=== PATIENT | male | born 1965 | race Caucasian/White ===

== ENCOUNTER 2016-10-01 12:01 | Emergency (ER) | payer MEDICAID ==
[2016-10-01] MEDS ORDERED: KETOROLAC 60 MG/2 ML VIAL IM STA (13:27)
[2016-10-01] MEDS ORDERED: KETOROLAC 60 MG/2 ML VIAL ONE (13:31)
== END 2016-10-01 14:35 | disposition home or self-care (01) ==
DX: J01.20 Acute ethmoidal sinusitis, unspecified (principal); I10 Essential (primary) hypertension; F17.200 Nicotine dependence, unspecified, uncomplicated

== ENCOUNTER 2016-10-03 | Outpatient (CLI) | payer MEDICAID | END 2016-10-03 13:34 | disposition critical access hospital (66) | DX: R45.851 Suicidal ideations (principal) | CPT/HCPCS: A0425; A0429 ==

== ENCOUNTER 2016-10-03 13:54 | Emergency (ER) | payer MEDICAID ==
[2016-10-03] MEDS ORDERED: ACETAMINOPHEN 500 MG TABLET PO STA (15:16)
[2016-10-03] MEDS ORDERED: ACETAMINOPHEN 500 MG TABLET PO ONE (15:19)
== END 2016-10-03 15:52 | disposition home or self-care (01) ==
DX: F33.1 Major depressive disorder, recurrent, moderate (principal); I10 Essential (primary) hypertension; F17.200 Nicotine dependence, unspecified, uncomplicated
CPT/HCPCS: 36415; 80053; 80306; 80320; 83690; 85025; 99283; A9270

== ENCOUNTER 2016-10-11 14:39 | Outpatient (CLI) | payer MEDICAID | END 2016-10-11 14:40 | disposition home or self-care (01) | DX: M19.011 Primary osteoarthritis, right shoulder (principal) ==

== ENCOUNTER 2016-10-11 14:44 | Outpatient (CLI) | payer MEDICAID | END 2016-10-11 14:45 | disposition home or self-care (01) | DX: R03.0 Elevated blood-pressure reading, without diagnosis of hypertension (principal); F32.9 Major depressive disorder, single episode, unspecified; M19.011 Primary osteoarthritis, right shoulder ==

== ENCOUNTER 2017-01-11 11:21 | Emergency (ER) | payer MEDICAID ==
[2017-01-11] MEDS ORDERED: HYDROcod/ACETAM 5/325 MG TABLET PO STA (14:53)
[2017-01-11] MEDS ORDERED: HYDROcod/ACETAM 5/325 MG TABLET ONE (15:23)
== END 2017-01-11 15:39 | disposition home or self-care (01) ==
DX: S46.911A Strain of unspecified muscle, fascia and tendon at shoulder and upper arm level, right arm, initial encounter (principal); X50.1XXA Overexertion from prolonged static or awkward postures, initial encounter; Y93.89 Activity, other specified; Y92.89 Other specified places as the place of occurrence of the external cause; Y99.0 Civilian activity done for income or pay; I10 Essential (primary) hypertension
CPT/HCPCS: 73000; 73030; 99283; A9270

== ENCOUNTER 2017-01-24 12:19 | Emergency (ER) | payer MEDICAID | END 2017-01-24 13:45 | disposition left against medical advice (07) | DX: Z76.0 Encounter for issue of repeat prescription (principal); Z53.21 Procedure and treatment not carried out due to patient leaving prior to being seen by health care provider ==

== ENCOUNTER 2017-01-29 14:27 | Emergency (ER) | payer MEDICAID | END 2017-01-29 14:59 | disposition home or self-care (01) | DX: F32.9 Major depressive disorder, single episode, unspecified (principal); Z76.0 Encounter for issue of repeat prescription; F41.9 Anxiety disorder, unspecified; I10 Essential (primary) hypertension; R44.3 Hallucinations, unspecified; F17.200 Nicotine dependence, unspecified, uncomplicated ==

== ENCOUNTER 2017-02-14 13:07 | Emergency (ER) | payer MEDICAID ==
--- NOTE | 2017-02-14 13:50 | ED Physician Documentation ---
PD HPI MHE - Stated complaint Stated Complaint: MED REFILL - Chief complaint Chief Complaint: General - History obtained from History obtained from: Patient - History of Present Illness Primary symptom: Out of meds (he feels that they have been working for him well. Had gotten Rxs through [facility] but the psychiatrist there is out sick, so could not get meds Rx.) Contributing factors: Out of meds Recently seen: Not recently seen Review of Systems Constitutional: denies: Fever, Chills Psychiatric: reports: Depressed. denies: Suicidal, Homicidal, Delusions PD PAST MEDICAL HISTORY - Past Medical History Cardiovascular: Hypertension Respiratory: None Neuro: None Endocrine/Autoimmune: None GI: None : None HEENT: None Psych: Depression, Other Musculoskeletal: None Derm: None - Past Surgical History Past Surgical History: Yes General: Splenectomy Ortho: Shoulder arthroplasty HEENT: Myringotomy (tubes) - Present Medications Home Medications: Ambulatory Orders Medication Instructions Recorded Confirmed FLUoxetine [PROzac] 40 mg ORAL DAILY 01/29/17 02/14/17 Melatonin 1 mg ORAL QPM 01/29/17 02/14/17 OLANZapine [ZyPREXA] 15 mg ORAL DAILY 01/29/17 02/14/17 Fluoxetine HCl 40 mg PO DAILY #30 capsule 02/14/17 Melatonin 1 mg PO QPM #30 tablet 02/14/17 Olanzapine [Zyprexa] 15 mg PO DAILY #30 tablet 02/14/17 - Allergies Allergies/Adverse Reactions: Allergies Allergy/AdvReac Type Severity Reaction Status Date / Time No Known Drug Allergies Allergy Verified 02/14/17 13:17 - Social History Does the pt smoke?: No Smoking Status: Current every day smoker Does the pt drink ETOH?: No Does the pt have substance abuse?: No - Immunizations Immunizations are current?: Yes Immunizations: TDAP >10years/unknown - POLST Patient has POLST: No PD ED PE NORMAL - Vitals Vital signs reviewed: Yes - General General: Alert and oriented X 3, No acute distress, Well developed/nourished - Derm Derm: Normal color, Warm and dry - Neuro Neuro: Alert and oriented X 3, No motor deficit, Normal speech Results - Vitals Vitals: Vital Signs - 24 hr 02/14/17 02/14/17 13:14 14:18 Temperature 36.8 C Heart Rate 93 88 Respiratory 18 16 Rate Blood Pressure 155/95 H 125/75 O2 Saturation 98 100 Oxygen O2 Source Room air PD MEDICAL DECISION MAKING - ED course Complexity details: reviewed old records, considered differential, d/w patient Departure - Departure Disposition: Home, Self Care Clinical Impression: Medication refill Depression Qualifiers: Depression Type: unspecified Qualified Code(s): F32.9 - Major depressive disorder, single episode, unspecified Insomnia Qualifiers: Insomnia type: unspecified Qualified Code(s): G47.00 - Insomnia, unspecified Condition: Stable Record reviewed to determine appropriate education?: Yes Follow-Up: Jovani Dumont MD [Primary Care Provider] - [facility] [Provider Group] Prescriptions: Fluoxetine HCl 40 mg PO DAILY #30 capsule Melatonin 1 mg PO QPM #30 tablet Olanzapine [Zyprexa] 15 mg PO DAILY #30 tablet Comments: Continue usual medications. Call to make appt with [facility] or [facility] for further refills and continuation of medications. Discharge Date/Time: 02/14/17 14:18
[2017-02-14 14:20] VITALS: BP 125/75
== END 2017-02-14 14:18 | disposition home or self-care (01) ==
LOC: ED 13:07
DX: F32.9 Major depressive disorder, single episode, unspecified (principal); Z76.0 Encounter for issue of repeat prescription; G47.00 Insomnia, unspecified; I10 Essential (primary) hypertension; F17.200 Nicotine dependence, unspecified, uncomplicated
CPT/HCPCS: 99283

== ENCOUNTER 2017-05-20 12:25 | Emergency (ER) | payer MEDICAID ==
[2017-05-20 12:48] LABS: BILIRUBIN,URINE NEGATIVE (NEGATIVE); PH,URINE 5.5 PH (5.0-7.5); UA CHARGE (STRIP ONLY) YES; UR CULTURE IF IND NOT INDICATED
--- NOTE | 2017-05-20 13:21 | ED Physician Documentation ---
History of Present Illness - Stated complaint Stated Complaint: MALE - Chief complaint Chief Complaint: General - History obtained from History obtained from: Patient - History of Present Illness Timing: Other (51-year-old gentleman with a history of recurrent MRSA bladder infections and presumed prostatic hypertrophy. Had seen a urologist in the past and was maintained on Flomax but is not currently. For the last few days she he has had severe suprapubic pressure and urinary frequency despite only urinating small amounts and has had some rectal and testicular pain from the straining of urination. He also feels quite thirsty. No fevers or dysuria per se.) Review of Systems Constitutional: denies: Fever, Chills Cardiac: reports: Reviewed and negative Respiratory: reports: Reviewed and negative GI: denies: Abdominal Pain, Nausea, Vomiting, Constipation, Diarrhea PD PAST MEDICAL HISTORY - Past Medical History Past Medical History: Yes Cardiovascular: Hypertension Respiratory: None Neuro: None Endocrine/Autoimmune: None GI: None : None, Retention HEENT: None Psych: Depression, Other Musculoskeletal: None Derm: None - Past Surgical History Past Surgical History: Yes General: Splenectomy Ortho: Shoulder arthroplasty HEENT: Myringotomy (tubes) - Present Medications Home Medications: Ambulatory Orders Medication Instructions Recorded Confirmed FLUoxetine [PROzac] 40 mg ORAL DAILY 01/29/17 02/14/17 Olanzapine [Zyprexa] 15 mg PO DAILY #30 tablet 02/14/17 Tamsulosin [Flomax] 0.4 mg PO DAILY #30 capsule 05/20/17 - Allergies Allergies/Adverse Reactions: Allergies Allergy/AdvReac Type Severity Reaction Status Date / Time No Known Drug Allergies Allergy Verified 05/20/17 12:34 - Social History Does the pt smoke?: No Smoking Status: Current every day smoker Does the pt drink ETOH?: No Does the pt have substance abuse?: No - Immunizations Immunizations are current?: Yes Immunizations: TDAP >10years/unknown - POLST Patient has POLST: No PD ED PE NORMAL - Vitals Vital signs reviewed: Yes - General General: Alert and oriented X 3, No acute distress - Abdomen Abdomen: Normal bowel sounds, Soft, Other (suprapubic fullness, >999ml on bladder scan done by me during exam.) - Extremities Extremities: No edema, No calf tenderness / cord - Neuro Neuro: Alert and oriented X 3, Normal speech Results - Vitals Vitals: Vital Signs - 24 hr 05/20/17 12:30 Temperature 36.6 C Heart Rate 85 Respiratory 16 Rate Blood Pressure 152/93 H O2 Saturation 99 Oxygen O2 Source Room air - Labs Labs: Laboratory Tests 05/20/17 12:39 Urine Color YELLOW Urine Clarity CLEAR Urine pH 5.5 Ur Specific [place] <=1.005 Urine Protein NEGATIVE Urine Glucose (UA) NEGATIVE Urine Ketones NEGATIVE Urine Occult Blood TRACE-INTA Urine Nitrite NEGATIVE Urine Bilirubin NEGATIVE Urine Urobilinogen 0.2 (NORMAL) Ur Leukocyte Esterase NEGATIVE Ur Microscopic Review NOT INDICATED Urine Culture Comments NOT INDICATED PD MEDICAL DECISION MAKING - ED course ED course: 51-year-old gentleman with history of presumed prostatic hypertrophy, not currently on Flomax presents with signs and symptoms of acute urinary retention. A Hudson was placed. The patient was counseled as to the diagnosis and need for follow-up. I counseled the patient with regard to signs and symptoms that would necessitate an urgent reevaluation in the emergency department. They understand they are welcome to return at any time if worse or if not improving as expected. This document was made in part using voice recognition software. While efforts are made to proofread this documents, sound alike and grammatical errors may occur. Departure - Departure Disposition: 01 Home, Self Care Clinical Impression: Urinary retention Condition: Good Record reviewed to determine appropriate education?: Yes Instructions: ED Catheter Care Hudson, ED Retention Urinary Male Prescriptions: Tamsulosin [Flomax] 0.4 mg PO DAILY #30 capsule Comments: Follow-up with your physician in 3 days for reevaluation and potential catheter removal, return here if unable to schedule a timely appointment with them. Your blood pressure was elevated today on check into the emergency department. This does not mean that you have hypertension, it is a common phenomenon to come to the emergency department and have elevated blood pressure. I recommend that she see her primary care physician within the week to have it rechecked when you are feeling better.
[2017-05-20] MEDS ORDERED: LIDOCAINE 2% URO-JET 5 ML SYRINGE UR STA (14:10)
[2017-05-20] MEDS ORDERED: LIDOCAINE 2% URO-JET 5 ML SYRINGE UR ONE (14:14)
[2017-05-20] MEDS ORDERED: IBUPROFEN 800 MG TABLET PO STA (14:52)
[2017-05-20] MEDS ORDERED: IBUPROFEN 800 MG TABLET PO ONE (15:01)
[2017-05-20 15:19] VITALS: BP 140/84
== END 2017-05-20 15:00 | disposition home or self-care (01) ==
LOC: ED 12:25
DX: R33.9 Retention of urine, unspecified (principal); I10 Essential (primary) hypertension; F17.200 Nicotine dependence, unspecified, uncomplicated; Z86.14 Personal history of Methicillin resistant Staphylococcus aureus infection; Z87.440 Personal history of urinary (tract) infections; Z90.81 Acquired absence of spleen
CPT/HCPCS: 51703; 81003; 99283; A9270; 81001; 87086

== ENCOUNTER 2017-05-23 13:17 | Emergency (ER) | payer MEDICAID ==
[2017-05-23 13:55] VITALS: BP 148/84
== END 2017-05-23 15:39 | disposition left against medical advice (07) ==
LOC: ED 13:17
DX: Z53.21 Procedure and treatment not carried out due to patient leaving prior to being seen by health care provider (principal)

== ENCOUNTER 2017-05-23 16:24 | Emergency (ER) | payer MEDICAID ==
[2017-05-23 16:42] VITALS: BP 120/78
[2017-05-23 17:07] LABS: BILIRUBIN,URINE NEGATIVE (NEGATIVE); UA w/ MICROSCOPIC CHARGE YES
[2017-05-23 17:13] LABS: UR CULTURE IF IND NOT INDICATED; WBC,URINE 0-3 /HPF (0-3)
== END 2017-05-23 16:45 | disposition left against medical advice (07) ==
LOC: ED 16:24
DX: Z53.21 Procedure and treatment not carried out due to patient leaving prior to being seen by health care provider (principal)
CPT/HCPCS: 81001; 81003; 87086

== ENCOUNTER 2017-10-07 15:03 | Outpatient (CLI) | payer MEDICAID ==
--- NOTE | 2017-10-08 12:11 | CT Report ---
DATE OF SERVICE: 10/07/2017 CT SINUSES WITHOUT CONTRAST: 10/07/2017 CLINICAL INDICATION: Chronic sinusitis. TECHNIQUE: Axial CT images of the paranasal sinuses were obtained without contrast, following which, sagittal and coronal reconstructions were performed. In accordance with CT protocol optimization, one or more of the following dose reduction techniques were utilized for this exam: Automated exposure control, adjustment of mA and/or KV based on patient size, or use of iterative reconstructive technique. FINDINGS: There is mild mucosal thickening in the sphenoid sinus, ethmoid air cells, frontal sinuses, and maxillary sinuses. There is no air fluid level. The ostiomeatal units are patent bilaterally. The septum is midline. No osseous destruction is seen. The visualized intraorbital contents are unremarkable. Remote nasal bone fracture is incidentally noted. IMPRESSION: Mild chronic mucosal thickening throughout the paranasal sinuses without evidence of acute sinusitis. TD: 10/08/2017 13:11 [email or web address]
== END 2017-10-07 15:04 | disposition home or self-care (01) ==
LOC: DI 15:03
PROVIDERS: ATTEND Otolaryngology
DX: J32.8 Other chronic sinusitis (principal)
CPT/HCPCS: 70486

== ENCOUNTER 2017-11-04 13:16 | Emergency (ER) | payer MEDICAID ==
--- NOTE | 2017-11-04 14:16 | ED Physician Documentation ---
PD HPI DYSPNEA - Stated complaint Stated Complaint: DIFFICULTY BREATHING/CHEST TIGHTNESS - Chief complaint Chief Complaint: General - History obtained from History obtained from: Patient - History of Present Illness Timing - onset: How many weeks ago (2) Timing - onset during: Rest Timing - duration: Weeks (2) Timing - details: Gradual onset, Still present Inciting event(s): URI Improved by: Rest Worsened by: Exertion, Coughing Associated symptoms: Cough, Chest pain / discomfort Similar symptoms before: Has not had sx before Recently seen: Not recently seen - Additional information Additional information: 52 y/o male with a history of prior chest trauma to include the stomach and spleen in the chest in 2013 has developed a sensation of difficulty with getting a full deep breath. Review of Systems Constitutional: denies: Fever Eyes: denies: Decreased vision Ears: denies: Ear pain Nose: reports: Congestion. denies: Rhinorrhea / runny nose Throat: denies: Sore throat Cardiac: reports: Chest pain / pressure. denies: Palpitations, Pedal edema Respiratory: reports: Dyspnea, Cough GI: denies: Abdominal Pain, Nausea, Vomiting : denies: Dysuria, Frequency PD PAST MEDICAL HISTORY - Past Medical History Cardiovascular: Hypertension Respiratory: None Neuro: None Endocrine/Autoimmune: None GI: None : None, Retention HEENT: None Psych: Depression, Other Musculoskeletal: None Derm: None - Past Surgical History Past Surgical History: Yes General: Splenectomy Ortho: Shoulder arthroplasty HEENT: Myringotomy (tubes) - Present Medications Home Medications: Ambulatory Orders Medication Instructions Recorded Confirmed No Known Home Medications [No 07/18/17 07/18/17 Known Home Medications] - Allergies Allergies/Adverse Reactions: Allergies Allergy/AdvReac Type Severity Reaction Status Date / Time No Known Drug Allergies Allergy Verified 11/04/17 13:28 - Social History Does the pt smoke?: No Smoking Status: Current every day smoker Does the pt drink ETOH?: No Does the pt have substance abuse?: No - Immunizations Immunizations are current?: Yes Immunizations: TDAP >10years/unknown - POLST Patient has POLST: No PD ED PE NORMAL - Vitals Vital signs reviewed: Yes (hypertensive ) - General General: Alert and oriented X 3, No acute distress, Well developed/nourished - HEENT HEENT: Atraumatic, PERRL, EOMI, Ears normal, Other (dry mucous membranes ) - Neck Neck: Supple, no meningeal sign, No bony TTP - Cardiac Cardiac: RRR, No murmur - Respiratory Respiratory: No respiratory distress, Other (light rhonchi in the right lower. Barrel chest) - Abdomen Abdomen: Soft, Non tender - Back Back: No CVA TTP, No spinal TTP - Neuro Neuro: Alert and oriented X 3, No motor deficit, No sensory deficit, Normal speech Eye Opening: Spontaneous Motor: Obeys Commands Verbal: Oriented GCS Score: 15 - Psych Psych: Normal mood, Normal affect Results - Vitals Vitals: Vital Signs - 24 hr 11/04/17 11/04/17 13:21 14:41 Temperature 36 C L Heart Rate 85 92 Respiratory 18 15 Rate Blood Pressure 148/95 H O2 Saturation 100 Oxygen O2 Source Room air - Labs Labs: Laboratory Tests 11/04/17 11/04/17 11/04/17 14:12 14:12 14:12 WBC 7.5 RBC 4.46 L Hgb 13.3 L Hct 38.8 L MCV 87.1 MCH 29.8 MCHC 34.2 RDW 13.5 Plt Count 191 MPV 7.9 Neut # 4.7 Lymph # 2.2 [place] # 0.4 Eos # 0.2 Baso # 0.0 Absolute Nucleated RBC 0.01 Nucleated RBC % 0.1 Sodium 138 Potassium 4.0 Chloride 100 L Carbon Dioxide 23 Anion Gap 15.0 H BUN 23 H Creatinine 1.7 H Estimated GFR (MDRD) 43 L Glucose 104 H Calcium 9.0 Total Bilirubin 0.3 AST 23 ALT 14 Alkaline Phosphatase 65 Troponin I < 0.04 Total Protein 7.8 Albumin 4.4 Globulin 3.4 Albumin/Globulin Ratio 1.3 Lipase 17 L Procedures - IVC sono (time) 1535 Bedside IVC sono: IVC measures (cm) (0.92), IVC collapsed c insp (cm) (complete) , Dehydration (est 2 liter deficit) PD MEDICAL DECISION MAKING - ED course Complexity details: reviewed old records, reviewed results, re-evaluated patient , considered differential, d/w patient Departure - Departure Disposition: 01 Home, Self Care Clinical Impression: Dehydration Condition: Stable Instructions: ED Dehydration Follow-Up: Dominick Meehan PA-C [Primary Care Provider] -
[2017-11-04 14:19] LABS: BASOPHILS % (AUTO) 0.5 %; EOSINOPHILS # (AUTO) 0.2 10^3/uL (0.0-0.7); EOSINOPHILS % (AUTO) 2.6 %; HGB - HEMOGLOBIN 13.3 g/dL (14.0-18.0); LYMPHOCYTES # (AUTO) 2.2 10^3/uL (1.5-3.5); LYMPHOCYTES % (AUTO) 29.2 %; MEAN CORPUSCULAR HEMOGLOBIN 29.8 pg (27.0-31.0); MEAN CORPUSCULAR HGB CONC 34.2 g/dL (32.0-36.0); MEAN CORPUSCULAR VOLUME 87.1 fL (80.0-94.0); MEAN PLATELET VOLUME 7.9 fL (7.4-11.4); MONOCYTES # (AUTO) 0.4 10^3/uL (0.0-1.0); MONOCYTES % (AUTO) 4.7 %; NEUTROPHILS # (AUTO) 4.7 10^3/uL (1.5-6.6); PLT - PLATELET COUNT 191 10^3/uL (130-450); RED BLOOD COUNT 4.46 10^6/uL (4.70-6.10); RED CELL DISTRIBUTION WIDTH 13.5 % (12.0-15.0); WHITE BLOOD COUNT 7.5 x10^3/uL (4.8-10.8)
[2017-11-04] MEDS ORDERED: IPRATROPIUM/ALBUTEROL 3 ML NEB INH STA (14:24)
[2017-11-04] MEDS ORDERED: DEXAMETHASONE 10 MG/ML VIAL IVP STA (14:24)
[2017-11-04 14:34] LABS: ALBUMIN 4.4 g/dL (3.2-5.5); ALBUMIN/GLOBULIN RATIO 1.3 (1.0-2.2); BILIRUBIN,TOTAL 0.3 mg/dL (0.2-1.0); CREATININE 1.7 mg/dL (0.6-1.2); TOTAL PROTEIN 7.8 g/dL (6.7-8.2)
--- NOTE | 2017-11-04 14:39 | XRAY Preliminary Report ---
Exam: XR CHEST 1 VIEW X-RAY IMPRESSION: No acute cardiopulmonary abnormality. [facility] SITE ID: [id number]
--- NOTE | 2017-11-04 14:39 | XRAY Report ---
EXAM: CHEST RADIOGRAPHY EXAM DATE: 11/04/2017 02:27 PM. CLINICAL HISTORY: Chest pain. COMPARISON: 09/26/2012. TECHNIQUE: 1 view. FINDINGS: Lungs/Pleura: There is elevation of the right hemidiaphragm which appears similar to previous. No acu te consolidation or edema. Negative for pneumothorax. Mediastinum: Within exam limitations, the cardiomediastinal contour is normal. Other: There is an old healed right clavicle fracture and there are multiple old healed left rib frac tures. Previous bilateral shoulder surgery. IMPRESSION: No acute cardiopulmonary abnormality. [facility] Referring Provider Line: [phone] SITE ID: [id number]
[2017-11-04] MEDS ORDERED: SODIUM CHLORIDE 0.9% 1,000 ML IV ONE (15:41)
[2017-11-04] MEDS ORDERED: ONDANSETRON 4 MG/2 ML VIAL IVP STA (15:52)
[2017-11-04 18:11] VITALS: BP 162/113
== END 2017-11-04 18:13 | disposition home or self-care (01) ==
LOC: ED 13:16
DX: E86.0 Dehydration (principal); I10 Essential (primary) hypertension; F17.200 Nicotine dependence, unspecified, uncomplicated
CPT/HCPCS: 36415; 71045; 80053; 83690; 84484; 85025; 93005; 94640; 94664; 96361; 96374; 99283; 99284; J7620

== ENCOUNTER 2017-12-17 12:25 | Outpatient (CLI) | payer MEDICAID ==
--- NOTE | 2017-12-17 22:34 | MRI Report ---
EXAM: RIGHT SHOULDER MRI WITHOUT CONTRAST EXAM DATE: 12/17/2017 01:35 PM. CLINICAL HISTORY: Old left and right rotator cuff tears. COMPARISON: MRI 05/20/2013. TECHNIQUE: Multiplanar, multisequence T1-weighted and fluid-sensitive sequences of the shoulder witho ut contrast. Other: None. FINDINGS: Multiple foci of susceptibility artifact from prior surgery mildly limited evaluation. Acromioclavicular Region: Postsurgical changes of distal clavicle excision and subacromial decompress ion. Moderate mechanical wear at the undersurface of the acromion. The coracoacromial and coracoclavi cular ligaments are intact. Minimal subacromial/subdeltoid bursal fluid. Glenohumeral Region: Superior subluxation of the humeral head abutting the undersurface of the acromi on. Minimal joint fluid with synovitis. Diffuse deep partial-thickness cartilage loss at the mid to s uperior aspect of the joint. Moderate-sized humeral head osteophytes, progressed. Joint capsule is un remarkable. Bone Marrow: No fracture or bone lesion. Mild reactive edema and subchondral cyst at the superior asp ect of the glenoid. Labrum: Degenerative fraying at the posterior-superior aspect. Degenerative fraying and possible tear at the posterior inferior aspect. Musculature/Rotator Cuff: Evaluation mildly limited by susceptibility artifact. Full-thickness nearly full-width tear supraspinatus tendon. A few fibers anteriorly may remain intact. Full-thickness nearly full-width tear infraspinatus tendon. A few fibers posteriorly may remain intac t. Teres minor tendon is intact. Full-thickness nearly full-width tear subscapularis tendon. Some fibers at the inferior aspect may re main intact. Mild fatty atrophy of the supraspinatus muscle. Moderate to severe fatty atrophy and volume loss of the infraspinatus and subscapularis muscles. Biceps Tendon: No discernible intact intra-articular fibers. Possible tenodesis with mild thickening of the extra-articular portion. Other: The subcutaneous tissues are unremarkable. IMPRESSION: 1. Full-thickness nearly full-width tears supraspinatus, infraspinatus, and subscapularis tendons. Mo derate to severe fatty atrophy of the infraspinatus and subscapularis muscles (Goutallier grade 3). M ild fatty atrophy of the supraspinatus muscle (Goutallier grade 2). 2. Mild thickening of the extra-articular biceps tendon. This may be postsurgical versus tendinopathy . 3. Moderate to severe glenohumeral degenerative change, slightly progressed. 4. Degenerative fraying of the labrum with possible partial-thickness tear at the posterior inferior aspect. [facility] MUSCULOSKELET[facility] SE[facility] Referring Provider Line: [phone] SITE ID: [id number]
--- NOTE | 2017-12-17 22:34 | MRI Report ---
EXAM: LEFT SHOULDER MRI WITHOUT CONTRAST EXAM DATE: 12/17/2017 01:04 PM. CLINICAL HISTORY: Old left and right rotator cuff tears. COMPARISON: MRI 06/06/2011. TECHNIQUE: Multiplanar, multisequence T1-weighted and fluid-sensitive sequences of the shoulder witho ut contrast. Other: None. FINDINGS: Acromioclavicular Region: Postsurgical changes of subacromial decompression. Mild degenerative change at the joint with small inferiorly directed osteophytes, similar. The coracoacromial and coracoclavi cular ligaments are intact. Mild subacromial/subdeltoid bursal fluid. Glenohumeral Region: No subluxation. No effusion or loose bodies. Shallow partial-thickness cartilage loss at the central to superior aspect of the joint. The glenohumeral ligaments and joint capsule ar e unremarkable. Bone Marrow: No fracture or bone lesion. Suture anchors at the greater tuberosity. Labrum: Mild blunting and irregularity at the superior aspect, likely postsurgical. Musculature/Rotator Cuff: Diffuse thinning of the central to posterior fibers supraspinatus tendon in volving a region measuring 1.6 x 2.9 cm, likely due to a combination of deep bursal surface and deep articular surface tearing. Local full-thickness perforation at the central aspect of this site (sagit pardeep images 8). Superimposed second small partial-thickness articular surface tear at the central fibe rs measuring 0.6 x 0.4 cm (coronal images 11). Mild thickening of the anterior fibers supraspinatus tendon. Mild infraspinatus tendinopathy with subtle partial-thickness intrasubstance tear at the insertion of the anterior fibers. Teres minor tendon is intact. Mild subscapularis tendinopathy with shallow partial-thickness undersurface tear at the insertion of the mid to superior fibers. No muscle edema. Minimal fatty atrophy in the infraspinatus muscle. Biceps Tendon: No discernible intact fibers. Other: The subcutaneous tissues are unremarkable. IMPRESSION: 1. Deep partial-thickness bursal surface and articular surface tearing at the central to posterior fi bers supraspinatus tendon with focal full-thickness perforation. 2. Mild supraspinatus and infraspinatus tendinopathy. 3. Mild subscapularis tendinopathy with shallow partial-thickness undersurface tear at the mid to sup erior fibers. 4. Complete disruption of the biceps tendon. This may be due to old trauma versus postsurgical. 5. Likely postsurgical changes at the superior labrum. 6. Mild subacromial subdeltoid bursitis. [facility]CULOSKELETAL [facility]OLOG[facility] SECTION Referring Provider Line: [phone] SITE ID: [id number]
== END 2017-12-17 12:26 | disposition home or self-care (01) ==
LOC: DI 12:25
PROVIDERS: ATTEND Orthopaedic Surgery
DX: M75.102 Unspecified rotator cuff tear or rupture of left shoulder, not specified as traumatic (principal); M75.101 Unspecified rotator cuff tear or rupture of right shoulder, not specified as traumatic; S46.212A Strain of muscle, fascia and tendon of other parts of biceps, left arm, initial encounter; M75.52 Bursitis of left shoulder; M62.511 Muscle wasting and atrophy, not elsewhere classified, right shoulder; M19.011 Primary osteoarthritis, right shoulder; M19.012 Primary osteoarthritis, left shoulder

== ENCOUNTER 2018-01-14 14:50 | Emergency (ER) | payer MEDICAID ==
[2018-01-14 16:11] LABS: BASOPHILS % (AUTO) 0.8 %; EOSINOPHILS # (AUTO) 0.1 10^3/uL (0.0-0.7); EOSINOPHILS % (AUTO) 2.3 %; HGB - HEMOGLOBIN 10.7 g/dL (14.0-18.0); LYMPHOCYTES # (AUTO) 1.3 10^3/uL (1.5-3.5); MEAN CORPUSCULAR HEMOGLOBIN 29.2 pg (27.0-31.0); MEAN CORPUSCULAR HGB CONC 32.7 g/dL (32.0-36.0); MEAN CORPUSCULAR VOLUME 89.3 fL (80.0-94.0); MEAN PLATELET VOLUME 7.4 fL (7.4-11.4); MONOCYTES # (AUTO) 0.4 10^3/uL (0.0-1.0); MONOCYTES % (AUTO) 6.6 %; NEUTROPHILS # (AUTO) 3.5 10^3/uL (1.5-6.6); NEUTROPHILS % (AUTO) 65.3 %; PLT - PLATELET COUNT 209 10^3/uL (130-450); RED BLOOD COUNT 3.65 10^6/uL (4.70-6.10); RED CELL DISTRIBUTION WIDTH 13.7 % (12.0-15.0); WHITE BLOOD COUNT 5.4 x10^3/uL (4.8-10.8)
[2018-01-14] MEDS: SODIUM CHLORIDE 0.9% 1,000 ML IV ONE ×2 (16:22→17:48)
[2018-01-14 16:26] LABS: ALBUMIN 4.1 g/dL (3.2-5.5); ALBUMIN/GLOBULIN RATIO 1.2 (1.0-2.2); BILIRUBIN,TOTAL 0.3 mg/dL (0.2-1.0); CALCIUM 8.5 mg/dL (8.5-10.3); CREATININE 5.6 mg/dL (0.6-1.2); TOTAL PROTEIN 7.4 g/dL (6.7-8.2)
[2018-01-14 16:27] LABS: BILIRUBIN,URINE NEGATIVE (NEGATIVE); GLUCOSE, URINE (UA) NEGATIVE (NEGATIVE); KETONES,URINE (UA) NEGATIVE (NEGATIVE); LEUKOCYTE ESTERASE, URINE NEGATIVE (NEGATIVE); NITRITE,URINE NEGATIVE (NEGATIVE); OCCULT BLOOD,URINE NEGATIVE (NEGATIVE); PH,URINE 5.5 PH (5.0-7.5); PROTEIN,URINE NEGATIVE (NEGATIVE); UROBILINOGEN,URINE 0.2 (NORMAL) E.U./dL (NORMAL)
[2018-01-14 16:28] LABS: CLARITY,URINE CLEAR (CLEAR)
--- NOTE | 2018-01-14 16:54 | ED Physician Documentation ---
History of Present Illness - Stated complaint Stated Complaint: BACK PX/UNABLE TO URINATE/NAUSEA - Chief complaint Chief Complaint: General - History obtained from History obtained from: Patient - Additonal information Additional information: The patient is a 52-year-old male who states, "I can't pee." He has had decreased urine output for the past 4-5 days, stating that it "just dribbles." He also complains of low back pain, as well as watery diarrhea for the past for 5 days. He had vomiting 2 days ago, but not since then. He denies fever, cough , or shortness of breath. His past medical history is significant for recurrent urinary tract infections with MRSA. Review of his medical records reveals most recent positive urine culture was in 2013. He denies the use of alcohol or other drugs. He was seen here 2 months ago and diagnosed with dehydration. His BUN and creatinine at that time were 23 and 1.7. Review of Systems Constitutional: denies: Fever Nose: denies: Congestion Throat: denies: Sore throat Cardiac: denies: Chest pain / pressure Respiratory: denies: Dyspnea, Cough GI: reports: Vomiting (2 days ago, but not since.), Diarrhea (Watery.). denies : Abdominal Pain : reports: Hesitancy. denies: Dysuria Skin: denies: Rash Musculoskeletal: reports: Back pain (Lower back) Neurologic: reports: Headache (Mild). denies: Focal weakness, Numbness PD PAST MEDICAL HISTORY - Past Medical History Past Medical History: Yes Cardiovascular: Hypertension Respiratory: None Neuro: None Endocrine/Autoimmune: None GI: None : None, Retention HEENT: None Psych: Depression, Other Musculoskeletal: None Derm: None Other Past Medical History: History of traumatic diaphragmatic rupture. - Past Surgical History Past Surgical History: Yes General: Splenectomy Ortho: Shoulder arthroplasty HEENT: Myringotomy (tubes) - Present Medications Home Medications: Ambulatory Orders Medication Instructions Recorded Confirmed Aripiprazole [Abilify] 0 mg 01/14/18 Bp Med 0 mg 01/14/18 - Allergies Allergies/Adverse Reactions: Allergies Allergy/AdvReac Type Severity Reaction Status Date / Time No Known Drug Allergies Allergy Verified 01/14/18 15:01 - Social History Does the pt smoke?: No Smoking Status: Never smoker Does the pt drink ETOH?: No Does the pt have substance abuse?: No - Immunizations Immunizations are current?: Yes Immunizations: TDAP >10years/unknown - POLST Patient has POLST: No PD ED PE NORMAL - Vitals Vital signs reviewed: Yes (Hypertensive) - General General: Alert and oriented X 3, Well developed/nourished - HEENT HEENT: Atraumatic, Moist mucous membranes, Pharynx benign - Neck Neck: Supple, no meningeal sign, No adenopathy, No JVD - Cardiac Cardiac: RRR, No murmur - Respiratory Respiratory: No respiratory distress, Clear bilaterally - Abdomen Abdomen: Normal bowel sounds, Soft, Non tender - Back Back: No CVA TTP - Derm Derm: No rash - Extremities Extremities: No edema, No calf tenderness / cord - Neuro Neuro: Alert and oriented X 3, No motor deficit, Normal speech Results - Vitals Vitals: Vital Signs - 24 hr 01/14/18 01/14/18 01/14/18 14:56 16:55 19:26 Temperature 36.8 C Heart Rate 85 80 80 Respiratory 20 16 16 Rate Blood Pressure 179/114 H 182/122 H 176/118 H O2 Saturation 99 99 99 01/14/18 20:42 Temperature 36.8 C Heart Rate 81 Respiratory 15 Rate Blood Pressure 183/111 H O2 Saturation 98 Oxygen O2 Source Room air - Labs Labs: Laboratory Tests 01/14/18 01/14/18 01/14/18 16:00 16:01 16:01 WBC 5.4 RBC 3.65 L Hgb 10.7 L Hct 32.6 L MCV 89.3 MCH 29.2 MCHC 32.7 RDW 13.7 Plt Count 209 MPV 7.4 Neut # 3.5 Lymph # 1.3 L [place] # 0.4 Eos # 0.1 Baso # 0.0 Absolute Nucleated RBC 0.00 Nucleated RBC % 0.0 Sodium 137 Potassium 4.8 Chloride 109 Carbon Dioxide 17 L Anion Gap 11.0 BUN 60 H Creatinine 5.6 H Estimated GFR (MDRD) 11 L Glucose 92 Calcium 8.5 Total Bilirubin 0.3 AST 19 ALT 13 Alkaline Phosphatase 68 Total Creatine Kinase CK-MB (CK-2) 4.6 Total Protein 7.4 Albumin 4.1 Globulin 3.3 Albumin/Globulin Ratio 1.2 Lipase 28 Urine Color Urine Clarity Urine pH Ur Specific [place] Urine Protein Urine Glucose (UA) Urine Ketones Urine Occult Blood Urine Nitrite Urine Bilirubin Urine Urobilinogen Ur Leukocyte Esterase Ur Microscopic Review Urine Culture Comments 01/14/18 01/14/18 16:01 16:05 WBC RBC Hgb Hct MCV MCH MCHC RDW Plt Count MPV Neut # Lymph # [place] # Eos # Baso # Absolute Nucleated RBC Nucleated RBC % Sodium Potassium Chloride Carbon Dioxide Anion Gap BUN Creatinine Estimated GFR (MDRD) Glucose Calcium Total Bilirubin AST ALT Alkaline Phosphatase Total Creatine Kinase 100 CK-MB (CK-2) Total Protein Albumin Globulin Albumin/Globulin Ratio Lipase Urine Color YELLOW Urine Clarity CLEAR Urine pH 5.5 Ur Specific [place] <=1.005 Urine Protein NEGATIVE Urine Glucose (UA) NEGATIVE Urine Ketones NEGATIVE Urine Occult Blood NEGATIVE Urine Nitrite NEGATIVE Urine Bilirubin NEGATIVE Urine Urobilinogen 0.2 (NORMAL) Ur Leukocyte Esterase NEGATIVE Ur Microscopic Review NOT INDICATED Urine Culture Comments NOT INDICATED PD MEDICAL DECISION MAKING - ED course Complexity details: reviewed old records, reviewed results, re-evaluated patient , considered differential, d/w patient, d/w consumer services consultant ED course: The patient's presentation is significant for acute renal failure, with a BUN of 60 and creatinine 5.6. This is compared to a prior BUN of 23 and creatinine of 1.7 two months ago. Prior to that his creatinine was normal at 0.9. The underlying cause of his acute renal failure is uncertain at this time. The patient denies any recent use of nonsteroidal anti-inflammatory medication. There is no sign of an obstructive uropathy, with only 160 milliliters of urine in his bladder. Despite his recent diarrhea, he does not appear to be profoundly dehydrated, and has a urine specific gravity of less than 1.005. Urinalysis reveals no evidence of urinary tract infection, or microscopic hematuria. Treatment in the emergency department included administration of normal saline IV, and acetaminophen 1000 mg IV. I discussed his condition with Dr. Rodarte who will accept him in transfer to [facility]. I discussed his condition with the hospitalist, Dr. Tsang who will accept him in transfer. Transfer forms were completed. Departure - Departure Disposition: 02 Transfer Acute Care Hosp Clinical Impression: Acute renal failure Qualifiers: Acute renal failure type: unspecified Qualified Code(s): N17.9 - Acute kidney failure, unspecified Condition: Stable Discharge Date/Time: 01/14/18 20:54
[2018-01-14] MEDS: ACETAMINOPHEN 1,000 MG/100 ML 100 ML IV STA (17:48)
[2018-01-14 20:42] VITALS: BP 183/111
== END 2018-01-14 20:54 | disposition short-term general hospital (02) ==
LOC: ED 14:50
DX: N17.9 Acute kidney failure, unspecified (principal); I10 Essential (primary) hypertension; Z90.81 Acquired absence of spleen
CPT/HCPCS: 36415; 51798; 80053; 81003; 82550; 82553; 83690; 85025; 96361; 96365; 96366; 99283; 99284; J0131; 81001; 87086

== ENCOUNTER 2018-01-14 20:45 | Outpatient (CLI) | payer MEDICAID | END 2018-01-14 20:46 | disposition short-term general hospital (02) | LOC: EMS 20:45 | PROVIDERS: ATTEND Surgery | DX: N17.9 Acute kidney failure, unspecified (principal) | CPT/HCPCS: A0170; A0425; A0426 ==

== ENCOUNTER 2018-01-23 15:25 | Emergency (ER) | payer MEDICAID ==
[2018-01-23 15:42] VITALS: BP 143/96
--- NOTE | 2018-01-23 15:54 | ED Physician Documentation ---
History of Present Illness - Stated complaint Stated Complaint: CATH BROKE - Chief complaint Chief Complaint: General - History obtained from History obtained from: Patient - Additonal information Additional information: The patient is a 52-year-old male who presents with a leaking Hudson leg bag. He was discharged from [facility] earlier in the week with an indwelling Hudson catheter with leg bag. Today he was kneeling when he crushed the tubing at its insertion site with the leg bag between his pretibial region and the surface against which he was kneeling. Review of Systems Constitutional: denies: Fever GI: denies: Abdominal Pain, Nausea, Vomiting : reports: Hudson Problem. denies: Dysuria PD PAST MEDICAL HISTORY - Past Medical History Cardiovascular: Hypertension Respiratory: None Neuro: None Endocrine/Autoimmune: None GI: None : Retention, Indwelling catheter HEENT: None Psych: Depression, Other Musculoskeletal: None Derm: None - Past Surgical History Past Surgical History: Yes General: Splenectomy Ortho: Shoulder arthroplasty HEENT: Myringotomy (tubes) - Present Medications Home Medications: Ambulatory Orders Medication Instructions Recorded Confirmed Aripiprazole [Abilify] 0 mg 01/14/18 Bp Med 0 mg 01/14/18 - Allergies Allergies/Adverse Reactions: Allergies Allergy/AdvReac Type Severity Reaction Status Date / Time No Known Drug Allergies Allergy Verified 01/23/18 15:42 - Social History Does the pt smoke?: No Smoking Status: Never smoker Does the pt drink ETOH?: No Does the pt have substance abuse?: No - Immunizations Immunizations are current?: Yes Immunizations: TDAP >10years/unknown - POLST Patient has POLST: No PD ED PE NORMAL - Vitals Vital signs reviewed: Yes (Mild hypertension initially.) - General General: Alert and oriented X 3, Well developed/nourished - HEENT HEENT: Atraumatic - Respiratory Respiratory: No respiratory distress - Male Male : Other (Hudson catheter is in place. At the site where the tubing enters the leg bag, there is a break that leaks.) - Back Back: No CVA TTP - Derm Derm: No rash - Extremities Extremities: No edema - Neuro Neuro: Alert and oriented X 3, Normal speech Results - Vitals Vitals: Vital Signs - 24 hr 01/23/18 15:32 Temperature 37.2 C Heart Rate 113 H Respiratory 15 Rate Blood Pressure 143/96 H O2 Saturation 97 Oxygen O2 Source Nasal cannula PD MEDICAL DECISION MAKING - ED course Complexity details: reviewed old records, considered differential, d/w patient ED course: The patient's presentation is significant for a leaking Hudson catheter leg bag after the patient crushed the tubing at its insertion site to the leg bag. He has no other complaints. Treatment in the emergency department included removal of the old leg bag and replacement with a new one. The patient has a follow-up appointment scheduled with urology 4 days from now. I discussed with him potentially worrisome signs or symptoms that should prompt reevaluation in the emergency department. Departure - Departure Disposition: 01 Home, Self Care Clinical Impression: Hudson catheter problem Qualifiers: Encounter type: initial encounter Qualified Code(s): T83.9XXA - Unspecified complication of genitourinary prosthetic device, implant and graft, initial encounter Condition: Stable Instructions: ED Catheter Care Hudson Follow-Up: [facility] [Provider Group] Comments: Continue using the urine leg bag as instructed previously at [facility]. Follow up with urologist on Saturday as planned. Return to the emergency department if you develop recurrent problems with your catheter or leg bag, or otherwise worsening symptoms. Discharge Date/Time: 01/23/18 16:25
== END 2018-01-23 16:25 | disposition home or self-care (01) ==
LOC: ED 15:25
DX: T83.038A Leakage of other urinary catheter, initial encounter (principal); I10 Essential (primary) hypertension
CPT/HCPCS: 99282

== ENCOUNTER 2018-01-27 11:50 | Outpatient (CLI) | payer MEDICAID ==
[2018-01-27 18:05] LABS: BASOPHILS % (AUTO) 0.3 %; EOSINOPHILS # (AUTO) 0.1 10^3/uL (0.0-0.7); EOSINOPHILS % (AUTO) 1.8 %; LYMPHOCYTES % (AUTO) 28.2 %; MEAN CORPUSCULAR HEMOGLOBIN 29.6 pg (27.0-31.0); MEAN CORPUSCULAR HGB CONC 32.7 g/dL (32.0-36.0); MEAN CORPUSCULAR VOLUME 90.7 fL (80.0-94.0); MONOCYTES # (AUTO) 0.3 10^3/uL (0.0-1.0); MONOCYTES % (AUTO) 4.8 %; NEUTROPHILS # (AUTO) 4.6 10^3/uL (1.5-6.6); NEUTROPHILS % (AUTO) 64.9 %; PLT - PLATELET COUNT 284 10^3/uL (130-450); RED BLOOD COUNT 3.71 10^6/uL (4.70-6.10); RED CELL DISTRIBUTION WIDTH 13.8 % (12.0-15.0); WHITE BLOOD COUNT 7.1 x10^3/uL (4.8-10.8)
[2018-01-27 18:41] LABS: ALBUMIN 4.1 g/dL (3.2-5.5); ALBUMIN/GLOBULIN RATIO 1.2 (1.0-2.2); BILIRUBIN,TOTAL 0.7 mg/dL (0.2-1.0); CALCIUM 8.9 mg/dL (8.5-10.3); CREATININE 1.8 mg/dL (0.6-1.2); TOTAL PROTEIN 7.5 g/dL (6.7-8.2)
== END 2018-01-27 11:51 | disposition home or self-care (01) ==
LOC: LAB.F 11:50
PROVIDERS: ATTEND Internal Medicine
DX: N17.9 Acute kidney failure, unspecified (principal)
CPT/HCPCS: 36415; 80053; 85025

== ENCOUNTER 2018-01-29 14:11 | Emergency (ER) | payer MEDICAID ==
[2018-01-29 14:25] VITALS: BP 128/82
== END 2018-01-29 17:41 | disposition left against medical advice (07) ==
LOC: ED 14:11
DX: Z53.21 Procedure and treatment not carried out due to patient leaving prior to being seen by health care provider (principal)
CPT/HCPCS: 80053; 82550; 83690; 85025

== ENCOUNTER 2018-02-06 11:26 | Emergency (ER) | payer MEDICAID ==
[2018-02-06 11:55] LABS: BILIRUBIN,URINE NEGATIVE (NEGATIVE); GLUCOSE, URINE (UA) NEGATIVE (NEGATIVE); KETONES,URINE (UA) NEGATIVE (NEGATIVE); LEUKOCYTE ESTERASE, URINE NEGATIVE (NEGATIVE); NITRITE,URINE NEGATIVE (NEGATIVE); OCCULT BLOOD,URINE NEGATIVE (NEGATIVE); PH,URINE 5.5 PH (5.0-7.5); PROTEIN,URINE NEGATIVE (NEGATIVE); UROBILINOGEN,URINE 0.2 (NORMAL) E.U./dL (NORMAL)
[2018-02-06 11:56] LABS: CLARITY,URINE CLEAR (CLEAR)
[2018-02-06] MEDS ORDERED: oxyCOD/ACETAMIN 5 MG/325 MG TABLET PO STA (12:06)
--- NOTE | 2018-02-06 12:08 | ED Physician Documentation ---
PD HPI ABD PAIN - Stated complaint Stated Complaint: MALE - Chief complaint Chief Complaint: Abd Pain - History obtained from History obtained from: Patient - History of Present Illness Timing - onset: Other (Recently hospitalized for urinary retention and renal failure, he recovered. The catheters been out for about a week. Now with urinary frequency and dysuria and suprapubic pain. He feels like he is urinating all the way out.) Review of Systems Constitutional: denies: Fever, Chills GI: denies: Nausea, Vomiting, Diarrhea : reports: Dysuria, Frequency, Hesitancy PD PAST MEDICAL HISTORY - Past Medical History Past Medical History: Yes Cardiovascular: Hypertension Respiratory: None Endocrine/Autoimmune: None GI: None : Retention, Renal insuffiency, Indwelling catheter HEENT: None Psych: Depression, Other Musculoskeletal: None Derm: None - Past Surgical History Past Surgical History: Yes General: Splenectomy Ortho: Shoulder arthroplasty HEENT: Myringotomy (tubes) - Present Medications Home Medications: Ambulatory Orders Medication Instructions Recorded Confirmed Aripiprazole [Abilify] 0 mg 01/14/18 Bp Med 0 mg 01/14/18 - Allergies Allergies/Adverse Reactions: Allergies Allergy/AdvReac Type Severity Reaction Status Date / Time No Known Drug Allergies Allergy Verified 02/06/18 11:31 - Social History Does the pt smoke?: No Smoking Status: Never smoker Does the pt drink ETOH?: No Does the pt have substance abuse?: No - Immunizations Immunizations are current?: Yes Immunizations: TDAP >10years/unknown - POLST Patient has POLST: No PD ED PE NORMAL - Vitals Vital signs reviewed: Yes - General General: Alert and oriented X 3, No acute distress - Cardiac Cardiac: RRR, No murmur - Respiratory Respiratory: No respiratory distress, Clear bilaterally - Abdomen Abdomen: Non tender - Extremities Extremities: No edema, No calf tenderness / cord - Neuro Neuro: Alert and oriented X 3, Normal speech Results - Vitals Vitals: Vital Signs - 24 hr 02/06/18 11:29 Temperature 36.6 C Heart Rate 95 Respiratory 16 Rate Blood Pressure 144/89 H O2 Saturation 99 Oxygen O2 Source Room air - Labs Labs: Laboratory Tests 02/06/18 02/06/18 02/06/18 11:30 12:40 12:40 WBC 6.3 RBC 3.70 L Hgb 11.3 L Hct 32.5 L MCV 87.8 MCH 30.5 MCHC 34.7 RDW 13.4 Plt Count 257 MPV 7.1 L Neut # 3.9 Lymph # 1.9 [place] # 0.4 Eos # 0.1 Baso # 0.0 Absolute Nucleated RBC 0.00 Nucleated RBC % 0.0 Sodium 137 Potassium 4.0 Chloride 102 Carbon Dioxide 26 Anion Gap 9.0 BUN 27 H Creatinine 1.7 H Estimated GFR (MDRD) 43 L Glucose 102 H Calcium 9.0 Total Bilirubin 0.7 AST 19 ALT 13 Alkaline Phosphatase 78 Total Protein 7.5 Albumin 4.1 Globulin 3.4 Albumin/Globulin Ratio 1.2 Lipase 23 Urine Color YELLOW Urine Clarity CLEAR Urine pH 5.5 Ur Specific [place] 1.020 Urine Protein NEGATIVE Urine Glucose (UA) NEGATIVE Urine Ketones NEGATIVE Urine Occult Blood NEGATIVE Urine Nitrite NEGATIVE Urine Bilirubin NEGATIVE Urine Urobilinogen 0.2 (NORMAL) Ur Leukocyte Esterase NEGATIVE Ur Microscopic Review NOT INDICATED Urine Culture Comments NOT INDICATED PD MEDICAL DECISION MAKING - ED course ED course: 52-year-old gentleman with recent hospitalization for BPH/urinary retention induced renal failure presents with suprapubic pain and dysuria. His urine is unremarkable and his labs are trending in the right direction compared to recent visits. His bladder scan showed only 200 mL in the bladder and note made that this was not a post void bladder scan so that is reassuring. He was advised to follow-up with his doctor early next week for repeat labs. Departure - Departure Disposition: 01 Home, Self Care Clinical Impression: Urinary retention BPH (benign prostatic hyperplasia) Qualifiers: Lower urinary tract symptom presence: symptoms present Lower urinary tract symptom detail: urinary frequency Qualified Code(s): N40.1 - Benign prostatic hyperplasia with lower urinary tract symptoms; R35.0 - Frequency of micturition ; R35.0 - Frequency of micturition Condition: Good Record reviewed to determine appropriate education?: Yes Instructions: ED Prostate Enlarged Follow-Up: [facility] [Provider Group] Comments: Make an appointment to see her doctor early next week for recheck, potentially repeat lab work. Return if worse.
[2018-02-06 12:51] LABS: BASOPHILS % (AUTO) 0.5 %; EOSINOPHILS # (AUTO) 0.1 10^3/uL (0.0-0.7); EOSINOPHILS % (AUTO) 1.7 %; HGB - HEMOGLOBIN 11.3 g/dL (14.0-18.0); LYMPHOCYTES # (AUTO) 1.9 10^3/uL (1.5-3.5); LYMPHOCYTES % (AUTO) 29.7 %; MEAN CORPUSCULAR HEMOGLOBIN 30.5 pg (27.0-31.0); MEAN CORPUSCULAR HGB CONC 34.7 g/dL (32.0-36.0); MEAN CORPUSCULAR VOLUME 87.8 fL (80.0-94.0); MEAN PLATELET VOLUME 7.1 fL (7.4-11.4); MONOCYTES # (AUTO) 0.4 10^3/uL (0.0-1.0); MONOCYTES % (AUTO) 5.7 %; NEUTROPHILS # (AUTO) 3.9 10^3/uL (1.5-6.6); NEUTROPHILS % (AUTO) 62.4 %; PLT - PLATELET COUNT 257 10^3/uL (130-450); RED CELL DISTRIBUTION WIDTH 13.4 % (12.0-15.0); WHITE BLOOD COUNT 6.3 x10^3/uL (4.8-10.8)
[2018-02-06 12:57] LABS: ALBUMIN 4.1 g/dL (3.2-5.5); ALBUMIN/GLOBULIN RATIO 1.2 (1.0-2.2); BILIRUBIN,TOTAL 0.7 mg/dL (0.2-1.0); CREATININE 1.7 mg/dL (0.6-1.2); TOTAL PROTEIN 7.5 g/dL (6.7-8.2)
[2018-02-06 13:25] VITALS: BP 148/96
== END 2018-02-06 13:24 | disposition home or self-care (01) ==
LOC: ED 11:26
DX: N40.1 Benign prostatic hyperplasia with lower urinary tract symptoms (principal); R33.8 Other retention of urine; R35.0 Frequency of micturition; I10 Essential (primary) hypertension; N19 Unspecified kidney failure; N14.2 Nephropathy induced by unspecified drug, medicament or biological substance
CPT/HCPCS: 36415; 51798; 80053; 81003; 83690; 85025; 99283; A9270; 81001; 87086

== ENCOUNTER 2018-02-11 10:59 | Outpatient (CLI) | payer MEDICAID ==
[2018-02-11 17:41] LABS: CALCIUM 8.9 mg/dL (8.5-10.3)
== END 2018-02-11 11:00 | disposition home or self-care (01) ==
LOC: LAB.F 10:59
PROVIDERS: ATTEND Internal Medicine
DX: I10 Essential (primary) hypertension (principal); N17.9 Acute kidney failure, unspecified
CPT/HCPCS: 36415; 80048

== ENCOUNTER 2018-02-22 14:32 | Emergency (ER) | payer MEDICAID ==
--- NOTE | 2018-02-22 15:12 | ED Physician Documentation ---
PD HPI ABD PAIN - Stated complaint Stated Complaint: ABD/SIDE PX--MALE - Chief complaint Chief Complaint: Abd Pain - History obtained from History obtained from: Patient - History of Present Illness Timing - onset: How many days ago (2-3 days of not feeling well, with nausea and malaise, less urination than usual and noted cloudy urine. No fever per se.) Timing - duration: Days Timing - details: Gradual onset, Still present Quality: Aching (lower abd and right flank) Location: RLQ, LLQ Radiation: Right flank Improved by: No: Eating Worsened by: No: Eating, Moving, Breathing Associated symptoms: Nausea, Constipation (firm hard stool initially, followed by softer/watery). No: Fever, Vomiting, Diarrhea Similar symptoms before: Diagnosis (UTI and urinary retention with renal insufficience related to postrenal obstruction) Review of Systems Constitutional: reports: Myalgias. denies: Fever, Chills Nose: denies: Rhinorrhea / runny nose, Congestion Throat: denies: Sore throat Cardiac: denies: Chest pain / pressure, Palpitations Respiratory: denies: Dyspnea, Cough GI: reports: Abdominal Pain, Nausea. denies: Vomiting, Diarrhea : reports: Frequency. denies: Dysuria, Hematuria (but noted a cloudy appearance) Skin: denies: Rash, Lesions PD PAST MEDICAL HISTORY - Past Medical History Cardiovascular: Hypertension Respiratory: None Endocrine/Autoimmune: None GI: None : Retention, Renal insuffiency, Indwelling catheter HEENT: None Psych: Depression, Other Musculoskeletal: None Derm: None - Past Surgical History Past Surgical History: Yes General: Splenectomy Ortho: Shoulder arthroplasty HEENT: Myringotomy (tubes) - Present Medications Home Medications: Ambulatory Orders Medication Instructions Recorded Confirmed Aripiprazole [Abilify] 15 mg 01/14/18 Bp Med 0 mg 01/14/18 Amlodipine Besylate 5 mg PO 02/22/18 Cephalexin [Keflex] 500 mg PO TID #20 capsule 02/22/18 Finasteride 5 mg PO 02/22/18 Lisinopril 20 mg PO 02/22/18 Metoprolol Tartrate 25 mg PO 02/22/18 02/22/18 Tamsulosin HCl [Flomax] 0.4 mg PO 02/22/18 - Allergies Allergies/Adverse Reactions: Allergies Allergy/AdvReac Type Severity Reaction Status Date / Time No Known Drug Allergies Allergy Verified 02/22/18 14:40 - Social History Does the pt smoke?: No Smoking Status: Never smoker Does the pt drink ETOH?: No Does the pt have substance abuse?: No - Immunizations Immunizations are current?: Yes Immunizations: TDAP >10years/unknown - POLST Patient has POLST: No PD ED PE NORMAL - Vitals Vital signs reviewed: Yes - General General: Alert and oriented X 3, No acute distress, Well developed/nourished - HEENT HEENT: Pharynx benign - Neck Neck: Supple, no meningeal sign, No adenopathy - Cardiac Cardiac: RRR, No murmur - Respiratory Respiratory: Clear bilaterally - Abdomen Abdomen: Normal bowel sounds, Soft, Non distended, No organomegaly, Other (mild suprapubic tender without guarding. ) - Male Male : Deferred - Rectal Rectal: Deferred - Back Back: Other (mild right CVA tenderness) - Derm Derm: Normal color, No rash - Neuro Neuro: Alert and oriented X 3, No motor deficit, Normal speech Results - Vitals Vitals: Vital Signs - 24 hr 02/22/18 02/22/18 14:36 17:30 Temperature 36.9 C 36.9 C Heart Rate 87 81 Respiratory 18 18 Rate Blood Pressure 131/80 H 130/67 O2 Saturation 100 97 Oxygen O2 Source Room air - Labs Labs: Microbiology 02/22/18 15:30 Urine Culture - Preliminary Urine,Clean Catch Laboratory Tests 02/22/18 02/22/18 02/22/18 15:30 15:40 15:40 WBC 9.7 RBC 3.48 L Hgb 10.5 L Hct 31.5 L MCV 90.4 MCH 30.2 MCHC 33.4 RDW 13.9 Plt Count 176 MPV 7.5 Neut # (Auto) 7.9 H Lymph # (Auto) 0.8 L [place] # (Auto) 0.9 Eos # (Auto) 0.1 Baso # (Auto) 0.0 Absolute Nucleated RBC 0.00 Nucleated RBC % 0.0 Sodium 135 Potassium 4.1 Chloride 102 Carbon Dioxide 24 Anion Gap 9.0 BUN 27 H Creatinine 1.9 H Estimated GFR (MDRD) 38 L Glucose 81 Calcium 8.4 L Magnesium 2.1 Total Bilirubin 0.8 AST 16 ALT 14 Alkaline Phosphatase 78 Total Protein 7.1 Albumin 3.8 Globulin 3.3 Albumin/Globulin Ratio 1.2 Lipase 23 Urine Color YELLOW Urine Clarity HAZY Urine pH 6.5 Ur Specific [place] 1.015 Urine Protein NEGATIVE Urine Glucose (UA) NEGATIVE Urine Ketones NEGATIVE Urine Occult Blood TRACE-INTA Urine Nitrite NEGATIVE Urine Bilirubin NEGATIVE Urine Urobilinogen 0.2 (NORMAL) Ur Leukocyte Esterase LARGE H Urine RBC 0-5 Urine WBC >25 H Urine WBC Clumps PRESENT Ur Squamous Epith Cells NONE SEEN Urine Bacteria Many H Ur Microscopic Review INDICATED Urine Culture Comments INDICATED PD MEDICAL DECISION MAKING - ED course Complexity details: reviewed old records, reviewed results, considered differential (has UTI and retention. He did not want carrera left. Nurses did in and out for decompression. He is feeling better. ), d/w patient Departure - Departure Disposition: Home, Self Care Clinical Impression: UTI (urinary tract infection), Urinary retention Condition: Stable Record reviewed to determine appropriate education?: Yes Instructions: ED Retention Urinary Male, ED UTI Cystitis Male Follow-Up: Eldon Valdez MD [Primary Care Provider] - Prescriptions: Cephalexin [Keflex] 500 mg PO TID #20 capsule Comments: Continue usual medications. Add cephalexin 3 times a day for 7 days for bladder infection. Return if you have a feeling of bladder over fullness or discomfort from retention. See if your output improves over the next few days as the infection clears. Follow-up with your primary care in a few days for recheck. Discharge Date/Time: 02/22/18 17:30
[2018-02-22 15:37] LABS: BILIRUBIN,URINE NEGATIVE (NEGATIVE); GLUCOSE, URINE (UA) NEGATIVE (NEGATIVE); KETONES,URINE (UA) NEGATIVE (NEGATIVE); LEUKOCYTE ESTERASE, URINE LARGE (NEGATIVE); NITRITE,URINE NEGATIVE (NEGATIVE); OCCULT BLOOD,URINE TRACE-INTA (NEGATIVE); PH,URINE 6.5 PH (5.0-7.5); PROTEIN,URINE NEGATIVE (NEGATIVE); UROBILINOGEN,URINE 0.2 (NORMAL) E.U./dL (NORMAL)
[2018-02-22 15:40] LABS: CLARITY,URINE HAZY (CLEAR)
[2018-02-22 15:45] LABS: BASOPHILS % (AUTO) 0.4 %; EOSINOPHILS # (AUTO) 0.1 10^3/uL (0.0-0.7); EOSINOPHILS % (AUTO) 0.5 %; HGB - HEMOGLOBIN 10.5 g/dL (14.0-18.0); LYMPHOCYTES # (AUTO) 0.8 10^3/uL (1.5-3.5); LYMPHOCYTES % (AUTO) 8.7 %; MEAN CORPUSCULAR HEMOGLOBIN 30.2 pg (27.0-31.0); MEAN CORPUSCULAR HGB CONC 33.4 g/dL (32.0-36.0); MEAN CORPUSCULAR VOLUME 90.4 fL (80.0-94.0); MEAN PLATELET VOLUME 7.5 fL (7.4-11.4); MONOCYTES # (AUTO) 0.9 10^3/uL (0.0-1.0); MONOCYTES % (AUTO) 9.1 %; NEUTROPHILS # (AUTO) 7.9 10^3/uL (1.5-6.6); NEUTROPHILS % (AUTO) 81.3 %; PLT - PLATELET COUNT 176 10^3/uL (130-450); RED BLOOD COUNT 3.48 10^6/uL (4.70-6.10); RED CELL DISTRIBUTION WIDTH 13.9 % (12.0-15.0); WHITE BLOOD COUNT 9.7 x10^3/uL (4.8-10.8)
[2018-02-22 15:56] LABS: BACTERIA,URINE Many /HPF (None Seen); RBC,URINE 0-5 /HPF (0-5); SQUAMOUS EPITHELIAL CELL,UR NONE SEEN (<= Few); WBC CLUMPS,URINE PRESENT
[2018-02-22 16:00] LABS: ALBUMIN 3.8 g/dL (3.2-5.5); ALBUMIN/GLOBULIN RATIO 1.2 (1.0-2.2); BILIRUBIN,TOTAL 0.8 mg/dL (0.2-1.0); CALCIUM 8.4 mg/dL (8.5-10.3); CREATININE 1.9 mg/dL (0.6-1.2); MAGNESIUM 2.1 mg/dL (1.7-2.8); TOTAL PROTEIN 7.1 g/dL (6.7-8.2)
[2018-02-22] MEDS ORDERED: LIDOCAINE 2% URO-JET 5 ML SYRINGE UR STA (16:15)
[2018-02-22] MEDS ORDERED: cephALEXin 250 MG CAPSULE PO STA (16:16)
[2018-02-22 17:31] VITALS: BP 130/67
== END 2018-02-22 17:30 | disposition home or self-care (01) ==
LOC: ED 14:32
DX: N39.0 Urinary tract infection, site not specified (principal); R33.9 Retention of urine, unspecified; I10 Essential (primary) hypertension; Z90.81 Acquired absence of spleen
CPT/HCPCS: 36415; 51703; 80053; 81001; 83690; 83735; 85025; 87077; 87086; 87181; 99283; A9270; 81003

== ENCOUNTER 2018-03-19 16:30 | Outpatient (CLI) | payer MEDICAID ==
[2018-03-20 11:55] LABS: BASOPHILS % (AUTO) 0.6 %; EOSINOPHILS # (AUTO) 0.2 10^3/uL (0.0-0.7); EOSINOPHILS % (AUTO) 2.7 %; HGB - HEMOGLOBIN 11.9 g/dL (14.0-18.0); LYMPHOCYTES # (AUTO) 2.5 10^3/uL (1.5-3.5); LYMPHOCYTES % (AUTO) 29.5 %; MEAN CORPUSCULAR HEMOGLOBIN 30.4 pg (27.0-31.0); MEAN CORPUSCULAR HGB CONC 32.9 g/dL (32.0-36.0); MEAN CORPUSCULAR VOLUME 92.6 fL (80.0-94.0); MEAN PLATELET VOLUME 8.2 fL (7.4-11.4); MONOCYTES # (AUTO) 0.5 10^3/uL (0.0-1.0); MONOCYTES % (AUTO) 5.8 %; NEUTROPHILS # (AUTO) 5.1 10^3/uL (1.5-6.6); NEUTROPHILS % (AUTO) 61.4 %; PLT - PLATELET COUNT 320 10^3/uL (130-450); RED CELL DISTRIBUTION WIDTH 13.9 % (12.0-15.0); WHITE BLOOD COUNT 8.4 x10^3/uL (4.8-10.8)
[2018-03-20 12:03] LABS: ALBUMIN 4.2 g/dL (3.2-5.5); ALBUMIN/GLOBULIN RATIO 1.1 (1.0-2.2); BILIRUBIN,TOTAL 0.5 mg/dL (0.2-1.0); CALCIUM 9.1 mg/dL (8.5-10.3); CREATININE 1.9 mg/dL (0.6-1.2); TOTAL PROTEIN 8.2 g/dL (6.7-8.2)
[2018-03-20 13:31] LABS: RHEUMATOID FACTOR NEGATIVE (Negative)
[2018-03-22 13:58] LABS: ANA SCREEN NEGATIVE (NEGATIVE)
== END 2018-03-19 23:59 ==
LOC: LAB.F 16:30
PROVIDERS: ATTEND Internal Medicine
DX: N18.3 Chronic kidney disease, stage 3 (moderate) (principal); M25.50 Pain in unspecified joint
CPT/HCPCS: 36415; 80053; 85025; 85651; 86038; 86200; 86430

== ENCOUNTER 2018-04-07 15:27 | Outpatient (CLI) | payer MEDICAID ==
--- NOTE | 2018-04-07 17:06 | XRAY Report ---
Procedure Date: 04/07/2018 Accession Number: [id number] / [id number] Procedure: XR - Knee 3 View BILAT CPT Code: FULL RESULT: EXAMS: 1. Right Knee Radiography 2. Left Knee Radiography EXAM DATE:04/07/2018 03:59 PM. CLINICAL HISTORY:Knee pain. COMPARISON: Right tibia-fibula radiographs 12/10/2013. TECHNIQUE: 3 views each. FINDINGS: Right Knee: Bones: No acute displaced fracture. No suspicious focal osseous lesion. Abnormality again noted at the proximal aspect of the patella, possibly sequela of remote injury, less likely traction enthesophyte given the location. This is not significantly changed. Joints: Small joint effusion. No subluxation/dislocation. No significant joint space narrowing or other degenerative change. Soft Tissues: Soft tissue swelling present anteriorly about the patella. Left Knee: Bones: Normal. No fractures or bone lesions. Joints: No effusion. No subluxation. No significant degenerative change. Soft Tissues: Possible minimal soft tissue swelling over the patella. IMPRESSION: 1. No acute osseous abnormality or significant degenerative change of the right knee. There is a small joint effusion, however, with irregularity of the proximal patella dating back to 2013 exam, possibly sequela of remote injury. 2. No acute osseous abnormality, significant degenerative change or joint effusion involving the left knee with possible minimal soft tissue swelling over the patella. RADIA
== END 2018-04-07 15:28 | disposition home or self-care (01) ==
LOC: DI 15:27
PROVIDERS: ATTEND Internal Medicine
DX: M25.561 Pain in right knee (principal); M25.562 Pain in left knee; M25.461 Effusion, right knee

== ENCOUNTER 2018-05-22 08:54 | Outpatient (CLI) | payer MEDICAID | END 2018-05-22 08:55 | disposition critical access hospital (66) | LOC: EMS 08:54 | PROVIDERS: ATTEND Surgery | DX: R52 Pain, unspecified (principal) | CPT/HCPCS: A0425; A0427; A0999 ==

== ENCOUNTER 2018-05-22 09:22 | Emergency (ER) | payer MEDICAID ==
[2018-05-22] MEDS ORDERED: diazePAM 5 MG TABLET PO STA (10:24)
[2018-05-22] MEDS ORDERED: ACETAMINOPHEN 1,000 MG/100 ML 100 ML IV STA (10:24)
[2018-05-22] MEDS ORDERED: SODIUM CHLORIDE 0.9% 1,000 ML IV ONE (10:24)
--- NOTE | 2018-05-22 10:26 | ED Physician Documentation ---
History of Present Illness - Stated complaint Stated Complaint: BODY PX - Chief complaint Chief Complaint: General - Additonal information Additional information: hx from pt 52 male pmhx HTN and renal insuff per EMR also hx meth use but pt denies IVDA to ED with diffuse pain states his chest back and extremities hurt whenever he moves and he is having muscle spasms no injury no fever no cough no NV + diarrhea s blood - denies travel bad food sick contact no rash no urinary sx no hx same Review of Systems Constitutional: reports: Myalgias, Fatigue. denies: Fever, Chills Cardiac: reports: Chest pain / pressure Respiratory: denies: Cough GI: reports: Diarrhea. denies: Abdominal Pain, Vomiting Musculoskeletal: reports: Extremity pain Neurologic: reports: Generalized weakness (2/2 pain) Endocrine: denies: Easy bruising / bleeding Immunocompromised: denies: Immunocompromised PD PAST MEDICAL HISTORY - Past Medical History Cardiovascular: Hypertension Respiratory: None Endocrine/Autoimmune: None GI: None : Retention, Renal insuffiency, Indwelling catheter HEENT: None Psych: Depression, Other Musculoskeletal: None Derm: None - Past Surgical History Past Surgical History: Yes General: Splenectomy Ortho: Shoulder arthroplasty HEENT: Myringotomy (tubes) - Present Medications Home Medications: Ambulatory Orders Medication Instructions Recorded Confirmed Aripiprazole [Abilify] 15 mg 01/14/18 Bp Med 0 mg 01/14/18 Amlodipine Besylate 5 mg PO 02/22/18 Cephalexin [Keflex] 500 mg PO TID #20 capsule 02/22/18 Finasteride 5 mg PO 02/22/18 Lisinopril 20 mg PO 02/22/18 Metoprolol Tartrate 25 mg PO 02/22/18 02/22/18 Tamsulosin HCl [Flomax] 0.4 mg PO 02/22/18 - Allergies Allergies/Adverse Reactions: Allergies Allergy/AdvReac Type Severity Reaction Status Date / Time No Known Drug Allergies Allergy Verified 02/22/18 14:40 - Social History Does the pt smoke?: No Smoking Status: Never smoker Does the pt drink ETOH?: No Does the pt have substance abuse?: No - Immunizations Immunizations are current?: Yes Immunizations: TDAP >10years/unknown - POLST Patient has POLST: No PD ED PE NORMAL - Vitals Vital signs reviewed: Yes (afebrile) - General General: Alert and oriented X 3 - HEENT HEENT: PERRL, Pharynx benign - Cardiac Cardiac: RRR - Respiratory Respiratory: No respiratory distress, Clear bilaterally - Abdomen Abdomen: Soft, Non tender, Other (no pulsatile mass) - Back Back: No spinal TTP, Other (diffuse back TTP and extremely difficult to sit him up or move 2/2 pain, no focal erythema) - Derm Derm: Normal color - Extremities Extremities: Other (no swelling no rash, strong pedal pulses brisk cap refill) - Neuro Neuro: Alert and oriented X 3, scrap piler 2-12 intact, No motor deficit, No sensory deficit, Normal speech, Other (diffusly limited ROM 2/2 pain but can move arms and legs) Results - Vitals Vitals: Vital Signs - 24 hr 05/22/18 05/22/18 09:29 11:47 Temperature 36.2 C L 36.1 C L Heart Rate 67 63 Respiratory 18 20 Rate Blood Pressure 117/82 H 116/89 H O2 Saturation 100 100 Oxygen O2 Source Room air - EKG (time done) 1042 Rate: Rate (enter#) (62) Rhythm: NSR Intervals: Normal MI Ischemia: Normal ST segments - Labs Labs: Laboratory Tests 05/22/18 05/22/18 05/22/18 10:34 10:34 10:34 WBC 8.8 RBC 4.10 L Hgb 12.2 L Hct 36.7 L MCV 89.5 MCH 29.8 MCHC 33.3 RDW 13.9 Plt Count 262 MPV 7.7 Neut # (Auto) 6.8 H Lymph # (Auto) 1.3 L [place] # (Auto) 0.5 Eos # (Auto) 0.2 Baso # (Auto) 0.0 Absolute Nucleated RBC 0.00 Nucleated RBC % 0.0 Sodium 135 Potassium 4.2 Chloride 105 Carbon Dioxide 23 Anion Gap 7.0 BUN 28 H Creatinine 1.5 H Estimated GFR (MDRD) 49 L Glucose 101 H Lactic Acid Calcium 9.1 Total Bilirubin 0.6 AST 19 ALT 14 Alkaline Phosphatase 74 Total Creatine Kinase 39 Troponin I < 0.04 Total Protein 7.2 Albumin 3.8 Globulin 3.4 Albumin/Globulin Ratio 1.1 Lipase 30 Urine Color Urine Clarity Urine pH Ur Specific [place] Urine Protein Urine Glucose (UA) Urine Ketones Urine Occult Blood Urine Nitrite Urine Bilirubin Urine Urobilinogen Ur Leukocyte Esterase Ur Microscopic Review Urine Culture Comments Urine Opiates Screen Ur Oxycodone Screen Urine Methadone Screen Ur Propoxyphene Screen Ur Barbiturates Screen Ur Tricyclics Screen Ur Phencyclidine Scrn Ur Amphetamine Screen U Methamphetamines Scrn U Benzodiazepines Scrn Urine Cocaine Screen U Cannabinoids Screen 05/22/18 05/22/18 10:34 11:35 WBC RBC Hgb Hct MCV MCH MCHC RDW Plt Count MPV Neut # (Auto) Lymph # (Auto) [place] # (Auto) Eos # (Auto) Baso # (Auto) Absolute Nucleated RBC Nucleated RBC % Sodium Potassium Chloride Carbon Dioxide Anion Gap BUN Creatinine Estimated GFR (MDRD) Glucose Lactic Acid 1.0 Calcium Total Bilirubin AST ALT Alkaline Phosphatase Total Creatine Kinase Troponin I Total Protein Albumin Globulin Albumin/Globulin Ratio Lipase Urine Color YELLOW Urine Clarity CLEAR Urine pH 5.5 Ur Specific [place] 1.025 Urine Protein NEGATIVE Urine Glucose (UA) NEGATIVE Urine Ketones NEGATIVE Urine Occult Blood NEGATIVE Urine Nitrite NEGATIVE Urine Bilirubin NEGATIVE Urine Urobilinogen 0.2 (NORMAL) Ur Leukocyte Esterase NEGATIVE Ur Microscopic Review NOT INDICATED Urine Culture Comments NOT INDICATED Urine Opiates Screen POSITIVE H Ur Oxycodone Screen NEGATIVE Urine Methadone Screen NEGATIVE Ur Propoxyphene Screen NEGATIVE Ur Barbiturates Screen NEGATIVE Ur Tricyclics Screen NEGATIVE Ur Phencyclidine Scrn NEGATIVE Ur Amphetamine Screen POSITIVE H U Methamphetamines Scrn POSITIVE H U Benzodiazepines Scrn NEGATIVE Urine Cocaine Screen NEGATIVE U Cannabinoids Screen NEGATIVE - Rads (name of study) CXR Radiology: See rad report (NACPD) PD MEDICAL DECISION MAKING - ED course ED course: diffuse severe myalgias of unclear etiology ordered CBC chem CK EKG CXR trop all neg except baseline renal insuff EKG s ischemia, trop neg so doubt ACS CXR s pneumo and nl mediastinum making dissection unlikely afebrile and nl WBC and neg lactate make infection unlikely pt was given ofirmev and valoum 1230 he is irate - states he has not been seen, states nothing has been done, states he "is not fucking sitting in the ER for 5 fucking hours while the fucking doctor doesn't do a fucking thing" - I explained he has only been here three hours and that he has been seen by a doctor and we have run a lot of tests and that those look OK so far but that I recommend we consider more tests such as a CT and echocardiogram to rule out heart valve infection, aneurysm / dissection among others - he refuses to stay despite my recommendation - he is belligerent offensive and angry but seems competent to make an educated decision to leave after I explained what further tests I rec and why - I advised if he changed his mind he is always welcome to come back and we will be happy to continue his care, he states "not fucking likely, I'm going to a real hospital" - he refused to sign AMA paperwork but was counseled and chose to leave against my advise so dispo is AMA - Sepsis Event Vital Signs: Vital Signs - 24 hr 05/22/18 05/22/18 09:29 11:47 Temperature 36.2 C L 36.1 C L Heart Rate 67 63 Respiratory 18 20 Rate Blood Pressure 117/82 H 116/89 H O2 Saturation 100 100 Oxygen O2 Source Room air Departure - Departure Disposition: 07 Against Medical Advice Clinical Impression: Pain Condition: Fair Discharge Date/Time: 05/22/18 12:48
[2018-05-22 10:41] LABS: BASOPHILS % (AUTO) 0.3 %; EOSINOPHILS # (AUTO) 0.2 10^3/uL (0.0-0.7); EOSINOPHILS % (AUTO) 1.9 %; HGB - HEMOGLOBIN 12.2 g/dL (14.0-18.0); LYMPHOCYTES # (AUTO) 1.3 10^3/uL (1.5-3.5); LYMPHOCYTES % (AUTO) 14.7 %; MEAN CORPUSCULAR HEMOGLOBIN 29.8 pg (27.0-31.0); MEAN CORPUSCULAR HGB CONC 33.3 g/dL (32.0-36.0); MEAN CORPUSCULAR VOLUME 89.5 fL (80.0-94.0); MEAN PLATELET VOLUME 7.7 fL (7.4-11.4); MONOCYTES # (AUTO) 0.5 10^3/uL (0.0-1.0); MONOCYTES % (AUTO) 5.6 %; NEUTROPHILS # (AUTO) 6.8 10^3/uL (1.5-6.6); NEUTROPHILS % (AUTO) 77.5 %; PLT - PLATELET COUNT 262 10^3/uL (130-450); RED CELL DISTRIBUTION WIDTH 13.9 % (12.0-15.0); WHITE BLOOD COUNT 8.8 x10^3/uL (4.8-10.8)
[2018-05-22 10:55] LABS: ALBUMIN 3.8 g/dL (3.2-5.5); ALBUMIN/GLOBULIN RATIO 1.1 (1.0-2.2); BILIRUBIN,TOTAL 0.6 mg/dL (0.2-1.0); CALCIUM 9.1 mg/dL (8.5-10.3); CREATININE 1.5 mg/dL (0.6-1.2); TOTAL PROTEIN 7.2 g/dL (6.7-8.2)
--- NOTE | 2018-05-22 11:45 | XRAY Report ---
Reason: chest pain Procedure Date: 05/22/2018 Accession Number: [id number] / [id number] Procedure: XR - Chest 2 View X-Ray CPT Code: 70559 FULL RESULT: EXAM: CHEST RADIOGRAPHY EXAM DATE: 05/22/2018 11:38 AM. CLINICAL HISTORY: Chest pain. COMPARISON: 11/04/2017. TECHNIQUE: 2 views. FINDINGS: Lungs/Pleura: Lung volumes are low. No consolidation. No vascular congestion. No pneumothorax. Mediastinum: Heart size upper normal. Aorta is mildly tortuous. Other: Degenerative changes of the thoracic spine with lower thoracic kyphosis. Post surgical changes involving both humeral heads, as before. Healed left-sided rib fractures and right clavicular fracture. IMPRESSION: 1. No acute disease in the chest. RADIA
[2018-05-22 11:48] VITALS: BP 116/89
[2018-05-22 11:48] LABS: MUDS CUTOFF CONCENTRATIONS CUTOFF CONC BELOW:
[2018-05-22 11:53] LABS: BILIRUBIN,URINE NEGATIVE (NEGATIVE); GLUCOSE, URINE (UA) NEGATIVE (NEGATIVE); KETONES,URINE (UA) NEGATIVE (NEGATIVE); LEUKOCYTE ESTERASE, URINE NEGATIVE (NEGATIVE); NITRITE,URINE NEGATIVE (NEGATIVE); OCCULT BLOOD,URINE NEGATIVE (NEGATIVE); PH,URINE 5.5 PH (5.0-7.5); PROTEIN,URINE NEGATIVE (NEGATIVE); UROBILINOGEN,URINE 0.2 (NORMAL) E.U./dL (NORMAL)
[2018-05-22 11:54] LABS: CLARITY,URINE CLEAR (CLEAR)
[2018-05-22 12:02] LABS: AMPHETAMINE SCREEN,URINE POSITIVE (NEGATIVE); COCAINE SCREEN URINE NEGATIVE (NEGATIVE); METHAMPHETAMINES SCREEN, URINE POSITIVE (NEGATIVE); OPIATE SCREEN, URINE POSITIVE (NEGATIVE)
[2018-05-22 12:03] LABS: BENZODIAZEPINES SCREEN, URINE NEGATIVE (NEGATIVE); METHADONE SCREEN, URINE NEGATIVE (NEGATIVE); OXYCODONE SCREEN, URINE NEGATIVE (NEGATIVE); PROPOXYPHENE SCREEN, URINE NEGATIVE (NEGATIVE); TRICYCLIC ANTIDEPRESSANT,URINE NEGATIVE (NEGATIVE)
== END 2018-05-22 12:48 | disposition left against medical advice (07) ==
LOC: EDUNIT# → ED 09:22
DX: M79.1 Myalgia (principal); I10 Essential (primary) hypertension
CPT/HCPCS: 36415; 71046; 80053; 80306; 81003; 82550; 83605; 83690; 84484; 85025; 87040; 93005; 99283; A9270; J0131; 81001; 87086

== ENCOUNTER 2018-06-19 10:04 | Outpatient (CLI) | payer MEDICAID ==
[2018-06-19 17:34] LABS: HGB - HEMOGLOBIN 10.8 g/dL (14.0-18.0); MEAN CORPUSCULAR HEMOGLOBIN 29.8 pg (27.0-31.0); MEAN CORPUSCULAR HGB CONC 33.7 g/dL (32.0-36.0); MEAN CORPUSCULAR VOLUME 88.5 fL (80.0-94.0); MEAN PLATELET VOLUME 8.4 fL (7.4-11.4); RED BLOOD COUNT 3.63 10^6/uL (4.70-6.10); RED CELL DISTRIBUTION WIDTH 14.1 % (12.0-15.0); WHITE BLOOD COUNT 7.8 x10^3/uL (4.8-10.8)
[2018-06-19 18:20] LABS: CALCIUM 9.1 mg/dL (8.5-10.3); CREATININE 2.2 mg/dL (0.6-1.2)
== END 2018-06-19 10:05 | disposition home or self-care (01) ==
LOC: LAB.F 10:04
PROVIDERS: ATTEND Internal Medicine
DX: N18.3 Chronic kidney disease, stage 3 (moderate) (principal)
CPT/HCPCS: 36415; 80048; 85027

== ENCOUNTER 2018-09-19 14:37 | Outpatient (CLI) | payer MEDICAID ==
[2018-09-19 17:49] LABS: BASOPHILS % (AUTO) 0.4 %; EOSINOPHILS # (AUTO) 0.2 10^3/uL (0.0-0.7); EOSINOPHILS % (AUTO) 2.8 %; HGB - HEMOGLOBIN 11.1 g/dL (14.0-18.0); LYMPHOCYTES # (AUTO) 1.6 10^3/uL (1.5-3.5); LYMPHOCYTES % (AUTO) 25.3 %; MEAN CORPUSCULAR HGB CONC 32.7 g/dL (32.0-36.0); MEAN CORPUSCULAR VOLUME 88.6 fL (80.0-94.0); MEAN PLATELET VOLUME 7.7 fL (7.4-11.4); MONOCYTES # (AUTO) 0.5 10^3/uL (0.0-1.0); MONOCYTES % (AUTO) 7.7 %; NEUTROPHILS # (AUTO) 4.1 10^3/uL (1.5-6.6); NEUTROPHILS % (AUTO) 63.8 %; PLT - PLATELET COUNT 277 10^3/uL (130-450); RED BLOOD COUNT 3.82 10^6/uL (4.70-6.10); RED CELL DISTRIBUTION WIDTH 14.3 % (12.0-15.0); WHITE BLOOD COUNT 6.4 x10^3/uL (4.8-10.8)
[2018-09-19 17:59] LABS: ALBUMIN/GLOBULIN RATIO 1.1 (1.0-2.2); BILIRUBIN,TOTAL 0.7 mg/dL (0.2-1.0); CALCIUM 9.8 mg/dL (8.5-10.3); CREATININE 1.6 mg/dL (0.6-1.2); TOTAL PROTEIN 7.7 g/dL (6.7-8.2)
== END 2018-09-19 14:38 | disposition home or self-care (01) ==
LOC: LAB.F 14:37
PROVIDERS: ATTEND Internal Medicine
DX: N18.3 Chronic kidney disease, stage 3 (moderate) (principal)
CPT/HCPCS: 36415; 80053; 85025

== ENCOUNTER 2018-09-19 16:24 | Emergency (ER) | payer MEDICAID ==
--- NOTE | 2018-09-19 17:30 | ED Physician Documentation ---
History of Present Illness - Stated complaint Stated Complaint: NAUSEA/MUSCLE PX - Chief complaint Chief Complaint: Abd Pain - History obtained from History obtained from: Patient - History of Present Illness Pain level max: 8 Pain level now: 8 Improved by: rest Worsened by: movement - Additonal information Additional information: 53-year-old male presents to the emergency department with diffuse body pain for the past 3-4 days. States he feels like he is in kidney failure again. States decreased urine output for the past several days. Patient states that he sometimes has swelling now. Also states that he feels like the muscles and tendons are being stretched over his clavicle. No fevers. No vomiting. No abdominal pain. Review of Systems Ten Systems: 10 systems reviewed and negative Constitutional: denies: Fever, Chills Ears: denies: Ear pain Nose: denies: Rhinorrhea / runny nose, Congestion Respiratory: denies: Cough GI: denies: Abdominal Pain, Nausea, Vomiting, Diarrhea Skin: denies: Rash Musculoskeletal: denies: Neck pain, Back pain Neurologic: denies: Headache PD PAST MEDICAL HISTORY - Past Medical History Cardiovascular: Hypertension Respiratory: None Endocrine/Autoimmune: None GI: None : Retention, Renal insuffiency, Indwelling catheter HEENT: None Psych: Depression, Other Musculoskeletal: None Derm: None - Past Surgical History Past Surgical History: Yes General: Splenectomy Ortho: Shoulder arthroplasty HEENT: Myringotomy (tubes) - Present Medications Home Medications: Ambulatory Orders Medication Instructions Recorded Confirmed Aripiprazole [Abilify] 15 mg 01/14/18 Bp Med 0 mg 01/14/18 Amlodipine Besylate 5 mg PO 02/22/18 Finasteride 5 mg PO 02/22/18 Lisinopril 20 mg PO 02/22/18 Metoprolol Tartrate 25 mg PO 02/22/18 02/22/18 Tamsulosin HCl [Flomax] 0.4 mg PO 02/22/18 Cyclobenzaprine [Flexeril] 10 mg PO TID PRN #20 tablet 09/19/18 - Allergies Allergies/Adverse Reactions: Allergies Allergy/AdvReac Type Severity Reaction Status Date / Time No Known Drug Allergies Allergy Verified 02/22/18 14:40 - Social History Does the pt smoke?: No Smoking Status: Never smoker Does the pt drink ETOH?: No Does the pt have substance abuse?: No - Immunizations Immunizations are current?: Yes Immunizations: TDAP >10years/unknown - POLST Patient has POLST: No PD ED PE NORMAL - Vitals Vital signs reviewed: Yes - General General: Alert and oriented X 3, No acute distress - HEENT HEENT: Moist mucous membranes, Pharynx benign - Neck Neck: Supple, no meningeal sign - Cardiac Cardiac: RRR - Respiratory Respiratory: No respiratory distress, Clear bilaterally - Abdomen Abdomen: Soft, Non tender, Non distended - Back Back: No spinal TTP - Derm Derm: Warm and dry - Extremities Extremities: Normal ROM s pain, No edema - Neuro Neuro: Alert and oriented X 3, title manager 2-12 intact, No motor deficit, No sensory deficit, Normal speech Results - Vitals Vitals: Vital Signs - 24 hr 09/19/18 09/19/18 09/19/18 16:42 17:21 18:42 Temperature 36.3 C L 36.6 C Heart Rate 64 63 59 L Respiratory 16 Rate Blood Pressure 153/106 H 141/99 H 145/107 H O2 Saturation 98 93 100 09/19/18 19:02 Temperature Heart Rate 59 L Respiratory 17 Rate Blood Pressure 151/106 H O2 Saturation 100 Oxygen O2 Source Room air - Labs Labs: Laboratory Tests 09/19/18 09/19/18 17:46 17:46 WBC 5.8 RBC 3.96 L Hgb 11.3 L Hct 34.7 L MCV 87.6 MCH 28.5 MCHC 32.5 RDW 14.2 Plt Count 293 MPV 7.1 L Neut # (Auto) 4.0 Lymph # (Auto) 1.3 L [place] # (Auto) 0.3 Eos # (Auto) 0.1 Baso # (Auto) 0.0 Absolute Nucleated RBC 0.00 Nucleated RBC % 0.0 Sodium 138 Potassium 3.8 Chloride 104 Carbon Dioxide 25 Anion Gap 9.0 BUN 36 H Creatinine 1.6 H Estimated GFR (MDRD) 46 L Glucose 115 H Calcium 9.8 Total Bilirubin 0.8 AST 24 ALT 15 Alkaline Phosphatase 93 Total Creatine Kinase 201 Total Protein 8.1 Albumin 4.0 Globulin 4.1 Albumin/Globulin Ratio 1.0 Lipase 32 PD MEDICAL DECISION MAKING - ED course Complexity details: reviewed results, re-evaluated patient, considered differential, d/w patient ED course: Patient is a 53-year-old male who presents to the emergency department with what appears to be mild dehydration and muscle aches. Feels better after Toradol. Did have emesis x1 and felt better after Zofran. Tolerating p.o. without difficulty. Is complaining of muscle spasm, will trial on Flexeril for home. He is well-appearing, nontoxic. Afebrile. Patient counseled regarding signs and symptoms for which I believe and urgent re-evaluation would be necessary. Patient with good understanding of and agreement to plan and is comfortable going home at this time This document was made in part using voice recognition software. While efforts are made to proofread this document, sound alike and grammatical errors may occur. Departure - Departure Disposition: 01 Home, Self Care Clinical Impression: Dehydration, Muscle spasm Condition: Good Instructions: ED Dehydration Follow-Up: Eldon Valdez MD [Primary Care Provider] - Within 1 week Prescriptions: Cyclobenzaprine [Flexeril] 10 mg PO TID PRN #20 tablet PRN Reason: Spasms Comments: Drink plenty of fluids. Follow up with your doctor for further care.
[2018-09-19 17:53] LABS: BASOPHILS % (AUTO) 0.8 %; EOSINOPHILS # (AUTO) 0.1 10^3/uL (0.0-0.7); EOSINOPHILS % (AUTO) 1.8 %; HGB - HEMOGLOBIN 11.3 g/dL (14.0-18.0); LYMPHOCYTES # (AUTO) 1.3 10^3/uL (1.5-3.5); LYMPHOCYTES % (AUTO) 22.8 %; MEAN CORPUSCULAR HEMOGLOBIN 28.5 pg (27.0-31.0); MEAN CORPUSCULAR HGB CONC 32.5 g/dL (32.0-36.0); MEAN CORPUSCULAR VOLUME 87.6 fL (80.0-94.0); MEAN PLATELET VOLUME 7.1 fL (7.4-11.4); MONOCYTES # (AUTO) 0.3 10^3/uL (0.0-1.0); MONOCYTES % (AUTO) 5.5 %; NEUTROPHILS % (AUTO) 69.1 %; PLT - PLATELET COUNT 293 10^3/uL (130-450); RED BLOOD COUNT 3.96 10^6/uL (4.70-6.10); RED CELL DISTRIBUTION WIDTH 14.2 % (12.0-15.0); WHITE BLOOD COUNT 5.8 x10^3/uL (4.8-10.8)
[2018-09-19 18:06] LABS: BILIRUBIN,TOTAL 0.8 mg/dL (0.2-1.0); CALCIUM 9.8 mg/dL (8.5-10.3); CREATININE 1.6 mg/dL (0.6-1.2); TOTAL PROTEIN 8.1 g/dL (6.7-8.2)
[2018-09-19] MEDS ORDERED: KETOROLAC 30 MG/ML VIAL IVP STA (18:07)
[2018-09-19] MEDS ORDERED: SODIUM CHLORIDE 0.9% 1,000 ML IV ONE (18:07)
[2018-09-19] MEDS ORDERED: ONDANSETRON 4 MG/2 ML VIAL IVP STA (18:07)
[2018-09-19] MEDS ORDERED: diazePAM 5 MG TABLET PO STA (18:52)
[2018-09-19 19:03] VITALS: BP 151/106
== END 2018-09-19 19:31 | disposition home or self-care (01) ==
LOC: ED 16:24
DX: E86.0 Dehydration (principal); M62.838 Other muscle spasm; N18.3 Chronic kidney disease, stage 3 (moderate); I12.9 Hypertensive chronic kidney disease with stage 1 through stage 4 chronic kidney disease, or unspecified chronic kidney disease
CPT/HCPCS: 36415; 80053; 82550; 83690; 85025; 96361; 96374; 99283; A9270

== ENCOUNTER 2019-04-14 | Inpatient (IN) | payer MEDICAID | END 2019-04-17 13:59 | disposition home or self-care (01) | DRG 683 | PROVIDERS: ADMIT Internal Medicine | DX: N17.9 Acute kidney failure, unspecified (principal); A04.72 Enterocolitis due to Clostridium difficile, not specified as recurrent; N13.8 Other obstructive and reflux uropathy; E87.2 Acidosis; E87.5 Hyperkalemia; T44.6X6A Underdosing of alpha-adrenoreceptor antagonists, initial encounter; T50.996A Underdosing of other drugs, medicaments and biological substances, initial encounter; T44.7X6A Underdosing of beta-adrenoreceptor antagonists, initial encounter; T46.4X6A Underdosing of angiotensin-converting-enzyme inhibitors, initial encounter; T46.1X6A Underdosing of calcium-channel blockers, initial encounter; Y92.009 Unspecified place in unspecified non-institutional (private) residence as the place of occurrence of the external cause; Z91.128 Patient's intentional underdosing of medication regimen for other reason; N40.1 Benign prostatic hyperplasia with lower urinary tract symptoms; N13.30 Unspecified hydronephrosis; D50.9 Iron deficiency anemia, unspecified; I10 Essential (primary) hypertension; R31.0 Gross hematuria; M25.512 Pain in left shoulder; M25.511 Pain in right shoulder; M25.552 Pain in left hip; M25.551 Pain in right hip; M25.562 Pain in left knee; M25.561 Pain in right knee; G89.29 Other chronic pain; Z90.81 Acquired absence of spleen; Z86.14 Personal history of Methicillin resistant Staphylococcus aureus infection; Z79.899 Other long term (current) drug therapy | CPT/HCPCS: 36415; 51702; 51798; 76770; 80048; 80053; 81003; 82274; 82550; 82728; 83540; 83690; 83735; 84100; 84466; 85025; 85027; 87493; 96360; 99284; 99285; A9270; J1170; J1815; J7040; J8499; 81001; 87086 ==

== ENCOUNTER 2019-04-26 12:39 | Emergency (ER) | payer MEDICAID ==
[2019-04-26 14:05] LABS: BASOPHILS % (AUTO) 0.3 %; EOSINOPHILS % (AUTO) 0.1 %; HGB - HEMOGLOBIN 9.5 g/dL (14.0-18.0); LYMPHOCYTES # (AUTO) 0.7 10^3/uL (1.5-3.5); LYMPHOCYTES % (AUTO) 8.6 %; MEAN CORPUSCULAR HEMOGLOBIN 25.7 pg (27.0-31.0); MEAN CORPUSCULAR VOLUME 82.7 fL (80.0-94.0); MEAN PLATELET VOLUME 8.8 fL (7.4-11.4); MONOCYTES # (AUTO) 0.2 10^3/uL (0.0-1.0); NEUTROPHILS # (AUTO) 6.6 10^3/uL (1.5-6.6); NEUTROPHILS % (AUTO) 87.7 %; PLT - PLATELET COUNT 281 10^3/uL (130-450); RED CELL DISTRIBUTION WIDTH 16.3 % (12.0-15.0); WHITE BLOOD COUNT 7.6 x10^3/uL (4.8-10.8)
[2019-04-26 14:17] LABS: ALBUMIN 3.6 g/dL (3.2-5.5); ALBUMIN/GLOBULIN RATIO 0.8 (1.0-2.2); BILIRUBIN,TOTAL 0.4 mg/dL (0.2-1.0); CALCIUM 9.3 mg/dL (8.5-10.3); CREATININE 2.1 mg/dL (0.6-1.2); TOTAL PROTEIN 8.4 g/dL (6.7-8.2)
[2019-04-26] MEDS ORDERED: SODIUM CHLORIDE 0.9% 1,000 ML IV ONE ×2 (16:07)
[2019-04-26] MEDS ORDERED: KETOROLAC 30 MG/ML VIAL IVP STA (16:07)
[2019-04-26] MEDS ORDERED: cefTRIAXone 1 GM VIAL IVP STA (16:07)
[2019-04-26 17:01] LABS: BILIRUBIN,URINE NEGATIVE (NEGATIVE); GLUCOSE, URINE (UA) NEGATIVE (NEGATIVE); KETONES,URINE (UA) NEGATIVE (NEGATIVE); LEUKOCYTE ESTERASE, URINE SMALL (NEGATIVE); NITRITE,URINE POSITIVE (NEGATIVE); OCCULT BLOOD,URINE MODERATE (NEGATIVE); PH,URINE 5.5 PH (5.0-7.5); PROTEIN,URINE 30 mg/dL (NEGATIVE); UROBILINOGEN,URINE 0.2 (NORMAL) E.U./dL (NORMAL)
[2019-04-26 17:02] LABS: CLARITY,URINE CLEAR (CLEAR)
[2019-04-26 17:05] VITALS: BP 138/84
[2019-04-26 17:09] LABS: WBC CLUMPS,URINE PRESENT
[2019-04-26 17:10] LABS: BACTERIA,URINE Many /HPF (None Seen); SQUAMOUS EPITHELIAL CELL,UR NONE SEEN (<= Few)
[2019-04-26] MEDS ORDERED: CYCLOBENZAPRINE 10 MG TABLET PO STA (17:18)
[2019-04-26] MEDS ORDERED: oxyCODONE 5 MG TABLET PO STA (17:50)
--- NOTE | 2019-04-26 18:19 | ED Physician Documentation ---
History of Present Illness - Stated complaint Stated Complaint: ABD/BACK PX - Chief complaint Chief Complaint: UTI - History obtained from History obtained from: Patient, Family - History of Present Illness Timing: Today Pain level max: 7 Pain level now: 6 - Additonal information Additional information: 53-year-old male with a catheter recently placed for urinary retention. He states he is having body spasms. States he is also having drainage from the catheter that appears white and thick. No fevers. No vomiting. Concerned about infection. Nothing makes it better or worse. Review of Systems Ten Systems: 10 systems reviewed and negative Constitutional: denies: Fever, Chills Nose: denies: Rhinorrhea / runny nose Throat: denies: Sore throat Cardiac: denies: Chest pain / pressure Respiratory: denies: Cough, Wheezing GI: denies: Nausea, Vomiting Skin: denies: Rash Musculoskeletal: denies: Neck pain, Back pain PD PAST MEDICAL HISTORY - Past Medical History Past Medical History: Yes Cardiovascular: Hypertension Respiratory: None Neuro: None Endocrine/Autoimmune: None GI: None : Benign prostate hypertrophy, Retention, Renal insuffiency, Indwelling catheter HEENT: None Psych: Depression Musculoskeletal: None Derm: None - Past Surgical History Past Surgical History: Yes General: Splenectomy Ortho: Shoulder arthroplasty HEENT: Myringotomy (tubes) - Present Medications Home Medications: Ambulatory Orders Medication Instructions Recorded Confirmed Amlodipine Besylate 5 mg PO DAILY 02/22/18 04/15/19 Finasteride 5 mg PO DAILY 02/22/18 04/15/19 Metoprolol Tartrate 50 mg PO BID 02/22/18 04/15/19 Tamsulosin HCl [Flomax] 0.4 mg PO DAILY 02/22/18 04/15/19 Ferrous Sulfate 325 mg PO DAILY #30 tablet 04/17/19 Vancomycin [Vancocin] 125 mg PO QID #28 capsule 04/17/19 Cefdinir 300 mg PO BID #20 capsule 04/26/19 Oxycodone HCl/Acetaminophen 1 - 2 each PO Q6H PRN #10 tablet 04/26/19 [Percocet 5-325 mg Tablet] - Allergies Allergies/Adverse Reactions: Allergies Allergy/AdvReac Type Severity Reaction Status Date / Time No Known Drug Allergies Allergy Verified 04/26/19 12:49 - Social History Does the pt smoke?: No Smoking Status: Never smoker Does the pt drink ETOH?: No Does the pt have substance abuse?: No - Immunizations Immunizations are current?: Yes Immunizations: TDAP >10years/unknown - POLST Patient has POLST: No PD ED PE NORMAL - Vitals Vital signs reviewed: Yes - General General: Alert and oriented X 3, No acute distress, Well developed/nourished - HEENT HEENT: Moist mucous membranes - Neck Neck: Supple, no meningeal sign - Cardiac Cardiac: RRR, Strong equal pulses - Respiratory Respiratory: No respiratory distress, Clear bilaterally - Abdomen Abdomen: Soft, Non tender, Non distended - Male Male : Other (Small amount of purulent drainage from the catheter) - Back Back: No CVA TTP, No spinal TTP - Derm Derm: Warm and dry - Extremities Extremities: No edema - Neuro Neuro: Alert and oriented X 3 - Psych Psych: Normal mood, Normal affect Results - Vitals Vitals: Vital Signs - 24 hr 04/26/19 04/26/19 12:50 17:04 Temperature 36.9 C 38.2 C H Heart Rate 82 92 Respiratory 17 18 Rate Blood Pressure 98/65 138/84 H O2 Saturation 98 100 Oxygen O2 Source [Without Activity] Room air O2 Source Room air - Labs Labs: Laboratory Tests 04/26/19 04/26/19 04/26/19 13:58 13:58 16:55 WBC 7.6 RBC 3.70 L Hgb 9.5 L Hct 30.6 L MCV 82.7 MCH 25.7 L MCHC 31.0 L RDW 16.3 H Plt Count 281 MPV 8.8 Neut # (Auto) 6.6 Lymph # (Auto) 0.7 L [place] # (Auto) 0.2 Eos # (Auto) 0.0 Baso # (Auto) 0.0 Absolute Nucleated RBC 0.00 Nucleated RBC % 0.0 Sodium 138 Potassium 3.6 Chloride 102 Carbon Dioxide 21 Anion Gap 15.0 H BUN 29 H Creatinine 2.1 H Estimated GFR (MDRD) 33 L Glucose 104 H Calcium 9.3 Total Bilirubin 0.4 AST 23 ALT 15 Alkaline Phosphatase 79 Total Protein 8.4 H Albumin 3.6 Globulin 4.8 H Albumin/Globulin Ratio 0.8 L Lipase 25 Urine Color YELLOW Urine Clarity CLEAR Urine pH 5.5 Ur Specific [place] 1.020 Urine Protein 30 H Urine Glucose (UA) NEGATIVE Urine Ketones NEGATIVE Urine Occult Blood MODERATE H Urine Nitrite POSITIVE H Urine Bilirubin NEGATIVE Urine Urobilinogen 0.2 (NORMAL) Ur Leukocyte Esterase SMALL H Urine RBC 6-10 H Urine WBC >25 H Urine WBC Clumps PRESENT Ur Squamous Epith Cells NONE SEEN Urine Bacteria Many H Ur Microscopic Review INDICATED Urine Culture Comments INDICATED PD MEDICAL DECISION MAKING - ED course Complexity details: reviewed results, re-evaluated patient, considered differential, d/w patient ED course: 53-year-old male with a catheter associated UTI. Pain well controlled. Muscle spasms stopped. Feels better after IV fluids and pain medication. Will place on antibiotics and follow-up closely with his doctor. He is very well- appearing, nontoxic. No evidence of sepsis. Patient counseled regarding signs and symptoms for which I believe and urgent re-evaluation would be necessary. Patient with good understanding of and agreement to plan and is comfortable going home at this time This document was made in part using voice recognition software. While efforts are made to proofread this document, sound alike and grammatical errors may occur. Departure - Departure Disposition: 01 Home, Self Care Clinical Impression: Muscle spasm UTI (urinary tract infection) Qualifiers: Urinary tract infection type: acute cystitis Hematuria presence: without hematuria Qualified Code(s): N30.00 - Acute cystitis without hematuria Condition: Good Instructions: ED UTI Cystitis Male Follow-Up: Eldon Valdez MD [Primary Care Provider] - Within 3 Days Prescriptions: Cefdinir 300 mg PO BID #20 capsule Oxycodone HCl/Acetaminophen [Percocet 5-325 mg Tablet] 1 - 2 each PO Q6H PRN #10 tablet PRN Reason: pain Comments: Take all antibiotics until gone. Return if you worsen. Follow-up with your doctor for further care. Discharge Date/Time: 04/26/19 18:25
== END 2019-04-26 18:25 | disposition home or self-care (01) ==
LOC: ED 12:39
DX: T83.511A Infection and inflammatory reaction due to indwelling urethral catheter, initial encounter (principal); Y84.6 Urinary catheterization as the cause of abnormal reaction of the patient, or of later complication, without mention of misadventure at the time of the procedure; M62.838 Other muscle spasm; N40.1 Benign prostatic hyperplasia with lower urinary tract symptoms; R33.8 Other retention of urine; I10 Essential (primary) hypertension
CPT/HCPCS: 36415; 80053; 81001; 83690; 85025; 87077; 87086; 87181; 96361; 96374; 99283; 99284; A9270; 81003

== ENCOUNTER 2019-05-21 16:25 | Observation (INO) | payer MEDICAID ==
[2019-05-21] MEDS ORDERED: SODIUM CHLORIDE 0.9% 1,000 ML IV ONE (16:34)
[2019-05-21] MEDS ORDERED: fentaNYL 100 MCG/2 ML VIAL IVP STA (16:39)
[2019-05-21] MEDS ORDERED: TETANUS/DIPHTHERIA/PERTUSSIS 0.5 ML SYRINGE IM ONE (16:44)
--- NOTE | 2019-05-21 16:44 | ED Physician Documentation ---
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 More recently has had obstructive uropathy due to BPH and renal failure related to same. He was hospitalized for that last month and then also had C. difficile. More recently had a UTI and was on Ceftin ear. States he is still on an antibiotic, but by my math he should be out by now if he was taking it as prescribed. Over the last few days has been having dizzy episodes and feeling weak. He is not eating and drinking well. Today he had a syncopal episode hitting the top of [place] the [place]. Also injured his low back and right shoulder.) Review of Systems Ten Systems: 10 systems reviewed and negative Constitutional: reports: Fatigue, Weight Loss. denies: Fever, Chills Cardiac: denies: Chest pain / pressure, Palpitations Respiratory: denies: Dyspnea, Cough PD PAST MEDICAL HISTORY - Past Medical History Cardiovascular: Hypertension Respiratory: None Neuro: None Endocrine/Autoimmune: None GI: None : Benign prostate hypertrophy, Retention, Renal insuffiency, Indwelling catheter HEENT: None Psych: Depression Musculoskeletal: None Derm: None - Past Surgical History Past Surgical History: Yes General: Splenectomy Ortho: Shoulder arthroplasty HEENT: Myringotomy (tubes) - Present Medications Home Medications: Ambulatory Orders Medication Instructions Recorded Confirmed Amlodipine Besylate 5 mg PO DAILY 02/22/18 04/15/19 Finasteride 5 mg PO DAILY 02/22/18 04/15/19 Metoprolol Tartrate 50 mg PO BID 02/22/18 04/15/19 Tamsulosin HCl [Flomax] 0.4 mg PO DAILY 02/22/18 04/15/19 Ferrous Sulfate 325 mg PO DAILY #30 tablet 04/17/19 Vancomycin [Vancocin] 125 mg PO QID #28 capsule 04/17/19 Cefdinir 300 mg PO BID #20 capsule 04/26/19 Oxycodone HCl/Acetaminophen 1 - 2 each PO Q6H PRN #10 tablet 04/26/19 [Percocet 5-325 mg Tablet] - Allergies Allergies/Adverse Reactions: Allergies Allergy/AdvReac Type Severity Reaction Status Date / Time No Known Drug Allergies Allergy Verified 05/21/19 16:29 - Social History Does the pt smoke?: No Smoking Status: Never smoker Does the pt drink ETOH?: No Does the pt have substance abuse?: No - Immunizations Immunizations are current?: Yes Immunizations: TDAP >10years/unknown - POLST Patient has POLST: No PD ED PE NORMAL - Vitals Vital signs reviewed: Yes - General General: Alert and oriented X 3, Other (He appears ill and is somewhat somnolent. He wakes up and answers questions appropriately. He is modestly hypotensive.) - HEENT HEENT: PERRL, EOMI, Other (There is a 1 cm midline scalp posterior to the vertex but superior to the occiput.) - Neck Neck: Supple, no meningeal sign, No bony TTP - Cardiac Cardiac: RRR, No murmur - Respiratory Respiratory: No respiratory distress, Clear bilaterally - Abdomen Abdomen: Soft, Non tender - Male Male : Other (Hudson in place with clear urine in the bag) - Back Back: Other (Mild lumbar spine and sacral tenderness) - Derm Derm: Normal color, Warm and dry - Extremities Extremities: Other (He is unable to lift the right shoulder off the bed, he is tender over the glenohumeral joint. Extensive surgical scars there.) - Neuro Neuro: Alert and oriented X 3, manager sourcing 2-12 intact Eye Opening: To Voice Motor: Obeys Commands Verbal: Oriented GCS Score: 14 - Psych Psych: Normal mood, Normal affect Results - Vitals Vitals: Vital Signs - 24 hr 05/21/19 05/21/19 05/21/19 16:27 16:29 17:36 Temperature 35.1 C L Heart Rate 89 89 76 Respiratory 22 22 15 Rate Blood Pressure 81/57 L 81/57 L 95/71 O2 Saturation 95 95 100 05/21/19 05/21/19 05/21/19 17:54 18:22 18:30 Temperature Heart Rate 71 73 72 Respiratory 13 14 12 Rate Blood Pressure 95/71 94/69 107/72 O2 Saturation 100 100 100 05/21/19 05/21/19 05/21/19 19:00 19:30 20:00 Temperature Heart Rate 82 81 83 Respiratory 16 12 14 Rate Blood Pressure 107/72 110/79 110/79 O2 Saturation 97 98 98 Oxygen O2 Source [] Room air O2 Source Room air - EKG (time done) 1742 Rate: Rate (enter#) (75) Rhythm: NSR [place]: Normal Intervals: Normal VT QRS: Normal Ischemia: Normal ST segments Computer interpretation: Agree with computer - Labs Labs: Laboratory Tests 05/21/19 05/21/19 05/21/19 16:05 16:43 16:43 WBC 9.8 RBC 4.05 L Hgb 10.3 L Hct 34.6 L MCV 85.4 MCH 25.4 L MCHC 29.8 L RDW 16.6 H Plt Count 419 MPV 9.2 Neut # (Auto) 5.7 Lymph # (Auto) 3.4 [place] # (Auto) 0.6 Eos # (Auto) 0.1 Baso # (Auto) 0.1 Absolute Nucleated RBC 0.00 Nucleated RBC % 0.0 Sodium 139 Potassium 4.1 Chloride 104 Carbon Dioxide 21 Anion Gap 14.0 H BUN 43 H Creatinine 2.4 H Estimated GFR (MDRD) 29 L Glucose 90 Lactic Acid Calcium 9.1 Total Bilirubin 0.3 AST 22 ALT 16 Alkaline Phosphatase 87 Total Creatine Kinase Total Protein 8.1 Albumin 3.7 Globulin 4.4 H Albumin/Globulin Ratio 0.8 L Lipase 35 Urine Color YELLOW Urine Clarity CLOUDY Urine pH >=9.0 H Ur Specific [place] <=1.005 Urine Protein 100 H Urine Glucose (UA) NEGATIVE Urine Ketones NEGATIVE Urine Occult Blood NEGATIVE Urine Nitrite NEGATIVE Urine Bilirubin NEGATIVE Urine Urobilinogen 0.2 (NORMAL) Ur Leukocyte Esterase TRACE H Urine RBC None Seen Urine WBC 0-3 Ur Squamous Epith Cells NONE SEEN Urine Crystals 26-50 Triple Phos Amorphous Sediment Marked Urine Bacteria None Seen Ur Microscopic Review INDICATED Urine Culture Comments INDICATED Urine Opiates Screen NEGATIVE Ur Oxycodone Screen NEGATIVE Urine Methadone Screen NEGATIVE Ur Propoxyphene Screen NEGATIVE Ur Barbiturates Screen NEGATIVE Ur Tricyclics Screen NEGATIVE Ur Phencyclidine Scrn NEGATIVE Ur Amphetamine Screen POSITIVE H U Methamphetamines Scrn POSITIVE H U Benzodiazepines Scrn NEGATIVE Urine Cocaine Screen NEGATIVE U Cannabinoids Screen NEGATIVE Ethyl Alcohol 56.4 05/21/19 05/21/19 16:43 16:43 WBC RBC Hgb Hct MCV MCH MCHC RDW Plt Count MPV Neut # (Auto) Lymph # (Auto) [place] # (Auto) Eos # (Auto) Baso # (Auto) Absolute Nucleated RBC Nucleated RBC % Sodium Potassium Chloride Carbon Dioxide Anion Gap BUN Creatinine Estimated GFR (MDRD) Glucose Lactic Acid 2.6 H Calcium Total Bilirubin AST ALT Alkaline Phosphatase Total Creatine Kinase 58 Total Protein Albumin Globulin Albumin/Globulin Ratio Lipase Urine Color Urine Clarity Urine pH Ur Specific [place] Urine Protein Urine Glucose (UA) Urine Ketones Urine Occult Blood Urine Nitrite Urine Bilirubin Urine Urobilinogen Ur Leukocyte Esterase Urine RBC Urine WBC Ur Squamous Epith Cells Urine Crystals Amorphous Sediment Urine Bacteria Ur Microscopic Review Urine Culture Comments Urine Opiates Screen Ur Oxycodone Screen Urine Methadone Screen Ur Propoxyphene Screen Ur Barbiturates Screen Ur Tricyclics Screen Ur Phencyclidine Scrn Ur Amphetamine Screen U Methamphetamines Scrn U Benzodiazepines Scrn Urine Cocaine Screen U Cannabinoids Screen Ethyl Alcohol - Rads (name of study) CT Head/Cspine Radiology: EMP read contemporaneously (NAD) 1v chest Radiology: EMP read contemporaneously (To my eye it looks normal, the radiologist comments on potential pulmonary vascular congestion.) X-rays of the lumbar spine and sacrum Radiology: EMP read contemporaneously (Negative) Procedures - Laceration (location) scalp Length in cm: 1 Anesthesia: LET Wound Preparation: Irrigated copiously NS Skin layer closure: Sumit (1) Other: Tetanus booster given Complexity: Simple PD MEDICAL DECISION MAKING - ED course ED course: This is a 53-year-old gentleman with substance use and social issues who had recent renal failure which was improving but now worse again related to dehydration and has had hypotension here. He did require some Ativan sedation for belligerent behavior and methamphetamine type twitching. There is no evidence of rhabdomyolysis. Work-up here demonstrates worsening again renal function,. We will place him in observation for IV fluid hydration and improvement of renal function. Scalp laceration was stapled. Spoke with Dr. Mejía for observation at 8 PM Departure - Departure Disposition: ED Place in Observation Clinical Impression: Acute kidney injury, Methamphetamine abuse Syncope Qualifiers: Syncope type: unspecified Qualified Code(s): R55 - Syncope and collapse Laceration of head Qualifiers: Encounter type: initial encounter Location of open wound of head: scalp Foreign body presence: without foreign body Qualified Code(s): S01.01XA - Laceration without foreign body of scalp, initial encounter Condition: Stable
[2019-05-21 16:49] LABS: BASOPHILS # (AUTO) 0.1 10^3/uL (0.0-0.1); BASOPHILS % (AUTO) 0.5 %; EOSINOPHILS # (AUTO) 0.1 10^3/uL (0.0-0.7); EOSINOPHILS % (AUTO) 1.3 %; HGB - HEMOGLOBIN 10.3 g/dL (14.0-18.0); LYMPHOCYTES # (AUTO) 3.4 10^3/uL (1.5-3.5); LYMPHOCYTES % (AUTO) 34.5 %; MEAN CORPUSCULAR HEMOGLOBIN 25.4 pg (27.0-31.0); MEAN CORPUSCULAR HGB CONC 29.8 g/dL (32.0-36.0); MEAN CORPUSCULAR VOLUME 85.4 fL (80.0-94.0); MEAN PLATELET VOLUME 9.2 fL (7.4-11.4); MONOCYTES # (AUTO) 0.6 10^3/uL (0.0-1.0); MONOCYTES % (AUTO) 5.6 %; NEUTROPHILS # (AUTO) 5.7 10^3/uL (1.5-6.6); NEUTROPHILS % (AUTO) 57.6 %; PLT - PLATELET COUNT 419 10^3/uL (130-450); RED BLOOD COUNT 4.05 10^6/uL (4.70-6.10); RED CELL DISTRIBUTION WIDTH 16.6 % (12.0-15.0); WHITE BLOOD COUNT 9.8 x10^3/uL (4.8-10.8)
[2019-05-21 17:01] LABS: ALBUMIN 3.7 g/dL (3.2-5.5); ALBUMIN/GLOBULIN RATIO 0.8 (1.0-2.2); BILIRUBIN,TOTAL 0.3 mg/dL (0.2-1.0); CALCIUM 9.1 mg/dL (8.5-10.3); CREATININE 2.4 mg/dL (0.6-1.2); TOTAL PROTEIN 8.1 g/dL (6.7-8.2)
[2019-05-21] MEDS ORDERED: LIDOCAINE-EPINEPH-TETRACAINE 3 ML SYRINGE TOP STA (17:22)
--- NOTE | 2019-05-21 17:25 | CT Report ---
Reason: head inj Procedure Date: 05/21/2019 Accession Number: [id number] / [id number] Procedure: CT - CERVICAL SPINE WO CPT Code: FULL RESULT: EXAM: CT CERVICAL SPINE WITHOUT CONTRAST DATE: 05/21/2019 05:03 PM. HISTORY: Trauma, pain. COMPARISONS: None. TECHNIQUE: Thin-section axial images were acquired of the cervical spine without contrast. Post-processing: Coronal and sagittal reformats. Other: None. In accordance with CT protocol optimization, one or more of the following dose reduction techniques were utilized for this exam: automated exposure control, adjustment of mA and/or KV based on patient size, or use of iterative reconstructive technique. FINDINGS: Alignment: No scoliosis or spondylolisthesis. Bones: No fracture or bone lesion. Interspace Levels/Facets: Minimal disk space narrowing at C4-C5, C5-C6, and C6-C7. Mild generalized degenerative changes. Musculature: Unremarkable. Other: The paravertebral and prevertebral soft tissues are unremarkable. The lung apices are clear. IMPRESSION: No acute disease. RADIA
--- NOTE | 2019-05-21 17:27 | CT Report ---
Reason: head inj Procedure Date: 05/21/2019 Accession Number: [id number] / [id number] Procedure: CT - HEAD WO CPT Code: FULL RESULT: EXAM: CT HEAD EXAM DATE: 05/21/2019 05:03 PM. CLINICAL HISTORY: Head injury. COMPARISON: SINUSES 10/07/2017 3:13 PM HEAD W/O 10/01/2016 1:55 PM. TECHNIQUE: Multiaxial CT images were obtained from the foramen magnum to the vertex. Reformats: Sagittal and coronal. IV contrast: None. In accordance with CT protocol optimization, one or more of the following dose reduction techniques were utilized for this exam: automated exposure control, adjustment of mA and/or KV based on patient size, or use of iterative reconstructive technique. FINDINGS: Parenchyma: No mass-effect or midline shift. No evidence for edema. There is no intracranial hemorrhage. Extraaxial Spaces: Normal for age. No subdural or epidural collections identified. Ventricles: Minimal ethmoid sinus mucosal thickening. Sinuses and Orbits: Unremarkable. Bones: No evidence of fracture or calvarial defect. IMPRESSION: 1. No acute or focal intracranial abnormality seen. RADIA
--- NOTE | 2019-05-21 17:42 | XRAY Report ---
Reason: hypotension Procedure Date: 05/21/2019 Accession Number: [id number] / [id number] Procedure: XR - Chest 1 View X-Ray CPT Code: 43865 FULL RESULT: EXAM: CHEST RADIOGRAPHY EXAM DATE: 05/21/2019 05:22 PM. CLINICAL HISTORY: Hypotension. COMPARISON: CHEST 2 VIEW 05/22/2018 11:18 AM. TECHNIQUE: 1 view. FINDINGS: Lungs/Pleura: No dense consolidation. No large effusion or pneumothorax. Pulmonary vascular congestion. No pulmonary edema. Mediastinum: Heart and mediastinal contours are unremarkable. Other: None. IMPRESSION: Pulmonary vascular congestion without overt edema. RADIA
--- NOTE | 2019-05-21 17:45 | XRAY Report ---
Reason: back inj Procedure Date: 05/21/2019 Accession Number: [id number] / [id number] Procedure: XR - Sacrum/Coccyx CPT Code: FULL RESULT: EXAM: SACRUM AND COCCYX RADIOGRAPHY EXAM DATE: 05/21/2019 05:22 PM. HISTORY: Back inj. COMPARISONS: None. TECHNIQUE: 3 views. FINDINGS: Alignment: Visualized alignment within normal limits. Bones: On the lateral view, the coccyx is obscured by external structures. No acute displaced fractures of the visualized osseous structures. Joints: The sacroiliac joints and visualized hips are within normal limits. Soft Tissues: Unremarkable. IMPRESSION: No acute radiographic abnormalities of the visualized sacrum and coccyx. RADIA
--- NOTE | 2019-05-21 17:46 | XRAY Report ---
Reason: shoulder inj Procedure Date: 05/21/2019 Accession Number: [id number] / [id number] Procedure: XR - Shoulder 3 View RT CPT Code: FULL RESULT: EXAM: RIGHT SHOULDER RADIOGRAPHY EXAM DATE: 05/21/2019 05:22 PM. CLINICAL HISTORY: Injury, pain COMPARISON: None. TECHNIQUE: 3 views. FINDINGS: Bones: No acute fractures. Suture anchors are present. Joints: Widening of the acromioclavicular joint is likely secondary to old trauma or post resection changes. Superior subluxation of the humeral head, likely rotator cuff pathology. No dislocation. Soft tissues: The partially imaged lung is unremarkable. IMPRESSION: No acute radiographic abnormalities. RADIA
--- NOTE | 2019-05-21 17:47 | XRAY Report ---
Reason: back inj Procedure Date: 05/21/2019 Accession Number: [id number] / [id number] Procedure: XR - Lumbar Spine 2 View CPT Code: FULL RESULT: EXAM: LUMBOSACRAL SPINE RADIOGRAPHY EXAM DATE: 05/21/2019 05:22 PM. CLINICAL HISTORY: Back inj. COMPARISONS: SACRUM/COCCYX 05/21/2019 4:43 PM. TECHNIQUE: 3 views. FINDINGS: Alignment: Within normal limits. Bones: No acute displaced fractures. Disks: Mild multilevel degenerative disk disease. Facets: There are lower lumbar facet degenerative changes. Sacroiliac Joints: Unremarkable. Soft Tissues: The visualized bowel gas pattern is unremarkable. IMPRESSION: No radiographic evidence for acute disease. If pain persists, consider CT. RADIA
[2019-05-21 18:13] LABS: MUDS CUTOFF CONCENTRATIONS CUTOFF CONC BELOW:
[2019-05-21 18:18] LABS: BILIRUBIN,URINE NEGATIVE (NEGATIVE); GLUCOSE, URINE (UA) NEGATIVE (NEGATIVE); KETONES,URINE (UA) NEGATIVE (NEGATIVE); LEUKOCYTE ESTERASE, URINE TRACE (NEGATIVE); NITRITE,URINE NEGATIVE (NEGATIVE); OCCULT BLOOD,URINE NEGATIVE (NEGATIVE); PH,URINE >=9.0 PH (5.0-7.5); PROTEIN,URINE 100 mg/dL (NEGATIVE); UROBILINOGEN,URINE 0.2 (NORMAL) E.U./dL (NORMAL)
[2019-05-21 18:20] LABS: CLARITY,URINE CLOUDY (CLEAR)
[2019-05-21 18:24] LABS: AMORPHOUS SEDIMENT,UR Marked /LPF; BACTERIA,URINE None Seen /HPF (None Seen); RBC,URINE None Seen /HPF (0-5); SQUAMOUS EPITHELIAL CELL,UR NONE SEEN (<= Few)
[2019-05-21 18:28] LABS: AMPHETAMINE SCREEN,URINE POSITIVE (NEGATIVE); BENZODIAZEPINES SCREEN, URINE NEGATIVE (NEGATIVE); COCAINE SCREEN URINE NEGATIVE (NEGATIVE); METHADONE SCREEN, URINE NEGATIVE (NEGATIVE); METHAMPHETAMINES SCREEN, URINE POSITIVE (NEGATIVE); OPIATE SCREEN, URINE NEGATIVE (NEGATIVE); OXYCODONE SCREEN, URINE NEGATIVE (NEGATIVE); PROPOXYPHENE SCREEN, URINE NEGATIVE (NEGATIVE); TRICYCLIC ANTIDEPRESSANT,URINE NEGATIVE (NEGATIVE)
[2019-05-21] MEDS ORDERED: LORazepam 2 MG/ML VIAL IVP STA (18:52)
[2019-05-21] MEDS ORDERED: SODIUM CHLORIDE FLUSH 0.9% 10 ML SYRINGE IVP PRN (20:06)
--- NOTE | 2019-05-21 20:17 | HISTORY & PHYSICAL EXAMINATION ---
Chief Complaint - Chief Complaint Chief Complaint: Fall History of Present Illness - Admitted From Admitted From:: Home - History Obtained From Records Reviewed: Yes History obtained from: Patient, ER Physician, EMR - History of Present Illness HPI Comment/Other: This is a 53 year old male with a past medical history significant for obstructive uropathy requiring chronic indwelling carrera catheter, and hypertension who presents from after having a syncopal episode. He [place] the [place] out. Denies chest pain, palpitations or dyspnea prior the episode. He reports decent appetite these past few days. States that he has been checking his blood pressure at home and it has been normal or on the low side each day. He continues to take his home antihypertensives including metoprolol and amlodipine. He reports this is not the first syncopal episode and that they have been occurring every couple days for the past week. He stats they only occur when he gets up from a standing position. He has been able to use his bicycle without passing out. He denies fevers, chill, nausea, vomiting and diarrhea. Reports completing the course of antibiotics for his prior C. diff infection. He does report one episode of hematuria a few days ago which resolved. He is scheduled for a cystoscopy tomorrow with Urology at 3pm for his obstructive uropathy. In the ER, he was initially hypotensive with sytolics in the 80's which improved with IV fluids. He was not tachycardic. Labs were significant for a creatinine of 2.4 which appears near to his baseline. Lactic was mildly elevated at 2.6. Imaging of his head, c-spine, back were unremarkable. He will be admitted under observation for further management. History - Past Medical History Cardiovascular: reports: Hypertension Respiratory: reports: None Neuro: reports: None Endocrine/Autoimmune: reports: None GI: reports: None : reports: Benign prostate hypertrophy, Retention, Renal insuffiency, Indwelling catheter HEENT: reports: None Psych: reports: Depression Musculoskeletal: reports: None Derm: reports: None MRSA Hx?: Yes - Past Surgical History General: reports: Splenectomy Ortho: reports: Shoulder arthroplasty HEENT: reports: Myringotomy (tubes) - Family & Social History Family History: Father: , CAD, Hypertension Family History Comment/Other: Father from heart disease. No history of renal disease in the family. Social History Notes: He lives alone in [place], [place]. 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 He reports consuming a few beers a week. Reports meth use every couple of weeks wit h last use being a few days ago. - Substance History Use: Uses substance without health or social issues: NONE Abuse: Recurrent use of substance despite neg consequences: Amphetamine - POLST Patient has POLST: No Meds/Allgy - Home Medications Home Medications: Ambulatory Orders Medication Instructions Recorded Confirmed Amlodipine Besylate 5 mg PO DAILY 02/22/18 04/15/19 Finasteride 5 mg PO DAILY 02/22/18 04/15/19 Metoprolol Tartrate 50 mg PO BID 02/22/18 04/15/19 Tamsulosin HCl [Flomax] 0.4 mg PO DAILY 02/22/18 04/15/19 Ferrous Sulfate 325 mg PO DAILY #30 tablet 04/17/19 Vancomycin [Vancocin] 125 mg PO QID #28 capsule 04/17/19 Cefdinir 300 mg PO BID #20 capsule 04/26/19 Oxycodone HCl/Acetaminophen 1 - 2 each PO Q6H PRN #10 tablet 04/26/19 [Percocet 5-325 mg Tablet] - Allergies Allergies/Adverse Reactions: Allergies Allergy/AdvReac Type Severity Reaction Status Date / Time No Known Drug Allergies Allergy Verified 05/21/19 16:29 Review of Systems - Constitutional Constitutional: reports: Fatigue, Weakness. denies: Fever, Poor appetite - Cardiovascular Cariovascular: reports: Lightheadedness, Syncope. denies: Chest pain, Exertional dyspnea, Decr. exercise tolerance - Respiratory Respiratory: denies: SOB at rest, SOB with exertion - Gastrointestinal Gastrointestinal: denies: Abdominal pain, Diarrhea, Nausea, Vomiting - Genitourinary Genitourinary: reports: Hematuria. denies: Dysuria, Frequency - Musculoskeletal Musculoskeletal: reports: Back pain - Integumentary Integumentary: denies: Rash - Neurological Neurological: reports: General weakness, Dizziness. denies: Focal weakness - All Other Systems All Other Systems: reports: Reviewed and negative Prior Level of Functionality: Independent with ADL's. Exam - Vital Signs Vital Signs: Vital Signs x48h Temp Pulse Resp BP Pulse Ox 05/21/19 20:00 83 14 110/79 98 05/21/19 19:30 81 12 110/79 98 05/21/19 19:00 82 16 107/72 97 05/21/19 18:30 72 12 107/72 100 05/21/19 18:22 73 14 94/69 100 05/21/19 17:54 71 13 95/71 100 05/21/19 17:36 76 15 95/71 100 05/21/19 16:29 89 22 81/57 L 95 05/21/19 16:27 35.1 C L 89 22 81/57 L 95 - Physical Exam General Appearance: positive: No acute distress, Alert, Lethargic Eyes Bilateral: positive: Normal inspection ENT: positive: Dry mucous membranes. negative: No signs of dehydration Neck: positive: Nml inspection Respiratory: positive: No respiratory distress, Breath sounds nml. negative: Wheezes, Rales, Rhonchi Cardiovascular: positive: Regular rate & rhythm, No murmur. negative: T achycardia, Bradycardia, Systolic murmur Abdomen: positive: Non-tender, No distention, Other. negative: Guarding, Rebound Rectal: positive: Other (Carrera catheter in place) Skin: positive: No rash, Warm, Dry, Laceration (cm) (1cm laceration near the back of his scalp with one staple in place.) Extremities: positive: Non-tender, No pedal edema. negative: Pedal edema Neurologic/Psychiatric: positive: Oriented x3, Other (No focal motor deficits). negative: Disoriented to person, Disoriented to place, Disoriented to time Conclusion/Plan - Problem List (1) Syncope Conclusion/Plan: Suspect that is likely related to dehydration and drug abuse. His labs appear to be hemoconcentrated compared to baseline and he was hypotensive in the 80's upon arrival to the ER which improved with IV fluids. His EKG is unchanged compared to prior. Imaging in the ER was unremarkable. - Continue IV hydration - Check orthostatics - Will hold off on obtaining an echocardiogram as this episode does not appear to be cardiac in nature - Monitor on telemetry Qualifiers: Syncope type: unspecified Qualified Code(s): R55 - Syncope and collapse (2) Chronic renal insufficiency Conclusion/Plan: He has chronic kidney disease secondary to obstructive uropathy. He has a chronic indwelling carrera in place. Creatinine is minimally elevated at 2.4. It is likely his baseline is around 2 or so. This does not appear to be acute kidney injury. - Continue IV hydration as he appears dehydrated on exam - Check BMP in AM (3) Laceration of head Conclusion/Plan: This is secondary to his syncopal episode. Imaging in the ER is unremarkable. The laceration was stapled. - Tylenol PRN pain Qualifiers: Encounter type: initial encounter Location of open wound of head: scalp Foreign body presence: without foreign body Qualified Code(s): S01.01XA - Laceration without foreign body of scalp, initial encounter (4) Methamphetamine abuse Conclusion/Plan: His toxicology revealed meth use and he was agitated in the ER and required ativan. This likely played a role in his syncope. - Monitor for withdrawal - Social work consult (5) Hypertension Conclusion/Plan: He has history of hypertension for which he takes amlodipine and Metoprolol. Was previously on Lisinopril but this was discontinued due to his fluctuating renal function and multiple episodes of acute kidney injury due to obstructive uropathy. He presented hypotensive and this has resolved with IV fluids but he reports episodes of hypotension at home. - Hold home antihypertensives at this time - His home antihypertensives may need to be discontinued on discharge until he follows up with this PCP - Continue IV hydration (6) Obstructive uropathy Conclusion/Plan: This is the cause of his chronic renal insufficiency. He has a chronic indwelling carrera catheter in place. Urinalysis relatively unremarkable except for proteinuria and an elevated urine pH. Follows with Urology and is on Flomax and Finasteride. - Continue chronic indwelling carrera catheter - Resume home medications in the AM - Will hope to discharge early in the AM so he can follow up with Urology for his cystoscopy tomorrow at 3pm - Lab Results Lab results reviewed: Yes Fish Bones: 05/21/19 16:43 05/21/19 16:43 - Diagnostic Imaging Results Diagnostic Imaging Results: positive: Final report reviewed - EKG Results EKG Interpreted Independently: Yes EKG Comparison: Unchanged from prior EKG EKG Findings: Sinus rhythm with no ischemic changes. QT is not prolonged. Core Measures - Anticipated LOS I expect patient to be DC'd or transferred within 96 hours.: Yes - Issues Hospital Issues and Management Plan: Syncope 2/2 hypotension requiring IV fluids. - DVT/VTE - Prophylaxis VTE/DVT Device ordered at admit?: Yes VTE/DVT Prophylaxis med ordered at admit?: Yes
[2019-05-21] MEDS: ACETAMINOPHEN 325 MG TABLET PO PRN (21:18)
[2019-05-21] MEDS: LACTATED RINGERS 1,000 ML IV SCH (21:19)
[2019-05-22] MEDS: SODIUM CHLORIDE FLUSH 0.9% 10 ML SYRINGE IVP SCH ×2 (01:15→07:55)
[2019-05-22] MEDS: ACETAMINOPHEN 325 MG TABLET PO PRN ×2 (04:30→07:56)
[2019-05-22 05:05] LABS: CALCIUM 8.6 mg/dL (8.5-10.3); CREATININE 1.7 mg/dL (0.6-1.2)
[2019-05-22 05:24] LABS: HGB - HEMOGLOBIN 8.9 g/dL (14.0-18.0); MEAN CORPUSCULAR HEMOGLOBIN 26.5 pg (27.0-31.0); MEAN CORPUSCULAR HGB CONC 30.8 g/dL (32.0-36.0); MEAN PLATELET VOLUME 9.6 fL (7.4-11.4); RED BLOOD COUNT 3.36 10^6/uL (4.70-6.10); RED CELL DISTRIBUTION WIDTH 16.3 % (12.0-15.0); WHITE BLOOD COUNT 7.9 x10^3/uL (4.8-10.8)
[2019-05-22] MEDS: LACTATED RINGERS 1,000 ML IV SCH (06:42)
[2019-05-22 10:50] VITALS: BP 149/103
--- NOTE | 2019-05-22 11:44 | DISCHARGE SUMMARY ---
Discharge Summary Admit Date: 05/21/19 Discharge Date: 05/22/19 Discharging Provider: DMITRI Flores Primary Care Provider: Ha Valdez Code Status: Attempt Resuscitation Condition at Discharge: Stable Discharge Disposition: 01 Home, Self Care - DIAGNOSES Admission Diagnoses: Syncope Chronic renal insufficiency Laceration of head Methamphetamine abuse Hypertension Obstructive uropathy Discharge Diagnoses with Status of Each Condition: Syncope- resolved Chronic renal insufficiency- chronic, stable Laceration of head- improved Methamphetamine abuse- chronic, no interest in stopping Hypertension- chronic, stable Obstructive uropathy- chronic, remains with an indwelling carrera, planning to follow up with Urology today - HPI History of Present Illness: HPI per Dr. Dey: This is a 53 year old male with a past medical history significant for obstructive uropathy requiring chronic indwelling carrera catheter, and hypertension who presents from after having a syncopal episode. [place]. Denies chest pain, palpitations or dyspnea prior the episode. He reports decent appetite these past few days. States that he has been checking his blood pressure at home and it has been normal or on the low side each day. He continues to take his home antihypertensives including metoprolol and amlodipine. He reports this is not the first syncopal episode and that they have been occurring every couple days for the past week. He stats they only occur when he gets up from a standing position. He has been able to use his bicycle without passing out. He denies fevers, chill, nausea, vomiting and diarrhea. Reports completing the course of antibiotics for his prior C. diff infection. He does report one episode of hematuria a few days ago which resolved. He is scheduled for a cystoscopy tomorrow with Urology at 3pm for his obstructive uropathy. In the ER, he was initially hypotensive with sytolics in the 80's which improved with IV fluids. He was not tachycardic. Labs were significant for a creatinine of 2.4 which appears near to his baseline. Lactic was mildly elevated at 2.6. Imaging of his head, c-spine, back were unremarkable. He will be admitted under observation for further management. - HOSPITAL COURSE Hospital Course: The patient was given IVFs overnight and treated for his acute back pain which occurred after falling on rocks which lead to his admission. His creatinine was found to be elevated at 2.4, which improved to 1.7 prior to leaving. His lactic acid also normalized. His carrera cath was in good working order and he was medically cleared for discharge after one night of stay. - ALLERGIES Allergies/Adverse Reactions: Allergies Allergy/AdvReac Type Severity Reaction Status Date / Time No Known Drug Allergies Allergy Verified 05/21/19 16:29 - MEDICATIONS Home Medications: Ambulatory Orders Medication Instructions Recorded Confirmed Finasteride 5 mg PO DAILY 02/22/18 05/22/19 Tamsulosin HCl [Flomax] 0.4 mg PO DAILY 02/22/18 05/22/19 OLANZapine [Olanzapine] 10 mg PO QPM 05/22/19 05/22/19 oxyCODONE [Roxicodone] 5 mg PO Q4-6H PRN #20 tablet 05/22/19 - PHYSICAL EXAM AT DISCHARGE General Appearance: positive: No acute distress, Alert Eyes Bilateral: positive: Normal inspection, PERRL ENT: positive: ENT inspection nml, Pharynx nml, No signs of dehydration Neck: positive: Thyroid nml, No JVD, Trachea midline Respiratory: positive: Chest non-tender, No respiratory distress, Breath sounds nml Cardiovascular: positive: Regular rate & rhythm, No gallop Peripheral Pulses: positive: 1+ Abdomen: positive: Non-tender, Nml bowel sounds Back: positive: Nml inspection Skin: positive: Color nml, No rash, Warm, Dry Extremities: positive: Non-tender, Full ROM, Nml appearance Neurologic/Psychiatric: positive: Oriented x3, CN's nml (2-12), Motor nml, S ensation nml, Depressed mood/affect Reflexes: Bicep (R): 3+, Bicep (L): 3+ - LABS Result Diagrams: 05/22/19 04:40 05/22/19 04:40 - DIAGNOSTIC IMAGING Diagnostic Imaging Results: Final report reviewed Diagnostic Imaging Results Comments: EXAM: RIGHT SHOULDER RADIOGRAPHY EXAM DATE: 05/21/2019 05:22 PM IMPRESSION: No acute radiographic abnormalities. EXAM: SACRUM AND COCCYX RADIOGRAPHY EXAM DATE: 05/21/2019 05:22 PM IMPRESSION: No acute radiographic abnormalities of the visualized sacrum and coccyx. EXAM: LUMBOSACRAL SPINE RADIOGRAPHY EXAM DATE: 05/21/2019 05:22 PM. IMPRESSION: No radiographic evidence for acute disease. If pain persists, consider CT. EXAM: CHEST RADIOGRAPHY EXAM DATE: 05/21/2019 05:22 PM IMPRESSION: Pulmonary vascular congestion without overt edema. EXAM: CT CERVICAL SPINE WITHOUT CONTRAST DATE: 05/21/2019 05:03 PM IMPRESSION: No acute disease. EXAM: CT HEAD EXAM DATE: 05/21/2019 05:03 PM IMPRESSION: 1. No acute or focal intracranial abnormality seen. - FOLLOW UP Follow Up: Follow up with PCP within one week, attend Urology appointment as planned. - TIME SPENT Time Spent in Discharge (Minutes): 45
--- NOTE | 2019-05-22 11:59 | Discharge Plan ---
Discharge Plan Problem Reviewed?: Yes Disposition: Home, Self Care Condition: Stable Prescriptions: oxyCODONE [Roxicodone] 5 mg PO Q4-6H PRN #20 tablet PRN Reason: Pain Diet: Regular Activity Restrictions: No Restrictions Shower Restrictions: No Weight Bearing: Full Weight Health Concerns: Syncope and collapse Indwelling carrera Falls with back pain Plan of Treatment: Attend today's Urology appointment @ 3pm Stop the blood pressure pill called Norvasc/amlodapine Care Goals: Prevent falls Prevent hospital stays Follow up with Urology with indwelling carrera No Smoking: If you smoke, Please STOP! Call for help. Follow-up with: Eldon Valdez MD [Primary Care Provider] -
== END 2019-05-22 13:00 | disposition home or self-care (01) ==
LOC: ED 16:25 → MS2 20:06
PROVIDERS: ADMIT Internal Medicine; ATTEND Nurse Practitioner
DX: R55 Syncope and collapse (principal); N13.9 Obstructive and reflux uropathy, unspecified; I95.9 Hypotension, unspecified; E87.2 Acidosis; N40.1 Benign prostatic hyperplasia with lower urinary tract symptoms; R33.8 Other retention of urine; F32.9 Major depressive disorder, single episode, unspecified; E86.0 Dehydration; F15.10 Other stimulant abuse, uncomplicated; I12.9 Hypertensive chronic kidney disease with stage 1 through stage 4 chronic kidney disease, or unspecified chronic kidney disease; N18.9 Chronic kidney disease, unspecified; S01.01XA Laceration without foreign body of scalp, initial encounter; W18.30XA Fall on same level, unspecified, initial encounter; Y93.01 Activity, walking, marching and hiking; Y92.832 Beach as the place of occurrence of the external cause; M54.9 Dorsalgia, unspecified; Z87.440 Personal history of urinary (tract) infections; Z79.891 Long term (current) use of opiate analgesic
CPT/HCPCS: 12001; 36415; 70450; 71045; 72100; 72125; 72220; 73030; 80048; 80053; 80306; 80320; 81001; 82550; 83605; 83690; 85025; 85027; 87040; 87086; 87640; 90471; 90715; 93005; 96361; 96374; 96375; 99285; A9270; G0378; J2060; J7120; 81003

== ENCOUNTER 2019-07-20 16:07 | Outpatient (CLI) | payer MEDICAID ==
[2019-07-20 16:36] LABS: CALCIUM 9.3 mg/dL (8.5-10.3); CREATININE 1.9 mg/dL (0.6-1.2)
== END 2019-07-20 16:08 | disposition home or self-care (01) ==
LOC: LAB 16:07
PROVIDERS: ATTEND Urology
DX: R39.9 Unspecified symptoms and signs involving the genitourinary system (principal); R33.9 Retention of urine, unspecified
CPT/HCPCS: 36415; 80048

== ENCOUNTER 2019-07-31 18:05 | Inpatient (IN) | payer MEDICAID ==
[2019-07-31] MEDS ORDERED: ZOLPIDEM 5 MG TABLET PO PRN (18:24)
[2019-07-31] MEDS ORDERED: SODIUM CHLORIDE 0.9% 1,000 ML IV SCH (19:00)
[2019-07-31 22:35] LABS: BASOPHILS % (AUTO) 0.3 %; EOSINOPHILS # (AUTO) 0.1 10^3/uL (0.0-0.7); EOSINOPHILS % (AUTO) 1.4 %; HGB - HEMOGLOBIN 8.9 g/dL (14.0-18.0); LYMPHOCYTES # (AUTO) 1.8 10^3/uL (1.5-3.5); LYMPHOCYTES % (AUTO) 28.4 %; MEAN CORPUSCULAR HEMOGLOBIN 25.7 pg (27.0-31.0); MEAN CORPUSCULAR HGB CONC 30.6 g/dL (32.0-36.0); MEAN CORPUSCULAR VOLUME 84.1 fL (80.0-94.0); MEAN PLATELET VOLUME 8.9 fL (7.4-11.4); MONOCYTES # (AUTO) 0.5 10^3/uL (0.0-1.0); NEUTROPHILS % (AUTO) 62.6 %; PLT - PLATELET COUNT 308 10^3/uL (130-450); RED BLOOD COUNT 3.46 10^6/uL (4.70-6.10); RED CELL DISTRIBUTION WIDTH 15.3 % (12.0-15.0); WHITE BLOOD COUNT 6.4 x10^3/uL (4.8-10.8)
[2019-07-31 22:48] LABS: CALCIUM 8.7 mg/dL (8.5-10.3); CREATININE 1.9 mg/dL (0.6-1.2)
[2019-07-31] MEDS: MEROPENEM 1 GM in SODIUM CHLORIDE 0.9% MINIBAG 100 ML IV SCH (22:48)
[2019-07-31] MEDS: SODIUM CHLORIDE FLUSH 0.9% 10 ML SYRINGE IVP PRN (22:49)
--- NOTE | 2019-07-31 23:21 | HISTORY & PHYSICAL EXAMINATION ---
Chief Complaint - Chief Complaint Chief Complaint: abnormal lab finding History of Present Illness - Admitted From Admitted From:: Direct Admit from [facility] - History Obtained From Records Reviewed: yes History obtained from: patient and primary physician - History of Present Illness HPI Comment/Other: Patient is a 53 y/o male with history of obstructive uropathy who follows with Dr Martinez (urologist). He presented to the hospital today as a Direct admit from the [facility]. He had a urinalysis with reflex culture done yesterday at Dr Martinez's office. The culture grew Myroides which is very resistant and for which the patient needs 7 days of IV antibiotics (Meropenem). In the past he had a chronic indwelling carrera cath. At bedside he appears very comfortable. he denies chest pain, dyspnea, fever or chills. He reports intermittent suprapubic pressure. On exam he has a trace to +1 left lower extremity edema. He denies pain in that leg and has never had surgery in that leg. He has history of methamphetamine abuse and last used to day. 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 brother has diabetes mellitus 2. mother thyroid cancer, dementia. No history of renal disease in the family. Social History Notes: He lives alone in [place], [place]. 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 He reports consuming a few beers a week. 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 - POLST Patient has POLST: No POLST Status: Full Code Meds/Allgy - Home Medications Home Medications: Ambulatory Orders Medication Instructions Recorded Confirmed Finasteride 5 mg PO DAILY 02/22/18 05/22/19 Tamsulosin HCl [Flomax] 0.4 mg PO DAILY 02/22/18 05/22/19 OLANZapine [Olanzapine] 10 mg PO QPM 05/22/19 05/22/19 oxyCODONE [Roxicodone] 5 mg PO Q4-6H PRN #20 tablet 05/22/19 - Allergies Allergies/Adverse Reactions: Allergies Allergy/AdvReac Type Severity Reaction Status Date / Time No Known Drug Allergies Allergy Verified 05/21/19 16:29 Review of Systems - Constitutional Constitutional: denies: Fatigue, Fever, Chills, Weakness - Eyes Eyes: denies: Pain, Vision loss - Ears, Nose & Throat Ears, Nose & Throat: denies: Vertigo - Cardiovascular Cariovascular: reports: Edema (trace to +1 left lower extremity edema) - Respiratory Respiratory: denies: Cough, Wheezing, SOB at rest, SOB with exertion - Gastrointestinal Gastrointestinal: reports: Other (suprapubic abdominal pressure). denies: Abdominal pain, Abdominal distention, Constipation, Diarrhea, Nausea, Vomiting - Genitourinary Genitourinary: denies: Dysuria, Frequency, Urgency, Hematuria - Musculoskeletal Musculoskeletal: reports: Back pain - Integumentary Integumentary: denies: Rash, Pruritis, Lesions - Neurological Neurological: denies: General weakness, Focal weakness, Headache, Dizziness - Psychiatric Psychiatric: reports: Depression. denies: Anxiety - Endocrine Endocrine: denies: Polyuria, Polydypsia - Hematologic/Lymphatic Hematologic/Lymphatic: denies: Anemia, Bruising Prior Level of Functionality: He is independent of activities of daily living Exam - Vital Signs Vital Signs: Vital Signs x48h Temp Pulse Resp BP Pulse Ox 07/31/19 22:40 36.7 C 92 19 148/96 H 95 - Physical Exam General Appearance: positive: No acute distress, Alert Eyes Bilateral: positive: Normal inspection, PERRL, EOMI ENT: positive: No signs of dehydration Neck: positive: Nml inspection, No JVD, Trachea midline Respiratory: positive: Chest non-tender, No respiratory distress, Breath sounds nml. negative: Wheezes, Rales, Rhonchi Cardiovascular: positive: Regular rate & rhythm Abdomen: positive: Non-tender, No organomegaly, Nml bowel sounds, No distention. negative: Guarding, Rebound Extremities: positive: Non-tender, Full ROM, Pedal edema (+1 left lower extremity) Neurologic/Psychiatric: positive: Oriented x3 Conclusion/Plan - Problem List (1) UTI (urinary tract infection) Conclusion/Plan: Urine culture done at the Dr Martinez's (urologist) office grew Myroides which is very resistant. Patient needs 7 days of Merrem IV. He is not a candidate for a PICC line given his active methamphetamine use. he last used today. Qualifiers: Urinary tract infection type: acute cystitis Hematuria presence: without hematuria Qualified Code(s): N30.00 - Acute cystitis without hematuria (2) Chronic renal insufficiency Conclusion/Plan: This is likely 2/2 obstructive uropathy Cr is 1.9 This is around patient's baseline for the past 1.5 years. Will hold up on IV hydration. Monitor renal status with BMP. Will bladder scan patient and if needed do a straight or carrera cath Qualifiers: Chronic kidney disease stage: stage 3 (moderate) Qualified Code(s): N18.3 - Chronic kidney disease, stage 3 (moderate) (3) Left leg swelling Conclusion/Plan: Will get an ultrasound of the left lower extremity (4) Schizophrenia Conclusion/Plan: Olanzapine resumed (5) Depression Qualifiers: Depression Type: unspecified Qualified Code(s): F32.9 - Major depressive disorder, single episode, unspecified (6) BPH (benign prostatic hyperplasia) Conclusion/Plan: On finasteride and flomax Qualifiers: Lower urinary tract symptom presence: symptoms present Lower urinary tract symptom detail: urinary frequency Qualified Code(s): N40.1 - Benign prostatic hyperplasia with lower urinary tract symptoms; R35.0 - Frequency of micturition; R35.0 - Frequency of micturition (7) Hypertension Conclusion/Plan: On amlodipine and metoprolol (8) Methamphetamine abuse Conclusion/Plan: Reported last use was today 07/31/19 Will monitor for withdrawal symptoms and treat accordingly - Lab Results Fish Bones: 07/31/19 22:29 07/31/19 22:29 Core Measures - Anticipated LOS I expect patient to be DC'd or transferred within 96 hours.: Yes - DVT/VTE - Prophylaxis VTE/DVT Device ordered at admit?: Yes VTE/DVT Prophylaxis med ordered at admit?: Yes
[2019-07-31] MEDS: FAMOTIDINE 20 MG TABLET PO SCH (23:56)
[2019-07-31] MEDS: SODIUM CHLORIDE FLUSH 0.9% 10 ML SYRINGE IVP SCH (23:56)
[2019-08-01] MEDS ORDERED: A & D OINTMENT 5 GM PACKET TOP PRN (00:15)
[2019-08-01] MEDS: ACETAMINOPHEN 325 MG TABLET PO PRN ×4 (00:25→17:16)
--- NOTE | 2019-08-01 03:19 | Ultrasound Report ---
Reason: left lower extremity swelling Procedure Date: 08/01/2019 Accession Number: [id number] / [id number] Procedure: US - Duplex Ext Veins Left CPT Code: Final Report FULL RESULT: EXAM: LEFT LOWER EXTREMITY VENOUS ULTRASOUND EXAM DATE: 08/01/2019 02:20 AM. CLINICAL HISTORY: Left lower extremity swelling. COMPARISON: None. TECHNIQUE: Real-time sonographic vascular imaging was performed by the delivery mgr through the lower extremity utilizing both color-flow and Doppler spectral analysis. Multiple publications sales representative static images were saved for review. FINDINGS: Common Femoral Vein (CFV): Normal. CFV-GSV Junction: Normal. Profunda Femoral Vein (PFV): Normal. Femoral Vein (FV) Prox: Normal. Femoral Vein (FV) Mid: Normal. Femoral Vein (FV) Dist: Normal. Popliteal Vein: Normal. Posterior Tibial Veins: Normal. Peroneal Veins: Normal. Other: Left popliteal fossa cyst measuring 2.7 x 1.0 x 1.5 cm. Fluid collection along left medial ankle measuring 3.4 x 0.7 x 0.5 cm. Left calf edema. Left angle lymph nodes are noted which measure less than 1 cm in short axis. IMPRESSION: 1. No evidence of deep venous thrombosis in the left lower extremity. 2. Left popliteal fossa/Tanner's cyst measuring 2.7 cm in greatest dimension. 3. Small nonspecific fluid collection at left medial ankle measuring 3.4 x 0.7 x 0.5 cm. 4. Left calf edema. RADIA
[2019-08-01] MEDS: oxyCODONE 5 MG TABLET PO PRN ×4 (03:22→17:16)
[2019-08-01 06:16] LABS: BASOPHILS % (AUTO) 0.4 %; EOSINOPHILS # (AUTO) 0.2 10^3/uL (0.0-0.7); EOSINOPHILS % (AUTO) 4.2 %; HGB - HEMOGLOBIN 8.5 g/dL (14.0-18.0); LYMPHOCYTES # (AUTO) 1.8 10^3/uL (1.5-3.5); LYMPHOCYTES % (AUTO) 34.2 %; MEAN CORPUSCULAR VOLUME 83.8 fL (80.0-94.0); MEAN PLATELET VOLUME 8.9 fL (7.4-11.4); MONOCYTES # (AUTO) 0.5 10^3/uL (0.0-1.0); MONOCYTES % (AUTO) 9.6 %; NEUTROPHILS # (AUTO) 2.7 10^3/uL (1.5-6.6); NEUTROPHILS % (AUTO) 51.4 %; PLT - PLATELET COUNT 265 10^3/uL (130-450); RED BLOOD COUNT 3.27 10^6/uL (4.70-6.10); RED CELL DISTRIBUTION WIDTH 15.2 % (12.0-15.0); WHITE BLOOD COUNT 5.3 x10^3/uL (4.8-10.8)
[2019-08-01 06:25] LABS: CALCIUM 8.5 mg/dL (8.5-10.3); CREATININE 1.8 mg/dL (0.6-1.2)
[2019-08-01] MEDS: SODIUM CHLORIDE FLUSH 0.9% 10 ML SYRINGE IVP PRN ×2 (06:54→21:14)
[2019-08-01] MEDS: MEROPENEM 1 GM in SODIUM CHLORIDE 0.9% MINIBAG 100 ML IV SCH ×3 (06:54→22:24)
[2019-08-01] MEDS: FINASTERIDE 5 MG TABLET PO SCH (09:20)
[2019-08-01] MEDS: METOPROLOL TARTRATE 50 MG TABLET PO SCH ×2 (09:20→20:24)
[2019-08-01] MEDS: amLODIPine 5 MG TABLET PO SCH (09:21)
[2019-08-01] MEDS: TAMSULOSIN 0.4 MG CAPSULE PO SCH (09:21)
[2019-08-01] MEDS: FAMOTIDINE 20 MG TABLET PO SCH ×2 (09:21→20:24)
[2019-08-01] MEDS: SODIUM CHLORIDE FLUSH 0.9% 10 ML SYRINGE IVP SCH ×2 (09:22→17:17)
--- NOTE | 2019-08-01 11:44 | PROVIDER PROGRESS NOTE ---
Assessment/Plan - Problem List (1) UTI (urinary tract infection) Qualifiers: Urinary tract infection type: acute cystitis Hematuria presence: without hematuria Qualified Code(s): N30.00 - Acute cystitis without hematuria Assessment/Plan: 08/01 UA culture revealed grew Myroides, required 7 days of Merrem IV, and isolation is required as well continue IV of meropenem (2) Chronic renal insufficiency Conclusion/Plan: 08/01 stable as his baseline (3) Left leg swelling Conclusion/Plan: US reveals no DVT. unilateral leg mild edema. US reveals small nonspecific fluid collection at left ankle. pt denies pain. advise pt rise leg (4) Schizophrenia pt denies he had schizophrenia. pharmacy confirm pt did not have zyprexa at home meds list. pt refused to take zyprexa. (5) BPH (benign prostatic hyperplasia) Conclusion/Plan: continue finasteride and flomax (6) Hypertension Conclusion/Plan: stable,On amlodipine (7) Methamphetamine abuse Conclusion/Plan: pt Reported last use was 07/31/19. order UDS, is pending. no withdrawal as far, will close monitor pt - Current Meds Current Meds: Current Medications Generic Name Dose Route Start Last Admin Trade Name Freq PRN Reason Stop Dose Admin Acetaminophen 650 mg 07/31/19 18:24 08/01/19 09:29 Tylenol PO 650 mg Q4HR PRN Administration Pain or Fever > 38C (100.4F) Amlodipine Besylate 5 mg 08/01/19 09:00 08/01/19 09:21 Norvasc PO 5 mg DAILY ERENDIRA Administration Famotidine 20 mg 07/31/19 21:00 08/01/19 09:21 Pepcid PO 20 mg BID ERENDIRA Administration Finasteride 5 mg 08/01/19 09:00 08/01/19 09:20 Proscar PO 5 mg DAILY ERENDIRA Administration Meropenem 1 gm/ Sodium 100 mls @ 200 mls/hr 07/31/19 23:00 08/01/19 07:40 Chloride IV Infused Q8H ERENDIRA Infusion Metoprolol Tartrate 50 mg 08/01/19 09:00 08/01/19 09:20 Lopressor PO 50 mg BID ERENDIRA Administration Oxycodone HCl 5 mg 07/31/19 18:29 08/01/19 09:30 Roxicodone PO 5 mg Q4H PRN Administration PAIN Sodium Chloride 10 ml 07/31/19 18:24 08/01/19 06:54 Normal Saline Flush 0.9% IVP 10 ml PRN PRN Administration NEEDED PER PROVIDER ORDERS Sodium Chloride 10 ml 08/01/19 01:00 08/01/19 09:22 Normal Saline Flush 0.9% IVP 10 ml 0100,0900,1700 ERENDIRA Administration Tamsulosin HCl 0.4 mg 08/01/19 09:00 08/01/19 09:21 Flomax PO 0.4 mg DAILY ERENDIRA Administration - Lab Result Fish Bone Diagrams: 08/01/19 06:05 08/01/19 06:05 - Additional Planning My Orders: My Active Orders 08/01/19 MUDDS [DRUG SCREEN MEDICAL (MUDS)] [URIN] Urgent 08/01/19 10:13 Saccharomyces Boulardii [Florastor] 500 mg PO BIDWM 08/01/19 11:37 Isolation [Infection Precautions] [RC] ONCE Subjective - Subjective Patient Reports: Feeling Better Objective Vital Signs: Vital Signs - 24 hr 07/31/19 07/31/19 08/01/19 22:40 23:45 00:15 Temperature 36.7 C 36.9 C 36.9 C Heart Rate 95 Heart Rate [ 92 95 Brachial] Respiratory 19 16 16 Rate Blood Pressure 148/96 H 145/90 H [Right Brachial artery] O2 Saturation 95 99 100 08/01/19 08:10 Temperature 36.5 C Heart Rate Heart Rate [ 70 Brachial] Respiratory 16 Rate Blood Pressure 135/93 H [Right Brachial artery] O2 Saturation 100 Oxygen O2 Source [Without Activity] Room air O2 Source Room air I&O (Last 24 Hrs): Intake and Output Totals x24h 07/30/19 07/31/19 08/01/19 23:59 23:59 23:59 Intake Total 118.667 460 Output Total 1050 Balance 118.667 -590 General: Alert, No acute distress HEENT: Atraumatic Neck: Supple Lymphatic: no adenopathy Neuro: Alert, Non Focal, Oriented Times 3 Cardiovascular: Regular rate, Normal S1, Normal S2 Respiratory: Chest non-tender, No respiratory distress, Breath sounds nml Abdomen: Normal bowel sounds, Soft - Results Results: Laboratory Results WBC 5.3 x10^3/uL (4.8-10.8) 08/01/19 06:05 RBC 3.27 10^6/uL (4.70-6.10) L 08/01/19 06:05 Hgb 8.5 g/dL (14.0-18.0) L 08/01/19 06:05 Hct 27.4 % (42.0-52.0) L 08/01/19 06:05 MCV 83.8 fL (80.0-94.0) 08/01/19 06:05 MCH 26.0 pg (27.0-31.0) L 08/01/19 06:05 MCHC 31.0 g/dL (32.0-36.0) L 08/01/19 06:05 RDW 15.2 % (12.0-15.0) H 08/01/19 06:05 Plt Count 265 10^3/uL (130-450) 08/01/19 06:05 MPV 8.9 fL (7.4-11.4) 08/01/19 06:05 Neut # (Auto) 2.7 10^3/uL (1.5-6.6) 08/01/19 06:05 Lymph # (Auto) 1.8 10^3/uL (1.5-3.5) 08/01/19 06:05 [place] # (Auto) 0.5 10^3/uL (0.0-1.0) 08/01/19 06:05 Eos # (Auto) 0.2 10^3/uL (0.0-0.7) 08/01/19 06:05 Baso # (Auto) 0.0 10^3/uL (0.0-0.1) 08/01/19 06:05 Absolute Nucleated RBC 0.00 x10^3/uL 08/01/19 06:05 Nucleated RBC % 0.0 /100WBC 08/01/19 06:05 Sodium 142 mmol/L (135-145) 08/01/19 06:05 Potassium 3.6 mmol/L (3.5-5.0) 08/01/19 06:05 Chloride 110 mmol/L (101-111) 08/01/19 06:05 Carbon Dioxide 23 mmol/L (21-32) 08/01/19 06:05 Anion Gap 9.0 (6-13) 08/01/19 06:05 BUN 28 mg/dL (6-20) H 08/01/19 06:05 Creatinine 1.8 mg/dL (0.6-1.2) H 08/01/19 06:05 Estimated GFR (MDRD) 40 (>89) L 08/01/19 06:05 Glucose 100 mg/dL (70-100) 08/01/19 06:05 Calcium 8.5 mg/dL (8.5-10.3) 08/01/19 06:05 - Procedures Procedures: Procedures ABD WALL LYNETTE REPAIR NEC (04/28/13) EXCISE CORD/EPID LES NEC (04/28/13) ING HERNIA REP-GRAFT NOS (04/28/13) LAPAROSCOPIC ANTONELLA REP INGUINL HRN 1 DIR & 1 IND W GRF OR PROS (03/03/13) LAPAROSCOPY (04/28/13) Sepsis Event Note (H) - Evaluation Current Stage of Sepsis: Ruled out ABX Reporting Has patient been on IV antibiotics over the past 48 hours?: Yes Current Medications - Current Medications Current Medications: Active Medications Acetaminophen (Tylenol) 650 mg PO Q4HR PRN PRN Reason: Pain or Fever > 38C (100.4F) Last Admin: 08/01/19 09:29 Dose: 650 mg Amlodipine Besylate (Norvasc) 5 mg PO DAILY [facility] Last Admin: 08/01/19 09:21 Dose: 5 mg Famotidine (Pepcid) 20 mg PO BID [facility] Last Admin: 08/01/19 09:21 Dose: 20 mg Finasteride (Proscar) 5 mg PO DAILY [facility] Last Admin: 08/01/19 09:20 Dose: 5 mg Meropenem 1 gm/ Sodium (Chloride) 100 mls @ 200 mls/hr IV Q8H [facility] Last Infusion: 08/01/19 07:40 Dose: Infused Metoprolol Tartrate (Lopressor) 50 mg PO BID [facility] Last Admin: 08/01/19 09:20 Dose: 50 mg Oxycodone HCl (Roxicodone) 5 mg PO Q4H PRN PRN Reason: PAIN Last Admin: 08/01/19 09:30 Dose: 5 mg Prochlorperazine Edisylate (Compazine Inj) 10 mg IVP Q6HR PRN PRN Reason: Nausea / Vomiting Saccharomyces Boulardii (Florastor) 500 mg PO BIDWM [facility] Last Admin: 08/01/19 11:56 Dose: 500 mg Sodium Chloride (Normal Saline Flush 0.9%) 10 ml IVP PRN PRN PRN Reason: NEEDED PER PROVIDER ORDERS Last Admin: 08/01/19 06:54 Dose: 10 ml Sodium Chloride (Normal Saline Flush 0.9%) 10 ml IVP 0100,0900,1700 [facility] Last Admin: 08/01/19 09:22 Dose: 10 ml Tamsulosin HCl (Flomax) 0.4 mg PO DAILY [facility] Last Admin: 08/01/19 09:21 Dose: 0.4 mg Vitamin A/Vitamin D (Vitamin A & D Ointment) 1 applic TOP PRN PRN PRN Reason: Skin Care Zolpidem Tartrate (Ambien) 5 mg PO QPM PRN PRN Reason: Insomnia Finasteride 5 mg PO DAILY 02/22/18 Tamsulosin HCl [Flomax] 0.4 mg PO DAILY 02/22/18 amLODIPine [Norvasc] 5 mg PO DAILY 08/01/19
[2019-08-01] MEDS: SACCHAROMYCES BOULARDII 250 MG CAPSULE PO SCH ×2 (11:56→17:16)
[2019-08-01 12:27] LABS: MUDS CUTOFF CONCENTRATIONS CUTOFF CONC BELOW:
[2019-08-01 12:44] LABS: AMPHETAMINE SCREEN,URINE POSITIVE (NEGATIVE); BENZODIAZEPINES SCREEN, URINE NEGATIVE (NEGATIVE); COCAINE SCREEN URINE NEGATIVE (NEGATIVE); METHADONE SCREEN, URINE NEGATIVE (NEGATIVE); METHAMPHETAMINES SCREEN, URINE POSITIVE (NEGATIVE); OPIATE SCREEN, URINE NEGATIVE (NEGATIVE); OXYCODONE SCREEN, URINE POSITIVE (NEGATIVE); PROPOXYPHENE SCREEN, URINE NEGATIVE (NEGATIVE); TRICYCLIC ANTIDEPRESSANT,URINE NEGATIVE (NEGATIVE)
[2019-08-01] MEDS ORDERED: OLANZapine ODT 5 MG TABLET TL SCH (21:00)
[2019-08-01] MEDS: PROCHLORPERAZINE 10 MG/2 ML VIAL IVP PRN (21:13)
[2019-08-01] MEDS ORDERED: LORazepam 2 MG/ML VIAL IVP STA (21:46)
[2019-08-02] MEDS: SODIUM CHLORIDE FLUSH 0.9% 10 ML SYRINGE IVP SCH ×3 (00:54→17:12)
[2019-08-02] MEDS: ACETAMINOPHEN 325 MG TABLET PO PRN (04:11)
[2019-08-02] MEDS: oxyCODONE 5 MG TABLET PO PRN (04:11)
[2019-08-02 06:36] LABS: BASOPHILS % (AUTO) 0.3 %; EOSINOPHILS # (AUTO) 0.2 10^3/uL (0.0-0.7); EOSINOPHILS % (AUTO) 2.5 %; HGB - HEMOGLOBIN 9.2 g/dL (14.0-18.0); LYMPHOCYTES # (AUTO) 1.3 10^3/uL (1.5-3.5); LYMPHOCYTES % (AUTO) 21.3 %; MEAN CORPUSCULAR HGB CONC 30.9 g/dL (32.0-36.0); MEAN CORPUSCULAR VOLUME 84.2 fL (80.0-94.0); MEAN PLATELET VOLUME 8.9 fL (7.4-11.4); MONOCYTES # (AUTO) 0.6 10^3/uL (0.0-1.0); MONOCYTES % (AUTO) 9.2 %; NEUTROPHILS % (AUTO) 66.4 %; PLT - PLATELET COUNT 276 10^3/uL (130-450); RED BLOOD COUNT 3.54 10^6/uL (4.70-6.10); RED CELL DISTRIBUTION WIDTH 15.1 % (12.0-15.0)
[2019-08-02] MEDS: MEROPENEM 1 GM in SODIUM CHLORIDE 0.9% MINIBAG 100 ML IV SCH ×3 (06:43→22:24)
[2019-08-02] MEDS: SODIUM CHLORIDE FLUSH 0.9% 10 ML SYRINGE IVP PRN (06:43)
[2019-08-02 06:48] LABS: CALCIUM 8.4 mg/dL (8.5-10.3); CREATININE 1.8 mg/dL (0.6-1.2)
[2019-08-02] MEDS: SACCHAROMYCES BOULARDII 250 MG CAPSULE PO SCH ×2 (08:26→17:12)
[2019-08-02] MEDS: FAMOTIDINE 20 MG TABLET PO SCH ×2 (08:27→22:24)
[2019-08-02] MEDS: amLODIPine 5 MG TABLET PO SCH (08:27)
[2019-08-02] MEDS: FINASTERIDE 5 MG TABLET PO SCH (08:27)
[2019-08-02] MEDS: TAMSULOSIN 0.4 MG CAPSULE PO SCH (08:27)
[2019-08-02] MEDS: METOPROLOL TARTRATE 50 MG TABLET PO SCH ×2 (08:28→22:23)
--- NOTE | 2019-08-02 11:48 | PROVIDER PROGRESS NOTE ---
Subjective - Prog Note Date Prog Note Date: 08/09/19 Prog Note Time: 11:49 - Subjective Pt reports feeling: No change Subjective: he's tired, bored, just out of sorts. Denies cp, sob, but stomach grumbly. Occ diarrhea. Current Medications - Current Medications Current Medications: Active Medications Acetaminophen (Tylenol) 650 mg PO Q4HR PRN PRN Reason: Pain or Fever > 38C (100.4F) Last Admin: 08/02/19 04:11 Dose: 650 mg Amlodipine Besylate (Norvasc) 5 mg PO DAILY [facility] Last Admin: 08/02/19 08:27 Dose: 5 mg Famotidine (Pepcid) 20 mg PO BID [facility] Last Admin: 08/02/19 08:27 Dose: 20 mg Finasteride (Proscar) 5 mg PO DAILY [facility] Last Admin: 08/02/19 08:27 Dose: 5 mg Meropenem 1 gm/ Sodium (Chloride) 100 mls @ 200 mls/hr IV Q8H [facility] Last Infusion: 08/02/19 07:30 Dose: Infused Lorazepam (Ativan) 1 mg PO Q6H PRN PRN Reason: Anxiety Metoprolol Tartrate (Lopressor) 50 mg PO BID [facility] Last Admin: 08/02/19 08:28 Dose: 50 mg Oxycodone HCl (Roxicodone) 5 mg PO Q4H PRN PRN Reason: PAIN Last Admin: 08/02/19 04:11 Dose: 5 mg Prochlorperazine Edisylate (Compazine Inj) 10 mg IVP Q6HR PRN PRN Reason: Nausea / Vomiting Last Admin: 08/01/19 21:13 Dose: 10 mg Saccharomyces Boulardii (Florastor) 500 mg PO BIDWM [facility] Last Admin: 08/02/19 08:26 Dose: 500 mg Sodium Chloride (Normal Saline Flush 0.9%) 10 ml IVP PRN PRN PRN Reason: NEEDED PER PROVIDER ORDERS Last Admin: 08/02/19 06:43 Dose: 10 ml Sodium Chloride (Normal Saline Flush 0.9%) 10 ml IVP 0100,0900,1700 [facility] Last Admin: 08/02/19 08:28 Dose: 10 ml Tamsulosin HCl (Flomax) 0.4 mg PO DAILY [facility] Last Admin: 08/02/19 08:27 Dose: 0.4 mg Vitamin A/Vitamin D (Vitamin A & D Ointment) 1 applic TOP PRN PRN PRN Reason: Skin Care Zolpidem Tartrate (Ambien) 5 mg PO QPM PRN PRN Reason: Insomnia Finasteride 5 mg PO DAILY 02/22/18 Tamsulosin HCl [Flomax] 0.4 mg PO DAILY 02/22/18 amLODIPine [Norvasc] 5 mg PO DAILY 08/01/19 Objective - Vital Signs/Intake & Output Vital Signs: Vital Signs x48h Temp Pulse Resp BP BP BP Pulse Ox 08/02/19 08:28 150/99 H 08/02/19 07:50 36.6 C 66 18 150/99 H 100 08/02/19 04:17 36.5 C 66 18 150/94 H 99 Intake & Output: Intake & Output 07/30/19 07/31/19 08/01/19 08/02/19 23:59 23:59 23:59 23:59 Intake Total 948.495 4681 700 Output Total 2150 1275 Balance 118.667 -890 -575 - Objective General Appearance: positive: No acute distress, Alert, Other (pale, fatigued appearing, white well nourished male. groomed.) Eyes Bilateral: positive: PERRL ENT: positive: No signs of dehydration Neck: positive: No JVD Respiratory: positive: Chest non-tender. negative: Wheezes, Rales, Rhonchi Cardiovascular: positive: Regular rate & rhythm. negative: Systolic murmur, Gallop/S4, Friction rub Abdomen: positive: Non-tender, No organomegaly, Nml bowel sounds, No distention Skin: positive: Warm, Dry Extremities: positive: Non-tender, Full ROM, No pedal edema Neurologic/Psychiatric: positive: Oriented x3, CN's nml (2-12), Motor nml - Lab Results Fish Bones: 08/02/19 06:30 08/02/19 06:30 Other Labs: Lab Results x24hrs 08/02/19 08/02/19 08/01/19 Range/Units 06:30 06:30 11:30 WBC 6.0 (4.8-10.8) x10^3/uL RBC 3.54 L (4.70-6.10) 10^6/uL Hgb 9.2 L (14.0-18.0) g/dL Hct 29.8 L (42.0-52.0) % MCV 84.2 (80.0-94.0) fL MCH 26.0 L (27.0-31.0) pg MCHC 30.9 L (32.0-36.0) g/dL RDW 15.1 H (12.0-15.0) % Plt Count 276 (130-450) 10^3/uL MPV 8.9 (7.4-11.4) fL Neut # (Auto) 4.0 (1.5-6.6) 10^3/uL Lymph # (Auto) 1.3 L (1.5-3.5) 10^3/uL Irwin # (Auto) 0.6 (0.0-1.0) 10^3/uL Eos # (Auto) 0.2 (0.0-0.7) 10^3/uL Baso # (Auto) 0.0 (0.0-0.1) 10^3/uL Absolute Nucleated RBC 0.00 x10^3/uL Nucleated RBC % 0.0 /100WBC Sodium 141 (135-145) mmol/L Potassium 3.7 (3.5-5.0) mmol/L Chloride 108 (101-111) mmol/L Carbon Dioxide 24 (21-32) mmol/L Anion Gap 9.0 (6-13) BUN 23 H (6-20) mg/dL Creatinine 1.8 H (0.6-1.2) mg/dL Estimated GFR (MDRD) 40 L (>89) Glucose 97 (70-100) mg/dL Calcium 8.4 L (8.5-10.3) mg/dL Urine Opiates Screen NEGATIVE (NEGATIVE) Ur Oxycodone Screen POSITIVE H (NEGATIVE) Urine Methadone Screen NEGATIVE (NEGATIVE) Ur Propoxyphene Screen NEGATIVE (NEGATIVE) Ur Barbiturates Screen NEGATIVE (NEGATIVE) Ur Tricyclics Screen NEGATIVE (NEGATIVE) Ur Phencyclidine Scrn NEGATIVE (NEGATIVE) Ur Amphetamine Screen POSITIVE H (NEGATIVE) U Methamphetamines Scrn POSITIVE H (NEGATIVE) U Benzodiazepines Scrn NEGATIVE (NEGATIVE) Urine Cocaine Screen NEGATIVE (NEGATIVE) U Cannabinoids Screen NEGATIVE (NEGATIVE) ABX Reporting Has patient been on IV antibiotics over the past 48 hours?: Yes Sepsis Event Note (H) - Evaluation Current Stage of Sepsis: Ruled out Assessment/Plan - Problem List (1) UTI (urinary tract infection) Impression: 08/01 UA culture revealed grew Myroides, required 7 days of Merrem IV since there is no po that can treat this bacteria, and isolation is required as well. he is day #3/7. continue IV of meropenem will ask if he can go to SNF for the next 4 days once its a weekday (2) Chronic renal insufficiency Conclusion/Plan: 08/01 stable as his baseline (3) Left leg swelling Conclusion/Plan: US reveals no DVT. unilateral leg mild edema. US reveals small nonspecific fluid collection at left ankle. pt denies pain. advise pt rise leg (4) Schizophrenia pt denies he had schizophrenia. pharmacy confirm pt did not have zyprexa at home meds list. pt refused to take zyprexa. (5) BPH (benign prostatic hyperplasia) Conclusion/Plan: continue finasteride and flomax (6) Hypertension Conclusion/Plan: stable,On amlodipine (7) Methamphetamine abuse Conclusion/Plan: pt Reported last use was 07/31/19. order UDS, is pending. no withdrawal as far, will close monitor pt Qualifiers: Qualified Code(s): N30.00 - Acute cystitis without hematuria
[2019-08-03] MEDS: SODIUM CHLORIDE FLUSH 0.9% 10 ML SYRINGE IVP SCH ×3 (00:55→17:08)
[2019-08-03] MEDS: oxyCODONE 5 MG TABLET PO PRN ×5 (00:55→22:55)
[2019-08-03] MEDS: ACETAMINOPHEN 325 MG TABLET PO PRN ×5 (00:55→22:54)
[2019-08-03 06:01] LABS: BASOPHILS % (AUTO) 0.4 %; EOSINOPHILS # (AUTO) 0.3 10^3/uL (0.0-0.7); EOSINOPHILS % (AUTO) 3.4 %; HGB - HEMOGLOBIN 9.1 g/dL (14.0-18.0); LYMPHOCYTES # (AUTO) 1.8 10^3/uL (1.5-3.5); LYMPHOCYTES % (AUTO) 23.5 %; MEAN CORPUSCULAR HEMOGLOBIN 24.8 pg (27.0-31.0); MEAN CORPUSCULAR HGB CONC 29.4 g/dL (32.0-36.0); MEAN CORPUSCULAR VOLUME 84.5 fL (80.0-94.0); MONOCYTES # (AUTO) 0.6 10^3/uL (0.0-1.0); MONOCYTES % (AUTO) 8.2 %; NEUTROPHILS # (AUTO) 4.9 10^3/uL (1.5-6.6); NEUTROPHILS % (AUTO) 64.1 %; PLT - PLATELET COUNT 330 10^3/uL (130-450); RED BLOOD COUNT 3.67 10^6/uL (4.70-6.10); RED CELL DISTRIBUTION WIDTH 15.2 % (12.0-15.0); WHITE BLOOD COUNT 7.6 x10^3/uL (4.8-10.8)
[2019-08-03 06:05] LABS: CREATININE 2.1 mg/dL (0.6-1.2)
[2019-08-03] MEDS: MEROPENEM 1 GM in SODIUM CHLORIDE 0.9% MINIBAG 100 ML IV SCH ×3 (06:49→22:56)
[2019-08-03] MEDS: SODIUM CHLORIDE FLUSH 0.9% 10 ML SYRINGE IVP PRN (06:49)
[2019-08-03] MEDS: SACCHAROMYCES BOULARDII 250 MG CAPSULE PO SCH ×2 (08:30→17:08)
[2019-08-03] MEDS: FINASTERIDE 5 MG TABLET PO SCH (08:30)
[2019-08-03] MEDS: FAMOTIDINE 20 MG TABLET PO SCH ×2 (08:31→20:40)
[2019-08-03] MEDS: amLODIPine 5 MG TABLET PO SCH (08:31)
[2019-08-03] MEDS: METOPROLOL TARTRATE 50 MG TABLET PO SCH ×2 (08:31→20:39)
[2019-08-03] MEDS: TAMSULOSIN 0.4 MG CAPSULE PO SCH (08:31)
[2019-08-03] MEDS: LORazepam 1 MG TABLET PO PRN ×2 (17:08→22:54)
--- NOTE | 2019-08-03 21:47 | PROVIDER PROGRESS NOTE ---
Assessment/Plan - Problem List (1) UTI (urinary tract infection) Qualifiers: Qualified Code(s): N30.00 - Acute cystitis without hematuria Assessment/Plan: Day 3 of merrem Will continue for 4 mor days Patient was deemed not a candidate for SNF (2) Chronic renal insufficiency Qualifiers: Chronic kidney disease stage: stage 3 (moderate) Qualified Code(s): N18.3 - Chronic kidney disease, stage 3 (moderate) (3) Left leg swelling Assessment/Plan: Improved. Continue with leg raising. Continue monitoring (4) Schizophrenia Assessment/Plan: Patient maintains that he does not have schizophrenia. He declined taking Zyprexa (5) Depression Qualifiers: Depression Type: unspecified Qualified Code(s): F32.9 - Major depressive disorder, single episode, unspecified Assessment/Plan: Not on any medication (6) BPH (benign prostatic hyperplasia) Qualifiers: Lower urinary tract symptom presence: symptoms present Lower urinary tract symptom detail: urinary frequency Qualified Code(s): N40.1 - Benign prostatic hyperplasia with lower urinary tract symptoms; R35.0 - Frequency of micturition; R35.0 - Frequency of micturition Assessment/Plan: On finasteride and flomax (7) Hypertension Assessment/Plan: Stable on amlodipine (8) Methamphetamine abuse Assessment/Plan: Last used on 07/31/19 Patient reported irritability, restlessness, nausea, several bowel moments today Suspect withdrawal. Will administer ativan 1mg po. - Current Meds Current Meds: Current Medications Generic Name Dose Route Start Last Admin Trade Name Freq PRN Reason Stop Dose Admin Acetaminophen 650 mg 07/31/19 18:24 08/03/19 19:02 Tylenol PO 650 mg Q4HR PRN Administration Pain or Fever > 38C (100.4F) Amlodipine Besylate 5 mg 08/01/19 09:00 08/03/19 08:31 Norvasc PO 5 mg DAILY [facility] Administration Famotidine 20 mg 07/31/19 21:00 08/03/19 20:40 Pepcid PO 20 mg BID [facility] Administration Finasteride 5 mg 08/01/19 09:00 08/03/19 08:30 Proscar PO 5 mg DAILY [facility] Administration Meropenem 1 gm/ Sodium 100 mls @ 200 mls/hr 07/31/19 23:00 08/03/19 15:35 Chloride IV Infused Q8H [facility] Infusion Lorazepam 1 mg 08/02/19 04:00 08/03/19 17:08 Ativan PO 1 mg Q6H PRN Administration Anxiety Metoprolol Tartrate 50 mg 08/01/19 09:00 08/03/19 20:39 Lopressor PO 50 mg BID [facility] Administration Oxycodone HCl 5 mg 07/31/19 18:29 08/03/19 19:02 Roxicodone PO 5 mg Q4H PRN Administration PAIN Prochlorperazine Edisylate 10 mg 07/31/19 18:24 08/01/19 21:13 Compazine Inj IVP 10 mg Q6HR PRN Administration Nausea / Vomiting Saccharomyces Boulardii 250 mg 08/03/19 17:00 08/03/19 17:08 Florastor PO 250 mg BIDWM [facility] Administration Sodium Chloride 10 ml 07/31/19 18:24 08/03/19 06:49 Normal Saline Flush 0.9% IVP 10 ml PRN PRN Administration NEEDED PER PROVIDER ORDERS Sodium Chloride 10 ml 08/01/19 01:00 08/03/19 17:08 Normal Saline Flush 0.9% IVP 10 ml 0100,0900,1700 [facility] Administration Tamsulosin HCl 0.4 mg 08/01/19 09:00 08/03/19 08:31 Flomax PO 0.4 mg DAILY [facility] Administration - Lab Result Fish Bone Diagrams: 08/03/19 05:48 08/03/19 05:48 - Additional Planning My Orders: My Active Orders 08/04/19 05:00 BMP - BASIC METABOLIC PANEL [CHEM] DAILYLAB CBC - COMP BLD CT W/AUTO DIFF [HEME] DAILYLAB 08/05/19 05:00 BMP - BASIC METABOLIC PANEL [CHEM] DAILYLAB CBC - COMP BLD CT W/AUTO DIFF [HEME] [facility]ILY[facility] 08/06/19 05:00 BMP - BASIC METABOLIC PANEL [CHEM] DAILYLAB CBC - COMP BLD CT W/AUTO DIFF [HEME] DAILYLAB 08/07/19 05:00 BMP - BASIC METABOLIC PANEL [CHEM] DAILYLAB CBC - COMP BLD CT W/AUTO DIFF [HEME] DAILYLAB Plan Discussed with:: Patient Time Spent: Less than 15 minutes Subjective - Subjective Patient Reports: Nausea, Other (Patient complain of feeling irritable today, having nausea and several episodes of bowel movement. He slept all day the previous day. He denied chest pain, SAADIA, fever or chills.) Objective Vital Signs: Vital Signs - 24 hr 08/02/19 08/02/19 08/03/19 22:00 22:23 00:47 Temperature 37.0 C Heart Rate [ 75 75 Brachial] Respiratory 18 18 Rate Blood Pressure 136/86 H Blood Pressure 136/86 H [Left Brachial artery] Blood Pressure 139/88 H [Right Brachial artery] O2 Saturation 98 08/03/19 08/03/19 08/03/19 08:15 08:31 15:55 Temperature 36.3 C L 36.8 C Heart Rate [ 72 71 Brachial] Respiratory 18 20 Rate Blood Pressure 140/99 H Blood Pressure [Left Brachial artery] Blood Pressure 140/99 H 135/87 H [Right Brachial artery] O2 Saturation 100 99 08/03/19 20:39 Temperature Heart Rate [ Brachial] Respiratory Rate Blood Pressure 152/101 H Blood Pressure [Left Brachial artery] Blood Pressure [Right Brachial artery] O2 Saturation Oxygen O2 Source [Without Activity] Room air O2 Source Room air I&O (Last 24 Hrs): Intake and Output Totals x24h 08/01/19 08/02/19 08/03/19 23:59 23:59 23:59 Intake Total 1260 1740 2000 Output Total 2150 2475 1220 Balance -890 -735 780 General: Alert, Oriented x3 HEENT: PERRLA, EOMI Neck: No JVD Lymphatic: no adenopathy Neuro: Alert, Oriented Times 3 Cardiovascular: Regular rate Respiratory: No respiratory distress Abdomen: Normal bowel sounds, Soft Extremities: No clubbing, No cyanosis, Other (Marked improvement in edema) - Results Results: Laboratory Results WBC 7.6 x10^3/uL (4.8-10.8) 08/03/19 05:48 RBC 3.67 10^6/uL (4.70-6.10) L 08/03/19 05:48 Hgb 9.1 g/dL (14.0-18.0) L 08/03/19 05:48 Hct 31.0 % (42.0-52.0) L 08/03/19 05:48 MCV 84.5 fL (80.0-94.0) 08/03/19 05:48 MCH 24.8 pg (27.0-31.0) L 08/03/19 05:48 MCHC 29.4 g/dL (32.0-36.0) L 08/03/19 05:48 RDW 15.2 % (12.0-15.0) H 08/03/19 05:48 Plt Count 330 10^3/uL (130-450) 08/03/19 05:48 MPV 9.0 fL (7.4-11.4) 08/03/19 05:48 Neut # (Auto) 4.9 10^3/uL (1.5-6.6) 08/03/19 05:48 Lymph # (Auto) 1.8 10^3/uL (1.5-3.5) 08/03/19 05:48 Lewis # (Auto) 0.6 10^3/uL (0.0-1.0) 08/03/19 05:48 Eos # (Auto) 0.3 10^3/uL (0.0-0.7) 08/03/19 05:48 Baso # (Auto) 0.0 10^3/uL (0.0-0.1) 08/03/19 05:48 Absolute Nucleated RBC 0.00 x10^3/uL 08/03/19 05:48 Nucleated RBC % 0.0 /100WBC 08/03/19 05:48 Sodium 141 mmol/L (135-145) 08/03/19 05:48 Potassium 3.8 mmol/L (3.5-5.0) 08/03/19 05:48 Chloride 109 mmol/L (101-111) 08/03/19 05:48 Carbon Dioxide 25 mmol/L (21-32) 08/03/19 05:48 Anion Gap 7.0 (6-13) 08/03/19 05:48 BUN 23 mg/dL (6-20) H 08/03/19 05:48 Creatinine 2.1 mg/dL (0.6-1.2) H 08/03/19 05:48 Estimated GFR (MDRD) 33 (>89) L 08/03/19 05:48 Glucose 89 mg/dL (70-100) 08/03/19 05:48 Calcium 8.0 mg/dL (8.5-10.3) L 08/03/19 05:48 Urine Opiates Screen NEGATIVE (NEGATIVE) 08/01/19 11:30 Ur Oxycodone Screen POSITIVE (NEGATIVE) H 08/01/19 11:30 Urine Methadone Screen NEGATIVE (NEGATIVE) 08/01/19 11:30 Ur Propoxyphene Screen NEGATIVE (NEGATIVE) 08/01/19 11:30 Ur Barbiturates Screen NEGATIVE (NEGATIVE) 08/01/19 11:30 Ur Tricyclics Screen NEGATIVE (NEGATIVE) 08/01/19 11:30 Ur Phencyclidine Scrn NEGATIVE (NEGATIVE) 08/01/19 11:30 Ur Amphetamine Screen POSITIVE (NEGATIVE) H 08/01/19 11:30 U Methamphetamines Scrn POSITIVE (NEGATIVE) H 08/01/19 11:30 U Benzodiazepines Scrn NEGATIVE (NEGATIVE) 08/01/19 11:30 Urine Cocaine Screen NEGATIVE (NEGATIVE) 08/01/19 11:30 U Cannabinoids Screen NEGATIVE (NEGATIVE) 08/01/19 11:30 - Procedures Procedures: Procedures ABD WALL LYNETTE REPAIR NEC (04/28/13) EXCISE CORD/EPID LES NEC (04/28/13) ING HERNIA REP-GRAFT NOS (04/28/13) LAPAROSCOPIC ANTONELLA REP INGUINL HRN 1 DIR & 1 IND W GRF OR PROS (03/03/13) LAPAROSCOPY (04/28/13) Sepsis Event Note (H) - Evaluation Current Stage of Sepsis: Ruled out ABX Reporting Has patient been on IV antibiotics over the past 48 hours?: Yes
[2019-08-04] MEDS: SODIUM CHLORIDE FLUSH 0.9% 10 ML SYRINGE IVP SCH ×3 (00:06→16:57)
[2019-08-04 05:45] LABS: BASOPHILS % (AUTO) 0.3 %; EOSINOPHILS # (AUTO) 0.2 10^3/uL (0.0-0.7); EOSINOPHILS % (AUTO) 3.6 %; HGB - HEMOGLOBIN 9.3 g/dL (14.0-18.0); LYMPHOCYTES # (AUTO) 1.9 10^3/uL (1.5-3.5); LYMPHOCYTES % (AUTO) 33.2 %; MEAN CORPUSCULAR HEMOGLOBIN 25.8 pg (27.0-31.0); MEAN CORPUSCULAR HGB CONC 30.3 g/dL (32.0-36.0); MEAN PLATELET VOLUME 8.8 fL (7.4-11.4); MONOCYTES # (AUTO) 0.5 10^3/uL (0.0-1.0); MONOCYTES % (AUTO) 8.3 %; NEUTROPHILS # (AUTO) 3.1 10^3/uL (1.5-6.6); NEUTROPHILS % (AUTO) 54.3 %; PLT - PLATELET COUNT 302 10^3/uL (130-450); RED BLOOD COUNT 3.61 10^6/uL (4.70-6.10); RED CELL DISTRIBUTION WIDTH 14.7 % (12.0-15.0); WHITE BLOOD COUNT 5.8 x10^3/uL (4.8-10.8)
[2019-08-04 05:54] LABS: CALCIUM 8.3 mg/dL (8.5-10.3); CREATININE 1.9 mg/dL (0.6-1.2)
[2019-08-04] MEDS: LORazepam 1 MG TABLET PO PRN (06:40)
[2019-08-04] MEDS: oxyCODONE 5 MG TABLET PO PRN (06:40)
[2019-08-04] MEDS: SODIUM CHLORIDE FLUSH 0.9% 10 ML SYRINGE IVP PRN ×3 (06:41→21:18)
[2019-08-04] MEDS: MEROPENEM 1 GM in SODIUM CHLORIDE 0.9% MINIBAG 100 ML IV SCH ×3 (06:41→21:18)
[2019-08-04] MEDS: TAMSULOSIN 0.4 MG CAPSULE PO SCH (09:02)
[2019-08-04] MEDS: FAMOTIDINE 20 MG TABLET PO SCH (09:02)
[2019-08-04] MEDS: METOPROLOL TARTRATE 50 MG TABLET PO SCH ×2 (09:03→21:18)
[2019-08-04] MEDS: FINASTERIDE 5 MG TABLET PO SCH (09:03)
[2019-08-04] MEDS: amLODIPine 5 MG TABLET PO SCH (09:03)
[2019-08-04] MEDS: SACCHAROMYCES BOULARDII 250 MG CAPSULE PO SCH ×2 (09:03→16:57)
--- NOTE | 2019-08-04 11:20 | PROVIDER PROGRESS NOTE ---
Subjective - Prog Note Date Prog Note Date: 08/04/19 Prog Note Time: 11:47 - Subjective Pt reports feeling: No change (patient reports loose BM's since admit, 4 x yesterday, had normal ones before that, no abdominal pain, no fever Patient reports LLE edema much improved) Current Medications - Current Medications Current Medications: Active Medications Acetaminophen (Tylenol) 650 mg PO Q4HR PRN PRN Reason: Pain or Fever > 38C (100.4F) Last Admin: 08/03/19 22:54 Dose: 650 mg Amlodipine Besylate (Norvasc) 5 mg PO DAILY [facility] Last Admin: 08/04/19 09:03 Dose: 5 mg Famotidine (Pepcid) 20 mg PO BID [facility] Last Admin: 08/04/19 09:02 Dose: 20 mg Finasteride (Proscar) 5 mg PO DAILY [facility] Last Admin: 08/04/19 09:03 Dose: 5 mg Meropenem 1 gm/ Sodium (Chloride) 100 mls @ 200 mls/hr IV Q8H [facility] Last Infusion: 08/04/19 07:27 Dose: Infused Lorazepam (Ativan) 1 mg PO Q6H PRN PRN Reason: Anxiety Last Admin: 08/04/19 06:40 Dose: 1 mg Metoprolol Tartrate (Lopressor) 50 mg PO BID [facility] Last Admin: 08/04/19 09:03 Dose: 50 mg Oxycodone HCl (Roxicodone) 5 mg PO Q4H PRN PRN Reason: PAIN Last Admin: 08/04/19 06:40 Dose: 5 mg Prochlorperazine Edisylate (Compazine Inj) 10 mg IVP Q6HR PRN PRN Reason: Nausea / Vomiting Last Admin: 08/01/19 21:13 Dose: 10 mg Saccharomyces Boulardii (Florastor) 250 mg PO BIDWM [facility] Last Admin: 08/04/19 09:03 Dose: 250 mg Sodium Chloride (Normal Saline Flush 0.9%) 10 ml IVP PRN PRN PRN Reason: NEEDED PER PROVIDER ORDERS Last Admin: 08/04/19 06:41 Dose: 10 ml Sodium Chloride (Normal Saline Flush 0.9%) 10 ml IVP 0100,0900,1700 [facility] Last Admin: 08/04/19 07:27 Dose: 10 ml Tamsulosin HCl (Flomax) 0.4 mg PO DAILY [facility] Last Admin: 08/04/19 09:02 Dose: 0.4 mg Vitamin A/Vitamin D (Vitamin A & D Ointment) 1 applic TOP PRN PRN PRN Reason: Skin Care Zolpidem Tartrate (Ambien) 5 mg PO QPM PRN PRN Reason: Insomnia Finasteride 5 mg PO DAILY 02/22/18 Tamsulosin HCl [Flomax] 0.4 mg PO DAILY 02/22/18 amLODIPine [Norvasc] 5 mg PO DAILY 08/01/19 Objective - Vital Signs/Intake & Output Reviewed Vital Signs: Yes Vital Signs: Vital Signs x48h Temp Pulse Resp BP BP Pulse Ox 08/04/19 09:03 148/93 H 08/04/19 07:59 36.7 C 61 16 146/93 H 98 Intake & Output: Intake & Output 08/01/19 08/02/19 08/03/19 08/04/19 23:59 23:59 23:59 23:59 Intake Total 1260 1740 2000 700 Output Total 2150 2475 1220 600 Balance -890 -735 780 100 - Objective General Appearance: positive: No acute distress, Other (sitting up in chair, somewhat flat affect, no distress) Respiratory: positive: Chest non-tender, No respiratory distress, Breath sounds nml Cardiovascular: positive: Regular rate & rhythm, No murmur Abdomen: positive: No organomegaly, Nml bowel sounds, Other (no evidence of distended bladder, no CVA tenderness, old well healed midline scar) Skin: positive: No rash, Warm Extremities: negative: Pedal edema (left lower extremitiy minimal edema) - Lab Results Fish Bones: 08/05/19 05:40 08/05/19 05:40 Other Labs: Lab Results x24hrs 08/04/19 08/04/19 Range/Units 05:30 05:30 WBC 5.8 (4.8-10.8) x10^3/uL RBC 3.61 L (4.70-6.10) 10^6/uL Hgb 9.3 L (14.0-18.0) g/dL Hct 30.7 L (42.0-52.0) % MCV 85.0 (80.0-94.0) fL MCH 25.8 L (27.0-31.0) pg MCHC 30.3 L (32.0-36.0) g/dL RDW 14.7 (12.0-15.0) % Plt Count 302 (130-450) 10^3/uL MPV 8.8 (7.4-11.4) fL Neut # (Auto) 3.1 (1.5-6.6) 10^3/uL Lymph # (Auto) 1.9 (1.5-3.5) 10^3/uL [place]ne # (Auto) 0.5 (0.0-1.0) 10^3/uL Eos # (Auto) 0.2 (0.0-0.7) 10^3/uL Baso # (Auto) 0.0 (0.0-0.1) 10^3/uL Absolute Nucleated RBC 0.00 x10^3/uL Nucleated RBC % 0.0 /100WBC Sodium 140 (135-145) mmol/L Potassium 3.8 (3.5-5.0) mmol/L Chloride 107 (101-111) mmol/L Carbon Dioxide 24 (21-32) mmol/L Anion Gap 9.0 (6-13) BUN 22 H (6-20) mg/dL Creatinine 1.9 H (0.6-1.2) mg/dL Estimated GFR (MDRD) 37 L (>89) Glucose 96 (70-100) mg/dL Calcium 8.3 L (8.5-10.3) mg/dL Sepsis Event Note (H) - Evaluation Current Stage of Sepsis: Ruled out Assessment/Plan - Problem List (1) Complicated urinary tract infection Impression: (1) UTI (urinary tract infection) Impression: 08/01 UA culture revealed grew Myroides per urologist , requires 7 days of Meropenem IV since there is no po that can treat this bacteria, and urologic instrumentation planned and isolation is required as well. First dose was just before midnight 07/31; final dose will be pm of 15 (Day 4 today) No indication for GI prophylaxis; stop bid pepcid (not on H2 pete at home) daily cbc, bmp unchanged. dont need daily blood work (2) Chronic renal insufficiency Conclusion/Plan: Cr ~ his baseline 1.8-1.9 (worst was 5.3 in 03/2019) (3) Left leg swelling Conclusion/Plan: US on 08/01; Negative for DVT , did show small nonspecific fluid collection at left ankle. bilateral leg mild edema, subjective improvement per patient. pt denies pain. continue advise elevation when possible (4) Schizophrenia Patient denies on zyprexa 08/03pt denies he had schizophrenia. pharmacy confirm pt did not have zyprexa at home meds list. pt refused to take zyprexa. (5) BPH (benign prostatic hyperplasia) Conclusion/Plan: continue finasteride and flomax (6) Hypertension Conclusion/Plan: stable, somewhat suboptimal control On homeamlodipine andmetoprolol May increase from 5 mg/ need PCP follow up to evaluate in nonacute setting which can affect BP reads will continue to follow as will be here [facility] 08/07 and modify if warranted (7) Methamphetamine abuse Conclusion/Plan: pt Reported last use was 07/31/19. order UDS, is pending. no withdrawal as far, will close monitor
[2019-08-04] MEDS: PROCHLORPERAZINE 10 MG/2 ML VIAL IVP PRN (14:27)
[2019-08-05] MEDS: SODIUM CHLORIDE FLUSH 0.9% 10 ML SYRINGE IVP SCH ×3 (00:47→17:54)
[2019-08-05 05:50] LABS: BASOPHILS % (AUTO) 0.5 %; EOSINOPHILS # (AUTO) 0.2 10^3/uL (0.0-0.7); EOSINOPHILS % (AUTO) 3.4 %; HGB - HEMOGLOBIN 9.1 g/dL (14.0-18.0); LYMPHOCYTES # (AUTO) 1.8 10^3/uL (1.5-3.5); LYMPHOCYTES % (AUTO) 28.6 %; MEAN CORPUSCULAR HGB CONC 29.8 g/dL (32.0-36.0); MEAN CORPUSCULAR VOLUME 83.8 fL (80.0-94.0); MEAN PLATELET VOLUME 8.9 fL (7.4-11.4); MONOCYTES # (AUTO) 0.6 10^3/uL (0.0-1.0); MONOCYTES % (AUTO) 9.4 %; NEUTROPHILS # (AUTO) 3.6 10^3/uL (1.5-6.6); NEUTROPHILS % (AUTO) 57.8 %; PLT - PLATELET COUNT 286 10^3/uL (130-450); RED BLOOD COUNT 3.64 10^6/uL (4.70-6.10); RED CELL DISTRIBUTION WIDTH 14.9 % (12.0-15.0); WHITE BLOOD COUNT 6.3 x10^3/uL (4.8-10.8)
[2019-08-05] MEDS: SODIUM CHLORIDE FLUSH 0.9% 10 ML SYRINGE IVP PRN ×3 (05:59→22:40)
[2019-08-05] MEDS: MEROPENEM 1 GM in SODIUM CHLORIDE 0.9% MINIBAG 100 ML IV SCH ×3 (05:59→22:37)
[2019-08-05 06:53] LABS: CALCIUM 8.9 mg/dL (8.5-10.3)
[2019-08-05] MEDS: FINASTERIDE 5 MG TABLET PO SCH (08:29)
[2019-08-05] MEDS: SACCHAROMYCES BOULARDII 250 MG CAPSULE PO SCH ×2 (08:29→17:54)
[2019-08-05] MEDS: amLODIPine 5 MG TABLET PO SCH (08:29)
[2019-08-05] MEDS: TAMSULOSIN 0.4 MG CAPSULE PO SCH ×2 (08:30→22:34)
[2019-08-05] MEDS: METOPROLOL TARTRATE 50 MG TABLET PO SCH ×2 (08:35→22:34)
[2019-08-05] MEDS: ACETAMINOPHEN 325 MG TABLET PO PRN ×3 (08:59→19:17)
[2019-08-05] MEDS: oxyCODONE 5 MG TABLET PO PRN ×3 (09:00→19:17)
[2019-08-05] MEDS: PROCHLORPERAZINE 10 MG/2 ML VIAL IVP PRN (11:19)
[2019-08-05] MEDS: LORazepam 1 MG TABLET PO PRN (14:58)
--- NOTE | 2019-08-05 15:23 | PROVIDER PROGRESS NOTE ---
Subjective - Prog Note Date Prog Note Date: 08/05/19 Prog Note Time: 15:21 (patient seen earlier ~ 10 am) - Subjective Subjective: When I saw patient he noted no significant complaints but did not nausea "since here" this morning he noted that the urologists plan was to do cystoscopy, (? possible TURP) but only once the infection is resolved Reported one BM, indicated he was able to eat He wasnt sure he was completely emptying with voiding Later in day RN reports patient agitated, still c/o headache and nausea, of note the agitation was after patients mother visited I saw patient "I just want to be left alone" Current Medications - Current Medications Current Medications: Active Medications Acetaminophen (Tylenol) 650 mg PO Q4HR PRN PRN Reason: Pain or Fever > 38C (100.4F) Last Admin: 08/05/19 14:41 Dose: 650 mg Amlodipine Besylate (Norvasc) 5 mg PO DAILY [facility] Last Admin: 08/05/19 08:29 Dose: 5 mg Finasteride (Proscar) 5 mg PO DAILY [facility] Last Admin: 08/05/19 08:29 Dose: 5 mg Meropenem 1 gm/ Sodium (Chloride) 100 mls @ 200 mls/hr IV Q8H [facility] Last Admin: 08/05/19 14:42 Dose: 200 mls/hr Lorazepam (Ativan) 1 mg PO Q6H PRN PRN Reason: Anxiety Last Admin: 08/05/19 14:58 Dose: 1 mg Metoprolol Tartrate (Lopressor) 50 mg PO BID [facility] Last Admin: 08/05/19 08:35 Dose: 50 mg Oxycodone HCl (Roxicodone) 5 mg PO Q4H PRN PRN Reason: PAIN Last Admin: 08/05/19 14:41 Dose: 5 mg Prochlorperazine Edisylate (Compazine Inj) 10 mg IVP Q6HR PRN PRN Reason: Nausea / Vomiting Last Admin: 08/05/19 11:19 Dose: 10 mg Saccharomyces Boulardii (Florastor) 250 mg PO BIDWM [facility] Last Admin: 08/05/19 08:29 Dose: 250 mg Sodium Chloride (Normal Saline Flush 0.9%) 10 ml IVP PRN PRN PRN Reason: NEEDED PER PROVIDER ORDERS Last Admin: 08/05/19 11:19 Dose: 10 ml Sodium Chloride (Normal Saline Flush 0.9%) 10 ml IVP 0100,0900,1700 ERENDIRA Last Admin: 08/05/19 08:29 Dose: 10 ml Tamsulosin HCl (Flomax) 0.4 mg PO BID [facility] Vitamin A/Vitamin D (Vitamin A & D Ointment) 1 applic TOP PRN PRN PRN Reason: Skin Care Zolpidem Tartrate (Ambien) 5 mg PO QPM PRN PRN Reason: Insomnia Finasteride 5 mg PO DAILY 02/22/18 Tamsulosin HCl [Flomax] 0.4 mg PO DAILY 02/22/18 amLODIPine [Norvasc] 5 mg PO DAILY 08/01/19 Objective - Vital Signs/Intake & Output Reviewed Vital Signs: Yes Vital Signs: Vital Signs x48h Temp Pulse Resp BP BP Pulse Ox 08/05/19 08:35 150/97 H 08/05/19 08:34 36.7 C 62 16 150/97 H 97 Intake & Output: Intake & Output 08/02/19 08/03/19 08/04/19 08/05/19 23:59 23:59 23:59 23:59 Intake Total 1740 2000 1640 660 Output Total 2475 1220 1150 700 Balance -735 780 490 -40 - Objective General Appearance: positive: No acute distress, Other (flat affect, calm cooperative for me in am "I just want to be left alone when I spoke with him in afternoon as under S", not verbally abusive to me, nor aggressive. I d/w him plan to reduce dose for hopefully reduced side effets) Eyes Bilateral: positive: Normal inspection Respiratory: positive: Chest non-tender, No respiratory distress, Breath sounds nml Cardiovascular: positive: Regular rate & rhythm, No murmur Abdomen: positive: Nml bowel sounds, No distention, Other (no suprapubic tenderness, no distended bladder on palpation norpercussion well healed old midline scar) Skin: positive: Warm, Dry Neurologic/Psychiatric: positive: Oriented x3, Other (flat affect, calm, responding to questions this morning, not wanting to communicate when Iwas in in afternoon as above (as noted mother had visited earlier)) - Lab Results Fish Bones: 08/05/19 05:40 08/05/19 05:40 Other Labs: Lab Results x24hrs 08/05/19 08/05/19 Range/Units 05:40 05:40 WBC 6.3 (4.8-10.8) x10^3/uL RBC 3.64 L (4.70-6.10) 10^6/uL Hgb 9.1 L (14.0-18.0) g/dL Hct 30.5 L (42.0-52.0) % MCV 83.8 (80.0-94.0) fL MCH 25.0 L (27.0-31.0) pg MCHC 29.8 L (32.0-36.0) g/dL RDW 14.9 (12.0-15.0) % Plt Count 286 (130-450) 10^3/uL MPV 8.9 (7.4-11.4) fL Neut # (Auto) 3.6 (1.5-6.6) 10^3/uL Lymph # (Auto) 1.8 (1.5-3.5) 10^3/uL [place] # (Auto) 0.6 (0.0-1.0) 10^3/uL Eos # (Auto) 0.2 (0.0-0.7) 10^3/uL Baso # (Auto) 0.0 (0.0-0.1) 10^3/uL Absolute Nucleated RBC 0.00 x10^3/uL Nucleated RBC % 0.0 /100WBC Sodium 141 (135-145) mmol/L Potassium 3.9 (3.5-5.0) mmol/L Chloride 107 (101-111) mmol/L Carbon Dioxide 24 (21-32) mmol/L Anion Gap 10.0 (6-13) BUN 22 H (6-20) mg/dL Creatinine 2.0 H (0.6-1.2) mg/dL Estimated GFR (MDRD) 35 L (>89) Glucose 102 H (70-100) mg/dL Calcium 8.9 (8.5-10.3) mg/dL Sepsis Event Note (H) - Evaluation Current Stage of Sepsis: Ruled out Assessment/Plan - Problem List (1) Complicated urinary tract infection Impression: (1) UTI (urinary tract infection) Impression: 08/01 UA culture revealed grew Myroides per urologist , requires 7 days of Meropenem IV since there is no po that can treat this bacteria, and isolation is required as well. First dose was just before midnight 07/31; final dose will be pm of 08/07 (Day 5 today) Side effect of nausea and headache ~ 2-8% on records (most common); d/w pharmacy if can dose adjust . Per pharmacy his calculated CrCl is just over 50, but since borderline reasonable to reduce to q 12 hrs given side effects Will reevaluate for hopefully improved sympotoms on less freqent dosing No indication for GI prophylaxis; stopped bid pepcid 08/04(not on H2 pete at home) daily cbc, bmp unchanged. dont need daily blood work, d/c'd No leukocytosis or fever to suggest Cdif, and per RN, patient not saving stool (2) Chronic renal insufficiency Conclusion/Plan: Cr ~ his baseline 1.8-1.9 (worst was 5.3 in 03/2019) As above, reducing meropenem to 1 gram q 12 from q 8 hrs (3) Left leg swelling Conclusion/Plan: US on 08/01; Negative for DVT , did show small nonspecific fluid collection at left ankle. bilateral leg mild edema, subjective improvement per patient. pt denies pain. continue advise elevation when possible (4) Schizophrenia Patient denies on zyprexa 08/03pt denies he had schizophrenia. pharmacy confirm pt did not have zyprexa at home meds list. pt refused to take zyprexa. (5) BPH (benign prostatic hyperplasia) Conclusion/Plan: continue finasteride and flomax ( bid flomax which is his home dose; adjusted today) (6) Hypertension Conclusion/Plan: stable, somewhat suboptimal control On homeamlodipine andmetoprolol May increase from 5 mg/ as outpatient need PCP follow up to evaluate in nonacute setting which can affect BP reads oumar with headache and nausea will continue to follow as will be here trhu 08/07 and modify if warranted (7) Methamphetamine abuse Conclusion/Plan: pt Reported last use was 07/31/19. The infrequent agitation seems to be related to visitors (Dr Wright also noted agitation after significant other visited) Would be late to start withdrawal day 5 of admission and isolated irritation/ and symptoms not consistent w/ withdrawal RN offered altivan Patient aware that impatience, agitation w/ staff not appropriate, and again discussed with him we will try to reduce side effects of the Abx by reducing dose as above
[2019-08-06] MEDS: SODIUM CHLORIDE FLUSH 0.9% 10 ML SYRINGE IVP SCH ×3 (00:16→16:01)
[2019-08-06] MEDS: MEROPENEM 1 GM in SODIUM CHLORIDE 0.9% MINIBAG 100 ML IV SCH ×3 (05:44→20:42)
[2019-08-06] MEDS: SODIUM CHLORIDE FLUSH 0.9% 10 ML SYRINGE IVP PRN (05:45)
[2019-08-06] MEDS: oxyCODONE 5 MG TABLET PO PRN ×3 (09:56→20:38)
[2019-08-06] MEDS: SACCHAROMYCES BOULARDII 250 MG CAPSULE PO SCH ×2 (09:56→16:01)
[2019-08-06] MEDS: METOPROLOL TARTRATE 50 MG TABLET PO SCH ×2 (09:56→20:41)
[2019-08-06] MEDS: TAMSULOSIN 0.4 MG CAPSULE PO SCH ×2 (09:56→20:37)
[2019-08-06] MEDS: FINASTERIDE 5 MG TABLET PO SCH (09:56)
[2019-08-06] MEDS: amLODIPine 5 MG TABLET PO SCH (09:56)
[2019-08-06] MEDS: LORazepam 1 MG TABLET PO PRN ×2 (10:04→20:37)
[2019-08-06] MEDS: PROCHLORPERAZINE 10 MG/2 ML VIAL IVP PRN (10:04)
[2019-08-06] MEDS ORDERED: ONDANSETRON 4 MG/2 ML VIAL IVP PRN (11:54)
--- NOTE | 2019-08-06 11:55 | PROVIDER PROGRESS NOTE ---
Subjective - Prog Note Date Prog Note Date: 08/06/19 Prog Note Time: 11:55 - Subjective Subjective: Rn notes yesterday patient had single large loose BMS On review of RN NIGHT entry the stools are soft , unformed, NOT diarrhea Current Medications - Current Medications Current Medications: Active Medications Acetaminophen (Tylenol) 650 mg PO Q4HR PRN PRN Reason: Pain or Fever > 38C (100.4F) Last Admin: 08/05/19 19:17 Dose: 650 mg Amlodipine Besylate (Norvasc) 10 mg PO DAILY [facility] Finasteride (Proscar) 5 mg PO DAILY [facility] Last Admin: 08/06/19 09:56 Dose: 5 mg Meropenem 1 gm/ Sodium (Chloride) 100 mls @ 200 mls/hr IV Q8H [facility] Last Infusion: 08/06/19 06:35 Dose: Infused Lorazepam (Ativan) 1 mg PO Q6H PRN PRN Reason: Anxiety Last Admin: 08/06/19 10:04 Dose: 1 mg Metoprolol Tartrate (Lopressor) 50 mg PO BID [facility] Last Admin: 08/06/19 09:56 Dose: 50 mg Ondansetron HCl (Zofran Inj) 4 mg IVP Q6HR PRN PRN Reason: Nausea / Vomiting Oxycodone HCl (Roxicodone) 5 mg PO Q4H PRN PRN Reason: PAIN Last Admin: 08/06/19 09:56 Dose: 5 mg Prochlorperazine Edisylate (Compazine Inj) 10 mg IVP Q6HR PRN PRN Reason: Nausea / Vomiting Last Admin: 08/06/19 10:04 Dose: 10 mg Saccharomyces Boulardii (Florastor) 250 mg PO BIDWM [facility] Last Admin: 08/06/19 09:56 Dose: 250 mg Sodium Chloride (Normal Saline Flush 0.9%) 10 ml IVP PRN PRN PRN Reason: NEEDED PER PROVIDER ORDERS Last Admin: 08/06/19 05:45 Dose: 10 ml Sodium Chloride (Normal Saline Flush 0.9%) 10 ml IVP 0100,0900,1700 [facility] Last Admin: 08/06/19 09:56 Dose: 10 ml Tamsulosin HCl (Flomax) 0.4 mg PO BID [facility] Last Admin: 08/06/19 09:56 Dose: 0.4 mg Vitamin A/Vitamin D (Vitamin A & D Ointment) 1 applic TOP PRN PRN PRN Reason: Skin Care Zolpidem Tartrate (Ambien) 5 mg PO QPM PRN PRN Reason: Insomnia Finasteride 5 mg PO DAILY 02/22/18 Tamsulosin HCl [Flomax] 0.4 mg PO DAILY 02/22/18 amLODIPine [Norvasc] 5 mg PO DAILY 08/01/19 Objective - Vital Signs/Intake & Output Reviewed Vital Signs: Yes Vital Signs: Vital Signs x48h Temp Pulse Resp BP Pulse Ox 08/06/19 08:23 36.7 C 66 20 152/105 H 98 Intake & Output: Intake & Output 08/03/19 08/04/19 08/05/19 08/06/19 23:59 23:59 23:59 23:59 Intake Total 1999 1640 1534 560 Output Total 1220 1150 700 Balance 780 490 834 560 - Objective General Appearance: positive: No acute distress, Other (lying in bed, responds to questions but does not open eyes for exam cooperative, flat affect) Respiratory: positive: Chest non-tender, No respiratory distress, Breath sounds nml Cardiovascular: positive: Regular rate & rhythm, No murmur Abdomen: positive: Nml bowel sounds, No distention, Other (old well healed midline scar). negative: Tenderness Skin: positive: Warm, Dry Neurologic/Psychiatric: positive: Oriented x3. negative: Sensation nml (flat affect Not agitated or aggressive with me Acknowledges plan) - Lab Results Fish Bones: 08/05/19 05:40 08/05/19 05:40 Sepsis Event Note (H) - Evaluation Current Stage of Sepsis: Ruled out Assessment/Plan - Problem List (1) Complicated urinary tract infection Impression: Impression: 08/01 UA culture revealed grew Myroides per urologist , requires 7 days of Meropenem IV / unable to treat PO/ urologic instrumentation planned First dose was just before midnight 07/31; final dose will be after 2 pm dose 08/07 since we dose adjusted 08/04 to q 12 hr (Day 6 today) still some related nausea, added prn zofran since he is being treated for urologic instrumentation will send UA this pm after 2pm dose. IF there is any suggestion still of bacteria or LE will discuss with ID (h opefully not, and he can d/c after 2 p dose tomorrow) will check final cbc in am No leukocytosis or fever to suggest Cdif, Stools are soft, unformed but not diarrhea Discussed with patient, I do not suspect he has Cdif (no fever, no leukocytosis); He does know that if he develops actual diarrhea or fever, he is certainly at risk for Cdif (2) Chronic renal insufficiency Conclusion/Plan: Cr ~ his baseline 1.8-1.9 (worst was 5.3 in 03/2019) Reduced meropenem to 1 gram q 12 from q 8 hrs on 08/05 (see note) (3) Left leg swelling Conclusion/Plan: US on 08/01; Negative for DVT , did show small nonspecific fluid collection at left ankle. bilateral leg mild edema, subjective improvement per patient. pt denies pain. elevate when possible (4) Schizophrenia Patient denies on zyprexa, pharmacy confirms not on at home (5) BPH (benign prostatic hyperplasia) Conclusion/Plan: continue finasteride and flomax ( bid flomax which is his home dose; adjusted 08/05) (6) Hypertension Conclusion/Plan: stable, somewhat suboptimal control On amlodipine and metoprolol Have been monitoring BP, Elevation here may be occasionally situational, but having monitored for 5 days, WILL increase amlodipine to 10 mg need PCP follow up to evaluate (7) Methamphetamine abuse Conclusion/Plan: last used 07/31 Frustration with being here, but do not suspect his occasional irritation is withdrwal ,no serious symptoms
[2019-08-06 18:39] LABS: BILIRUBIN,URINE NEGATIVE (NEGATIVE); GLUCOSE, URINE (UA) NEGATIVE (NEGATIVE); KETONES,URINE (UA) NEGATIVE (NEGATIVE); LEUKOCYTE ESTERASE, URINE NEGATIVE (NEGATIVE); NITRITE,URINE NEGATIVE (NEGATIVE); OCCULT BLOOD,URINE NEGATIVE (NEGATIVE); PROTEIN,URINE NEGATIVE (NEGATIVE); UROBILINOGEN,URINE 0.2 (NORMAL) E.U./dL (NORMAL)
[2019-08-06 18:46] LABS: CLARITY,URINE CLEAR (CLEAR)
[2019-08-06 19:09] LABS: BACTERIA,URINE Rare /HPF (None Seen); RBC,URINE 0-5 /HPF (0-5); SQUAMOUS EPITHELIAL CELL,UR RARE Squamous (<= Few)
[2019-08-06] MEDS: ACETAMINOPHEN 325 MG TABLET PO PRN (20:37)
[2019-08-07] MEDS: SODIUM CHLORIDE FLUSH 0.9% 10 ML SYRINGE IVP SCH ×2 (00:46→08:57)
[2019-08-07] MEDS: MEROPENEM 1 GM in SODIUM CHLORIDE 0.9% MINIBAG 100 ML IV SCH ×2 (05:05→13:23)
[2019-08-07] MEDS: SODIUM CHLORIDE FLUSH 0.9% 10 ML SYRINGE IVP PRN (05:05)
[2019-08-07] MEDS: oxyCODONE 5 MG TABLET PO PRN ×2 (05:09→08:58)
[2019-08-07 08:20] VITALS: BP 145/103
[2019-08-07] MEDS: SACCHAROMYCES BOULARDII 250 MG CAPSULE PO SCH (08:57)
[2019-08-07] MEDS: TAMSULOSIN 0.4 MG CAPSULE PO SCH (08:57)
[2019-08-07] MEDS: METOPROLOL TARTRATE 50 MG TABLET PO SCH (08:57)
[2019-08-07] MEDS: FINASTERIDE 5 MG TABLET PO SCH (08:58)
[2019-08-07] MEDS ORDERED: amLODIPine 5 MG TABLET PO SCH (09:00)
--- NOTE | 2019-08-07 09:29 | Discharge Plan ---
Discharge Plan Problem Reviewed?: Yes Disposition: Home, Self Care Condition: Stable Diet: Regular Activity Restrictions: No Restrictions Shower Restrictions: No Driving Restrictions: No Weight Bearing: Full Weight Care Goals: follow up with urology for cystoscopy following treatment of infection Assessment: Urinary tract infection Your urologist is planning a cystoscopy but you had a persistant urinary infection. The bacteria in your urine required a course of IV antibiotics to clear it for a safe urologic procedure. You are finishing your course of IV antibiotics after the afternoon dose on 08/07 . Contact your urologist for follow up to have the procedure done Call Dr [facility] to arrange your follow up appointment when you get home Benign Prostatic Hypertrophy (enlarged prostate) continue your flomax and proscar Antibiotic associate loose stool You had some unformed stool here. This is most consistent with antibiotic associated bowel change, rather than a Cdif infection which you have had before. You have no fever or white count . IF you develop worsening watery diarrhea more than 3 x / day, especially with fever, contact your provider. Hypertension you are on amlodipine and metoprolol at home After monitoring your blood pressure over several days , it Increase amlodipine to 10 mg dally No Smoking: If you smoke, Please STOP! Call for help. Follow-up with: LUDIVINA HICKMAN MD [Primary Care Provider] -
--- NOTE | 2019-08-07 14:07 | DISCHARGE SUMMARY ---
"Discharge Summary Admit Date: 07/31/19 Discharge Date: 08/07/19 Discharging Provider: ZULLY Nichols Primary Care Provider: urology [facility], PCP [facility] Code Status: Attempt Resuscitation Condition at Discharge: Stable Discharge Disposition: 01 Home, Self Care Discharge Facility Name: Home - DIAGNOSES Admission Diagnoses: Myroides Urinary Tract Infection (with urinary tract instrumentation planned) BPH CKD Hypertension History of Methamphetamine use Discharge Diagnoses with Status of Each Condition: Myroides Urinary Tract Infection (with urinary tract instrumentation planned) Completed course of 7 day IV meropenem Repeat UA neg, Cx pending BPH stable; continues Flomax, proscar CKD; stable Cr 1.8-2.0 Hypertension stable, increased home amlodipine to 10 mg History of Methamphetamine use No serious withdrawal symptoms during course of hospitalization - HPI History of Present Illness: 53 y/o male with history of obstructive uropathy who follows with Dr Martinez (urologist). He presented to the hospital today as a Direct admit from the [place]. He had a urinalysis with reflex culture done yesterday at Dr Martinez's office. The culture grew Myroides which is very resistant and for which the patient needs 7 days of IV antibiotics (Meropenem). In the past he had a chronic indwelling carrera cath. At bedside he appears very comfortable. he denies chest pain, dyspnea, fever or chills. He reports intermittent suprapubic pressure. On exam he has a trace to +1 left lower extremity edema. He denies pain in that leg and has never had surgery in that leg. He has history of methamphetamine abuse and last used today. - CONSULTS | PROCEDURES Consultations: none Procedures: none - HOSPITAL COURSE Hospital Course: (1) Complicated urinary tract infection Impression: Impression: 08/01 Outpatient UA and culture grew Myroides per urologist Dr Mcwilliams who is planning cystoscopy/urinary tract instrumentation , requires 7 days of Meropenem IV / unable to treat PO, unable to get Iv at home due to history of drug use Uneventful course (other than nausea likley side effect of Meropenem and occasional soft unformed stool/ not c/w C dif) repeat U/A 08/06 Rare bacteria, 4-5 WBC / HPF Dr Mcwilliams requested reflex culture (which had been ordered with u/a) ; Lab is culturing (2) Chronic renal insufficiency Conclusion/Plan: Creatinine remains stable at baseline (3) Left leg swelling Conclusion/Plan: US on 08/01; Negative for DVT , did show small nonspecific fluid collection at left ankle. (5) BPH (benign prostatic hyperplasia) Conclusion/Plan: continues finasteride and flomax (6) Hypertension Conclusion/Plan: stable, somewhat suboptimal control On amlodipine After monitoring BP over 1 week, he is consistently above goal,primarily diastolic Advised increase amlodipine from 5 mg daily to 10 mg daily (145/103) (7) Methamphetamine abuse Conclusion/Plan: last used 07/31 Frustration with being here, but do not suspect his occasional irritation is withdrawal ,no serious symptoms - ALLERGIES Allergies/Adverse Reactions: Allergies Allergy/AdvReac Type Severity Reaction Status Date / Time No Known Drug Allergies Allergy Verified 05/21/19 16:29 - MEDICATIONS Home Medications: Ambulatory Orders Medication Instructions Recorded Confirmed Finasteride 5 mg PO DAILY 02/22/18 08/01/19 Tamsulosin HCl [Flomax] 0.4 mg PO DAILY 02/22/18 08/01/19 amLODIPine [Norvasc] 10 mg PO DAILY #0 08/07/19 08/01/19 - PHYSICAL EXAM AT DISCHARGE General Appearance: positive: No acute distress, Alert, Other (very flat affet) Eyes Bilateral: positive: Normal inspection Abdomen: positive: Other (unremarkable abdomen) Extremities: negative: Pedal edema Neurologic/Psychiatric: positive: Oriented x3. negative: Mood/affect nml (flat affect but cooperative) - LABS Result Diagrams: 08/05/19 05:40 08/05/19 05:40 - SEPSIS Current Stage of Sepsis: Ruled out - TIME SPENT Time Spent in Discharge (Minutes): 31"
== END 2019-08-07 14:03 | disposition home or self-care (01) | DRG 690 ==
LOC: MS2 18:24
PROVIDERS: ADMIT Internal Medicine; ATTEND Nurse Practitioner
DX: N30.00 Acute cystitis without hematuria (principal); Z16.30 Resistance to unspecified antimicrobial drugs; B96.89 Other specified bacterial agents as the cause of diseases classified elsewhere; I12.9 Hypertensive chronic kidney disease with stage 1 through stage 4 chronic kidney disease, or unspecified chronic kidney disease; N18.3 Chronic kidney disease, stage 3 (moderate); F15.10 Other stimulant abuse, uncomplicated; N40.1 Benign prostatic hyperplasia with lower urinary tract symptoms; N13.8 Other obstructive and reflux uropathy; R33.8 Other retention of urine; R35.0 Frequency of micturition; F32.9 Major depressive disorder, single episode, unspecified; F20.9 Schizophrenia, unspecified; M54.9 Dorsalgia, unspecified; M79.89 Other specified soft tissue disorders; R11.0 Nausea; R19.4 Change in bowel habit; T36.1X5A Adverse effect of cephalosporins and other beta-lactam antibiotics, initial encounter; Y92.230 Patient room in hospital as the place of occurrence of the external cause; Z90.81 Acquired absence of spleen
CPT/HCPCS: 36415; 80048; 80306; 81001; 85025; 87086; 93971; A9270; J2060; J2185; J8499

== ENCOUNTER 2019-09-26 16:25 | Outpatient (CLI) | payer MEDICAID ==
--- NOTE | 2019-09-27 16:25 | XRAY Report ---
Reason: 54 Y/O MALE WITH CHRONIC LOW BACK PAIN WORSENING SCIATIC PAIN RT Procedure Date: 09/26/2019 Accession Number: [id number] / [id number] Procedure: XR - Lumbar Spine 2 View CPT Code: Final Report FULL RESULT: EXAM: LUMBOSACRAL SPINE RADIOGRAPHY EXAM DATE: 09/26/2019 04:39 PM. CLINICAL HISTORY: 54-year-old male with chronic low back pain, worsening sciatic pain right. COMPARISONS: LUMBAR SPINE 2 VIEW 05/21/2019 4:43 PM. TECHNIQUE: 3 views. FINDINGS: Alignment: Normal. No spondylolisthesis or scoliosis. Bones: Five [id number] lumbar vertebral bodies are present. No fractures or bone lesions. Disks: The disk spaces appear relatively well-preserved. Facets: There is mild L4-L5 facet hypertrophy. Sacroiliac Joints: Unremarkable. Soft Tissues: Normal. The visualized bowel gas pattern is normal. IMPRESSION: 1. No acute abnormality. 2. Mild lower lumbar spine facet hypertrophy. RADIA
== END 2019-09-26 16:26 | disposition home or self-care (01) ==
LOC: DI 16:25
PROVIDERS: ATTEND Family Medicine
DX: M47.816 Spondylosis without myelopathy or radiculopathy, lumbar region (principal)
CPT/HCPCS: 72100

== ENCOUNTER 2019-10-27 15:27 | Outpatient (CLI) | payer MEDICAID ==
[2019-10-27 15:53] LABS: BASOPHILS % (AUTO) 0.3 %; EOSINOPHILS # (AUTO) 0.2 10^3/uL (0.0-0.7); EOSINOPHILS % (AUTO) 3.2 %; HGB - HEMOGLOBIN 9.5 g/dL (14.0-18.0); LYMPHOCYTES # (AUTO) 1.3 10^3/uL (1.5-3.5); LYMPHOCYTES % (AUTO) 21.3 %; MEAN CORPUSCULAR HGB CONC 31.3 g/dL (32.0-36.0); MEAN CORPUSCULAR VOLUME 83.1 fL (80.0-94.0); MEAN PLATELET VOLUME 8.7 fL (7.4-11.4); MONOCYTES # (AUTO) 0.5 10^3/uL (0.0-1.0); MONOCYTES % (AUTO) 8.4 %; NEUTROPHILS # (AUTO) 4.1 10^3/uL (1.5-6.6); NEUTROPHILS % (AUTO) 66.5 %; PLT - PLATELET COUNT 241 10^3/uL (130-450); RED BLOOD COUNT 3.66 10^6/uL (4.70-6.10); WHITE BLOOD COUNT 6.2 x10^3/uL (4.8-10.8)
[2019-10-27 16:17] LABS: ALBUMIN 4.3 g/dL (3.2-5.5); ALBUMIN/GLOBULIN RATIO 1.1 (1.0-2.2); BILIRUBIN,TOTAL 0.4 mg/dL (0.2-1.0); CALCIUM 8.7 mg/dL (8.5-10.3); CREATININE 2.4 mg/dL (0.6-1.2); CRP - C-REACTIVE PROTEIN 2.4 mg/dL (0-1.0); TOTAL PROTEIN 8.2 g/dL (6.7-8.2)
[2019-10-28 12:38] LABS: HEPATITIS B SURFACE ANTIGEN NON-REACTIVE (NON-REACTIVE)
[2019-10-28 12:39] LABS: HEPATITIS C ANTIBODY NON-REACTIVE (NON-REACTIVE)
== END 2019-10-27 15:28 | disposition home or self-care (01) ==
LOC: LAB 15:27
PROVIDERS: ATTEND Urology
DX: N18.3 Chronic kidney disease, stage 3 (moderate) (principal); D63.1 Anemia in chronic kidney disease; R10.9 Unspecified abdominal pain; M19.90 Unspecified osteoarthritis, unspecified site; F19.10 Other psychoactive substance abuse, uncomplicated; R39.9 Unspecified symptoms and signs involving the genitourinary system
CPT/HCPCS: 36415; 80053; 82746; 83540; 83690; 84153; 84466; 85025; 86140; 86803; 87340

== ENCOUNTER 2019-11-18 08:00 | Outpatient (CLI) | payer MEDICAID ==
[2019-11-19 14:45] LABS: H. PYLORIS ANTIGEN STL NEGATIVE (Negative)
== END 2019-11-18 23:59 | disposition home or self-care (01) ==
LOC: LAB.R 08:00
PROVIDERS: ATTEND Family Medicine
DX: R10.9 Unspecified abdominal pain (principal)
CPT/HCPCS: 87338

== ENCOUNTER 2019-11-19 14:00 | Observation (INO) | payer MEDICAID ==
[2019-11-19 14:31] LABS: BILIRUBIN,URINE NEGATIVE (NEGATIVE); GLUCOSE, URINE (UA) NEGATIVE (NEGATIVE); KETONES,URINE (UA) NEGATIVE (NEGATIVE); LEUKOCYTE ESTERASE, URINE NEGATIVE (NEGATIVE); NITRITE,URINE NEGATIVE (NEGATIVE); OCCULT BLOOD,URINE NEGATIVE (NEGATIVE); PROTEIN,URINE NEGATIVE (NEGATIVE); UROBILINOGEN,URINE 0.2 (NORMAL) E.U./dL (NORMAL)
[2019-11-19 14:35] LABS: BASOPHILS % (AUTO) 0.5 %; EOSINOPHILS # (AUTO) 0.2 10^3/uL (0.0-0.7); EOSINOPHILS % (AUTO) 2.2 %; HGB - HEMOGLOBIN 10.1 g/dL (14.0-18.0); LYMPHOCYTES # (AUTO) 1.9 10^3/uL (1.5-3.5); LYMPHOCYTES % (AUTO) 23.2 %; MEAN CORPUSCULAR HGB CONC 30.7 g/dL (32.0-36.0); MEAN CORPUSCULAR VOLUME 84.8 fL (80.0-94.0); MONOCYTES # (AUTO) 0.6 10^3/uL (0.0-1.0); MONOCYTES % (AUTO) 7.2 %; NEUTROPHILS # (AUTO) 5.4 10^3/uL (1.5-6.6); NEUTROPHILS % (AUTO) 66.5 %; PLT - PLATELET COUNT 294 10^3/uL (130-450); RED BLOOD COUNT 3.88 10^6/uL (4.70-6.10); RED CELL DISTRIBUTION WIDTH 17.9 % (12.0-15.0); WHITE BLOOD COUNT 8.1 x10^3/uL (4.8-10.8)
[2019-11-19 14:46] LABS: CLARITY,URINE CLEAR (CLEAR)
[2019-11-19 14:53] LABS: ALBUMIN 4.2 g/dL (3.2-5.5); ALBUMIN/GLOBULIN RATIO 1.1 (1.0-2.2); BILIRUBIN,TOTAL 0.4 mg/dL (0.2-1.0); CALCIUM 8.8 mg/dL (8.5-10.3); CREATININE 2.9 mg/dL (0.6-1.2)
[2019-11-19] MEDS ORDERED: DEXTROSE GEL 37.5 GM TUBE ONE (15:00)
[2019-11-19] MEDS ORDERED: DEXTROSE GEL 37.5 GM TUBE PO STA (15:12)
[2019-11-19 15:52] LABS: MUDS CUTOFF CONCENTRATIONS CUTOFF CONC BELOW:
[2019-11-19] MEDS ORDERED: SODIUM CHLORIDE 0.9% 1,000 ML IV ONE ×2 (15:53)
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
[2019-11-19 16:03] LABS: AMPHETAMINE SCREEN,URINE POSITIVE (NEGATIVE); BENZODIAZEPINES SCREEN, URINE NEGATIVE (NEGATIVE); COCAINE SCREEN URINE NEGATIVE (NEGATIVE); METHADONE SCREEN, URINE NEGATIVE (NEGATIVE); METHAMPHETAMINES SCREEN, URINE POSITIVE (NEGATIVE); OPIATE SCREEN, URINE NEGATIVE (NEGATIVE); OXYCODONE SCREEN, URINE NEGATIVE (NEGATIVE); PROPOXYPHENE SCREEN, URINE NEGATIVE (NEGATIVE); TRICYCLIC ANTIDEPRESSANT,URINE NEGATIVE (NEGATIVE)
[2019-11-19] MEDS ORDERED: HYDROcod/ACETAM 5/325 MG TABLET PO STA (16:08)
[2019-11-19] MEDS ORDERED: SODIUM CHLORIDE FLUSH 0.9% 10 ML SYRINGE IVP PRN (19:34)
--- NOTE | 2019-11-19 19:42 | HISTORY & PHYSICAL EXAMINATION ---
Chief Complaint - Chief Complaint Chief Complaint: abdominal pain History of Present Illness - Ad[facility] - History Obtained From Records Reviewed: yes History obtained from: patient - History of Present Illness HPI Comment/Other: Patient is a 54 y/o with history of obstructive uropathy who sees Dr Martinez (urology). He presented to the ED with complain of flank pain (right greater than left) and feelings of malaise which has been going on for the past week. In the ED work up included a BMP which showed a creatinine level of 2.9. Bladder scan showed a significantly distended bladder. A carrera cath was placed and 1300 ml of urine was immediately collected. He denied chest pain, dyspnea, fever or chills. He has been nauseous and had some increased suprapubic pressure. He denied dysuria or hematuria. As a result of his presentation he is being admitted for further treatment. History - Past Medical History Cardiovascular: reports: Hypertension Respiratory: reports: None Neuro: reports: None Endocrine/Autoimmune: reports: None GI: reports: None : reports: Benign prostate hypertrophy, Retention, Renal insuffiency, Indwel ling catheter, Other HEENT: reports: None Psych: reports: Depression, Schizophrenia Musculoskeletal: reports: None, Other Derm: reports: None MRSA Hx?: No - Past Surgical History General: reports: Splenectomy Ortho: reports: Shoulder arthroplasty HEENT: reports: Myringotomy (tubes) - Family & Social History Family History: Father: , CAD, Hypertension Family History Comment/Other: Father and maternal grandfather from heart disease. brother has diabetes mellitus 2. mother thyroid cancer, dementia. No history of renal disease in the family. Social History Notes: He lives alone in [place], [place]. 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 He reports consuming a few beers a week. 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 - Substance History Use: Uses substance without health or social issues: Amphetamine - POLST Patient has POLST: No POLST Status: Full Code Meds/Allgy - Home Medications Home Medications: Ambulatory Orders Medication Instructions Recorded Confirmed Finasteride 5 mg PO DAILY 02/22/18 08/01/19 Tamsulosin HCl [Flomax] 0.4 mg PO BID 02/22/18 08/01/19 Metoprolol Tartrate [Lopressor] 50 mg PO BID 11/19/19 OLANZapine [Olanzapine] 10 mg PO QPM 11/19/19 amLODIPine [Norvasc] 5 mg PO DAILY 11/19/19 buPROPion [Wellbutrin Xl] 300 mg PO DAILY 11/19/19 - Allergies Allergies/Adverse Reactions: Allergies Allergy/AdvReac Type Severity Reaction Status Date / Time No Known Drug Allergies Allergy Verified 11/19/19 14:05 Review of Systems - Constitutional Constitutional: reports: Fatigue, Malaise. denies: Fever, Chills - Eyes Eyes: denies: Pain, Vision loss - Ears, Nose & Throat Ears, Nose & Throat: denies: Vertigo - Cardiovascular Cariovascular: denies: Chest pain, Edema, Lightheadedness, Syncope, Exertional dyspnea - Respiratory Respiratory: denies: Cough, Wheezing, SOB at rest, SOB with exertion - Gastrointestinal Gastrointestinal: reports: Nausea. denies: Abdominal pain, Abdominal distention, Vomiting - Genitourinary Genitourinary: reports: Flank pain. denies: Dysuria, Frequency, Urgency, Hematuria - Musculoskeletal Musculoskeletal: reports: Back pain (lower back). denies: Muscle pain, Muscle aches, Joint pain - Integumentary Integumentary: denies: Rash, Pruritis, Lesions, Dryness - Neurological Neurological: denies: General weakness, Focal weakness, Headache, Dizziness, Numbness - Psychiatric Psychiatric: reports: Depression - Endocrine Endocrine: denies: Polyuria, Polydypsia - Hematologic/Lymphatic Hematologic/Lymphatic: denies: Anemia, Bruising Prior Level of Functionality: He is independent of activities of daily living Exam - Vital Signs Vital Signs: Vital Signs x48h Temp Pulse Resp BP Pulse Ox 11/19/19 17:16 36.6 C 70 16 117/81 H 99 11/19/19 14:05 36.8 C 98 15 134/82 H 100 - Physical Exam General Appearance: positive: Alert, Mild distress, Moderate distress Eyes Bilateral: positive: PERRL, EOMI ENT: positive: ENT inspection nml, No signs of dehydration Neck: positive: Nml inspection, No JVD, Trachea midline Respiratory: positive: Chest non-tender, No respiratory distress, Breath sounds nml. negative: Wheezes, Rales, Rhonchi Cardiovascular: positive: Regular rate & rhythm, No murmur Abdomen: positive: Non-tender, No organomegaly, Nml bowel sounds, No distention. negative: Guarding, Rebound Back: positive: Nml inspection Skin: positive: Color nml, No rash, Warm, Dry Extremities: positive: Non-tender, Full ROM, Nml appearance, No pedal edema Neurologic/Psychiatric: positive: Oriented x3, Mood/affect nml Conclusion/Plan - Problem List (1) Acute on chronic renal failure Conclusion/Plan: Likely 2/2 urinary retention Carrera in place. CT abd/pelvis ordered to rule out obstruction Anticipate improvement in renal function. Will check BMP in the am Patient will need to follow up with his urologist (Dr Martinez) after discharge Qualifiers: Acute renal failure type: unspecified (2) Urinary retention Conclusion/Plan: Hx of neurogenic bladder and BPH Carrera cath in place Continue flomax and finasteride (3) Hypertension Conclusion/Plan: Resume amlodipine and metoprolol once verified (4) Methamphetamine abuse Conclusion/Plan: Patient's Toxicology was positive for methamphetamine - Lab Results Fish Bones: 11/20/19 04:15 11/20/19 04:15 Core Measures - Anticipated LOS I expect patient to be DC'd or transferred within 96 hours.: Yes - DVT/VTE - Prophylaxis VTE/DVT Device ordered at admit?: Yes
[2019-11-19] MEDS: HYDROcod/ACETAM 5/325 MG TABLET PO PRN (21:29)
[2019-11-19] MEDS: ONDANSETRON 4 MG/2 ML VIAL IVP PRN (21:29)
[2019-11-19] MEDS: SODIUM CHLORIDE FLUSH 0.9% 10 ML SYRINGE IVP SCH (23:30)
--- NOTE | 2019-11-20 00:11 | CT Report ---
Reason: bilateral flank and abd pain. acute kidney injury Procedure Date: 11/19/2019 Accession Number: [id number] / [id number] Procedure: CT - Abdomen/Pelvis WO CPT Code: Final Report FULL RESULT: EXAM: CT ABDOMEN AND PELVIS WITHOUT CONTRAST. EXAM DATE: 11/19/2019 09:52 PM. CLINICAL HISTORY: Bilateral flank and abdominal pain. Acute kidney injury. COMPARISONS: ABDOMEN/PELVIS W/O 05/06/2015 1:59 PM. TECHNIQUE: Routine helical CT imaging was performed through the abdomen and pelvis. IV contrast: None. Enteric contrast: No. Reconstructions: Coronal and sagittal. In accordance with CT protocol optimization, one or more of the following dose reduction techniques were utilized for this exam: automated exposure control, adjustment of mA and/or KV based on patient size, or use of iterative reconstructive technique. FINDINGS: Lung Bases: Unremarkable. Small to moderate hiatal hernia. Liver: No significant focal lesions. Gallbladder/Bile Ducts: Gallbladder decompressed limiting evaluation. No intrahepatic or extrahepatic biliary ductal dilatation. Spleen: Normal. Pancreas: Normal. Adrenal Glands: Normal. Kidneys: No suspicious renal masses identified on this noncontrast exam. Severe bilateral hydronephrosis. Mild diffuse hydroureters bilaterally. Peritoneal Cavity/Bowel: Normal caliber of the bowel without evidence of obstruction. No focal bowel wall thickening or inflammation. Descending and sigmoid colon diverticulosis without CT evidence of acute diverticulitis. No evidence of acute appendicitis. Pelvic Organs: Severe diffuse urinary bladder wall thickening. Hudson catheter in place. Prostate grossly unremarkable. Vasculature: No aneurysms or other significant abnormality. Bones: No significant focal osseous lesions. Other: None. IMPRESSION: 1. Severe bilateral hydronephrosis. Mild diffuse hydroureters bilaterally. 2. Severe diffuse urinary bladder wall thickening concerning for bladder neoplasm causing bilateral distal ureteral obstruction and the aforementioned hydroureteronephrosis. 3. Descending and sigmoid colon diverticulosis without CT evidence of acute diverticulitis. 4. Small to moderate hiatal hernia. RADIA
[2019-11-20] MEDS: HYDROcod/ACETAM 5/325 MG TABLET PO PRN ×2 (01:35→06:27)
[2019-11-20 04:44] LABS: BASOPHILS % (AUTO) 0.5 %; EOSINOPHILS # (AUTO) 0.3 10^3/uL (0.0-0.7); EOSINOPHILS % (AUTO) 4.6 %; HGB - HEMOGLOBIN 9.6 g/dL (14.0-18.0); LYMPHOCYTES # (AUTO) 2.1 10^3/uL (1.5-3.5); LYMPHOCYTES % (AUTO) 34.5 %; MEAN CORPUSCULAR HEMOGLOBIN 25.2 pg (27.0-31.0); MEAN CORPUSCULAR HGB CONC 30.1 g/dL (32.0-36.0); MEAN CORPUSCULAR VOLUME 83.7 fL (80.0-94.0); MEAN PLATELET VOLUME 9.2 fL (7.4-11.4); MONOCYTES # (AUTO) 0.5 10^3/uL (0.0-1.0); MONOCYTES % (AUTO) 7.5 %; NEUTROPHILS # (AUTO) 3.2 10^3/uL (1.5-6.6); NEUTROPHILS % (AUTO) 52.6 %; PLT - PLATELET COUNT 239 10^3/uL (130-450); RED BLOOD COUNT 3.81 10^6/uL (4.70-6.10); RED CELL DISTRIBUTION WIDTH 17.8 % (12.0-15.0); WHITE BLOOD COUNT 6.2 x10^3/uL (4.8-10.8)
[2019-11-20 04:52] LABS: CALCIUM 8.5 mg/dL (8.5-10.3); CREATININE 2.7 mg/dL (0.6-1.2)
[2019-11-20] MEDS: SODIUM CHLORIDE FLUSH 0.9% 10 ML SYRINGE IVP SCH ×2 (08:13→15:52)
--- NOTE | 2019-11-20 09:03 | PHARMACY PROGRESS NOTE ---
- Best Possible Medication History Admit Date and Time: 11/19/19 1823 Processed by: Pharmacy Medication History completed: In progress Secondary Source(s): Physician records, Pharmacy records, Insurance records As the person ultimately responsible for medication therapy, providers are able to order a medication from an existing home medication list in [facility] via the "Reconcile Routine" prior to Confirmation of that medication by operations support specialist. Such practice is discouraged except when the physician, in their clinical judgment, deems that a medical need exists for a medication without regard to previous use.
[2019-11-20] MEDS: ONDANSETRON 4 MG/2 ML VIAL IVP PRN ×2 (09:13→15:52)
[2019-11-20] MEDS: LORazepam 2 MG/ML VIAL IVP PRN ×2 (10:01→16:54)
[2019-11-20] MEDS: HYDROmorphone 0.5 MG/0.5 ML SYRINGE IVP PRN ×3 (10:01→21:44)
--- NOTE | 2019-11-20 10:14 | PROVIDER PROGRESS NOTE ---
Subjective - Prog Note Date Prog Note Date: 11/20/19 Prog Note Time: 10:12 - Subjective Pt reports feeling: No change Subjective: Aman complains of flank pain, and states that he thinks he is getting his infection back since he has urethral drainage. He states he has called his Urologist already this morning. (Dr. Mcwilliams). His KENDELL is ongoing, and he agrees to staying one more night. Current Medications - Current Medications Current Medications: Active Medications: Hydrocodone Bitart/Acetaminophen 1 tab PO Q4HR PRN Bupropion HCl (Wellbutrin Xl) 300 mg PO DAILY ERENDIRA Hydromorphone HCl (Dilaudid Inj Syringe) 0.5 mg IVP Q2H PRN Lorazepam (Ativan Inj (Vial)) 1 mg IVP Q6H PRN Metoprolol Succinate (Toprol Xl) 25 mg PO BIDWM ERENDIRA Protonix IV BID NS @ 125ml/hour continuous Ondansetron HCl (Zofran Inj) 4 mg IVP Q4HR PRN Zyprexa 10 mg PO daily HOME meds: Finasteride 5 mg PO DAILY 02/22/18 Tamsulosin HCl [Flomax] 0.4 mg PO BID 02/22/18 Metoprolol Tartrate [Lopressor] 50 mg PO BID 11/19/19 OLANZapine [Olanzapine] 10 mg PO QPM 11/19/19 amLODIPine [Norvasc] 5 mg PO DAILY 11/19/19 buPROPion [Wellbutrin Xl] 300 mg PO DAILY 11/19/19 Objective - Vital Signs/Intake & Output Reviewed Vital Signs: Yes Vital Signs: Vital Signs x48h Temp Pulse Pulse Resp BP Pulse Ox 11/20/19 07:20 36.4 C L 58 L 18 160/97 H 99 11/20/19 06:30 36.8 C 98 15 100 11/20/19 04:16 36.5 C 64 16 148/94 H 97 Intake & Output: Intake & Output 11/17/19 11/18/19 11/19/19 11/20/19 23:59 23:59 23:59 23:59 Intake Total 2150 1100 Output Total 1875 3100 Balance 275 -2000 - Objective General Appearance: positive: Alert, Moderate distress, Anxious Eyes Bilateral: positive: PERRL Eyes: OU Conjunctivae pale ENT: positive: Pharynx nml, Dry mucous membranes Neck: positive: Thyroid nml, No JVD Respiratory: positive: Chest non-tender, No respiratory distress, Breath sounds nml Cardiovascular: positive: Regular rate & rhythm, Tachycardia, Systolic murmur, Decreased pulse(s) Peripheral Pulses: 1+ Radial (R), 1+ Radial (L) Abdomen: positive: Nml bowel sounds, Tenderness, Guarding Back: positive: Nml inspection Skin: positive: Color nml, No rash, Warm, Dry Extremities: positive: Non-tender, Full ROM, Nml appearance, No pedal edema Neurologic/Psychiatric: positive: Oriented x3, CN's nml (2-12), Motor nml, Se nsation nml, Depressed mood/affect (flat) Reflexes: Bicep (R): 3+, Bicep (L): 3+ - Lab Results Fish Bones: 11/20/19 11:13 11/20/19 11:13 Other Labs: Lab Results x24hrs 11/20/19 11/20/19 11/19/19 Range/Units 04:15 04:15 16:50 WBC 6.2 (4.8-10.8) x10^3/uL RBC 3.81 L (4.70-6.10) 10^6/uL Hgb 9.6 L (14.0-18.0) g/dL Hct 31.9 L (42.0-52.0) % MCV 83.7 (80.0-94.0) fL MCH 25.2 L (27.0-31.0) pg MCHC 30.1 L (32.0-36.0) g/dL RDW 17.8 H (12.0-15.0) % Plt Count 239 (130-450) 10^3/uL MPV 9.2 (7.4-11.4) fL Neut # (Auto) 3.2 (1.5-6.6) 10^3/uL Lymph # (Auto) 2.1 (1.5-3.5) 10^3/uL Dixie # (Auto) 0.5 (0.0-1.0) 10^3/uL Eos # (Auto) 0.3 (0.0-0.7) 10^3/uL Baso # (Auto) 0.0 (0.0-0.1) 10^3/uL Absolute Nucleated RBC 0.00 x10^3/uL Nucleated RBC % 0.0 /100WBC Sodium 138 (135-145) mmol/L Potassium 4.6 (3.5-5.0) mmol/L Chloride 107 (101-111) mmol/L Carbon Dioxide 24 (21-32) mmol/L Anion Gap 7.0 (6-13) BUN 39 H (6-20) mg/dL Creatinine 2.7 H (0.6-1.2) mg/dL Estimated GFR (MDRD) 25 L (>89) Glucose 91 (70-100) mg/dL POC Whole Bld Glucose 103 H (70 - 100) mg/dL Calcium 8.5 (8.5-10.3) mg/dL Total Bilirubin (0.2-1.0) mg/dL AST (10-42) IU/L ALT (10-60) IU/L Alkaline Phosphatase (42-121) IU/L Total Creatine Kinase (22-269) IU/L Total Protein (6.7-8.2) g/dL Albumin (3.2-5.5) g/dL Globulin (2.1-4.2) g/dL Albumin/Globulin Ratio (1.0-2.2) Lipase (22-51) U/L Urine Color Urine Clarity (CLEAR) Urine pH (5.0-7.5) PH Ur Specific Ava (1.002-1.030) Urine Protein (NEGATIVE) mg/dL Urine Glucose (UA) (NEGATIVE) mg/dL Urine Ketones (NEGATIVE) mg/dL Urine Occult Blood (NEGATIVE) Urine Nitrite (NEGATIVE) Urine Bilirubin (NEGATIVE) Urine Urobilinogen (NORMAL) E.U./dL Ur Leukocyte Esterase (NEGATIVE) Ur Microscopic Review Urine Culture Comments Urine Opiates Screen (NEGATIVE) Ur Oxycodone Screen (NEGATIVE) Urine Methadone Screen (NEGATIVE) Ur Propoxyphene Screen (NEGATIVE) Ur Barbiturates Screen (NEGATIVE) Ur Tricyclics Screen (NEGATIVE) Ur Phencyclidine Scrn (NEGATIVE) Ur Amphetamine Screen (NEGATIVE) U Methamphetamines Scrn (NEGATIVE) U Benzodiazepines Scrn (NEGATIVE) Urine Cocaine Screen (NEGATIVE) U Cannabinoids Screen (NEGATIVE) 11/19/19 11/19/19 11/19/19 Range/Units 14:21 14:21 14:21 WBC (4.8-10.8) x10^3/uL RBC (4.70-6.10) 10^6/uL Hgb (14.0-18.0) g/dL Hct (42.0-52.0) % MCV (80.0-94.0) fL MCH (27.0-31.0) pg MCHC (32.0-36.0) g/dL RDW (12.0-15.0) % Plt Count (130-450) 10^3/uL MPV (7.4-11.4) fL Neut # (Auto) (1.5-6.6) 10^3/uL Lymph # (Auto) (1.5-3.5) 10^3/uL Dixie # (Auto) (0.0-1.0) 10^3/uL Eos # (Auto) (0.0-0.7) 10^3/uL Baso # (Auto) (0.0-0.1) 10^3/uL Absolute Nucleated RBC x10^3/uL Nucleated RBC % /100WBC Sodium 140 (135-145) mmol/L Potassium 4.2 (3.5-5.0) mmol/L Chloride 107 (101-111) mmol/L Carbon Dioxide 22 (21-32) mmol/L Anion Gap 11.0 (6-13) BUN 43 H (6-20) mg/dL Creatinine 2.9 H (0.6-1.2) mg/dL Estimated GFR (MDRD) 23 L (>89) Glucose 49 L* (70-100) mg/dL POC Whole Bld Glucose (70 - 100) mg/dL Calcium 8.8 (8.5-10.3) mg/dL Total Bilirubin 0.4 (0.2-1.0) mg/dL AST 23 (10-42) IU/L ALT 20 (10-60) IU/L Alkaline Phosphatase 83 (42-121) IU/L Total Creatine Kinase 100 (22-269) IU/L Total Protein 8.0 (6.7-8.2) g/dL Albumin 4.2 (3.2-5.5) g/dL Globulin 3.8 (2.1-4.2) g/dL Albumin/Globulin Ratio 1.1 (1.0-2.2) Lipase 36 (22-51) U/L Urine Color Urine Clarity (CLEAR) Urine pH (5.0-7.5) PH Ur Specific Ava (1.002-1.030) Urine Protein (NEGATIVE) mg/dL Urine Glucose (UA) (NEGATIVE) mg/dL Urine Ketones (NEGATIVE) mg/dL Urine Occult Blood (NEGATIVE) Urine Nitrite (NEGATIVE) Urine Bilirubin (NEGATIVE) Urine Urobilinogen (NORMAL) E.U./dL Ur Leukocyte Esterase (NEGATIVE) Ur Microscopic Review Urine Culture Comments Urine Opiates Screen NEGATIVE (NEGATIVE) Ur Oxycodone Screen NEGATIVE (NEGATIVE) Urine Methadone Screen NEGATIVE (NEGATIVE) Ur Propoxyphene Screen NEGATIVE (NEGATIVE) Ur Barbiturates Screen NEGATIVE (NEGATIVE) Ur Tricyclics Screen NEGATIVE (NEGATIVE) Ur Phencyclidine Scrn NEGATIVE (NEGATIVE) Ur Amphetamine Screen POSITIVE H (NEGATIVE) U Methamphetamines Scrn POSITIVE H (NEGATIVE) U Benzodiazepines Scrn NEGATIVE (NEGATIVE) Urine Cocaine Screen NEGATIVE (NEGATIVE) U Cannabinoids Screen NEGATIVE (NEGATIVE) 11/19/19 11/19/19 Range/Units 14:21 14:21 WBC 8.1 (4.8-10.8) x10^3/uL RBC 3.88 L (4.70-6.10) 10^6/uL Hgb 10.1 L (14.0-18.0) g/dL Hct 32.9 L (42.0-52.0) % MCV 84.8 (80.0-94.0) fL MCH 26.0 L (27.0-31.0) pg MCHC 30.7 L (32.0-36.0) g/dL RDW 17.9 H (12.0-15.0) % Plt Count 294 (130-450) 10^3/uL MPV 9.0 (7.4-11.4) fL Neut # (Auto) 5.4 (1.5-6.6) 10^3/uL Lymph # (Auto) 1.9 (1.5-3.5) 10^3/uL Dixie # (Auto) 0.6 (0.0-1.0) 10^3/uL Eos # (Auto) 0.2 (0.0-0.7) 10^3/uL Baso # (Auto) 0.0 (0.0-0.1) 10^3/uL Absolute Nucleated RBC 0.00 x10^3/uL Nucleated RBC % 0.0 /100WBC Sodium (135-145) mmol/L Potassium (3.5-5.0) mmol/L Chloride (101-111) mmol/L Carbon Dioxide (21-32) mmol/L Anion Gap (6-13) BUN (6-20) mg/dL Creatinine (0.6-1.2) mg/dL Estimated GFR (MDRD) (>89) Glucose (70-100) mg/dL POC Whole Bld Glucose (70 - 100) mg/dL Calcium (8.5-10.3) mg/dL Total Bilirubin (0.2-1.0) mg/dL AST (10-42) IU/L ALT (10-60) IU/L Alkaline Phosphatase (42-121) IU/L Total Creatine Kinase (22-269) IU/L Total Protein (6.7-8.2) g/dL Albumin (3.2-5.5) g/dL Globulin (2.1-4.2) g/dL Albumin/Globulin Ratio (1.0-2.2) Lipase (22-51) U/L Urine Color YELLOW Urine Clarity CLEAR (CLEAR) Urine pH 6.0 (5.0-7.5) PH Ur Specific Ava 1.010 (1.002-1.030) Urine Protein NEGATIVE (NEGATIVE) mg/dL Urine Glucose (UA) NEGATIVE (NEGATIVE) mg/dL Urine Ketones NEGATIVE (NEGATIVE) mg/dL Urine Occult Blood NEGATIVE (NEGATIVE) Urine Nitrite NEGATIVE (NEGATIVE) Urine Bilirubin NEGATIVE (NEGATIVE) Urine Urobilinogen 0.2 (NORMAL) (NORMAL) E.U./dL Ur Leukocyte Esterase NEGATIVE (NEGATIVE) Ur Microscopic Review NOT INDICATED Urine Culture Comments NOT INDICATED Urine Opiates Screen (NEGATIVE) Ur Oxycodone Screen (NEGATIVE) Urine Methadone Screen (NEGATIVE) Ur Propoxyphene Screen (NEGATIVE) Ur Barbiturates Screen (NEGATIVE) Ur Tricyclics Screen (NEGATIVE) Ur Phencyclidine Scrn (NEGATIVE) Ur Amphetamine Screen (NEGATIVE) U Methamphetamines Scrn (NEGATIVE) U Benzodiazepines Scrn (NEGATIVE) Urine Cocaine Screen (NEGATIVE) U Cannabinoids Screen (NEGATIVE) - Diagnostic Imaging Diagnostic Imaging Results: positive: Final report reviewed Diagnostic Imaging Comments: EXAM: CT ABDOMEN AND PELVIS WITHOUT CONTRAST. 11/19/2019 09:52 PM IMPRESSION: 1. Severe bilateral hydronephrosis. Mild diffuse hydroureters bilaterally. 2. Severe diffuse urinary bladder wall thickening concerning for bladder neoplasm causing bilateral distal ureteral obstruction and the aforementioned hydroureteronephrosis. 3. Descending and sigmoid colon diverticulosis without CT evidence of acute diverticulitis. 4. Small to moderate hiatal hernia. ABX Reporting Has patient been on IV antibiotics over the past 48 hours?: No Assessment/Plan - Problem List (1) Acute on chronic renal failure Impression: -Likely due to dehydration, AND urinary retention -Indwelling Carrera is draining colorless urine -CT abd/pelvis shows severe bilateral hydronephrosis, severe diffuse urinary bladder wall thickening concerning for bladder neoplasm causing bilateral distal ureteral obstruction and the aforementioned hydroureteronephrosis -Serum creatinine was 3.0, only improved to 2.5 -Patient has been vomiting, starting IV fluids -Spoke with Dr. Mcwilliams, Urology who agrees with current plan, no antibiotics, leave indwelling in for bladder decompression for the next few weeks, follow up outpatient -Continue routine labs, manage symptoms Nausea and vomiting -Today this is intractable -Patient had a large breakfast, then started to have symtpoms -Added IV lorazepam for anti-emetic effects -Started on IV protonix scheduled -Checked a random bedside glucose since he was hypoglycemic in the ED, it was 85 -Suspect this is from meth withdrawal & KENDELL Urinary retention -Patient has known neurogenic bladder and BPH -Did not have a Carrera cath upon presentation to the ED -Holding BPH meds as they are nephrotoxic -Continue routine labs, anticipate leaving carrera in place upon discharge -Resume flomax and finasteride maybe tomorrow Methamphetamine withdrawal -Patient is likely experiencing common W/D symptoms: -Gastrointestinal distress Abdominal cramps, diarrhea, nausea and/or vomiting -Flu-like symptoms Lacrimation, rhinorrhea, diaphoresis, shivering, piloerection, and goose bumps -Sympathetic nerve and central nervous system arousal Mydriasis, mild hypertension and tachycardia, anxiety and irritability, insomnia, agitation, restless leg syndrome, general restlessness, tremor, and, less frequently, low grade temperature and tactile sensitivity -Yawning, sneezing, anorexia, dizziness, myalgias/arthralgias, and leg cramps Hypertension -Takes amlodipine and metoprolol at home, but now vomiting -Added IV metoprolol, treating symptoms -Contributing factor of meth withdrawal, untreated pain, and underlying HTN history -Continue VS every 4 hours, adjust as needed Methamphetamine abuse -MUDDs tox screen was positive for methamphetamine & amphetamines -Encourage cessation -Social work to offer resources Schizophrenia -Prescribed Zyprexa at home, will resume today -Patient denies hallucinations today -Social work consult to evaluate for outpatient needs prior to discharge Depression -Long history of this, currently using meth -Takes Zyprexa at home, continues here Insomnia -No prescribed medications on home med list -Suspect this could be due to years of drug abuse, underlying depression/schizophrenia -Monitor for insomnia MRSA culture positive -Noted in past medical history -Last negative PCR was on 05/21/2019 -Ordering surveillance PCR nasal swab
[2019-11-20] MEDS: SODIUM CHLORIDE 0.9% 1,000 ML IV SCH ×2 (10:42→18:02)
[2019-11-20] MEDS ORDERED: METOPROLOL 5 MG/5 ML VIAL IVP PRN (10:45)
[2019-11-20] MEDS: buPROPion XL 150 MG TABLET PO SCH (11:01)
[2019-11-20] MEDS: METOPROLOL SUCCINATE 25 MG TABLET PO SCH ×2 (11:02→16:40)
[2019-11-20 11:20] LABS: HGB - HEMOGLOBIN 10.4 g/dL (14.0-18.0); MEAN CORPUSCULAR HEMOGLOBIN 25.2 pg (27.0-31.0); MEAN CORPUSCULAR HGB CONC 30.5 g/dL (32.0-36.0); MEAN CORPUSCULAR VOLUME 82.8 fL (80.0-94.0); RED BLOOD COUNT 4.12 10^6/uL (4.70-6.10); RED CELL DISTRIBUTION WIDTH 17.5 % (12.0-15.0); WHITE BLOOD COUNT 9.7 x10^3/uL (4.8-10.8)
[2019-11-20 11:43] LABS: BILIRUBIN,TOTAL 0.6 mg/dL (0.2-1.0); CALCIUM 9.1 mg/dL (8.5-10.3); CREATININE 2.6 mg/dL (0.6-1.2); MAGNESIUM 2.3 mg/dL (1.7-2.8)
[2019-11-20] MEDS: PANTOPRAZOLE 40 MG VIAL IVP SCH (12:11)
[2019-11-20] MEDS: OLANZapine ODT 5 MG TABLET TL SCH (16:40)
[2019-11-20 23:01] LABS: TRICHOMONAS VAGINALIS DNA NEGATIVE (NEGATIVE)
[2019-11-21] MEDS ORDERED: MORPHINE 2 MG/ML CARPUJECT ONE (00:08)
[2019-11-21] MEDS: ONDANSETRON 4 MG/2 ML VIAL IVP PRN (01:16)
[2019-11-21] MEDS: HYDROmorphone 0.5 MG/0.5 ML SYRINGE IVP PRN ×4 (01:16→12:48)
[2019-11-21] MEDS: SODIUM CHLORIDE FLUSH 0.9% 10 ML SYRINGE IVP SCH ×2 (01:32→08:09)
[2019-11-21] MEDS: SODIUM CHLORIDE 0.9% 1,000 ML IV SCH ×2 (01:42→09:21)
[2019-11-21 05:24] LABS: BASOPHILS % (AUTO) 0.3 %; EOSINOPHILS # (AUTO) 0.2 10^3/uL (0.0-0.7); EOSINOPHILS % (AUTO) 3.8 %; HGB - HEMOGLOBIN 9.7 g/dL (14.0-18.0); LYMPHOCYTES % (AUTO) 34.7 %; MEAN CORPUSCULAR HEMOGLOBIN 24.9 pg (27.0-31.0); MEAN CORPUSCULAR HGB CONC 30.1 g/dL (32.0-36.0); MEAN CORPUSCULAR VOLUME 82.8 fL (80.0-94.0); MEAN PLATELET VOLUME 9.4 fL (7.4-11.4); MONOCYTES # (AUTO) 0.4 10^3/uL (0.0-1.0); MONOCYTES % (AUTO) 7.6 %; NEUTROPHILS # (AUTO) 3.1 10^3/uL (1.5-6.6); NEUTROPHILS % (AUTO) 53.3 %; PLT - PLATELET COUNT 269 10^3/uL (130-450); RED BLOOD COUNT 3.89 10^6/uL (4.70-6.10); RED CELL DISTRIBUTION WIDTH 17.7 % (12.0-15.0); WHITE BLOOD COUNT 5.8 x10^3/uL (4.8-10.8)
[2019-11-21 05:32] LABS: CALCIUM 8.3 mg/dL (8.5-10.3); CREATININE 2.4 mg/dL (0.6-1.2)
[2019-11-21] MEDS: PANTOPRAZOLE 40 MG VIAL IVP SCH (06:24)
[2019-11-21] MEDS: METOPROLOL SUCCINATE 25 MG TABLET PO SCH ×2 (08:08→17:31)
[2019-11-21] MEDS: buPROPion XL 150 MG TABLET PO SCH (08:08)
[2019-11-21] MEDS: OLANZapine ODT 5 MG TABLET TL SCH (08:09)
[2019-11-21] MEDS ORDERED: LACTOBACILLUS RHAMNOSUS GG CAPSULE PO SCH (09:00)
[2019-11-21] MEDS ORDERED: polyethylene glycoL 3350 17 GM PACKET PO SCH (09:00)
--- NOTE | 2019-11-21 09:05 | PHARMACY PROGRESS NOTE ---
- Best Possible Medication History Admit Date and Time: 11/19/19 1823 Processed by: Pharmacy Medication History completed: Yes Patient Interview: Completed Secondary Source(s): Physician records, Pharmacy records, Insurance records As the person ultimately responsible for medication therapy, providers are able to order a medication from an existing home medication list in [facility] via the "Reconcile Routine" prior to Confirmation of that medication by service support representative. Such practice is discouraged except when the physician, in their clinical judgment, deems that a medical need exists for a medication without regard to previous use.
[2019-11-21] MEDS ORDERED: amLODIPine 5 MG TABLET PO SCH (13:00)
--- NOTE | 2019-11-21 13:00 | Discharge Plan ---
Discharge Plan Problem Reviewed?: Yes Disposition: Home, Self Care Condition: Good Prescriptions: HYDROcod/ACETAM 5/325 [[place] 5/325] 1 tab PO Q4HR PRN #20 tablet PRN Reason: Pain Metoprolol Succinate [Toprol Xl] 25 mg PO BIDWM #60 tablet Diet: Regular Activity Restrictions: Activity as Tolerated Shower Restrictions: No Driving Restrictions: No Health Concerns: Kidney failure Urinary retention Drug abuse Plan of Treatment: Continue the indwelling carrera catheter at home until you see your Urologist. Dr. Mcwilliams has suggested this, and you should resume your regular bladder medications as well. Drink lots of water for the next few days to ensure your kidneys continue to improve. See your Primary care provider within one week for lab testing since you have suffered kidney damage. See your specialist as scheduled, Dr. Mcwilliams. Avoid the use of drugs to ensure good health and less complications. Care Goals: Prevent permanent kidney damage by keeping your bladder decompressed, taking your medications as prescribed and attending your follow up appointments. Prevent ED visits or hospital stays. Prevent infection. Assessment: You were admitted to the hospital for acute kidney injury based on labs. Imaging of your kidneys showed hydronephrosis (enlarged kidneys). Since having your catheter in, the kidney labs have improved. You have had plenty of urine drain from your bladder into the carrera bag. Your metoprolol pill has been changed to succinate (long acting) to be more effective, and sent to the pharmacy. I have provided you with hydrocodone to be continued at home because you have been having more back pain today. Yesterday, you needed to stay since you were not tolerating food. Since you are eating 100% of all meals today, and your labs are improved, you are medically stable to return home with your indwelling catheter to remain in place. No Smoking: If you smoke, Please STOP! Call for help. Follow-up with: Eldon Valdez MD [Primary Care Provider] -
--- NOTE | 2019-11-21 13:11 | DISCHARGE SUMMARY ---
Discharge Summary Admit Date: 11/19/19 Discharge Date: 11/21/19 Discharging Provider: DMITRI Flores Primary Care Provider: Eldon Valdez Code Status: Attempt Resuscitation Condition at Discharge: Good Discharge Disposition: 01 Home, Self Care - DIAGNOSES Admission Diagnoses: Acute on chronic renal failure Urinary retention Hypertension Methamphetamine abuse Discharge Diagnoses with Status of Each Condition: Acute on chronic renal failure-Present on admit, improved, remains with an indwelling carrera, encouraged to drink water, stable Nausea and vomiting-Resolved Urinary retention-Chronic, indwelling carrera is to stay in place, stable, needs follow up Hypertension-Chronic, stable, changed metoprolol to succinate Methamphetamine abuse-Chronic, encouraged to seek rehab services Schizophrenia-Chronic, remains on Zyprexa Depression-Chronic, stable Insomnia-Chronic, slept much of today MRSA (methicillin resistant staph aureus) culture positive-Chronic, last test was negative Medical noncompliance-Chronic, encouraged to follow up, ongoing - HPI History of Present Illness: Alex Porter is a 54-year old white male with a past medical history of obstructive uropathy, urinary retention, neurogenic bladder, CKD, MRSA culture positive, hypertension, sinusitis, depression, insomnia, anemia, BPH, methamphetamine abuse, schizophrenia, dental caries, chronic back pain, cervical radiculopathy, myalgias, and osteoarthritis. His Urologist is Dr Mcwilliams, with [facility] urology. The patient was brought in via private car with complaints of mid to low back pain, which is worrisome of kidney problems per patient. He notes that this has been going on for the past week. While in the ED, work up included a BMP which showed a creatinine level of 2.9, BUN 43, glucose 49, and GFR 23. He was given dextrose. A MUDDs urine tox screen was positive for methamphetamines, and amphetamines, a UA was clean. Bladder scan amount showed a significantly distended bladder with a documented amount of 895 mL. An indwelling carrera catheter was placed and 1300ml of urine was immediately collected. He denied chest pain, dyspnea, fever, chills, body aches, or recent illness. He has been nauseous and had some increased suprapubic pressure. He denied dysuria or hematuria. He was admitted to observation for IV fluids, routine labs, and symptom management. - HOSPITAL COURSE Hospital Course: The patient was admitted to the hospital for acute kidney injury based on labs. Imaging of the kidneys showed hydronephrosis (enlarged kidneys). Since placing the indwelling carrera catheter, the patient's KENDELL has improved, with expected improvement since the source of injury was the profound urinary retention. The patient was noted to be on metoprolol tartrate, which was changed to succinate (long acting) to be more effective, and sent to the pharmacy. I have provided you with hydrocodone to be continued at home because of ongoing back pain today. The patient is tolerating 100% of meals today, and can tolerate his usual medications. The patient is medically stable to return home with his indwelling catheter to remain in place. - ALLERGIES Allergies/Adverse Reactions: Allergies Allergy/AdvReac Type Severity Reaction Status Date / Time No Known Drug Allergies Allergy Verified 11/19/19 14:05 - MEDICATIONS Home Medications: Ambulatory Orders Medication Instructions Recorded Confirmed Finasteride 5 mg PO DAILY 02/22/18 11/20/19 Tamsulosin HCl [Flomax] 0.4 mg PO BID 02/22/18 11/20/19 OLANZapine [Olanzapine] 10 mg PO DAILY 11/19/19 11/21/19 amLODIPine [Norvasc] 5 mg PO DAILY 11/19/19 11/20/19 buPROPion [Wellbutrin Xl] 300 mg PO DAILY 11/19/19 11/20/19 HYDROcod/ACETAM 5/325 [[place]yrus 5/325] 1 tab PO Q4HR PRN #20 tablet 11/21/19 Metoprolol Succinate [Toprol Xl] 25 mg PO BIDWM #60 tablet 11/21/19 - PHYSICAL EXAM AT DISCHARGE General Appearance: positive: Alert, Mild distress Eyes Bilateral: positive: PERRL, No lid inflammation ENT: positive: Pharynx nml, No signs of dehydration Neck: positive: Thyroid nml, No JVD, Trachea midline Respiratory: positive: Chest non-tender, No respiratory distress, Breath sounds nml Cardiovascular: positive: Regular rate & rhythm, No murmur Peripheral Pulses: positive: 2+ Abdomen: positive: Non-tender, Nml bowel sounds Back: positive: Nml inspection Skin: positive: Color nml, No rash, Warm, Dry, Other (thick skin noted to fingertips, evidence of poor circulation likely due to ongoing meth abuse) Extremities: positive: Non-tender, Full ROM, Nml appearance, No pedal edema Neurologic/Psychiatric: positive: Oriented x3, CN's nml (2-12), Motor nml, Sensation nml, Depressed mood/affect (flat) Reflexes: Bicep (R): 3+, Bicep (L): 3+, Ankle (R): 3+, Ankle (L): 3+ - LABS Result Diagrams: 11/21/19 04:50 11/21/19 04:50 - FOLLOW UP Follow Up: Continue the indwelling carrera catheter at home until you see your Urologist. Dr. Mcwilliams has suggested this, and you should resume your regular bladder medications as well. Drink lots of water for the next few days to ensure your kidneys continue to improve. See your Primary care provider within one week for lab testing since you have suffered kidney damage. See your specialist as scheduled, Dr. Mcwilliams. Avoid the use of drugs to ensure good health and less complications. - TIME SPENT Time Spent in Discharge (Minutes): 55
[2019-11-21 17:17] VITALS: BP 142/91
== END 2019-11-21 18:01 | disposition home or self-care (01) ==
LOC: ED 14:00 → MS2 18:23
PROVIDERS: ADMIT Internal Medicine; ATTEND Nurse Practitioner
DX: N17.9 Acute kidney failure, unspecified (principal); N13.30 Unspecified hydronephrosis; N18.9 Chronic kidney disease, unspecified; N31.9 Neuromuscular dysfunction of bladder, unspecified; N40.0 Benign prostatic hyperplasia without lower urinary tract symptoms; R33.9 Retention of urine, unspecified; R11.2 Nausea with vomiting, unspecified; I12.9 Hypertensive chronic kidney disease with stage 1 through stage 4 chronic kidney disease, or unspecified chronic kidney disease; F15.10 Other stimulant abuse, uncomplicated; F20.9 Schizophrenia, unspecified; F32.9 Major depressive disorder, single episode, unspecified; G47.00 Insomnia, unspecified; G89.29 Other chronic pain; J32.9 Chronic sinusitis, unspecified; D64.9 Anemia, unspecified; K02.9 Dental caries, unspecified; M54.9 Dorsalgia, unspecified; M54.12 Radiculopathy, cervical region; M19.90 Unspecified osteoarthritis, unspecified site; E86.0 Dehydration; Z79.899 Other long term (current) drug therapy; Z80.8 Family history of malignant neoplasm of other organs or systems; Z81.8 Family history of other mental and behavioral disorders; Z82.49 Family history of ischemic heart disease and other diseases of the circulatory system; Z83.3 Family history of diabetes mellitus; Z87.440 Personal history of urinary (tract) infections; Z90.81 Acquired absence of spleen; Z91.14 Patient's other noncompliance with medication regimen
CPT/HCPCS: 36415; 51702; 51798; 74176; 80048; 80053; 80306; 81003; 82550; 82977; 83690; 83735; 84153; 84443; 84484; 85025; 85027; 87040; 87491; 87591; 87661; 96361; 96374; 96375; 96376; 99284; 99285; A9270; G0378; J1170; J2060; 81001; 87086

== ENCOUNTER 2019-11-19 14:06 | Outpatient (CLI) | payer MEDICAID ==
[2019-11-19 14:47] LABS: CALCIUM 8.8 mg/dL (8.5-10.3)
== END 2019-11-19 14:07 | disposition home or self-care (01) ==
LOC: LAB 14:06
PROVIDERS: ATTEND Urology
DX: R39.9 Unspecified symptoms and signs involving the genitourinary system (principal); N13.30 Unspecified hydronephrosis
CPT/HCPCS: 36415; 80048; 84153

== ENCOUNTER 2019-12-08 22:28 | Emergency (ER) | payer MEDICAID ==
--- NOTE | 2019-12-08 23:25 | ED Physician Documentation ---
History of Present Illness - Stated complaint Stated Complaint: BODY PX - Chief complaint Chief Complaint: Abd Pain - History obtained from History obtained from: Patient - History of Present Illness Timing: How many weeks ago (3) Pain level now: 5 Improved by: rest Worsened by: movement - Additonal information Additional information: inpatient at [facility] 3 months ago for similar symptoms, treated for acute on chronic renal insufficiency thought to be caused or exacerbated by urinary re tention. he returns to ED says he continues to have generalized myalgias, malaise, bilateral back and hip pain. he equates his back pain to problems with my kidneys. he feels he never got better since being discharged. has appointment to see PMD tomorrow. his carrera is still in place from previous admission Review of Systems Constitutional: reports: Myalgias, Fatigue. denies: Fever Cardiac: reports: Reviewed and negative Respiratory: reports: Reviewed and negative GI: reports: Reviewed and negative : denies: Dysuria, Frequency, Hematuria PD PAST MEDICAL HISTORY - Past Medical History Past Medical History: Yes Cardiovascular: Hypertension Respiratory: None Neuro: None Endocrine/Autoimmune: None GI: None : Benign prostate hypertrophy, Retention, Renal insuffiency, Indwelling catheter, Other HEENT: None Psych: Depression, Schizophrenia Musculoskeletal: Other Derm: None - Past Surgical History Past Surgical History: Yes General: Splenectomy Ortho: Shoulder arthroplasty HEENT: Myringotomy (tubes) - Present Medications Home Medications: Ambulatory Orders Medication Instructions Recorded Confirmed Finasteride 5 mg PO DAILY 02/22/18 11/20/19 Tamsulosin HCl [Flomax] 0.4 mg PO BID 02/22/18 11/20/19 OLANZapine [Olanzapine] 10 mg PO DAILY 11/19/19 11/21/19 amLODIPine [Norvasc] 5 mg PO DAILY 11/19/19 11/20/19 buPROPion [Wellbutrin Xl] 300 mg PO DAILY 11/19/19 11/20/19 HYDROcod/ACETAM 5/325 [[place] 5/325] 1 tab PO Q4HR PRN #20 tablet 11/21/19 Metoprolol Succinate [Toprol Xl] 25 mg PO BIDWM #60 tablet 11/21/19 - Allergies Allergies/Adverse Reactions: Allergies Allergy/AdvReac Type Severity Reaction Status Date / Time No Known Drug Allergies Allergy Verified 03/17/20 22:33 - Social History Does the pt smoke?: No Smoking Status: Never smoker Does the pt drink ETOH?: No Does the pt have substance abuse?: No - Immunizations Immunizations are current?: Yes Immunizations: TDAP >10years/unknown - POLST Patient has POLST: No POLST Status: Full Code PD ED PE NORMAL - Vitals Vital signs reviewed: Yes - General General: Alert and oriented X 3, No acute distress, Well developed/nourished - HEENT HEENT: Moist mucous membranes - Neck Neck: Supple, no meningeal sign - Cardiac Cardiac: RRR, No murmur, No gallop, No rub - Respiratory Respiratory: No respiratory distress, Clear bilaterally - Abdomen Abdomen: Soft, Non tender - Back Back: No CVA TTP - Derm Derm: Normal color, Warm and dry - Extremities Extremities: No edema - Neuro Neuro: Alert and oriented X 3 - Free text exam Free text exam: carrera catheter in place (leg bag, which is completely full) PD ED PE EXPANDED - Abdomen Abdomen: Surgical scars (midline epigastric vertical old scar) Results - Vitals Vitals: Oxygen O2 Source [Without Activity] Room air O2 Source Room air - Labs Labs: Laboratory Tests 12/08/19 12/08/19 12/08/19 23:50 23:50 23:50 WBC 7.0 RBC 3.44 L Hgb 9.3 L Hct 29.7 L MCV 86.3 MCH 27.0 MCHC 31.3 L RDW 17.2 H Plt Count 229 MPV 9.5 Neut # (Auto) 4.9 Lymph # (Auto) 1.3 L [place] # (Auto) 0.7 Eos # (Auto) 0.1 Baso # (Auto) 0.0 Absolute Nucleated RBC 0.00 Nucleated RBC % 0.0 Sodium 136 Potassium 3.9 Chloride 107 Carbon Dioxide 20 L Anion Gap 9.0 BUN 28 H Creatinine 1.7 H Estimated GFR (MDRD) 42 L Glucose 104 H Calcium 8.2 L Total Bilirubin < 0.2 L AST 25 ALT 19 Alkaline Phosphatase 73 Total Creatine Kinase 164 CK-MB (CK-2) B-Natriuretic Peptide 93 Total Protein 7.5 Albumin 3.7 Globulin 3.8 Albumin/Globulin Ratio 1.0 Lipase 44 TSH Urine Color Urine Clarity Urine pH Ur Specific [place] Urine Protein Urine Glucose (UA) Urine Ketones Urine Occult Blood Urine Nitrite Urine Bilirubin Urine Urobilinogen Ur Leukocyte Esterase Ur Microscopic Review Urine Culture Comments Urine Opiates Screen Ur Oxycodone Screen Urine Methadone Screen Ur Propoxyphene Screen Ur Barbiturates Screen Ur Tricyclics Screen Ur Phencyclidine Scrn Ur Amphetamine Screen U Methamphetamines Scrn U Benzodiazepines Scrn Urine Cocaine Screen U Cannabinoids Screen 12/08/19 12/08/19 12/09/19 23:50 23:50 00:00 WBC RBC Hgb Hct MCV MCH MCHC RDW Plt Count MPV Neut # (Auto) Lymph # (Auto) [place] # (Auto) Eos # (Auto) Baso # (Auto) Absolute Nucleated RBC Nucleated RBC % Sodium Potassium Chloride Carbon Dioxide Anion Gap BUN Creatinine Estimated GFR (MDRD) Glucose Calcium Total Bilirubin AST ALT Alkaline Phosphatase Total Creatine Kinase CK-MB (CK-2) 4.5 B-Natriuretic Peptide Total Protein Albumin Globulin Albumin/Globulin Ratio Lipase TSH 1.39 Urine Color YELLOW Urine Clarity CLEAR Urine pH 6.0 Ur Specific [place] 1.010 Urine Protein NEGATIVE Urine Glucose (UA) NEGATIVE Urine Ketones NEGATIVE Urine Occult Blood TRACE-INTA Urine Nitrite NEGATIVE Urine Bilirubin NEGATIVE Urine Urobilinogen 0.2 (NORMAL) Ur Leukocyte Esterase NEGATIVE Ur Microscopic Review NOT INDICATED Urine Culture Comments NOT INDICATED Urine Opiates Screen NEGATIVE Ur Oxycodone Screen NEGATIVE Urine Methadone Screen NEGATIVE Ur Propoxyphene Screen NEGATIVE Ur Barbiturates Screen NEGATIVE Ur Tricyclics Screen NEGATIVE Ur Phencyclidine Scrn NEGATIVE Ur Amphetamine Screen POSITIVE H U Methamphetamines Scrn POSITIVE H U Benzodiazepines Scrn NEGATIVE Urine Cocaine Screen NEGATIVE U Cannabinoids Screen NEGATIVE PD MEDICAL DECISION MAKING - ED course Complexity details: reviewed old records, reviewed results, re-evaluated patient, considered differential, d/w patient ED course: reassuring test results with abnormalities that are comparable or improved to previous results (particularly creatinine). he was in NAD most of stay, although he would episodically and briefly call out in pain. results d/w patient. his back pain has strong positional/movement component, raising suspicion of musculoskeletal origin. Departure - Departure Disposition: 01 Home, Self Care Clinical Impression: Back pain Condition: Good Instructions: ED Neck Back Pain General Follow-Up: Eldon Valdez MD [Primary Care Provider] - Discharge Date/Time: 12/09/19 03:05
[2019-12-09 00:03] LABS: MUDS CUTOFF CONCENTRATIONS CUTOFF CONC BELOW:
[2019-12-09 00:05] LABS: BILIRUBIN,URINE NEGATIVE (NEGATIVE); GLUCOSE, URINE (UA) NEGATIVE (NEGATIVE); KETONES,URINE (UA) NEGATIVE (NEGATIVE); LEUKOCYTE ESTERASE, URINE NEGATIVE (NEGATIVE); NITRITE,URINE NEGATIVE (NEGATIVE); OCCULT BLOOD,URINE TRACE-INTA (NEGATIVE); PROTEIN,URINE NEGATIVE (NEGATIVE); UROBILINOGEN,URINE 0.2 (NORMAL) E.U./dL (NORMAL)
[2019-12-09 00:06] LABS: CLARITY,URINE CLEAR (CLEAR)
[2019-12-09 00:08] LABS: BASOPHILS % (AUTO) 0.1 %; EOSINOPHILS # (AUTO) 0.1 10^3/uL (0.0-0.7); EOSINOPHILS % (AUTO) 1.1 %; HGB - HEMOGLOBIN 9.3 g/dL (14.0-18.0); LYMPHOCYTES # (AUTO) 1.3 10^3/uL (1.5-3.5); LYMPHOCYTES % (AUTO) 18.4 %; MEAN CORPUSCULAR HGB CONC 31.3 g/dL (32.0-36.0); MEAN CORPUSCULAR VOLUME 86.3 fL (80.0-94.0); MEAN PLATELET VOLUME 9.5 fL (7.4-11.4); MONOCYTES # (AUTO) 0.7 10^3/uL (0.0-1.0); MONOCYTES % (AUTO) 9.5 %; NEUTROPHILS # (AUTO) 4.9 10^3/uL (1.5-6.6); NEUTROPHILS % (AUTO) 70.5 %; PLT - PLATELET COUNT 229 10^3/uL (130-450); RED BLOOD COUNT 3.44 10^6/uL (4.70-6.10); RED CELL DISTRIBUTION WIDTH 17.2 % (12.0-15.0)
[2019-12-09 00:14] LABS: COCAINE SCREEN URINE NEGATIVE (NEGATIVE)
[2019-12-09 00:15] LABS: AMPHETAMINE SCREEN,URINE POSITIVE (NEGATIVE); BENZODIAZEPINES SCREEN, URINE NEGATIVE (NEGATIVE); METHADONE SCREEN, URINE NEGATIVE (NEGATIVE); METHAMPHETAMINES SCREEN, URINE POSITIVE (NEGATIVE); OPIATE SCREEN, URINE NEGATIVE (NEGATIVE); OXYCODONE SCREEN, URINE NEGATIVE (NEGATIVE); PROPOXYPHENE SCREEN, URINE NEGATIVE (NEGATIVE); TRICYCLIC ANTIDEPRESSANT,URINE NEGATIVE (NEGATIVE)
[2019-12-09 00:18] LABS: ALBUMIN 3.7 g/dL (3.2-5.5); ALKALINE PHOSPHATASE 73 IU/L (42-121); ALT ALANINE AMINOTRANSFERASE 19 IU/L (10-60); AST ASPARTATE AMINOTRANSFERASE 25 IU/L (10-42); BILIRUBIN,TOTAL < 0.2 mg/dL (0.2-1.0); BUN - BLOOD UREA NITROGEN 28 mg/dL (6-20); CALCIUM 8.2 mg/dL (8.5-10.3); CARBON DIOXIDE - CO2 20 mmol/L (21-32); CHLORIDE 107 mmol/L (101-111); CK- CREATINE KINASE 164 IU/L (22-269); CREATININE 1.7 mg/dL (0.6-1.2); GFR - MDRD 42 (>89); GLUCOSE 104 mg/dL (70-100); LIPASE 44 U/L (22-51); SODIUM 136 mmol/L (135-145); TOTAL PROTEIN 7.5 g/dL (6.7-8.2)
[2019-12-09] MEDS ORDERED: oxyCODONE 5 MG TABLET PO STA (01:41)
[2019-12-09 01:51] VITALS: BP 126/88
== END 2019-12-09 03:05 | disposition home or self-care (01) ==
LOC: ED 22:28
DX: M54.9 Dorsalgia, unspecified (principal); I12.9 Hypertensive chronic kidney disease with stage 1 through stage 4 chronic kidney disease, or unspecified chronic kidney disease; N18.9 Chronic kidney disease, unspecified; Z96.0 Presence of urogenital implants
CPT/HCPCS: 36415; 80053; 80306; 81003; 82550; 82553; 83690; 83880; 84443; 85025; 99283; 99284; A9270; 81001; 87086

== ENCOUNTER 2020-01-20 14:27 | Outpatient (CLI) | payer MEDICAID ==
[2020-01-20 14:50] LABS: CALCIUM 9.2 mg/dL (8.5-10.3); CREATININE 1.8 mg/dL (0.6-1.2)
== END 2020-01-20 14:28 | disposition home or self-care (01) ==
LOC: LAB 14:27
PROVIDERS: ATTEND Urology
DX: N18.9 Chronic kidney disease, unspecified (principal); R33.9 Retention of urine, unspecified
CPT/HCPCS: 36415; 80048

== ENCOUNTER 2020-01-20 14:44 | Emergency (ER) | payer MEDICAID ==
--- NOTE | 2020-01-20 15:18 | ED Physician Documentation ---
History of Present Illness - Stated complaint Stated Complaint: M - Chief complaint Chief Complaint: General - History obtained from History obtained from: Patient (Pt has an indwelling carrera catheter, it was placed about a week ago for BPH and recurrent obstructive uropathy. He presents today due to leakage around the connection of the catheter to the tubing for the leg bag. He also states that he has pain at the tip of his penis due to the catheter rubbing on it. He denies fever, chills, abdominal pain, n/v, groin pain or swelling.) Review of Systems Constitutional: reports: Reviewed and negative Cardiac: reports: Reviewed and negative Respiratory: reports: Reviewed and negative GI: reports: Reviewed and negative : reports: Hesitancy, Unable to Void, Carrera Problem. denies: Hematuria, Testicular pain, Testicular mass Skin: reports: Reviewed and negative Musculoskeletal: reports: Pain with weight bearing PD PAST MEDICAL HISTORY - Past Medical History Past Medical History: Yes Cardiovascular: Hypertension Respiratory: None Neuro: None Endocrine/Autoimmune: None GI: None : Benign prostate hypertrophy, Retention, Renal insuffiency, Indwelling catheter, Other HEENT: None Psych: Depression, Schizophrenia Musculoskeletal: Other Derm: None - Past Surgical History Past Surgical History: Yes General: Splenectomy Ortho: Shoulder arthroplasty HEENT: Myringotomy (tubes) - Present Medications Home Medications: Ambulatory Orders Medication Instructions Recorded Confirmed Finasteride 5 mg PO DAILY 02/22/18 11/20/19 Tamsulosin HCl [Flomax] 0.4 mg PO BID 02/22/18 11/20/19 OLANZapine [Olanzapine] 10 mg PO DAILY 11/19/19 11/21/19 amLODIPine [Norvasc] 5 mg PO DAILY 11/19/19 11/20/19 buPROPion [Wellbutrin Xl] 300 mg PO DAILY 11/19/19 11/20/19 HYDROcod/ACETAM 5/325 [[place] 5/325] 1 tab PO Q4HR PRN #20 tablet 11/21/19 Metoprolol Succinate [Toprol Xl] 25 mg PO BIDWM #60 tablet 11/21/19 - Allergies Allergies/Adverse Reactions: Allergies Allergy/AdvReac Type Severity Reaction Status Date / Time No Known Drug Allergies Allergy Verified 01/20/20 14:49 - Social History Does the pt smoke?: No Smoking Status: Never smoker Does the pt drink ETOH?: No Does the pt have substance abuse?: No - Immunizations Immunizations are current?: Yes Immunizations: TDAP >10years/unknown - POLST Patient has POLST: No POLST Status: Full Code PD ED PE NORMAL - Vitals Vital signs reviewed: Yes - General General: Alert and oriented X 3, No acute distress, Well developed/nourished - HEENT HEENT: Atraumatic, Moist mucous membranes - Respiratory Respiratory: No respiratory distress, Clear bilaterally - Abdomen Abdomen: Non tender, Non distended - Male Male : Other (Indwelling catheter in place with noted leakage at the connection of the tubing to the catheter. There is no scrotal or penile swelling or tenderness or erythema. No penile drainage. ) - Back Back: No CVA TTP - Derm Derm: Normal color, Warm and dry, No rash - Neuro Neuro: Alert and oriented X 3 Eye Opening: Spontaneous Motor: Obeys Commands Verbal: Oriented GCS Score: 15 Results - Vitals Vitals: Vital Signs - 24 hr 01/20/20 01/20/20 14:50 15:31 Temperature 36.8 C Heart Rate 101 H 102 H Respiratory 16 18 Rate Blood Pressure 136/91 H 138/103 H O2 Saturation 98 98 Oxygen O2 Source [Without Activity] Room air O2 Source Room air PD MEDICAL DECISION MAKING - ED course Complexity details: reviewed old records, re-evaluated patient, considered differential, d/w patient ED course: Pt presented with leakage from his recently placed carrera catheter. We were unable to utilize the currently catheter as it would not connect to our supplies. A new coudet catheter was placed by the RN and clear yellow urine noted to drain into the urine bag. Pt did have significant discomfort when passing the coudet and therefore he was given 2 tablets of vicodin for pain control. He was advised to follow up with his urologist as previously planned and return to the ER or notifiy his urologist if he has continued problems with the catheter, if it is not draining, or he develops s/sx of infection such as f ever, chills, or flu-like symptoms. Pt notes understanding and all questions answered. Departure - Departure Disposition: 01 Home, Self Care Clinical Impression: Urinary retention Condition: Good Instructions: ED Catheter Care Carrera Comments: Please follow up with urologist as previously indicated. Return to the ER if you are not passing urine through the indwelling catheter or if you have increased pain or fever, or flu like symptoms.
[2020-01-20 15:32] VITALS: BP 138/103
[2020-01-20] MEDS ORDERED: LIDOCAINE 2% URO-JET 5 ML SYRINGE UR STA (15:42)
[2020-01-20] MEDS ORDERED: HYDROcod/ACETAM 5/325 MG TABLET PO STA (16:12)
== END 2020-01-20 16:40 | disposition home or self-care (01) ==
LOC: ED 14:44
DX: T83.031A Leakage of indwelling urethral catheter, initial encounter (principal); R33.8 Other retention of urine; N40.1 Benign prostatic hyperplasia with lower urinary tract symptoms; I12.9 Hypertensive chronic kidney disease with stage 1 through stage 4 chronic kidney disease, or unspecified chronic kidney disease; N18.9 Chronic kidney disease, unspecified; R33.9 Retention of urine, unspecified
CPT/HCPCS: 36415; 51702; 80048; 99283; 99284; A9270

== ENCOUNTER 2020-02-11 11:23 | Outpatient (CLI) | payer MEDICAID | END 2020-02-11 11:24 | disposition critical access hospital (66) | LOC: EMS 11:23 | PROVIDERS: ATTEND Surgery | DX: R11.0 Nausea (principal); R10.9 Unspecified abdominal pain; R53.1 Weakness; R82.90 Unspecified abnormal findings in urine | CPT/HCPCS: A0425; A0429; A0999 ==

== ENCOUNTER 2020-02-11 11:43 | Emergency (ER) | payer MEDICAID ==
[2020-02-11 12:22] LABS: BASOPHILS % (AUTO) 0.5 %; EOSINOPHILS # (AUTO) 0.1 10^3/uL (0.0-0.7); EOSINOPHILS % (AUTO) 1.7 %; HGB - HEMOGLOBIN 10.5 g/dL (14.0-18.0); LYMPHOCYTES # (AUTO) 1.3 10^3/uL (1.5-3.5); LYMPHOCYTES % (AUTO) 20.1 %; MEAN CORPUSCULAR HEMOGLOBIN 26.2 pg (27.0-31.0); MEAN CORPUSCULAR HGB CONC 30.5 g/dL (32.0-36.0); MEAN CORPUSCULAR VOLUME 85.8 fL (80.0-94.0); MEAN PLATELET VOLUME 9.2 fL (7.4-11.4); MONOCYTES # (AUTO) 0.4 10^3/uL (0.0-1.0); MONOCYTES % (AUTO) 6.2 %; NEUTROPHILS # (AUTO) 4.5 10^3/uL (1.5-6.6); NEUTROPHILS % (AUTO) 71.2 %; PLT - PLATELET COUNT 250 10^3/uL (130-450); RED BLOOD COUNT 4.01 10^6/uL (4.70-6.10); RED CELL DISTRIBUTION WIDTH 14.6 % (12.0-15.0); WHITE BLOOD COUNT 6.3 x10^3/uL (4.8-10.8)
[2020-02-11 12:27] LABS: INR 1.1 (0.8-1.2); PT - PROTHROMBIN TIME 12.5 secs (9.9-12.6)
[2020-02-11 12:31] LABS: ALBUMIN 3.7 g/dL (3.2-5.5); ALBUMIN/GLOBULIN RATIO 0.9 (1.0-2.2); BILIRUBIN,TOTAL 0.7 mg/dL (0.2-1.0); CALCIUM 8.4 mg/dL (8.5-10.3); CREATININE 1.9 mg/dL (0.6-1.2); TOTAL PROTEIN 7.7 g/dL (6.7-8.2)
--- NOTE | 2020-02-11 13:02 | XRAY Report ---
Reason: Chest Pain Procedure Date: 02/11/2020 Accession Number: [id number] / [id number] Procedure: XR - Chest 1 View X-Ray CPT Code: 06429 Final Report FULL RESULT: EXAM: CHEST RADIOGRAPHY EXAM DATE: 02/11/2020 12:02 PM. CLINICAL HISTORY: Chest pain. COMPARISON: None. TECHNIQUE: 1 view. FINDINGS: Lungs/Pleura: There is asymmetric blunting of the left costophrenic sulcus suggesting small effusion. The remainder of the lungs are clear. No consolidation, edema or pneumothorax evident. Mediastinum: Within exam limitations, the cardiomediastinal contour is normal. Other: None. IMPRESSION: Suggestion of small left base effusion and possible adjacent atelectasis. Lungs otherwise clear. RADIA
--- NOTE | 2020-02-11 13:27 | ED Physician Documentation ---
History of Present Illness - Stated complaint Stated Complaint: LIGHT HEADED - Chief complaint Chief Complaint: General - History obtained from History obtained from: Patient - Additonal information Additional information: Patient comes emergency department complaining of shortness of breath and feeling as though he is "filling up with fluid" for the last several days. He states he has a history of urinary retention, for which he uses a chronic indwelling [place] catheter. He was just seen at urology before this and they replaced his catheter, but sent him over here to be "checked out" for the s ymptoms he is been having. Patient denies fevers or chills. No nausea or vomiting. No diarrhea. He is known to have some renal insufficiency. Patient denies any chest pain. No symptoms of illness otherwise. No swelling in his legs. No history of congestive heart failure. No other complaints at this time. Review of Systems Ten Systems: 10 systems reviewed and negative Constitutional: reports: Fatigue Eyes: reports: Reviewed and negative Ears: reports: Reviewed and negative Nose: reports: Reviewed and negative Throat: reports: Reviewed and negative Cardiac: reports: Reviewed and negative Respiratory: reports: Dyspnea GI: reports: Reviewed and negative : reports: Reviewed and negative Skin: reports: Reviewed and negative Musculoskeletal: reports: Reviewed and negative Neurologic: reports: Reviewed and negative Psychiatric: reports: Reviewed and negative Endocrine: reports: Reviewed and negative Immunocompromised: reports: Reviewed and negative PD PAST MEDICAL HISTORY - Past Medical History Past Medical History: Yes Cardiovascular: Hypertension Respiratory: None Neuro: None Endocrine/Autoimmune: None GI: None : Benign prostate hypertrophy, Retention, Renal insuffiency, Indwelling catheter, Other HEENT: None Psych: Depression, Schizophrenia Musculoskeletal: Other Derm: None - Past Surgical History Past Surgical History: Yes General: Splenectomy Ortho: Shoulder arthroplasty HEENT: Myringotomy (tubes) - Present Medications Home Medications: Ambulatory Orders Medication Instructions Recorded Confirmed Finasteride 5 mg PO DAILY 02/22/18 11/20/19 Tamsulosin HCl [Flomax] 0.4 mg PO BID 02/22/18 11/20/19 OLANZapine [Olanzapine] 10 mg PO DAILY 11/19/19 11/21/19 amLODIPine [Norvasc] 5 mg PO DAILY 11/19/19 11/20/19 buPROPion [Wellbutrin Xl] 300 mg PO DAILY 11/19/19 11/20/19 HYDROcod/ACETAM 5/325 [[place] 5/325] 1 tab PO Q4HR PRN #20 tablet 11/21/19 Metoprolol Succinate [Toprol Xl] 25 mg PO BIDWM #60 tablet 11/21/19 - Allergies Allergies/Adverse Reactions: Allergies Allergy/AdvReac Type Severity Reaction Status Date / Time No Known Drug Allergies Allergy Verified 02/11/20 11:58 - Social History Does the pt smoke?: No Smoking Status: Never smoker Does the pt drink ETOH?: No Does the pt have substance abuse?: No - Immunizations Immunizations are current?: Yes Immunizations: TDAP >10years/unknown - POLST Patient has POLST: No POLST Status: Full Code PD ED PE NORMAL - Vitals Vital signs reviewed: Yes - General General: Alert and oriented X 3, No acute distress, Well developed/nourished - HEENT HEENT: Atraumatic, PERRL, EOMI, Moist mucous membranes - Neck Neck: Supple, no meningeal sign - Cardiac Cardiac: RRR, No murmur, Strong equal pulses - Respiratory Respiratory: No respiratory distress, Clear bilaterally - Abdomen Abdomen: Soft, Non tender, Non distended - Derm Derm: Normal color, Warm and dry, No rash - Extremities Extremities: No deformity, No edema, No calf tenderness / cord - Neuro Neuro: Alert and oriented X 3, Other (Grossly normal) - Psych Psych: Normal mood, Normal affect Results - Vitals Vitals: Oxygen O2 Source [] Room air O2 Source Room air - EKG (time done) 1156 Rate: Rate (enter#) Rhythm: NSR [place]: Normal Intervals: Normal SC QRS: Normal Ischemia: Normal ST segments Compare to prior EKG: Old EKG unavailable Computer interpretation: Agree with computer - Labs Labs: Laboratory Tests 02/11/20 02/11/20 02/11/20 12:07 12:07 12:07 WBC 6.3 RBC 4.01 L Hgb 10.5 L Hct 34.4 L MCV 85.8 MCH 26.2 L MCHC 30.5 L RDW 14.6 Plt Count 250 MPV 9.2 Neut # (Auto) 4.5 Lymph # (Auto) 1.3 L [place] # (Auto) 0.4 Eos # (Auto) 0.1 Baso # (Auto) 0.0 Absolute Nucleated RBC 0.00 Nucleated RBC % 0.0 PT 12.5 INR 1.1 Sodium 136 Potassium 3.9 Chloride 103 Carbon Dioxide 26 Anion Gap 7.0 BUN 22 H Creatinine 1.9 H Estimated GFR (MDRD) 37 L Glucose 93 Calcium 8.4 L Total Bilirubin 0.7 AST 24 ALT 16 Alkaline Phosphatase 97 Troponin I High Sens B-Natriuretic Peptide Total Protein 7.7 Albumin 3.7 Globulin 4.0 Albumin/Globulin Ratio 0.9 L Lipase 30 02/11/20 02/11/20 12:07 12:07 WBC RBC Hgb Hct MCV MCH MCHC RDW Plt Count MPV Neut # (Auto) Lymph # (Auto) [place] # (Auto) Eos # (Auto) Baso # (Auto) Absolute Nucleated RBC Nucleated RBC % PT INR Sodium Potassium Chloride Carbon Dioxide Anion Gap BUN Creatinine Estimated GFR (MDRD) Glucose Calcium Total Bilirubin AST ALT Alkaline Phosphatase Troponin I High Sens 3.4 B-Natriuretic Peptide 63 Total Protein Albumin Globulin Albumin/Globulin Ratio Lipase - Rads (name of study) chest x-ray Radiology: Final report received, EMP read indepedently, See rad report PD MEDICAL DECISION MAKING - ED course Complexity details: reviewed old records, reviewed results, re-evaluated patient, considered differential, d/w patient (Patient was worked up with labs, EKG, and chest x-ray, all of which were unremarkable, except for some moderate renal insufficiency.The patient's BNP was normal and his EKG was also unremarkable. I discussed with the patient that at this time, I do not know what is causing him to feel short of breath or as though he is filling up with fluid. He has a small left pleural effusion, but lungs are otherwise clear. I have advised him to follow-up with his primary care physician to further discuss the symptoms he is having and to discuss further work-up. No emergent condition has been identified. We have discussed the usual indications for return.) Departure - Departure Disposition: 01 Home, Self Care Clinical Impression: Weight gain, Renal insufficiency Dyspnea Qualifiers: Dyspnea type: shortness of breath Qualified Code(s): R06.02 - Shortness of breath Condition: Stable Instructions: ED Insufficiency Renal Comments: Your labs actually look fairly good, except for your kidney labs, which show some slowing of your kidneys. Your chest x-ray shows a very small fluid collection outside the bottom of your left lung, but otherwise, your lungs look good. There is no evidence of congestive heart failure or of any other organ dysfunction. There is not clear why you have been gaining weight, though you may need to be on a chronic diuretic medicine. This is something you should discuss with your primary care physician as this is a chronic medication that has to be chosen and adjusted, based on your chronic and ongoing medical issues. Please call your primary care physician's office to set up an appointment for this. Discharge Date/Time: 02/11/20 14:01
[2020-02-11 14:00] VITALS: BP 142/99
== END 2020-02-11 14:01 | disposition home or self-care (01) ==
LOC: EDUNIT# → ED 11:43
DX: R06.02 Shortness of breath (principal); J90 Pleural effusion, not elsewhere classified; N28.9 Disorder of kidney and ureter, unspecified; R63.5 Abnormal weight gain; I10 Essential (primary) hypertension
CPT/HCPCS: 36415; 71045; 80053; 83690; 83880; 84484; 85025; 85610; 93005; 99283; 99284

== ENCOUNTER 2020-02-17 20:46 | Outpatient (CLI) | payer MEDICAID | END 2020-02-17 20:47 | disposition short-term general hospital (02) | LOC: EMS 20:46 | PROVIDERS: ATTEND Surgery | DX: R39.198 Other difficulties with micturition (principal); R10.9 Unspecified abdominal pain | CPT/HCPCS: A0425; A0429; A0999 ==

== ENCOUNTER 2020-10-26 08:00 | Outpatient (CLI) | payer MEDICAID ==
[2020-10-26 15:04] LABS: BASOPHILS % (AUTO) 0.5 %; EOSINOPHILS # (AUTO) 0.1 10^3/uL (0.0-0.7); EOSINOPHILS % (AUTO) 1.7 %; HGB - HEMOGLOBIN 14.5 g/dL (14.0-18.0); LYMPHOCYTES # (AUTO) 1.7 10^3/uL (1.5-3.5); LYMPHOCYTES % (AUTO) 26.1 %; MEAN CORPUSCULAR HEMOGLOBIN 29.3 pg (27.0-31.0); MEAN CORPUSCULAR HGB CONC 32.4 g/dL (32.0-36.0); MEAN CORPUSCULAR VOLUME 90.3 fL (80.0-94.0); MEAN PLATELET VOLUME 9.3 fL (7.4-11.4); MONOCYTES # (AUTO) 0.3 10^3/uL (0.0-1.0); MONOCYTES % (AUTO) 5.2 %; NEUTROPHILS # (AUTO) 4.3 10^3/uL (1.5-6.6); NEUTROPHILS % (AUTO) 66.2 %; PLT - PLATELET COUNT 257 10^3/uL (130-450); RED BLOOD COUNT 4.95 10^6/uL (4.70-6.10); RED CELL DISTRIBUTION WIDTH 14.6 % (12.0-15.0); WHITE BLOOD COUNT 6.5 x10^3/uL (4.8-10.8)
[2020-10-26 16:03] LABS: ALBUMIN 4.3 g/dL (3.2-5.5); ALBUMIN/GLOBULIN RATIO 1.2 (1.0-2.2); ALKALINE PHOSPHATASE 90 IU/L (42-121); ALT ALANINE AMINOTRANSFERASE 21 IU/L (10-60); AST ASPARTATE AMINOTRANSFERASE 24 IU/L (10-42); BILIRUBIN,TOTAL 0.6 mg/dL (0.2-1.0); BUN - BLOOD UREA NITROGEN 30 mg/dL (6-20); CALCIUM 9.1 mg/dL (8.5-10.3); CARBON DIOXIDE - CO2 23 mmol/L (21-32); CHLORIDE 102 mmol/L (101-111); CHOL/HDL RATIO 3.9 (<5.0); CHOLESTEROL 228 mg/dL; CREATININE 1.5 mg/dL (0.6-1.2); GLUCOSE 99 mg/dL (70-100); HDL CHOLESTEROL 58 mg/dL; LDL CHOLESTEROL,CALCULATED 103 mg/dL; LDL/HDL RATIO 1.8 (<3.6); TOTAL PROTEIN 7.8 g/dL (6.7-8.2); VLDL CHOLESTEROL 67 mg/dL
== END 2020-10-26 23:59 | disposition home or self-care (01) ==
LOC: LAB 08:00
PROVIDERS: ATTEND Physician Assistant
DX: E07.9 Disorder of thyroid, unspecified (principal); F32.9 Major depressive disorder, single episode, unspecified; F19.10 Other psychoactive substance abuse, uncomplicated; D64.9 Anemia, unspecified; I12.9 Hypertensive chronic kidney disease with stage 1 through stage 4 chronic kidney disease, or unspecified chronic kidney disease; N18.30 Chronic kidney disease, stage 3 unspecified
CPT/HCPCS: 36415; 80053; 80061; 83721; 84443; 85025

== ENCOUNTER 2020-12-20 08:00 | Outpatient (CLI) | payer MEDICAID ==
[2020-12-20 16:31] LABS: FECAL OCCULT BLOOD (FIT) POSITIVE (NEGATIVE)
== END 2020-12-20 23:59 | disposition home or self-care (01) ==
LOC: LAB.R 08:00
PROVIDERS: ATTEND Physician Assistant
DX: R19.7 Diarrhea, unspecified (principal); R10.9 Unspecified abdominal pain
CPT/HCPCS: 81599; 82274; 87045; 87046; 87177; 87209; 87427; 87493

== ENCOUNTER 2021-04-14 07:33 | Day surgery (SDC) | payer MEDICAID ==
[2021-04-14] MEDS ORDERED: LACTATED RINGERS 1,000 ML IV ONE ×3 (07:37→11:59)
--- NOTE | 2021-04-14 08:19 | ANESTHESIA ---
Pre-Anesthesia VS, & Labs - Diagnosis trouble swallowing, change in bowel habits - Procedure Colonoscopy, EGD Vital Signs: Temp Pulse Resp BP Pulse Ox 36.2 C L 89 16 146/105 H 99 04/14/21 07:39 04/14/21 07:39 04/14/21 07:39 04/14/21 07:39 04/14/21 07:39 Height: 6 ft 3 in Weight (kg): 105.4 kg Body Mass Index: 29.0 BMI Classification: Overweight - NPO >8 hours - Lab Results Lab results reviewed: Yes Home Medications and Allergies Home Medications: Ambulatory Orders FLUoxetine [PROzac] 10 mg PO BID 04/07/21 Metoprolol Succinate [Toprol Xl] 50 mg PO BIDWM 04/07/21 lisinopriL [Zestril] 2.5 mg PO ONCE 04/07/21 Finasteride 5 mg PO DAILY 02/22/18 OLANZapine [Olanzapine] 10 mg PO DAILY 11/19/19 amLODIPine [Norvasc] 5 mg PO DAILY 11/19/19 FLUoxetine [PROzac] 10 mg PO BID 04/07/21 Metoprolol Succinate [Toprol Xl] 50 mg PO BIDWM 04/07/21 lisinopriL [Zestril] 2.5 mg PO ONCE 04/07/21 Allergies/Adverse Reactions: Allergies Allergy/AdvReac Type Severity Reaction Status Date / Time No Known Drug Allergies Allergy Verified 02/11/20 11:58 Anes History & Medical History - Anesthetic History Anesthesia Complications: reports: No previous complications Family history of Anesthesia Complications: Denies Family history of Malignant Hyperthermia: Denies - Medical History Cardiovascular: reports: Hypertension Pulmonary: reports: None Gastrointestinal: reports: GERD Urinary: reports: Benign prostate hypertrophy, Retention, Chronic bladder infection, Renal insuffiency Neuro: reports: None Musculoskeletal: reports: Osteoarthritis, Chronic back pain Endocrine/Autoimmune: reports: None Blood Disorders: reports: None Skin: reports: Psoriasis Smoking Status: Never smoker - Surgical History General: reports: Splenectomy Eyes Ears Nose Throat (EENT): reports: Myringotomy (tubes) Orthopedic: reports: Shoulder arthroplasty, Carpal Tunnel surgery Exam General: Alert, Oriented x3, Cooperative, No acute distress Dental: Poor dentition, Other (edentulous) Mouth Openin Fingerbreadth Neck Mobility: Normal Mallampati classification: I Respiratory: Lungs clear, Normal breath sounds, No respiratory distress, No accessory muscle use Cardiovascular: Regular rate, Normal S1, Normal S2, No murmurs Plan Anesthesia Type: General, Total IV Consent for Procedure(s) Verified and Reviewed: Yes Code Status: Attempt Resuscitation ASA classification: 2-Mild systemic disease Is this case an emergency?: No
[2021-04-14] MEDS ORDERED: PROPOFOL 1000 MG/100 ML 1,000 MG/100 ML BOTTLE IV ONE (09:25)
[2021-04-14] MEDS ORDERED: LIDOCAINE-PF 2% 10 ML AMP SUBQ ONE (09:27)
--- NOTE | 2021-04-14 09:29 | HISTORY & PHYSICAL EXAMINATION ---
Chief Complaint - Chief Complaint Chief Complaint: trouble swallowing and loose stool History of Present Illness - History Obtained From Records Reviewed: yes History obtained from: pt Exam Limitations: none - History of Present Illness HPI Comment/Other: Trouble swallowing, reflux type symptoms, and loose stool for months if not years. History - Past Medical History Cardiovascular: reports: Hypertension Respiratory: reports: None Neuro: reports: None Endocrine/Autoimmune: reports: None GI: reports: GERD : reports: Benign prostate hypertrophy, Retention, Chronic bladder infection, Renal insuffiency HEENT: reports: Chronic vision loss Psych: reports: Depression, Anxiety, Bipolar disorder, Schizophrenia Musculoskeletal: reports: Osteoarthritis, Chronic back pain Derm: reports: Psoriasis MRSA Hx?: Yes - Past Surgical History General: reports: Splenectomy Ortho: reports: Shoulder arthroplasty, Carpal Tunnel surgery HEENT: reports: Myringotomy (tubes) - Family & Social History Family History: Father: , CAD, Hypertension Family History Comment/Other: Father and maternal grandfather from heart disease. brother has diabetes mellitus 2. mother thyroid cancer, dementia. No history of renal disease in the family. Social History Notes: He lives alone in [place], [place]. 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 He reports consuming a few beers a week. 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 - Substance History Use: Uses substance without health or social issues: Amphetamine - POLST Patient has POLST: No POLST Status: Full Code Meds/Allgy - Home Medications Home Medications: Ambulatory Orders Medication Instructions Recorded Confirmed Finasteride 5 mg PO DAILY 02/22/18 04/14/21 OLANZapine [Olanzapine] 10 mg PO DAILY 11/19/19 04/14/21 amLODIPine [Norvasc] 5 mg PO DAILY 11/19/19 04/14/21 FLUoxetine [PROzac] 10 mg PO BID 04/07/21 04/14/21 Metoprolol Succinate [Toprol Xl] 50 mg PO BIDWM 04/07/21 04/14/21 lisinopriL [Zestril] 2.5 mg PO ONCE 04/07/21 04/14/21 - Allergies Allergies/Adverse Reactions: Allergies Allergy/AdvReac Type Severity Reaction Status Date / Time No Known Drug Allergies Allergy Verified 02/11/20 11:58 Review of Systems - Other Findings Other Findings: 10 pt ros as above otherwise unremarkable Exam - Vital Signs Reviewed Vital Signs: Yes Vital Signs: Vital Signs x48h Temp Pulse Resp BP Pulse Ox 04/14/21 07:39 36.2 C L 89 16 146/105 H 99 - Physical Exam General Appearance: positive: Alert Eyes Bilateral: positive: PERRL, EOMI ENT: positive: No signs of dehydration Neck: positive: No JVD Respiratory: positive: No respiratory distress, Breath sounds nml Cardiovascular: positive: Regular rate & rhythm Abdomen: positive: Non-tender, No distention Neurologic/Psychiatric: positive: Oriented x3 Conclusion/Plan - Problem List (1) Colon cancer screening Conclusion/Plan: Plan colonoscopy with biopsy and egd with biopsy. parq held and consent obtained - Lab Results Lab results reviewed: Yes
[2021-04-14] MEDS ORDERED: ONDANSETRON 4 MG/2 ML VIAL ONE (11:04)
[2021-04-14] MEDS ORDERED: METOCLOPRAMIDE 10 MG/2 ML VIAL ONE (11:22)
[2021-04-14] MEDS ORDERED: diphenhydrAMINE INJ 50 MG/ML VIAL ONE (11:23)
--- NOTE | 2021-04-14 11:40 | XRAY Report ---
PROCEDURE: Chest 1 View X-Ray INDICATIONS: r/o aspiration TECHNIQUE: One view of the chest was acquired. COMPARISON: 02/11/2020 FINDINGS: Surgical changes and devices: Post surgical changes in bilateral shoulder joints are seen.. Lungs and pleura: No pleural effusions or pneumothorax. Ill-defined airspace opacities in left mid t o lower lung florez are seen suggestive of left lower lobe infiltrate possibly from aspiration. Mediastinum: Mediastinal contours appear normal. Heart size is normal. Bones and chest wall: No suspicious bony lesions. Overlying soft tissues appear unremarkable. IMPRESSION: Finding is suggestive of left lower lobe infiltrates possibly from aspiration. No pneumothorax. Right lung is clear. Reviewed by: Santosh Gutierrez MD on 04/14/2021 11:39 AM PDT Approved by: Santosh Gutierrez MD on 04/14/2021 11:39 AM PDT Station ID: [id number]
--- NOTE | 2021-04-14 12:22 | ANESTHESIA POST OP EVALUATION ---
Anesthesia Post Eval - Post Anesthesia Eval Vitals: Last Vital Signs Temp 35.9 C L 04/14/21 12:16 Pulse 68 04/14/21 12:16 Resp 16 04/14/21 12:16 BP 129/94 H 04/14/21 12:16 Pulse Ox 96 04/14/21 12:16 CV Function Including HR & BP: Stable Pain Control: Satisfactory Nausea & Vomiting: Negative Mental Status: Baseline Respiratory Status: Airway Patent Hydration Status: Satisfactory Anesthesia Complications: None
[2021-04-14 13:18] VITALS: BP 120/86
== END 2021-04-14 07:34 | disposition home or self-care (01) ==
LOC: SDS 07:33
PROVIDERS: ATTEND Surgery
PROC: 0DB78ZX Excision of Stomach, Pylorus, Via Natural or Artificial Opening Endoscopic, Diagnostic (ICD-10-PCS; 2021-04-14)
PROC: 0DB38ZX Excision of Lower Esophagus, Via Natural or Artificial Opening Endoscopic, Diagnostic (ICD-10-PCS; 2021-04-14)
PROC: 0DB48ZX Excision of Esophagogastric Junction, Via Natural or Artificial Opening Endoscopic, Diagnostic (ICD-10-PCS; 2021-04-14)
PROC: 0DBM8ZX Excision of Descending Colon, Via Natural or Artificial Opening Endoscopic, Diagnostic (ICD-10-PCS; principal; 2021-04-14 09:30)
PROC: 0DB98ZX Excision of Duodenum, Via Natural or Artificial Opening Endoscopic, Diagnostic (ICD-10-PCS; 2021-04-14 09:30)
DX: R19.4 Change in bowel habit (principal); R13.10 Dysphagia, unspecified; K57.30 Diverticulosis of large intestine without perforation or abscess without bleeding; K44.9 Diaphragmatic hernia without obstruction or gangrene; Z20.822 Contact with and (suspected) exposure to COVID-19; K21.9 Gastro-esophageal reflux disease without esophagitis; F41.9 Anxiety disorder, unspecified; F32.9 Major depressive disorder, single episode, unspecified
CPT/HCPCS: 43239; 45380; 71045; 87635; J2765; J7120

== ENCOUNTER 2021-06-26 15:06 | Outpatient (CLI) | payer MEDICAID | END 2021-06-26 15:07 | disposition home or self-care (01) | LOC: LAB 15:06 | PROVIDERS: ATTEND Urology | DX: C61 Malignant neoplasm of prostate (principal) | CPT/HCPCS: 36415; 84153 ==

== ENCOUNTER 2021-07-25 13:50 | Outpatient (CLI) | payer MEDICAID | END 2021-07-25 23:59 | disposition home or self-care (01) | LOC: COV 13:50 | PROVIDERS: ATTEND Surgery | DX: Z01.812 Encounter for preprocedural laboratory examination (principal); Z20.822 Contact with and (suspected) exposure to COVID-19 ==

== ENCOUNTER 2021-08-28 16:10 | Outpatient (CLI) | payer MEDICAID | END 2021-08-28 16:11 | disposition critical access hospital (66) | LOC: EMS 16:10 | DX: R10.9 Unspecified abdominal pain (principal); M54.9 Dorsalgia, unspecified; R07.81 Pleurodynia; R07.89 Other chest pain; R06.02 Shortness of breath | CPT/HCPCS: A0425; A0429; A0999 ==

== ENCOUNTER 2021-08-28 16:26 | Emergency (ER) | payer MEDICAID ==
[2021-08-28] MEDS ORDERED: KETOROLAC 30 MG/ML VIAL IVP STA (16:38)
[2021-08-28] MEDS ORDERED: SODIUM CHLORIDE 0.9% 1,000 ML IV STA (16:38)
[2021-08-28 17:13] LABS: BASOPHILS % (AUTO) 0.3 %; EOSINOPHILS # (AUTO) 0.2 10^3/uL (0.0-0.7); EOSINOPHILS % (AUTO) 2.7 %; HCT - HEMATOCRIT 39.5 % (42.0-52.0); LYMPHOCYTES # (AUTO) 1.5 10^3/uL (1.5-3.5); LYMPHOCYTES % (AUTO) 24.3 %; MEAN CORPUSCULAR HEMOGLOBIN 29.7 pg (27.0-31.0); MEAN CORPUSCULAR HGB CONC 32.9 g/dL (32.0-36.0); MEAN CORPUSCULAR VOLUME 90.4 fL (80.0-94.0); MEAN PLATELET VOLUME 9.6 fL (7.4-11.4); MONOCYTES # (AUTO) 0.6 10^3/uL (0.0-1.0); MONOCYTES % (AUTO) 10.2 %; NEUTROPHILS # (AUTO) 3.9 10^3/uL (1.5-6.6); NEUTROPHILS % (AUTO) 62.3 %; PLT - PLATELET COUNT 199 10^3/uL (130-450); RED BLOOD COUNT 4.37 10^6/uL (4.70-6.10); RED CELL DISTRIBUTION WIDTH 14.1 % (12.0-15.0); WHITE BLOOD COUNT 6.3 x10^3/uL (4.8-10.8)
[2021-08-28 17:28] LABS: ALBUMIN 3.9 g/dL (3.2-5.5); ALBUMIN/GLOBULIN RATIO 1.2 (1.0-2.2); BILIRUBIN,TOTAL 0.6 mg/dL (0.2-1.0); CALCIUM 8.7 mg/dL (8.5-10.3); CREATININE 1.4 mg/dL (0.6-1.2); POTASSIUM 3.7 mmol/L (3.5-5.0); TOTAL PROTEIN 7.1 g/dL (6.7-8.2)
[2021-08-28] MEDS ORDERED: HYDROmorphone 1 MG/ML CARPUJECT IVP STA (17:35)
--- NOTE | 2021-08-28 17:35 | XRAY Report ---
PROCEDURE: Chest 1 View X-Ray INDICATIONS: chest pain TECHNIQUE: One view of the chest was acquired. COMPARISON: 04/14/2021, 02/11/2020 FINDINGS: Surgical changes and devices: None. Lungs and pleura: There is elevation of the left hemidiaphragm redemonstrated. A few linear opacitie s in the left lung base likely represent atelectasis. No acute consolidation. No pleural effusions or pneumothorax. Mediastinum: Mediastinal contours appear unchanged. Heart size is normal. Bones and chest wall: No suspicious bony lesions. Overlying soft tissues appear unremarkable. IMPRESSION: 1. Probable mild atelectasis in the left lung base. 2. No definite acute cardiopulmonary disease. Reviewed by: Stefan Cohen MD on 08/28/2021 4:33 PM [facility] Approved by: Stefan Cohen MD on 08/28/2021 4:33 PM [facility] Station ID: [id number]
--- NOTE | 2021-08-28 17:52 | XRAY Report ---
PROCEDURE: Hip w/Pelvis 2-3V LT INDICATIONS: hip pain TECHNIQUE: AP pelvis with lateral view of the left hip. COMPARISON: None. FINDINGS: Bones: No fractures or dislocations. Pelvic ring appears intact. There is mild superior joint space narrowing in the hips bilaterally with subchondral sclerosis and subchondral cystic changes. No gabo picious bony lesions. Soft tissues: The visualized bowel gas pattern is normal. No suspicious soft tissue calcifications. IMPRESSION: 1. No evidence of fracture or dislocation. 2. Mild to moderate degenerative changes in the hips bilaterally. Reviewed by: Stefan Cohen MD on 08/28/2021 4:51 PM [facility] Approved by: Stefan Cohen MD on 08/28/2021 4:51 PM [facility] Station ID: [id number]
--- NOTE | 2021-08-28 17:58 | ED Physician Documentation ---
History of Present Illness - Stated complaint Stated Complaint: BACK/FLANK PX - Chief complaint Chief Complaint: General - History obtained from History obtained from: Patient - Additonal information Additional information: Patient comes emergency department for chief complaint of left hip pain and cough for the last several days. Patient states that he began coughing and that his chest has been sore since. This started about 4 days ago and patient has had a mild amount of clear sputum. He a couple of days ago began to notice that his left hip was hurting. 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 Patient denies any distinct injury. He has a history of some occasional low back problems, but denies any back pain right at the moment. He states he is concerned because the last time he had symptoms like this, he was in kidney failure. He states this is happened a few times since. He feels dehydrated and is also worried about his kidneys for this reason. He denies any abdominal pain. No nausea or vomiting. No fevers or chills. No dysuria or hematuria. He is not vaccinated for Covid. No other complaints at this time. Review of Systems Ten Systems: 10 systems reviewed and negative Constitutional: reports: Reviewed and negative Eyes: reports: Reviewed and negative Ears: reports: Reviewed and negative Nose: reports: Reviewed and negative Throat: reports: Reviewed and negative Cardiac: reports: Reviewed and negative Respiratory: reports: Cough GI: reports: Reviewed and negative : reports: Reviewed and negative Skin: reports: Reviewed and negative Musculoskeletal: reports: Joint pain, Pain with weight bearing (And with flexion during walking) Neurologic: reports: Reviewed and negative Psychiatric: reports: Reviewed and negative Endocrine: reports: Reviewed and negative Immunocompromised: reports: Reviewed and negative PD PAST MEDICAL HISTORY - Past Medical History Cardiovascular: Hypertension Respiratory: None Neuro: None Endocrine/Autoimmune: None GI: GERD : Benign prostate hypertrophy, Retention, Chronic bladder infection, Renal insuffiency HEENT: Chronic vision loss Psych: Depression, Anxiety, Bipolar disorder, Schizophrenia Musculoskeletal: Osteoarthritis, Chronic back pain Derm: Psoriasis - Past Surgical History Past Surgical History: Yes General: Splenectomy Ortho: Shoulder arthroplasty, Carpal Tunnel surgery HEENT: Myringotomy (tubes) - Present Medications Home Medications: Ambulatory Orders Medication Instructions Recorded Confirmed Finasteride 5 mg PO DAILY 02/22/18 04/14/21 OLANZapine [Olanzapine] 10 mg PO DAILY 11/19/19 04/14/21 amLODIPine [Norvasc] 5 mg PO DAILY 11/19/19 04/14/21 FLUoxetine [PROzac] 10 mg PO BID 04/07/21 04/14/21 Metoprolol Succinate [Toprol Xl] 50 mg PO BIDWM 04/07/21 04/14/21 lisinopriL [Zestril] 2.5 mg PO ONCE 04/07/21 04/14/21 HYDROcod/ACETAM 5/325 [Fannin 5/325] 1 - 2 tablet PO Q6H PRN #14 tablet 08/28/21 Ibuprofen [Motrin] 800 mg PO Q8H PRN #30 tablet 08/28/21 predniSONE [Deltasone] 60 mg PO DAILY 5 Days #15 tablet 08/28/21 - Allergies Allergies/Adverse Reactions: Allergies Allergy/AdvReac Type Severity Reaction Status Date / Time No Known Drug Allergies Allergy Verified 08/28/21 16:45 - Social History Does the pt smoke?: No Smoking Status: Never smoker Does the pt drink ETOH?: No Does the pt have substance abuse?: No - Immunizations Immunizations are current?: Yes Immunizations: TDAP >10years/unknown - POLST Patient has POLST: No POLST Status: Full Code PD ED PE NORMAL - Vitals Vital signs reviewed: Yes - General General: Alert and oriented X 3, No acute distress, Well developed/nourished - HEENT HEENT: Atraumatic, PERRL, EOMI, Moist mucous membranes - Neck Neck: Supple, no meningeal sign - Cardiac Cardiac: RRR, No murmur, Strong equal pulses - Respiratory Respiratory: No respiratory distress, Clear bilaterally - Abdomen Abdomen: Soft, Non tender, Non distended - Back Back: No spinal TTP - Derm Derm: Normal color, Warm and dry, No rash - Extremities Extremities: No deformity, No edema, No calf tenderness / cord, Other (Tenderness over left inguinal ligament. Mild tenderness over lateral left hip.) - Neuro Neuro: Alert and oriented X 3, complaint inspector 2-12 intact, No motor deficit, No sensory deficit, Normal speech - Psych Psych: Normal mood, Normal affect Results - Vitals Vitals: Vital Signs - 24 hr 08/28/21 16:43 Temperature 37.2 C Heart Rate 92 Respiratory 16 Rate Blood Pressure 133/74 H O2 Saturation 100 Oxygen O2 Source [Without Activity] Room air O2 Source Room air - Labs Labs: Laboratory Tests 08/28/21 08/28/21 17:05 17:05 WBC 6.3 RBC 4.37 L Hgb 13.0 L Hct 39.5 L MCV 90.4 MCH 29.7 MCHC 32.9 RDW 14.1 Plt Count 199 MPV 9.6 Neut # (Auto) 3.9 Lymph # (Auto) 1.5 [place] # (Auto) 0.6 Eos # (Auto) 0.2 Baso # (Auto) 0.0 Absolute Nucleated RBC 0.00 Nucleated RBC % 0.0 Sodium 138 Potassium 3.7 Chloride 106 Carbon Dioxide 24 Anion Gap 8.0 BUN 23 H Creatinine 1.4 H Estimated GFR (MDRD) 53 L Glucose 90 Calcium 8.7 Total Bilirubin 0.6 AST 30 ALT 27 Alkaline Phosphatase 65 Total Protein 7.1 Albumin 3.9 Globulin 3.2 Albumin/Globulin Ratio 1.2 Lipase 39 - Rads (name of study) Chest x-ray Radiology: Final report received, EMP read indepedently, See rad report (Atelectasis left lung base, otherwise) Left hip/pelvis x-ray Radiology: Final report received, EMP read indepedently, See rad report (Bilateral DJD, otherwise negative.) PD MEDICAL DECISION MAKING - ED course Complexity details: reviewed results, re-evaluated patient, considered differential, d/w patient ED course: Patient was treated symptomatically with IV fluids, Toradol, and Dilaudid, after which she was found to be feeling better. He was worked up with labs, which showed mild renal insufficiency, but otherwise unremarkable, and x-rays of the left hip/pelvis and chest, which showed arthritis of the hips but otherwise unremarkable. I discussed with the patient that he is not in kidney failure though he does have some mild slowing of his kidneys, and that he has arthritis in his hips. I also feel that he has some inguinal ligament irritation and this is also responsible for the pain he is having with flexion. We have discussed symptomatic management at home, as well as the need for follow-up with his primary care physician. We have discussed the usual indications for return. Departure - Departure Disposition: Home, Self Care Clinical Impression: Hip arthritis, Lt inguinal pain, Renal insufficiency, mild Condition: Stable Instructions: Osteoarthritis Common Sites, ED Insufficiency Renal, ED Viral Syndrome Prescriptions: predniSONE [Deltasone] 60 mg PO DAILY 5 Days #15 tablet Ibuprofen [Motrin] 800 mg PO Q8H PRN #30 tablet PRN Reason: PAIN &/OR FEVER HYDROcod/ACETAM 5/325 [Fannin 5/325] 1 - 2 tablet PO Q6H PRN #14 tablet PRN Reason: Pain Comments: Your chest x-ray does not show pneumonia. Your hip and pelvis x-rays show some arthritis in both hips which may be partly responsible for the pain you are having. You also have tenderness over your left inguinal ligament, which can ask the central portion of your pelvis to the outside "wing" of your pelvis and crosses the crease of your hip in the front. You most likely have some inflammation and tightness here which is also causing pain. Your labs do not show that you are in kidney failure, but you do have some mild slowing of your kidneys. Is very important that you drink plenty of water to offset this. Please follow-up with your primary doctor to discuss these chronic problems. We will give you a little bit of pain medicine from the emergency department, but you need to work with your doctor on chronic pain management. Your prescriptions have been electronically transmitted to [facility] in [place].
[2021-08-28 18:23] VITALS: BP 138/91
== END 2021-08-28 18:20 | disposition home or self-care (01) ==
LOC: EDUNIT# → ED 16:26
DX: M16.0 Bilateral primary osteoarthritis of hip (principal); R10.32 Left lower quadrant pain; N28.9 Disorder of kidney and ureter, unspecified; R05.9 Cough, unspecified; I10 Essential (primary) hypertension
CPT/HCPCS: 36415; 80053; 83690; 85025; 96374; 99283

== ENCOUNTER 2021-09-30 08:00 | Outpatient (CLI) | payer MEDICAID | END 2021-09-30 23:59 | LOC: LAB 08:00 | PROVIDERS: ATTEND Emergency Medicine | DX: L03.113 Cellulitis of right upper limb (principal) | CPT/HCPCS: 87070; 87077; 87181; 87205 ==

== ENCOUNTER 2021-12-26 08:00 | Outpatient (CLI) | payer MEDICAID ==
[2021-12-26 19:52] LABS: BASOPHILS % (AUTO) 0.4 %; EOSINOPHILS # (AUTO) 0.2 10^3/uL (0.0-0.7); EOSINOPHILS % (AUTO) 2.5 %; HCT - HEMATOCRIT 47.5 % (42.0-52.0); HGB - HEMOGLOBIN 15.7 g/dL (14.0-18.0); LYMPHOCYTES # (AUTO) 2.3 10^3/uL (1.5-3.5); LYMPHOCYTES % (AUTO) 34.9 %; MEAN CORPUSCULAR HEMOGLOBIN 29.2 pg (27.0-31.0); MEAN CORPUSCULAR HGB CONC 33.1 g/dL (32.0-36.0); MEAN CORPUSCULAR VOLUME 88.3 fL (80.0-94.0); MEAN PLATELET VOLUME 9.8 fL (7.4-11.4); MONOCYTES # (AUTO) 0.4 10^3/uL (0.0-1.0); MONOCYTES % (AUTO) 6.3 %; NEUTROPHILS # (AUTO) 3.7 10^3/uL (1.5-6.6); NEUTROPHILS % (AUTO) 55.5 %; PLT - PLATELET COUNT 305 10^3/uL (130-450); RED BLOOD COUNT 5.38 10^6/uL (4.70-6.10); RED CELL DISTRIBUTION WIDTH 14.6 % (12.0-15.0); WHITE BLOOD COUNT 6.7 x10^3/uL (4.8-10.8)
[2021-12-26 20:24] LABS: THYROID STIMULATING HORMONE 2.67 uIU/mL (0.34-5.60)
[2021-12-26 20:45] LABS: ALBUMIN 4.4 g/dL (3.2-5.5); ALBUMIN/GLOBULIN RATIO 1.3 (1.0-2.2); BILIRUBIN,TOTAL 0.7 mg/dL (0.2-1.0); CREATININE 1.9 mg/dL (0.6-1.2); POTASSIUM 4.2 mmol/L (3.5-5.0); TOTAL PROTEIN 7.9 g/dL (6.7-8.2)
== END 2021-12-26 23:59 | disposition home or self-care (01) ==
LOC: LAB.S 08:00
PROVIDERS: ATTEND Physician Assistant Medical
DX: I10 Essential (primary) hypertension (principal); E07.9 Disorder of thyroid, unspecified; D64.9 Anemia, unspecified
CPT/HCPCS: 36415; 80053; 84443; 85025

== ENCOUNTER 2022-01-15 08:00 | Outpatient (CLI) | payer MEDICAID ==
[2022-01-15 21:33] LABS: CALCIUM 9.1 mg/dL (8.5-10.3); POTASSIUM 4.5 mmol/L (3.5-5.0)
== END 2022-01-15 08:01 | disposition home or self-care (01) ==
LOC: LAB.S 08:00
PROVIDERS: ATTEND Registered Nurse
DX: N18.9 Chronic kidney disease, unspecified (principal); R53.83 Other fatigue
CPT/HCPCS: 36415; 80048; 82607

== ENCOUNTER 2022-07-20 00:07 | Outpatient (CLI) | payer MEDICAID | END 2022-07-20 23:59 | disposition left against medical advice (07) | LOC: EMS 00:07 | DX: S00.81XA Abrasion of other part of head, initial encounter (principal); R41.0 Disorientation, unspecified; W11.XXXA Fall on and from ladder, initial encounter; Y92.029 Unspecified place in mobile home as the place of occurrence of the external cause ==

== ENCOUNTER 2023-09-06 13:47 | Outpatient (CLI) | payer MEDICAID ==
[2023-09-06 19:46] LABS: BASOPHILS % (AUTO) 0.4 %; EOSINOPHILS # (AUTO) 0.1 10^3/uL (0.0-0.7); HCT - HEMATOCRIT 46.9 % (42.0-52.0); HGB - HEMOGLOBIN 15.4 g/dL (14.0-18.0); LYMPHOCYTES # (AUTO) 1.5 10^3/uL (1.5-3.5); LYMPHOCYTES % (AUTO) 21.8 %; MEAN CORPUSCULAR HGB CONC 32.8 g/dL (32.0-36.0); MEAN CORPUSCULAR VOLUME 91.2 fL (80.0-94.0); MEAN PLATELET VOLUME 9.9 fL (7.4-11.4); MONOCYTES # (AUTO) 0.4 10^3/uL (0.0-1.0); MONOCYTES % (AUTO) 5.6 %; NEUTROPHILS # (AUTO) 4.8 10^3/uL (1.5-6.6); NEUTROPHILS % (AUTO) 70.9 %; PLT - PLATELET COUNT 255 10^3/uL (130-450); RED BLOOD COUNT 5.14 10^6/uL (4.70-6.10); RED CELL DISTRIBUTION WIDTH 13.8 % (12.0-15.0); WHITE BLOOD COUNT 6.7 x10^3/uL (4.8-10.8)
[2023-09-06 20:04] LABS: ALBUMIN 4.4 g/dL (3.2-5.5); ALBUMIN/GLOBULIN RATIO 1.5 (1.0-2.2); ALKALINE PHOSPHATASE 95 IU/L (42-121); ALT ALANINE AMINOTRANSFERASE 28 IU/L (10-60); AST ASPARTATE AMINOTRANSFERASE 27 IU/L (10-42); BILIRUBIN,TOTAL 0.6 mg/dL (0.2-1.0); BUN - BLOOD UREA NITROGEN 15 mg/dL (6-20); CALCIUM 9.4 mg/dL (8.5-10.3); CARBON DIOXIDE - CO2 26 mmol/L (21-32); CHLORIDE 106 mmol/L (101-111); CHOLESTEROL 247 mg/dL; CREATININE 1.6 mg/dL (0.6-1.3); GFR - MDRD 45 (>89); GLUCOSE 99 mg/dL (74-104); HDL CHOLESTEROL 49 mg/dL; LDL CHOLESTEROL,CALCULATED 125 mg/dL; LDL/HDL RATIO 2.6 (<3.6); POTASSIUM 3.7 mmol/L (3.5-4.5); SODIUM 139 mmol/L (135-145); TOTAL PROTEIN 7.3 g/dL (6.4-8.9); TRIGLYCERIDES 363 mg/dL (48-352); VLDL CHOLESTEROL 73 mg/dL
[2023-09-06 20:14] LABS: THYROID STIMULATING HORMONE 4.14 uIU/mL (0.34-5.60)
== END 2023-09-06 13:48 | disposition home or self-care (01) ==
LOC: LAB.S 13:47
PROVIDERS: ATTEND Registered Nurse
DX: I10 Essential (primary) hypertension (principal); C61 Malignant neoplasm of prostate; E07.9 Disorder of thyroid, unspecified
CPT/HCPCS: 36415; 80053; 80061; 83721; 84153; 84443; 85025

== ENCOUNTER 2023-09-07 15:45 | Outpatient (CLI) | payer MEDICAID ==
[2023-09-07 21:18] LABS: FECAL OCCULT BLOOD (FIT) NEGATIVE (NEGATIVE)
== END 2023-09-07 23:59 | disposition home or self-care (01) ==
LOC: LAB.S 15:45
PROVIDERS: ATTEND Registered Nurse
DX: Z12.11 Encounter for screening for malignant neoplasm of colon (principal)
CPT/HCPCS: 82274

== ENCOUNTER 2023-10-29 08:00 | Outpatient (CLI) | payer MEDICAID ==
[~2023-10-29 08:00] MED LIST: GADOTERATE MEGLUMINE 10 MMOL/20 ML VIAL ONE; GADOTERATE MEGLUMINE 5 MMOL/10 ML VIAL ONE
== END 2023-10-29 23:59 | disposition home or self-care (01) ==
LOC: LAB 08:00
PROVIDERS: ATTEND Urology
DX: R97.20 Elevated prostate specific antigen [PSA] (principal)

== ENCOUNTER 2023-11-20 13:42 | Outpatient (CLI) | payer MEDICAID ==
[2023-11-20 14:14] LABS: CREATININE 1.7 mg/dL (0.6-1.3)
--- NOTE | 2023-11-20 17:35 | MRI Report ---
PROCEDURE: Pelvis W/WO INDICATIONS: ELEVATED PSA CONTRAST: clariscan 21.8ml TECHNIQUE: Coronal ultra fast SE, axial T1 FSE with fat saturation, 3-plane nonbreath-hold T2 FSE. After the ad ministration of contrast, dynamic axial, delayed axial and coronal ultra fast GE or 2-D spoiled GE wi th fat saturation through the pelvis. Optional diffusion weighted imaging and ADC may be performed. COMPARISON: None. FINDINGS: Image quality: Diffusion weighted and dynamic contrast enhanced images are diagnostic. Prostate: Gland size is 3.6 x 3.8 x 2.8 cm; ellipsoid gland volume is 20 mL. TURP defect. Right mid gland posterolateral peripheral zone, there is a 1.2 x 1.3 x 1.3 cm lesion with low T2 sign al and ill-defined diffusion signal. T2 score 4. DWI score 3. There is early contrast enhancement. DC E positive. Pi RADS 4. (5/9, 6/12) Left posterior medial mid gland peripheral zone 6 mm lesion (/), DWI score 3. T2 score 3. DCE nega tive. PI-RADS 3. Mildly T2 hypointense heterogenous striated appearance of the peripheral zone is commonly seen with c urrent or prior prostatitis, PI-RADS 2. The seminal vesicles appear clear. There is no clear extracapsular disease. Genitourinary system: Thick walled trabeculated bladder likely from chronic obstruction. Bowel and peritoneum: Colonic diverticula. Wall thickening of the distal colon likely from chronic d iverticular disease, consider correlation with age-appropriate colonoscopy results. No pathologic asc ites. Nodes and vessels: No enlarged lymph nodes by size criteria, consider PSMA PET correlation if target ed biopsies are positive. No aneurysmal vessel in the [id number]. Soft tissues: Small fat-containing right inguinal hernia. Bones: No suspicious focal enhancement. Right acetabular geode. IMPRESSION: PI RADS 4 lesion on the right. PI-RADS 3 lesion on the left. Additional possible sequela of prostatit is diffusely. Prior TURP. Probable sequelae of chronic obstruction in the bladder. Other findings above. Reviewed by: James Guerrero MD on 11/20/2023 5:34 PM PST Approved by: James Guerrero MD on 11/20/2023 5:34 PM PST Station ID: [id number]
[2023-11-20] MEDS: GADOTERATE MEGLUMINE 10 MMOL/20 ML VIAL IVP ONE (18:22)
[2023-11-20] MEDS: GADOTERATE MEGLUMINE 5 MMOL/10 ML VIAL IVP ONE (18:23)
== END 2023-11-20 13:43 | disposition home or self-care (01) ==
LOC: DI 13:42
PROVIDERS: ATTEND Urology
DX: C61 Malignant neoplasm of prostate (principal)
CPT/HCPCS: 36415; 72197; 82565; A9575

== ENCOUNTER 2023-12-24 11:15 | Day surgery (SDC) | payer MEDICAID ==
[2023-12-24] MEDS: LACTATED RINGERS 1,000 ML IV ONE (11:21)
[2023-12-24] MEDS ORDERED: LIDOCAINE-MPF 1% 30 ML VIAL ONE (11:39)
[2023-12-24] MEDS ORDERED: MIDAZOLAM 2 MG/2 ML VIAL ONE (12:52)
[2023-12-24] MEDS ORDERED: PROPOFOL 200 MG/20 ML VIAL IVP ONE ×2 (12:52→13:07)
[2023-12-24] MEDS ORDERED: fentaNYL 100 MCG/2 ML VIAL ONE (12:52)
[2023-12-24] MEDS: LIDOCAINE-MPF 1% 30 ML VIAL SUBQ ONE (13:07)
[2023-12-24] MEDS ORDERED: ONDANSETRON 4 MG/2 ML VIAL ONE (13:15)
[2023-12-24] MEDS: LACTATED RINGERS 400 ML IV ONE (13:18)
--- NOTE | 2023-12-24 13:29 | Discharge Plan ---
Discharge Plan Problem Reviewed?: Yes Disposition: Home, Self Care Condition: Good Diet: Regular Activity Restrictions: No Restrictions Shower Restrictions: No Driving Restrictions: No Instruction Topics: Biopsy Ultrasound Transrectal Additional Instructions or Follow Up instructions: You have an appointment with Dr. Colunga at January 08 at 3:45 PM. Please arrive 10 minutes early No Smoking: If you smoke, Please STOP! Call for help. Follow-up with: Marguerite Tamez ARNP [Primary Care Provider] -
--- NOTE | 2023-12-24 13:31 | OPERATIVE REPORT ---
Operative Report - General Procedure Date: 12/24/23 Planned Procedure: Transrectal ultrasound-guided prostate biopsy Pre-Op Diagnosis: History of prostate cancer Procedure Performed: Transrectal ultrasound-guided prostate biopsy Post Op Diagnosis: History of prostate cancer - Procedure Note Primary Surgeon: Keanu Anesthesia Provider: BRUNO Lopez Anesthesia Technique: Moderate sedation Pathology: routine prostate biopsy samples Findings: TURP defect PIRADS 3 left medial mid PZ PIRADS 4 right mid posterolateral PZ Complications: none - Other Other Information/Narrative: After informed consent was obtained the patient was brought to the OR and laid in the supine position. The patient was then anesthetized per anesthesia protocols and placed in the left lower cubitus position with left side down. A timeout was performed reconfirming the patient, procedure and laterality. A transrectal ultrasound-guided probe was placed per rectum and his prostate was visualized. 5 cc 1% lidocaine was placed at the lateral aspect of the prostate bilaterally. The prostate volume was measured at 20 cc Using 18-gauge biopsy needle we obtained samples of the prostate from the right and left side, the lateral and medial aspects of the base, mid and apex. An extra sample was taken for the right lateral mid, and an extra sample was taken for the left mid, corresponding to the PI-RADS lesion seen. Therefore a total of 14 samples were taken but placed into 12 sample containers. The probe was slowly removed and no bleeding was identified. The patient tolerated procedure well and was brought to the PACU without further incident. He will follow-up in a few weeks time for pathology discussion
[2023-12-24 13:42] VITALS: BP 122/97; O2SAT 95
[2023-12-24] MEDS ORDERED: HYDROcod/ACETAM 5/325 MG TABLET PO ONE (14:05)
[2023-12-24] MEDS: HYDROcod/ACETAM 5/325 MG TABLET ONE (14:05)
--- NOTE | 2023-12-24 14:51 | ANESTHESIA ---
Pre-Anesthesia VS, & Labs - Diagnosis history of prostate cancer - Procedure ultrasound guided transanal prostate biopsy Vital Signs: Temp Pulse Resp BP Pulse Ox O2 Flow Rate 36.5 C 86 18 122/97 H 95 12/24/23 13:18 12/24/23 13:33 12/24/23 13:33 12/24/23 13:33 12/24/23 13:33 Height: 6 ft 2 in Weight (kg): 107 kg Body Mass Index: 30.2 BMI Classification: Obese - NPO >8 hours Home Medications and Allergies Home Medications: Ambulatory Orders Atorvastatin Calcium 40 mg PO QPM 12/17/23 Colchicine 2 tab PO ONCE PRN 12/17/23 Finasteride 5 mg PO DAILY 02/22/18 OLANZapine [Olanzapine] 10 mg PO DAILY 11/19/19 amLODIPine [Norvasc] 10 mg PO DAILY 11/19/19 FLUoxetine [PROzac] 20 mg PO DAILY 04/07/21 Metoprolol Succinate [Toprol Xl] 50 mg PO DAILY 04/07/21 Atorvastatin Calcium 40 mg PO QPM 12/17/23 Colchicine 2 tab PO ONCE PRN 12/17/23 Allergies/Adverse Reactions: Allergies Allergy/AdvReac Type Severity Reaction Status Date / Time No Known Drug Allergies Allergy Verified 12/24/23 11:43 Anes History & Medical History - Anesthetic History Anesthesia Complications: reports: Post-Operative Nausea/Vomiting - Medical History Cardiovascular: reports: Hypertension, High cholesterol Pulmonary: reports: None Gastrointestinal: reports: GERD Urinary: reports: Benign prostate hypertrophy, Retention, Chronic bladder infection, Renal insuffiency Neuro: reports: None Musculoskeletal: reports: Osteoarthritis, Gout Endocrine/Autoimmune: reports: None, HyPOthyroidism Blood Disorders: reports: None Skin: reports: Psoriasis Smoking Status: Never smoker Psychosocial: reports: Alcohol (2 beers per day) History of Cancer?: Yes (prostate cancer) - Surgical History General: reports: Splenectomy, Colonoscopy Eyes Ears Nose Throat (EENT): reports: Myringotomy (tubes) Urologic: reports: Prostatic surgery Orthopedic: reports: Rotator cuff repair, Carpal Tunnel surgery Exam General: Alert, Oriented x3, Cooperative, No acute distress Dental: Dentures full Upper, Dentures full Lower Mouth Openin Fingerbreadth Neck Mobility: Normal Mallampati classification: II Thyromental Distance: 4-6 cm Mental/Cognitive Status: Alert/Oriented X3, Normal for patient Plan Anesthesia Type: General, Total IV Consent for Procedure(s) Verified and Reviewed: Yes Code Status: Attempt Resuscitation ASA classification: 3-Severe systemic disease Is this case an emergency?: No
--- NOTE | 2023-12-24 14:52 | ANESTHESIA POST OP EVALUATION ---
Anesthesia Post Eval - Post Anesthesia Eval Vitals: Last Vital Signs Temp 36.5 C 12/24/23 13:18 Pulse 86 12/24/23 13:33 Resp 18 12/24/23 13:33 BP 122/97 H 12/24/23 13:33 Pulse Ox 95 12/24/23 13:33 O2 Flow Rate CV Function Including HR & BP: Stable Pain Control: Satisfactory Nausea & Vomiting: Negative Mental Status: Baseline Respiratory Status: Airway Patent Hydration Status: Satisfactory Anesthesia Complications: None
== END 2023-12-24 11:16 | disposition home or self-care (01) ==
LOC: SDS 11:15
PROVIDERS: ATTEND Urology
PROC: 0VB03ZX Excision of Prostate, Percutaneous Approach, Diagnostic (ICD-10-PCS; principal; 2023-12-24 13:00)
DX: C61 Malignant neoplasm of prostate (principal); E66.9 Obesity, unspecified; Z68.30 Body mass index [BMI] 30.0-30.9, adult; N40.0 Benign prostatic hyperplasia without lower urinary tract symptoms
CPT/HCPCS: 55700; 76942; A9270; J7120

== ENCOUNTER 2024-03-10 19:20 | Emergency (ER) | payer MEDICAID ==
[2024-03-10 21:08] LABS: BASOPHILS # (AUTO) 0.1 10^3/uL (0.0-0.1); BASOPHILS % (AUTO) 0.7 %; EOSINOPHILS # (AUTO) 0.6 10^3/uL (0.0-0.7); EOSINOPHILS % (AUTO) 7.3 %; HCT - HEMATOCRIT 38.2 % (42.0-52.0); HGB - HEMOGLOBIN 12.2 g/dL (14.0-18.0); LYMPHOCYTES # (AUTO) 2.4 10^3/uL (1.5-3.5); LYMPHOCYTES % (AUTO) 28.4 %; MEAN CORPUSCULAR HEMOGLOBIN 29.9 pg (27.0-31.0); MEAN CORPUSCULAR HGB CONC 31.9 g/dL (32.0-36.0); MEAN CORPUSCULAR VOLUME 93.6 fL (80.0-94.0); MEAN PLATELET VOLUME 9.4 fL (7.4-11.4); MONOCYTES # (AUTO) 0.7 10^3/uL (0.0-1.0); MONOCYTES % (AUTO) 7.8 %; NEUTROPHILS # (AUTO) 4.6 10^3/uL (1.5-6.6); NEUTROPHILS % (AUTO) 55.2 %; PLT - PLATELET COUNT 297 10^3/uL (130-450); RED BLOOD COUNT 4.08 10^6/uL (4.70-6.10); RED CELL DISTRIBUTION WIDTH 13.8 % (12.0-15.0); WHITE BLOOD COUNT 8.3 x10^3/uL (4.8-10.8)
[2024-03-10 21:22] LABS: ALBUMIN 4.1 g/dL (3.2-5.5); ALBUMIN/GLOBULIN RATIO 1.6 (1.0-2.2); BILIRUBIN,TOTAL 0.5 mg/dL (0.2-1.0); CALCIUM 9.1 mg/dL (8.5-10.3); CREATININE 2.6 mg/dL (0.6-1.3); POTASSIUM 4.1 mmol/L (3.5-4.5); TOTAL PROTEIN 6.6 g/dL (6.4-8.9)
[2024-03-10 21:44] LABS: BILIRUBIN,URINE SMALL (NEGATIVE); GLUCOSE, URINE (UA) NEGATIVE (NEGATIVE); KETONES,URINE (UA) TRACE mg/dL (NEGATIVE); LEUKOCYTE ESTERASE, URINE SMALL (NEGATIVE); NITRITE,URINE NEGATIVE (NEGATIVE); OCCULT BLOOD,URINE LARGE (NEGATIVE); PH,URINE 5.5 PH (5.0-7.5); PROTEIN,URINE 100 mg/dL (NEGATIVE); UROBILINOGEN,URINE 0.2 (NORMAL) E.U./dL (NORMAL)
[2024-03-10 21:50] LABS: CLARITY,URINE HAZY (CLEAR); RBC,URINE TNTC /HPF (0-5)
[2024-03-10 21:51] LABS: BACTERIA,URINE Few /HPF (None Seen); SQUAMOUS EPITHELIAL CELL,UR RARE Squamous (<= Few)
--- NOTE | 2024-03-10 22:53 | ED Physician Documentation ---
History of Present Illness - Stated complaint Stated Complaint: CATH ISSUE - Chief complaint Chief Complaint: General - Additonal information Additional information: 58-year-old male presents emergency department with Uhdson catheter issues. Patient had a prostatectomy with Isabel Monge on 03/03 and started experiencing urinary retention sometime yesterday. Patient says that he is experiencing penile pain and tenderness with urine leaking around the catheter out of his penis and not into the catheter bag. No CVA tenderness no fevers or chills that patient is aware of. PD PAST MEDICAL HISTORY - Past Medical History Past Medical History: Yes Cardiovascular: Hypertension, High cholesterol Respiratory: None Neuro: None Endocrine/Autoimmune: None, HyPOthyroidism GI: GERD : Benign prostate hypertrophy, Retention, Chronic bladder infection, Renal insuffiency HEENT: None Psych: Depression, Anxiety, Bipolar disorder, Schizophrenia Musculoskeletal: Osteoarthritis, Gout Derm: Psoriasis - Past Surgical History Past Surgical History: Yes General: Splenectomy, Colonoscopy Ortho: Rotator cuff repair, Carpal Tunnel surgery HEENT: Myringotomy (tubes) - Present Medications Home Medications: Ambulatory Orders Medication Instructions Recorded Confirmed Finasteride 5 mg PO DAILY 02/22/18 12/24/23 OLANZapine [Olanzapine] 10 mg PO DAILY 11/19/19 12/24/23 amLODIPine [Norvasc] 10 mg PO DAILY 11/19/19 12/24/23 FLUoxetine [PROzac] 20 mg PO DAILY 04/07/21 12/24/23 Metoprolol Succinate [Toprol Xl] 50 mg PO DAILY 04/07/21 12/24/23 Atorvastatin Calcium 40 mg PO QPM 12/17/23 12/24/23 Ciprofloxacin HCl 1 tablet PO BID 7 Days #13 tablet 03/10/24 - Allergies Allergies/Adverse Reactions: Allergies Allergy/AdvReac Type Severity Reaction Status Date / Time No Known Drug Allergies Allergy Verified 03/10/24 19:48 - Social History Does the pt smoke?: No Smoking Status: Never smoker Does the pt drink ETOH?: No Does the pt have substance abuse?: No - Immunizations Immunizations are current?: Yes Immunizations: TDAP >10years/unknown - POLST Patient has POLST: No POLST Status: Full Code PD ED PE NORMAL - Vitals Vital signs reviewed: Yes - General General: Alert and oriented X 3, No acute distress, Well developed/nourished - Abdomen Abdomen: Normal bowel sounds, Soft, Non distended, No organomegaly, Other (S uprapubic tenderness) - Derm Derm: Normal color, Warm and dry, No rash Results - Vitals Vitals: Vital Signs - 24 hr 03/10/24 03/10/24 03/10/24 19:39 21:09 23:00 Temperature 36.4 C L 36 C L 36.2 C L Heart Rate 84 75 72 Respiratory 17 16 16 Rate Blood Pressure 106/68 137/67 H 144/68 H O2 Saturation 99 98 99 03/11/24 00:31 Temperature 36.2 C L Heart Rate 74 Respiratory 16 Rate Blood Pressure 151/67 H O2 Saturation 98 Oxygen O2 Source [Without Activity] Room air O2 Source Room air - Labs Labs: Laboratory Tests 03/10/24 03/10/24 03/10/24 21:00 21:00 21:00 WBC 8.3 RBC 4.08 L Hgb 12.2 L Hct 38.2 L MCV 93.6 MCH 29.9 MCHC 31.9 L RDW 13.8 Plt Count 297 MPV 9.4 Neut # (Auto) 4.6 Lymph # (Auto) 2.4 [place] # (Auto) 0.7 Eos # (Auto) 0.6 Baso # (Auto) 0.1 Absolute Nucleated RBC 0.00 Nucleated RBC % 0.0 Sodium 139 Potassium 4.1 Chloride 104 Carbon Dioxide 26 Anion Gap 9.0 BUN 33 H Creatinine 2.6 H Estimated GFR (MDRD) 26 L Glucose 88 Calcium 9.1 Magnesium 2.0 Total Bilirubin 0.5 AST 47 H ALT 52 Alkaline Phosphatase 84 Total Protein 6.6 Albumin 4.1 Globulin 2.5 Albumin/Globulin Ratio 1.6 Lipase 67 Urine Color YELLOW Urine Clarity HAZY Urine pH 5.5 Ur Specific [place] >=1.030 H Urine Protein 100 H Urine Glucose (UA) NEGATIVE Urine Ketones TRACE Urine Occult Blood LARGE H Urine Nitrite NEGATIVE Urine Bilirubin SMALL H Urine Urobilinogen 0.2 (NORMAL) Ur Leukocyte Esterase SMALL H Urine RBC TNTC H Urine WBC 6-10 H Ur Squamous Epith Cells RARE Squamous Urine Bacteria Few Ur Microscopic Review INDICATED Urine Culture Comments INDICATED - Rads (name of study) CT abdomen pelvis with out Relevant Findings:: Final report received, EMP independent interpretation of test, Other (CT abdomen pelvis with outSmall bilateral nonobstructing kidney stones with mild prominent bilateral renal pelvis Hudson catheter in place with slightly thickened degree of decompression. Large amount of fecal material. Seroma to left pelvic sidewall) PD Medical Decision Making - ED course ED course: 58-year-old male presents emergency department for urinary retention. Hudson catheter that was in place did not have a leg international trade analyst it and patient did appear to have some tenderness to the penis tip, RN present at physical exam. No purulent drainage from penis he also did have some suprapubic tenderness. That Hudson catheter was removed and a larger 1 was placed and we did some irrigation with [place] syringe and patient was able to eventually void into the Hudson catheter bag without any difficulty. We went ahead and sent the urine for further evaluation and urine did test positive for leukocytes so we will assume that patient does have a catheter associated urinary tract infection. He was started on ciprofloxacin here in the emergency department and a prescription of ciprofloxacin was sent to his preferred pharmacy. Additional labs were complete he has no leukocytosis mild anemia hemoglobin 12.2, normal electrolytes he did appear to have worsening kidney function most likely KENDELL due to dehydration as patient's urine was quite concentrated. BUN 33, creatinine 2.6, GFR 26 last GFR was completed in October of this year and it was found to be 42. He was given a liter of IV fluids here in the emergency department to help with any sort of KENDELL. CT abdomen pelvis without was complete for further evaluation of why patient was having urinary retention especially having recent prostatectomy and he was found to have bilateral nonobstructing kidney stones urinary bladder was decompressed with Hudson catheter with air most likely due to the Hudson catheter that we placed. Bladder wall was slightly thickened which is most likely due to the catheter associated urinary tract infection. He also was found to be quite constipated and was told to start taking MiraLAX consider possible Fleet enema at home, senna and docusate and to start adding prune juice to his daily regimen to help with regular more consistent bowel movements and constipation. Of note there is also a 10.6 cm seroma to the left pelvic sidewall which I do believe was contributing to the ur inary retention that patient was experiencing. There is no further workup indicated for this finding but patient was given very strict ER return precautions he is told to let his urologist know about today's ER visit to see if he can get in with them sooner for further evaluation prescription sent to his preferred pharmacy he is taught how to manage his Hudson catheter at home and given very strict ER return precautions. Urine sent for cultures and further evaluation. Departure - Departure Disposition: 01 Home, Self Care Clinical Impression: Catheter-associated urinary tract infection, Acute kidney injury Instructions: Hudson Catheter Remove, ED UTI Cystitis Male Prescriptions: Ciprofloxacin HCl 1 tablet PO BID 7 Days #13 tablet Comments: Thank you for trusting us with your care. We have completed a urinalysis and it does appear that you have an infection. We have started you on antibiotic called ciprofloxacin here in the emergency department and I have sent this antibiotic to your preferred pharmacy on file you will take this twice a day for the next 7 days. You also appear to have an acute kidney injury so make sure that you follow-up with your primary care provider to have your labs rechecked in a couple days to make sure that this is getting better instead of worse. If you go home and you are still having difficulty with draining your catheter despite the Hudson catheter swap please come back to the emergency department immediately for further evaluation. Please help with your urologist let them know about today's ER visit let them know about our findings. Again please have a very low threshold to come back to the emergency department if you have any worsening symptoms. We have also found you to be quite constipated, Start taking MiraLAX twice a day until you are able to have more consistent bowel movements he may need to buy an [id number] suppository or Fleet enema to help get things going. MiraLAX is a medication you can buy [id number] if the powder that you can add to your drinks. You could also consider adding on senna and docusate as well as drinking prune juice to help things get moving again. IMPRESSION: Small bilateral nonobstructing renal stones with mild prominent bilateral renal pelvis. The urinary bladder is decompressed by Hudson catheter. There is air within the bladder likely from Hudson catheter placement. However, the bladder wall is slightly thickened for degree of decompression and may represent cystitis. Recommend clinical correlation. Large amount of fecal material seen in the colon but most prominent in the distal sigmoid and rectum. New 10.6 x 6.1 x 8.4 cm near fluid attenuation collection adjacent to the left pelvic sidewall and lateral to the decompression. This may represent a seroma or resolving hematoma. No evidence for adjacent inflammatory changes. Forms: PCP List Discharge Date/Time: 03/11/24 00:32
[2024-03-10] MEDS: CIPROFLOXACIN 250 MG TABLET PO STA (23:16)
[2024-03-10] MEDS: SODIUM CHLORIDE 0.9% 1,000 ML IV ONE (23:16)
--- NOTE | 2024-03-11 00:02 | CT Report ---
PROCEDURE: Abdomen/Pelvis WO INDICATIONS: urinary retention TECHNIQUE: A CT scan of the abdomen and pelvis was performed without the use of intravenous contrast. Images we re recorded and evaluated at appropriate window settings. Reformats: coronal and sagittal. For radiat ion dose reduction, the following was used: automated exposure control, adjustment of mA and/or kV ac cording to patient size. COMPARISON: 11/19/2019. FINDINGS: Image quality: Diagnostic. Lower chest: Bibasilar atelectasis. Small hiatal hernia. Liver: No contour-deforming mass. Gallbladder: No radiopaque stones or wall thickening. Biliary tree: No intrahepatic or extrahepatic dilation, accounting for age. Spleen: No splenomegaly. Pancreas: No pancreatic ductal dilation. Adrenals: No adrenal nodule. Kidneys and ureters: Tiny punctate nonobstructing right renal stone. Tiny punctate nonobstructing lef t renal stone. Mild prominence of the bilateral renal pelvises. This is less prominent compared to [facility] prior study. Bilateral ureters are otherwise normal in course and caliber bilaterally. Stomach, bowel and peritoneum: Large amount of fecal material seen throughout the colon but most pron ounced in the distal sigmoid and rectum. Scattered colonic diverticulosis without acute diverticuliti s. Visualized small bowel appear unremarkable. No evidence for small bowel obstruction. No significan t gastric antrum. No pathologic free fluid. There is a new 10.6 x 6.1 centimeter fluid attenuation co llection adjacent to the left pelvic sidewall, and lateral to the urinary bladder. This is new compar ed to prior study. This measures approximately 8.4 cm in craniocaudal dimension. No adjacent inflamma tory changes. Faint hyperdense focus over the superior margin of this collection which is in close pr oximity to small pelvic vessels. This may represent a small seroma/hematoma. Lymph nodes: No central or retroperitoneal adenopathy. Vessels: No infrarenal aortic aneurysm. Reproductive organs: Unremarkable. Bladder: Urinary bladder is decompressed by Hudson catheter. There is air within the antidependent por tions likely from Hudson catheter placement. Mild wall thickening. No calcified bladder stones. Pelvic lymph nodes: No adenopathy by size criteria. Bones: No aggressive osseous abnormality. Other: No significant ventral or inguinal hernia. IMPRESSION: Small bilateral nonobstructing renal stones with mild prominent bilateral renal pelvis. The urinary b ladder is decompressed by Hudson catheter. There is air within the bladder likely from Hudson catheter placement. However, the bladder wall is slightly thickened for degree of decompression and may repres ent cystitis. Recommend clinical correlation. Large amount of fecal material seen in the colon but most prominent in the distal sigmoid and rectum. New 10.6 x 6.1 x 8.4 cm near fluid attenuation collection adjacent to the left pelvic sidewall and la teral to the decompression. This may represent a seroma or resolving hematoma. No evidence for adjace nt inflammatory changes. Other chronic findings as above. Reviewed by: Wayne Cobos MD on 03/11/2024 12:00 AM PDT Approved by: Wayne Cobos MD on 03/11/2024 12:00 AM PDT Station ID: [id number]
[2024-03-11 00:35] VITALS: BP 151/67; O2SAT 98
== END 2024-03-11 00:32 | disposition home or self-care (01) ==
LOC: ED 19:20
DX: T83.511A Infection and inflammatory reaction due to indwelling urethral catheter, initial encounter (principal); N17.9 Acute kidney failure, unspecified; E86.0 Dehydration; N20.0 Calculus of kidney; K59.00 Constipation, unspecified; N50.1 Vascular disorders of male genital organs; Z90.79 Acquired absence of other genital organ(s)
CPT/HCPCS: 36415; 51702; 74176; 80053; 81001; 83690; 83735; 85025; 87086; 96360; 99284; A9270; 81003

== ENCOUNTER 2024-03-16 18:14 | Emergency (ER) | payer MEDICAID ==
[2024-03-16 20:03] LABS: BASOPHILS % (AUTO) 0.4 %; EOSINOPHILS # (AUTO) 0.6 10^3/uL (0.0-0.7); EOSINOPHILS % (AUTO) 7.2 %; HCT - HEMATOCRIT 41.9 % (42.0-52.0); HGB - HEMOGLOBIN 13.4 g/dL (14.0-18.0); LYMPHOCYTES # (AUTO) 2.2 10^3/uL (1.5-3.5); LYMPHOCYTES % (AUTO) 27.7 %; MEAN CORPUSCULAR HEMOGLOBIN 29.8 pg (27.0-31.0); MEAN CORPUSCULAR VOLUME 93.3 fL (80.0-94.0); MEAN PLATELET VOLUME 9.3 fL (7.4-11.4); MONOCYTES # (AUTO) 0.4 10^3/uL (0.0-1.0); MONOCYTES % (AUTO) 4.8 %; NEUTROPHILS # (AUTO) 4.8 10^3/uL (1.5-6.6); NEUTROPHILS % (AUTO) 59.4 %; PLT - PLATELET COUNT 306 10^3/uL (130-450); RED BLOOD COUNT 4.49 10^6/uL (4.70-6.10); RED CELL DISTRIBUTION WIDTH 13.2 % (12.0-15.0); WHITE BLOOD COUNT 8.1 x10^3/uL (4.8-10.8)
[2024-03-16 20:21] LABS: ALBUMIN 4.2 g/dL (3.2-5.5); ALBUMIN/GLOBULIN RATIO 1.4 (1.0-2.2); BILIRUBIN,TOTAL 0.5 mg/dL (0.2-1.0); CALCIUM 9.4 mg/dL (8.5-10.3); CREATININE 1.7 mg/dL (0.6-1.3); POTASSIUM 4.5 mmol/L (3.5-4.5); TOTAL PROTEIN 7.2 g/dL (6.4-8.9)
[2024-03-16] MEDS ORDERED: iohexoL-300 100 ML VIAL ONE (22:23)
[2024-03-16] MEDS ORDERED: MORPHINE 2 MG/ML CARPUJECT ONE (22:24)
--- NOTE | 2024-03-16 22:24 | Ultrasound Report ---
PROCEDURE: Testicle w/Doppler INDICATIONS: testicular pain TECHNIQUE: Real-time scanning was performed of the scrotum and testicles, with image documentation. Color and p ulse Doppler interrogation was performed of both testicles. COMPARISON: CT of abdomen and pelvis dated 03/10/2024. FINDINGS: Right: Testicle is normal in size at 4.4 x 2.7 x 2.6 cm, and homogenous in echotexture. Epididymis is normal in overall size. Mildly heterogeneous right epididymal echotexture is seen.. No hydrocele. No varicoceles. Right scrotal skin thickening is noted. Left: Testicle is normal in size at 4 x 2.7 x 3 cm, and homogeneous in echotexture. Epididymis is n ormal in overall size and morphology. There is trace hydrocele. No varicoceles. Left scrotal skin thi ckening is also seen. Doppler: Color and pulse Doppler demonstrate normal and symmetric arterial flow in both testicles. IMPRESSION: 1. Normal-appearing bilateral testes. 2. Trace left hydrocele. Diffuse scrotal wall thickening concerning for cellulitis. 3. Mildly heterogeneous right epididymal echotexture without increased vascularity or discrete epidid ymal lesion. Normal-appearing left epididymis. Reviewed by: Santosh Gutierrez MD on 03/16/2024 10:22 PM PDT Approved by: Santosh Gutierrez MD on 03/16/2024 10:22 PM PDT Station ID: [id number]
[2024-03-16] MEDS: MORPHINE 2 MG/ML CARPUJECT IVP STA (22:25)
[2024-03-16] MEDS: iohexoL-300 100 ML VIAL IVP ONE (22:43)
[2024-03-16] MEDS: oxyCODONE 5 MG TABLET PO STA ×2 (22:46→23:53)
--- NOTE | 2024-03-16 23:05 | CT Report ---
PROCEDURE: Abdomen/Pelvis W INDICATIONS: lower abd pain/scrotal swelling CONTRAST: Omni 300, 100mls TECHNIQUE: After the administration of intravenous contrast, a CT scan of the abdomen and pelvis was performed. Images were recorded and evaluated at appropriate window settings. Reformats: coronal and sagittal. F or radiation dose reduction, the following was used: automated exposure control, adjustment of mA and /or kV according to patient size. COMPARISON: CT of abdomen and pelvis dated 03/10/2024. FINDINGS: Image quality: Diagnostic. Lower chest: Unremarkable. Liver: No solid mass. Gallbladder: No radiopaque stones or wall thickening. Biliary tree: No intrahepatic or extrahepatic dilation, accounting for age. Spleen: No splenomegaly. Pancreas: No pancreatic ductal dilation. Adrenals: No adrenal nodule. Kidneys and ureters: There is no gross solid-appearing renal lesion. Previously described nonobstruct ing bilateral renal calculi are again seen and are unchanged. Mild prominence of bilateral renal miguel ecting system and ureters are seen extending to the level of UVJs. No obstructing renal stone is seen . Stomach, bowel and peritoneum: There is no evidence of bowel obstruction. No gastric or small bowel w all thickening. No colonic wall thickening. Sigmoid diverticulosis is seen without CT evidence of acu te diverticulitis. Lymph nodes: No central or retroperitoneal adenopathy. Vessels: No infrarenal aortic aneurysm. Patent portal vein. PELVIS Reproductive organs: Unremarkable. Bladder: Urinary bladder is decompressed containing Hudson catheter. Suggestion of diffuse bladder wal l thickening. Pelvic lymph nodes: No pelvic adenopathy by size criteria. Bones: No aggressive osseous abnormality. Other: Previously described 10.6 x 6.1 x 8.4 cm fluid collection adjacent to left pelvic sidewall wit h mass effect on adjacent urinary bladder now measures 10.8 x 7.7 x 9.9 cm in size series 2 image 116 and series 4 image 88. IMPRESSION: 1. Interval slight increase in size of patient's known fluid collection adjacent to left pelvic sidew all as described above. No peripheral enhancement or significant adjacent stranding is noted to sugge st this being abscess collection. Finding may represent a large seroma or hematoma. 2. Nonobstructing bilateral renal calculi. Mild bilateral hydronephrosis and hydroureter without obst ructing stone seen. Diffuse bladder wall thickening concerning for cystitis. 3. No bowel obstruction or abnormal bowel wall thickening. [id number] fecal stasis in the colon . No abscess collection. No free fluid of free air. Sigmoid diverticulosis without evidence of acute diverticulitis. Reviewed by: Santosh Escobedo MD on 03/16/2024 11:04 PM PDT Approved by: Santosh Escobedo MD on 03/16/2024 11:04 PM PDT Station ID: [id number]
[2024-03-16 23:27] LABS: BILIRUBIN,URINE NEGATIVE (NEGATIVE); GLUCOSE, URINE (UA) NEGATIVE (NEGATIVE); KETONES,URINE (UA) NEGATIVE (NEGATIVE); LEUKOCYTE ESTERASE, URINE NEGATIVE (NEGATIVE); NITRITE,URINE NEGATIVE (NEGATIVE); OCCULT BLOOD,URINE LARGE (NEGATIVE); PH,URINE 6.5 PH (5.0-7.5); PROTEIN,URINE NEGATIVE (NEGATIVE); UROBILINOGEN,URINE 0.2 (NORMAL) E.U./dL (NORMAL)
[2024-03-16 23:28] LABS: CLARITY,URINE CLEAR (CLEAR)
[2024-03-16 23:36] VITALS: BP 130/92; O2SAT 95
[2024-03-16 23:37] LABS: WBC,URINE 0-3 /HPF (0-3)
[2024-03-16 23:38] LABS: BACTERIA,URINE None Seen /HPF (None Seen); SQUAMOUS EPITHELIAL CELL,UR NONE SEEN (<= Few)
--- NOTE | 2024-03-17 00:23 | ED Physician Documentation ---
History of Present Illness - Stated complaint Stated Complaint: POST OP ISSUE/GI - Chief complaint Chief Complaint: General - History obtained from History obtained from: Patient - Additonal information Additional information: Patient is a 58-year-old male with recent robotic prostatectomy 3 weeks ago Isabel Monge presenting for evaluation of swelling and discomfort in the scrotum starting yesterday morning. Patient also reports having lower abdominal pain. Here he still has a Hudson catheter in from his surgery. He was seen 1 week ago with issues with his Hudson and it was replaced. No fever, chest pain, trouble breathing, nausea or vomiting. Denies hematuria. Review of Systems Constitutional: denies: Fever Cardiac: denies: Chest pain / pressure Respiratory: denies: Dyspnea GI: reports: Abdominal Pain. denies: Vomiting, Diarrhea : reports: Other (Scrotal swelling). denies: Dysuria PD PAST MEDICAL HISTORY - Past Medical History Cardiovascular: Hypertension, High cholesterol Respiratory: None Neuro: None Endocrine/Autoimmune: None, HyPOthyroidism GI: GERD : Benign prostate hypertrophy, Retention, Chronic bladder infection, Renal insuffiency HEENT: None Psych: Depression, Anxiety, Bipolar disorder, Schizophrenia Musculoskeletal: Osteoarthritis, Gout Derm: Psoriasis - Past Surgical History Past Surgical History: Yes General: Splenectomy, Colonoscopy Ortho: Rotator cuff repair, Carpal Tunnel surgery HEENT: Myringotomy (tubes) - Present Medications Home Medications: Ambulatory Orders Medication Instructions Recorded Confirmed Finasteride 5 mg PO DAILY 02/22/18 12/24/23 OLANZapine [Olanzapine] 10 mg PO DAILY 11/19/19 12/24/23 amLODIPine [Norvasc] 10 mg PO DAILY 11/19/19 12/24/23 FLUoxetine [PROzac] 20 mg PO DAILY 04/07/21 12/24/23 Metoprolol Succinate [Toprol Xl] 50 mg PO DAILY 04/07/21 12/24/23 Atorvastatin Calcium 40 mg PO QPM 12/17/23 12/24/23 Ciprofloxacin HCl 1 tablet PO BID 7 Days #13 tablet 03/10/24 - Allergies Allergies/Adverse Reactions: Allergies Allergy/AdvReac Type Severity Reaction Status Date / Time No Known Drug Allergies Allergy Verified 03/16/24 18:28 - Social History Does the pt smoke?: No Smoking Status: Never smoker Does the pt drink ETOH?: No Does the pt have substance abuse?: No - Immunizations Immunizations are current?: Yes Immunizations: TDAP >10years/unknown - POLST Patient has POLST: No POLST Status: Full Code PD ED PE NORMAL - General General: Alert and oriented X 3, No acute distress, Well developed/nourished - HEENT HEENT: Atraumatic - Neck Neck: Supple, no meningeal sign - Cardiac Cardiac: RRR, Strong equal pulses - Respiratory Respiratory: No respiratory distress, Clear bilaterally - Abdomen Abdomen: Normal bowel sounds, Soft, Non distended, Other (Well-healed abdominal incisions, lower abdominal tenderness with no rebound, guarding or palpable mass) - Male Male : 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 Hudson catheter in place. Yellow urine in bag.) - Derm Derm: Warm and dry - Neuro Neuro: Normal speech Results - Vitals Vitals: Vital Signs - 24 hr 03/16/24 03/16/24 18:23 23:29 Temperature 37.2 C Heart Rate 73 65 Respiratory 20 20 Rate Blood Pressure 119/77 130/92 H O2 Saturation 99 95 Oxygen O2 Source [Without Activity] Room air O2 Source Room air - Labs Labs: Laboratory Tests 03/16/24 03/16/24 03/16/24 19:55 19:55 23:19 WBC 8.1 RBC 4.49 L Hgb 13.4 L Hct 41.9 L MCV 93.3 MCH 29.8 MCHC 32.0 RDW 13.2 Plt Count 306 MPV 9.3 Neut # (Auto) 4.8 Lymph # (Auto) 2.2 [place] # (Auto) 0.4 Eos # (Auto) 0.6 Baso # (Auto) 0.0 Absolute Nucleated RBC 0.00 Nucleated RBC % 0.0 Sodium 138 Potassium 4.5 Chloride 105 Carbon Dioxide 27 Anion Gap 6.0 BUN 23 H Creatinine 1.7 H Estimated GFR (MDRD) 42 L Glucose 74 Calcium 9.4 Total Bilirubin 0.5 AST 28 ALT 27 Alkaline Phosphatase 89 Total Protein 7.2 Albumin 4.2 Globulin 3.0 Albumin/Globulin Ratio 1.4 Lipase 44 Urine Color YELLOW Urine Clarity CLEAR Urine pH 6.5 Ur Specific [place] <=1.005 Urine Protein NEGATIVE Urine Glucose (UA) NEGATIVE Urine Ketones NEGATIVE Urine Occult Blood LARGE H Urine Nitrite NEGATIVE Urine Bilirubin NEGATIVE Urine Urobilinogen 0.2 (NORMAL) Ur Leukocyte Esterase NEGATIVE Urine RBC 6-10 H Urine WBC 0-3 Ur Squamous Epith Cells NONE SEEN Urine Bacteria None Seen Ur Microscopic Review INDICATED Urine Culture Comments NOT INDICATED PD Medical Decision Making - ED course Complexity details: reviewed results, d/w patient ED course: Patient is 3 weeks post prostatectomy presenting for evaluation of scrotal swelling and lower abdominal pain. CBC, chemistries were reviewed. Vital signs are stable. Ultrasound was ordered showing no signs of testicular torsion. T here is scrotal edema which could suggest cellulitis but clinically does not appear to be cellulitis as there is no redness or warmth. CT scan of the abdomen and pelvis was also obtained given lower abdominal tenderness. There is a large fluid collection which was also seen on a CT scan a week ago. It has slightly increased in size. Patient's hemoglobin has remained stable From a week ago. There is also findings of stool burden. I did discuss patient's presentation as well as evaluation and findings with his urologist open (Dr. Brewer at [facility]). She we will plan to reach out to patient to have them be seen for close follow-up and recommends good scrotal support. Nothing to do for fluid collection at this time. Patient was given morphine during ED evaluation without improvement in his pain. He has not been using MiraLAX as he was previously recommended and so I did encourage him to use MiraLAX daily for the next several days to help have more regular bowel movements. Patient understands importance of close follow-up with his urologist advised on concerning symptoms to return for. Departure - Departure Disposition: 01 Home, Self Care Clinical Impression: Seroma after procedure, Scrotal swelling, Constipation Condition: Stable Instructions: ED Constipation Comments: Please wear good scrotal support to help with the swelling. Your CT scan shows that you have a fluid collection in the left pelvis. This does not appear to be an infection or significant bleeding. This fluid should reabsorb on its own. We have spoken to your urologist this evening. She is going to reach out so that you have some closer follow-up. Your CT scan also shows a fair amount of constipation still. Please use MiraLAX daily for the next 3 to 4 days. This is available [id number]. Return to the ER if you develop any worsening symptoms. Forms: PCP List Discharge Date/Time: 03/17/24 00:32
== END 2024-03-17 00:32 | disposition home or self-care (01) ==
LOC: ED 18:14
DX: N99.842 Postprocedural seroma of a genitourinary system organ or structure following a genitourinary system procedure (principal); Y83.6 Removal of other organ (partial) (total) as the cause of abnormal reaction of the patient, or of later complication, without mention of misadventure at the time of the procedure; K59.00 Constipation, unspecified; I10 Essential (primary) hypertension; Z90.79 Acquired absence of other genital organ(s)
CPT/HCPCS: 36415; 74177; 76870; 80053; 81001; 83690; 85025; 93975; 96374; 99284; A9270; Q9967; 81003; 87086

== ENCOUNTER 2024-03-24 13:36 | Emergency (ER) | payer MEDICAID ==
--- NOTE | 2024-03-24 14:11 | ED Physician Documentation ---
PD HPI ABD PAIN - Stated complaint Stated Complaint: POST SURG INCISION OPEN, - Chief complaint Chief Complaint: Abd Pain - History obtained from History obtained from: Patient - Additional information Additional information: 58-year-old history of remote abdominal trauma that was severe and more recently had a prostatectomy with Dr. Brewer at [facility] on March 03. He has been seen here several times for postoperative issues, more recently on 17 March with scrotal swelling. At that time he had a pelvic fluid collection and he has followed up with his urologist since then. His catheter was removed and he is doing okay voiding with some incontinence, and he was told that the pelvic fluid collection would reabsorb. After that his scrotal swelling got better, but became worse last night and he has a dehiscence with some infection of his midline upper abdominal port. He denies fevers or chills. Bowel movements have been normal. PD PAST MEDICAL HISTORY - Past Medical History Cardiovascular: Hypertension, High cholesterol Respiratory: None Neuro: None Endocrine/Autoimmune: None, HyPOthyroidism GI: GERD : Benign prostate hypertrophy, Retention, Chronic bladder infection, Renal insuffiency HEENT: None Psych: Depression, Anxiety, Bipolar disorder, Schizophrenia Musculoskeletal: Osteoarthritis, Gout Derm: Psoriasis Other Past Medical History: prostate cancer - Past Surgical History Past Surgical History: Yes General: Splenectomy, Colonoscopy Ortho: Rotator cuff repair, Carpal Tunnel surgery HEENT: Myringotomy (tubes) - Present Medications Home Medications: Ambulatory Orders Medication Instructions Recorded Confirmed Finasteride 5 mg PO DAILY 02/22/18 03/24/24 OLANZapine [Olanzapine] 10 mg PO DAILY 11/19/19 03/24/24 amLODIPine [Norvasc] 10 mg PO DAILY 11/19/19 03/24/24 FLUoxetine [PROzac] 20 mg PO DAILY 04/07/21 03/24/24 Metoprolol Succinate [Toprol Xl] 50 mg PO DAILY 04/07/21 03/24/24 Atorvastatin Calcium 40 mg PO QPM 12/17/23 03/24/24 Ciprofloxacin HCl 1 tablet PO BID 7 Days #13 tablet 03/10/24 03/24/24 Omeprazole 20 mg PO DAILY 03/24/24 03/24/24 cephALEXin [Keflex] 500 mg PO Q6H #28 cap 03/24/24 - Allergies Allergies/Adverse Reactions: Allergies Allergy/AdvReac Type Severity Reaction Status Date / Time No Known Drug Allergies Allergy Verified 03/16/24 18:28 - Social History Does the pt smoke?: No Smoking Status: Never smoker Does the pt drink ETOH?: No Does the pt have substance abuse?: No - Immunizations Immunizations are current?: Yes Immunizations: TDAP >10years/unknown - POLST Patient has POLST: No POLST Status: Full Code PD ED PE NORMAL - Vitals Vital signs reviewed: Yes - General General: Alert and oriented X 3, No acute distress - Abdomen Abdomen: Normal bowel sounds, Soft, Other (He has several healing port incisions but there is one in the midline to the mid upper abdomen that is dehisced with some purulent drainage. I probed it and it does not go deep to fascia. Fullness of the left groin, nonspecific and also edema of the scrotum without infection.) - Neuro Neuro: Alert and oriented X 3, Normal speech Results - Vitals Vitals: Vital Signs - 24 hr 03/24/24 03/24/24 13:46 15:54 Temperature 36.6 C Heart Rate 83 80 Respiratory 18 18 Rate Blood Pressure 136/84 H 136/89 H O2 Saturation 98 91 L Oxygen O2 Source [] Room air O2 Source Room air - Labs Labs: Laboratory Tests 03/24/24 03/24/24 14:17 14:17 WBC 6.8 RBC 4.23 L Hgb 12.6 L Hct 39.2 L MCV 92.7 MCH 29.8 MCHC 32.1 RDW 13.6 Plt Count 235 MPV 9.3 Neut # (Auto) 4.6 Lymph # (Auto) 1.4 L [place] # (Auto) 0.4 Eos # (Auto) 0.3 Baso # (Auto) 0.0 Absolute Nucleated RBC 0.00 Nucleated RBC % 0.0 Sodium 138 Potassium 3.8 Chloride 105 Carbon Dioxide 24 Anion Gap 9.0 BUN 23 H Creatinine 1.4 H Estimated GFR (MDRD) 52 L Glucose 126 H Calcium 9.6 Total Bilirubin 0.6 AST 20 ALT 20 Alkaline Phosphatase 89 Total Protein 6.8 Albumin 4.1 Globulin 2.7 Albumin/Globulin Ratio 1.5 - Rads (name of study) CT A/P Relevant Findings:: Final report received (CT of the abdomen pelvis demonstrating fluid collection adjacent to the urinary bladder similar to prior. Diffuse scrotal wall edema and fat and fluid within the left inguinal canal.), EMP independent interpretation of test PD Medical Decision Making - ED course ED course: His upper abdominal wound was packed and he was taught how to do it with quarter inch packing and also cultured. His CT demonstrates a persistent fluid collection, and his CBC shows a mild anemia with no white count and his CMP is unremarkable. I tried to get a hold of the urologist at [facility] without success, they were in surgery so did discuss with our on-call urologist, Dr. Colunga who is happy to take over his postoperative care. He is agreeable with the wound care and packing of his upper abdominal incision and thinks that the lymphocele in the pelvis will resolve over time without intervention. He will have the office reach out to the patient. Departure - Departure Disposition: 01 Home, Self Care Clinical Impression: Prostate cancer, Seroma after procedure Condition: Good Record reviewed to determine appropriate education?: Yes Instructions: ED Packing Removal Replacement Follow-Up: Angelo Colunga MD [Provider Admit Priv/Credential] - Prescriptions: cephALEXin [Keflex] 500 mg PO Q6H #28 cap Comments: You were seen today for 2 issues, 1 is the incision opening up on you and is infected. There is a wound culture pending and we will call you if the antibiotics need to be changed. You should pack it once a day as shown after removing the previous days packing. The second is the fluid collection in the pelvis which should resolve on its own but may take months. I discussed your case with Dr. Colunga who will have the office reach out to you for follow-up. Return for new or worsening symptoms. Forms: PCP List
[2024-03-24 14:22] LABS: BASOPHILS % (AUTO) 0.4 %; EOSINOPHILS # (AUTO) 0.3 10^3/uL (0.0-0.7); HCT - HEMATOCRIT 39.2 % (42.0-52.0); HGB - HEMOGLOBIN 12.6 g/dL (14.0-18.0); LYMPHOCYTES # (AUTO) 1.4 10^3/uL (1.5-3.5); LYMPHOCYTES % (AUTO) 20.7 %; MEAN CORPUSCULAR HEMOGLOBIN 29.8 pg (27.0-31.0); MEAN CORPUSCULAR HGB CONC 32.1 g/dL (32.0-36.0); MEAN CORPUSCULAR VOLUME 92.7 fL (80.0-94.0); MEAN PLATELET VOLUME 9.3 fL (7.4-11.4); MONOCYTES # (AUTO) 0.4 10^3/uL (0.0-1.0); MONOCYTES % (AUTO) 6.5 %; NEUTROPHILS # (AUTO) 4.6 10^3/uL (1.5-6.6); NEUTROPHILS % (AUTO) 67.3 %; PLT - PLATELET COUNT 235 10^3/uL (130-450); RED BLOOD COUNT 4.23 10^6/uL (4.70-6.10); RED CELL DISTRIBUTION WIDTH 13.6 % (12.0-15.0); WHITE BLOOD COUNT 6.8 x10^3/uL (4.8-10.8)
[2024-03-24] MEDS: ceFAZolin 1 GM VIAL IVP STA (14:25)
[2024-03-24] MEDS: HYDROmorphone 1 MG/ML CARPUJECT IVP STA (14:25)
[2024-03-24 14:42] LABS: ALBUMIN 4.1 g/dL (3.2-5.5); ALBUMIN/GLOBULIN RATIO 1.5 (1.0-2.2); BILIRUBIN,TOTAL 0.6 mg/dL (0.2-1.0); CALCIUM 9.6 mg/dL (8.5-10.3); CREATININE 1.4 mg/dL (0.6-1.3); POTASSIUM 3.8 mmol/L (3.5-4.5); TOTAL PROTEIN 6.8 g/dL (6.4-8.9)
[2024-03-24] MEDS ORDERED: iohexoL-300 100 ML VIAL ONE (14:44)
[2024-03-24] MEDS: iohexoL-300 100 ML VIAL IVP ONE (14:59)
--- NOTE | 2024-03-24 15:13 | CT Report ---
PROCEDURE: Abdomen/Pelvis W INDICATIONS: IV only, L groin pain CONTRAST: 100ml [id number] TECHNIQUE: After the administration of intravenous contrast, a CT scan of the abdomen and pelvis was performed. Images were recorded and evaluated at appropriate window settings. Reformats: coronal and sagittal. F or radiation dose reduction, the following was used: automated exposure control, adjustment of mA and /or kV according to patient size. COMPARISON: CT 03/16/2024 FINDINGS: Image quality: Diagnostic. Lower chest: Small hiatal hernia with probable Camilla complication. This is likely slipped up to the esophageal hiatus. Liver: No solid mass. Gallbladder: No radiopaque stones or wall thickening. Biliary tree: No intrahepatic or extrahepatic dilation, accounting for age. Spleen: No splenomegaly. Pancreas: No pancreatic ductal dilation. Adrenals: No adrenal nodule. Kidneys and ureters: Mild pelvocaliectasis. No renal cystic lesion which requires follow up. No solid mass. Moderate bilateral ureterectasis, unchanged from prior. Punctate nonobstructing nephrolithiasi s. lobulation. Stomach, bowel and peritoneum: No gastric or small bowel dilation. No abnormal wall thickening. No pa thologic free fluid. Diverticulosis without evidence of diverticulitis. Lymph nodes: No central or retroperitoneal adenopathy. Vessels: No infrarenal aortic aneurysm. Patent portal vein. PELVIS Reproductive organs: Prostatectomy. Extraperitoneal fluid collection along the left side of the pelvi c sidewall measures 10.9 x 9.0 x 9.7 cm, previously 11.0 x 7.4 x 9.7 cm. No peripheral enhancement. Bladder: Decompressed around a Hudson catheter. Pelvic lymph nodes: No pelvic adenopathy by size criteria. Prominent inguinal chain nodes. Bones: No aggressive osseous abnormality. Degenerative changes of the spine. Other: Fat and fluid within the left inguinal canal. Diffuse scrotal wall edema. No subcutaneous scro pardeep wall gas. IMPRESSION: Similar simple appearing fluid collection in the extraperitoneal space adjacent to the urinary bladde r, causing mass effect upon the urinary bladder. No enhancement or internal gas to suggest abscess. Diffuse scrotal wall edema without subcutaneous gas. Fat and fluid within the left inguinal canal. Mild pelvocaliectasis and moderate bilateral ureterectasis, similar to prior. This could represent a sequela of chronic outlet obstruction. Suspected slipped Camilla fundoplication. Reviewed by: Sharif Hsieh MD on 03/24/2024 3:12 PM PDT Approved by: Sharif Hsieh MD on 03/24/2024 3:12 PM PDT Station ID: [id number]
[2024-03-24 17:09] VITALS: BP 135/95; O2SAT 94
--- NOTE | 2024-03-24 17:32 | ED Physician Documentation ---
ED Addendum - Addendum Addendum: 03/24/24 17:31 Dr. Brewer did call me back subsequent to his discharge and we discussed the case. She was a little worried that the fluid collection might represent a urinary leak and recommended that if he were to return to the emergency department for related complaints that it might be helpful if we were to obtain a CT IVP on him.
== END 2024-03-24 17:00 | disposition home or self-care (01) ==
LOC: ED 13:36
DX: C61 Malignant neoplasm of prostate (principal); L76.34 Postprocedural seroma of skin and subcutaneous tissue following other procedure; T81.31XA Disruption of external operation (surgical) wound, not elsewhere classified, initial encounter; R93.5 Abnormal findings on diagnostic imaging of other abdominal regions, including retroperitoneum
CPT/HCPCS: 36415; 74177; 80053; 85025; 87070; 87181; 87205; 96374; 99283; J1170; Q9967

== ENCOUNTER 2024-04-30 12:59 | Outpatient (CLI) | payer MEDICAID ==
[2024-04-30] MEDS ORDERED: iohexoL-300 150 ML BOTTLE ONE (13:16)
[2024-04-30 13:34] LABS: CHOL/HDL RATIO 2.5 (<5.0); CHOLESTEROL 122 mg/dL; CREATININE 1.5 mg/dL (0.6-1.3); GFR - MDRD 48 (>89); HDL CHOLESTEROL 49 mg/dL; LDL CHOLESTEROL,CALCULATED 41 mg/dL; LDL/HDL RATIO 0.8 (<3.6); TRIGLYCERIDES 160 mg/dL; VLDL CHOLESTEROL 32 mg/dL
[2024-04-30] MEDS: iohexoL-300 150 ML BOTTLE IVP ONE (14:21)
--- NOTE | 2024-04-30 22:24 | CT Report ---
PROCEDURE: IVP INDICATIONS: PROSTATE CA CONTRAST: Omni 300 140ml TECHNIQUE: A [address] of the abdomen and pelvis was performed. Non-contrast and contrast images were recorded and evaluated at appropriate window settings. Images were recorded and evaluated at appropriate windo w settings. Reformats: coronal and sagittal. For radiation dose reduction, the following was used: au tomated exposure control, adjustment of mA and/or kV according to patient size. COMPARISON: 03/24/2024 FINDINGS: Image quality: Diagnostic. Lower chest: Lower rib deformities of remote fractures. Small hiatal hernia, similar in morphology co mpared to prior exam with probably slipped Camilla fundoplication. Liver: No solid mass. Gallbladder: Contracted. No calcifications visible. Biliary tree: No intrahepatic or extrahepatic dilation, accounting for age. Spleen: No splenomegaly. Pancreas: No pancreatic ductal dilation. Adrenals: No adrenal nodule. Kidneys and ureters: Both kidneys are normal in size. Punctate lower pole right intrarenal calcificat ion. No significant hydronephrosis. Mild bilateral pelvic prominence, probably physiologic. No hydrou reter. No ureteral calculi. No suspicious cyst or solid mass. Lobulated cortical contour bilaterally. No perinephric inflammation. T Stomach, bowel and peritoneum: Stomach and small bowel are normal. Scattered colonic diverticulosis. No pericolonic inflammation. No intraperitoneal fluid or free air. Abdominal Lymph nodes: Borderline low retroperitoneal lymph nodes, particularly an aortocaval node me asuring 1.0 cm short axis, increased size from 0.8 cm. Other nodes are not enlarged. No mesenteric ma ss. Vessels: Normal caliber abdominal aorta, IVC, and portal vein. Patent portal vein. Reproductive organs: Prostatectomy. Left pelvic side wall fluid collection with rightward mass effect on the bladder measures 10.4 x 8.9 x 10.1 cm, relatively stable size compared to prior. There has be en resolution of several other smaller fluid collections or lobulations of the same fluid collection along the upper pelvic sidewall and anterior inguinal region. There is been resolution of left hydroc ermelinda. Bladder: The urinary bladder is markedly displaced to the right buttock to left pelvic sidewall fluid collection. No calcified bladder stones. No filling defect within the opacified bladder. Pelvic Lymph nodes: Left common iliac chain lymph node has increased size, , now measuring 1.5 c m short axis, previously 1.0 cm. Other pelvic lymph nodes remain nonenlarged. Bones: No aggressive osseous abnormality. Other: None. IMPRESSION: Punctate nonobstructing right lower pole intrarenal calcification. No other urinary calcifications. No evidence of obstructive uropathy despite large left pelvic fluid collection compressing the urinar y bladder. Increased size of retroperitoneal and left pelvic lymph nodes. Decreased size of some exophytic loculations to the dominant left pelvic sidewall mass. No visible osseous lesions. Reviewed by: Erma Licea MD on 04/30/2024 10:23 PM PDT Approved by: Erma Licea MD on 04/30/2024 10:23 PM PDT Station ID: [id number]
== END 2024-04-30 13:00 | disposition home or self-care (01) ==
LOC: LAB 12:59
PROVIDERS: ATTEND Urology
DX: C61 Malignant neoplasm of prostate (principal); E78.5 Hyperlipidemia, unspecified; I89.8 Other specified noninfective disorders of lymphatic vessels and lymph nodes; N28.89 Other specified disorders of kidney and ureter
CPT/HCPCS: 36415; 80061; 82550; 82565; 83721; 84153

== ENCOUNTER 2024-05-14 19:00 | Outpatient (CLI) | payer MEDICAID ==
--- NOTE | 2024-05-14 21:46 | Ultrasound Report ---
PROCEDURE: Duplex Ext Veins Bilateral INDICATIONS: Angelo Colunga MD TECHNIQUE: Real-time imaging, as well as color and pulse Doppler interrogation, were performed of the deep veins of both legs from the inguinal ligament to the popliteal fossa. Attempted visualization of the calf veins was performed. COMPARISON: None FINDINGS: The deep veins are normally compressible, and free of intraluminal thrombus. Color and pu lse Doppler demonstrate normal phasic intravascular flow. There is normal augmentation response to d istal compression maneuver. Tanner cyst is present measuring 4.4 cm. IMPRESSION: No deep venous thrombosis of the visualized lower extremities. Reviewed by: Selina English MD on 05/14/2024 9:45 PM PDT Approved by: Selina English MD on 05/14/2024 9:45 PM PDT Station ID: [id number]
== END 2024-05-14 19:01 | disposition home or self-care (01) ==
LOC: DI 19:00
PROVIDERS: ATTEND Urology
DX: R60.0 Localized edema (principal)
CPT/HCPCS: 93970